=== PATIENT | female | born 1980 | race Caucasian/White ===

== ENCOUNTER 2020-04-20 11:09 | Emergency (ER) | payer OTHER, SELFPAY ==
--- NOTE | ~2020-04-20 | XR_ITS ---
XR knee LT min 4V 04/20/2020 11:56 INDICATION: Right knee contusion PROCEDURE: 4 views right knee COMPARISON: Comparison to multiple prior studies sequentially, with oldest reviewed study dated 09/22. FINDINGS: Fracture, dislocation or subluxation is not identified. Mild osteoarthritis of the patellof emoral compartment. Mild infrapatellar soft tissue swelling. No significant joint effusion. No forei gn bodies are identified. IMPRESSION: 1: NO ACUTE BONE OR JOINT ABNORMALITY IDENTIFIED. Reviewed, dictated and finalized at location A.
[2020-04-20 11:21] VITALS: BP 144/90; PULSE 77; RESP 16; TEMP 37.1; O2SAT 99
--- NOTE | 2020-04-20 11:41 | ED.LOWEXIN ---
HPI - Extremity Injury (Lower) General Chief Complaint: Extremity Injury, Lower Stated Complaint: Left knee pain Source: patient Mode of arrival: ambulatory Limitations: physical limitation (left knee pain, uses one crutch to walk) History of Present Illness HPI Narrative: This 39-year-old with a history of fibromyalgia and left meniscal injury with subsequent repair, tripped and fell down several stairs onto a concrete surface 2 days ago. Since then she has had pain in her left patella which is severe with leg extension and weight-bearing. This morning she was unable to get out of the bath tub secondary to pain with knee movement. She is very concerned about an ACL tear. takes meloxicam daily for knee pain (she was told she has [id number]) and fibromyalgia. She also scraped both knees and her left elbow; she denies increased pain in the right knee or left elbow pain. Last tetanus shot over 10 years ago. She Associated symptoms: snap/pop sensation and swelling Other symptoms: none Treatments prior to arrival: cold therapy Related Data Home Medications Medication Instructions Recorded Confirmed hyoscyamine sulfate 0.375 mg PO DAILY 04/20/20 04/20/20 meloxicam 15 mg PO DAILY 04/20/20 04/20/20 Allergies Allergy/AdvReac Type Severity Reaction Status Date / Time codeine Allergy Unknown Verified 09/07/10 14:09 doxycycline Allergy Unknown Verified 11/07/13 14:16 morphine Allergy Unknown Verified 11/07/13 14:16 Review of Systems Musculoskeletal: Musculoskeletal: Reports no additional musculoskeletal complaints Integumentary/Breasts: Skin/Breast: Reports system reviewed and no additional complaints, except as docu PMFSH Past Medical History Medical History Anemia Anxiety Colitis Depression Endometriosis Fibroids Fibromyalgia History of kidney stones History of ovarian cyst IBS (irritable bowel syndrome) UTI (urinary tract infection) Surgical History Surgical History History of cholecystectomy History of hysterectomy History of laparoscopy Hx of cystoscopy Family History Family History (Updated 11/09/13 @ 08:35 by DOCTOR UNKNOWN) Father Acute myocardial infarction Other Diabetes mellitus Family history of allergic disorder Family history of cardiovascular disease Family history of kidney disease Hypertension Social History Social History Smoking status: Current every day smoker Alcohol intake: never Gender identity (if verbalized by the patient): Female Exam Narrative: Exam Narrative: Sitting in a wheelchair with left knee extended in no acute distress. Skin: Other: Abrasions of the left and right patella and left olecranon. No surrounding erythema or drainage. Neuro: General: patient oriented x3 Extrem: Other: Left knee swelling, primarily on the medial aspect. Tenderness over the inferior portion of the patella. Negative patellar apprehension. No joint line tenderness. Varus and valgus stress test at 12:30 a.m. degrees is without instability. Sen test is negative. Pt. able to transfer from bed to wheelchair without assistance but it was very painful. Psych: Mental Status: mental status grossly normal Course Course Emergency Course: Wounds dressed. Knee immobilizer did not increase pain. Pt. advised not to use knee immobilizer for more than 2 days because of secondary knee stiffness and muscle atrophy. Vital Signs Vital signs: Vital Signs Temperature 37.1 C 04/20/20 11:21 Pulse Rate 77 04/20/20 11:21 Respiratory Rate 16 04/20/20 11:21 Blood Pressure 144/90 H 04/20/20 11:21 Pulse Oximetry 99 04/20/20 11:21 Temperature 37.1 C 04/20/20 11:21 Pulse Rate 77 04/20/20 11:21 Respiratory Rate 16 04/20/20 12:20 Blood Pressure 144/90 H 04/20/20 11:21 Pulse Oximetry 99
[2020-04-20] MEDS: TETANUS,DIPHTHERIA,AC PERTUSSIS ADULT 0.5 ML (ADACEL) IM (11:43)
[2020-04-20 12:20] VITALS: RESP 16
--- NOTE | 2020-04-20 13:07 | PCDIET ---
THERE WERE PROBLEMS WITH TRANSMISSION OF [facility]. RX DELETED TO [facility] - RX UNABLE TO SEND TO [facility] - CALL PLACED TO IT DEPARTMENT - ERP CALLS PATIENT AT HOME FOR GUIDANCE - PT REMINDED TO FOLLOW UP WITH HER PMD TOMORROW
--- NOTE | 2020-04-20 13:33 | PC.NURSE ---
TRAMADOL 50 MG CALLED INTO PHARMACIST CAROL KRISHNA
== END 2020-04-20 12:20 | disposition home or self-care (01) ==
PROVIDERS: Emergency Provider Family Medicine; PCP Internal Medicine
DX: S80.02XA Contusion of left knee, initial encounter (principal); S50.312A Abrasion of left elbow, initial encounter; M79.7 Fibromyalgia; F41.9 Anxiety disorder, unspecified; F32.9 Major depressive disorder, single episode, unspecified; K58.9 Irritable bowel syndrome, unspecified; F17.200 Nicotine dependence, unspecified, uncomplicated; W10.9XXA Fall (on) (from) unspecified stairs and steps, initial encounter
CPT/HCPCS: 73564; 90471; 90715; 99283; A9270; L1830

== ENCOUNTER 2020-06-13 02:53 | Observation (INO) | payer OTHER, SELFPAY ==
[2020-06-13] VITALS (9 sets, daily range): BP systolic 118–170; BP diastolic 62–80; PULSE 61–80; RESP 18–20; TEMP 36.1–36.9; O2SAT 97–99; BMI 30.9
--- NOTE | ~2020-06-13 | XR_ITS ---
EXAMINATION: XR chest 2V DATE: 06/13/2020 03:37 INDICATION: Mid chest burning pain. Left arm burning pain. TECHNIQUE: Frontal and lateral views of the chest were obtained. COMPARISON: Chest 2 views 10/30/2019, CT abdomen and pelvis 11/02/2019 FINDINGS: The chest demonstrates clear lungs without pneumonia, pleural effusion, or pneumothorax. Th e heart size is normal. IMPRESSION: 1. No acute cardiopulmonary disease. Reviewed, dictated and finalized at location A.
--- NOTE | 2020-06-13 03:03 | ECG_ITS ---
Measurements Intervals [place] Rate: 54 P: 17 WV: 127 QRS: 30 QRSD: 97 T: 101 QT: 431 QTc: 409 Interpretive Statements SINUS BRADYCARDIA DELAYED PRECORDIAL R/S TRANSITION BORDERLINE T WAVE ABNORMALITY- ANTEROLAT/HIGH LAT LEADS BORDERLINE ECG Electronically Signed On 06-13-2020 7:54:19 CDT by Aaron Wooten D.O.
[2020-06-13] MEDS: MAG HYDROX/ALUMINUM HYD/SIMETH 30 ML, PHENobarb/HYOSCY/ATROPINE/SCOP 32.4 MG, LIDOCAINE... PO (03:26)
[2020-06-13] MEDS: ONDANSETRON INJ 4 MG/2 ML VIAL IV PUSH (03:26)
[2020-06-13 03:33] LABS: Basophils Absolute Auto 0.08 K/mm3 (0.00-0.10); Basophils Percent Auto 0.7 % (0.0-1.0); Eosinophils Absolute Auto 0.19 K/mm3 (0.02-0.50); Eosinophils Percent Auto 1.7 % (1.0-6.0); Hematocrit 40.3 % (35.0-49.0); Hemoglobin 13.8 g/dL (12.0-15.0); Immature Granulocyte Absolute 0.04 K/mm3 (0.00-0.00); Immature Granulocyte Percent A 0.4 % (0.0-0.0); Lymphocytes Absolute Auto 3.78 K/mm3 (1.10-4.50); Lymphocytes Percent Auto 34.6 % (18.0-42.0); Mean Corpuscular HGB Conc 34.2 g/dL (32.0-36.0); Mean Corpuscular Volume 87.6 fL (78.0-102.0); Mean Platelet Volume 10.1 fl (9.2-11.8); Monocytes Absolute Auto 0.67 K/mm3 (0.10-0.90); Monocytes Percent Auto 6.1 % (2.0-11.0); Neutrophils Absolute Auto 6.2 K/mm3 (1.7-7.2); Neutrophils Percent Auto 56.5 % (50.0-70.0); Platelet Count Result 283 K/mm3 (150-420); Red Cell Distribution Width 13.4 % (11.6-14.4); White Blood Count 10.9 K/mm3 (4.8-10.8)
[2020-06-13 03:49] LABS: D Dimer 0.29 mg/L (0.19-0.50)
[2020-06-13] MEDS: SODIUM CHLORIDE 0.9% IV 1,000 ML 999 ML IV CONT (03:49)
[2020-06-13 03:52] LABS: Alanine Aminotransferase 21 U/L (14-59); Albumin Level 3.4 g/dL (3.4-5.0); Alkaline Phosphatase 80 U/L (46-116); Anion Gap 10.3 mmol/L (7-16); Aspartate Amino Transferase 14 U/L (15-37); Bilirubin,Total 0.2 mg/dL (0.00-1.00); Blood Urea Nitrogen 14 mg/dL (7-18); Calcium 8.5 mg/dL (8.5-10.1); Carbon Dioxide 27 mmol/L (21-32); Chloride 103 mmol/L (98-108); Estimated CRCL calculation 73 ml/min; Estimated Glomerular Filt Rate > 60; Glucose 108 mg/dL (70-99); Lipase 294 U/L (73-393); Osmolality Calculated 285 mOsm/kg (285-295); Potassium 3.3 mmol/L (3.5-5.1); Sodium 137 mmol/L (136-145); Total Protein 6.8 g/dL (6.4-8.2)
[2020-06-13 03:53] LABS: Troponin I 0.06 ng/mL (0.00-0.056)
[2020-06-13] MEDS: ASPIRIN 81 MG CHEWABLE TABLET 324 MG PO (03:59)
[2020-06-13 04:01] LABS: Amphetamine Screen Urine Negative (Negative); Barbiturate Screen Urine Negative (Negative); Benzodiazepines Screen Urine Negative (Negative); Cannabinoid Screen Urine Positive (Negative); Cocaine Screen Urine Negative (Negative); Methadone Screen Urine Negative (Negative); Opiate Screen Urine Negative (Negative); Phencyclidine Screen Urine Negative (Negative)
--- NOTE | 2020-06-13 04:03 | ED.CHESTPAIN ---
HPI - Chest Pain General Chief Complaint: Chest Pain Stated Complaint: chest pain Source: patient Mode of arrival: ambulatory Limitations: no limitations History of Present Illness HPI narrative: This is a 39-year-old female with significant past medical history that includes fibromyalgia, IBS, depression. that presents with some chest pain that started earlier this this evening after which she was sitting on her porch and smoking a cigarette and developed chest pressure and tightness with nausea and radiation into her left arm, she has been taking care of her daughter that recently had surgery and has increased stress level. There is no shortness of breath there is some nausea pain feels like there is a pressure-like sensation. Patient is a smoker, no illicit drug use no alcohol abuse does have a positive family history for heart disease her father. There is currently no fever or chills no abdominal pain no dysuria no flank pain. complaint: chest pain Onset (ago): hour(s) Timing of current episode: constant Prior episodes: No Onset: during rest Pain location: substernal and left chest Pain radiation: left arm Severity: moderate Pain scale (0-10): 7 Quality: heaviness Relieving factors: antacids Exacerbating factors: inspiration Associated symptoms: nausea Related Data Home Medications Medication Instructions Recorded Confirmed No Home Medications 06/13/20 06/13/20 Allergies Allergy/AdvReac Type Severity Reaction Status Date / Time codeine Allergy Unknown Verified 09/07/10 14:09 doxycycline Allergy Unknown Verified 11/07/13 14:16 morphine Allergy Unknown Verified 11/07/13 14:16 Review of Systems Review of Systems: All systems reviewed & are unremarkable except as noted in HPI and below PMFSH Past Medical History Medical History Anemia Anxiety Colitis Depression Endometriosis Fibroids Fibromyalgia History of kidney stones History of ovarian cyst IBS (irritable bowel syndrome) UTI (urinary tract infection) Family History Family History (Updated 11/09/13 @ 08:35 by DOCTOR UNKNOWN) Father Acute myocardial infarction Other Diabetes mellitus Family history of allergic disorder Family history of cardiovascular disease Family history of kidney disease Hypertension Social History Social History Smoking status: Current every day smoker Alcohol intake: never Gender identity (if verbalized by the patient): Female Exam Const: General: no acute distress and alert Orientation/consciousness: patient oriented x3 HENMT: Head: normal to inspection Eyes: Conjunctivae: conjunctivae normal Pupils: Equal, round and reactive pupils present Neck: Neck: normal visual inspection Chest: Chest palpation & inspection: normal inspection of the chest Resp: Effort & Inspection: normal respiratory effort Cardio: Rate: regular rate Rhythm: regular rhythm GI: Auscultation: normal bowel sounds Urinary Catheter: Urinary Catheter: patent and draining Back/Spine/Pelvis: Back: no CVA tenderness Skin: General skin exam: normal color Rashes: no rashes Neuro: General: patient oriented x3 Extrem: General: normal to inspection and no pedal edema Psych: Mental Status: mental status grossly normal Affect: normal affect and Anxious affect present Attitude: cooperative Course Course Emergency Course: a reassessment of patient after receiving a GI cocktail a patient states that her pain has improved, patient also received a full-dose aspirin and informed of her elevated troponin levels with a normal EKG that she will be admitted to run serial troponins. Vital Signs Vital signs: Vital Signs Temperature 36.9 C 06/13/20 03:00 Pulse Rate 74 06/13/20 03:00 Respiratory Rate 20 06/13/20 03:00 Blood Pressure 170/79 H 06/13/20 03:00 Pulse Oximetry 98 06/13/20 03:00
[2020-06-13] MEDS: POTASSIUM CHLORIDE 20 MEQ TABLET 40 MEQ PO (04:22)
--- NOTE | 2020-06-13 04:30 | ADMGEN ---
This patient, Mercedes Roy, was admitted to 2nd Floor Room 201-1. Patient/family oriented to hospital policies and general routines including ID bracelet, bed and alarms, visiting hours, pain management, procedures, bathroom and other care routines, personal items, smoking policy, room service/diet, and visiting hours. Valuables list has been completed. Information on how to activate the Rapid Response Team has been discussed. Patient/Family are encouraged to report perceived risks to care and to ask questions if they do not understand what they are told or what they should do.
[2020-06-13] MEDS: SODIUM CHLORIDE 0.9% IV 1,000 ML 100 ML IV CONT (05:08)
--- NOTE | 2020-06-13 06:00 | PC.NURSE ---
Patient appears to be sleeping. No signs of pain or distress are observed. Call light and personal items are within reach.
[2020-06-13 07:13] LABS: Troponin I 0.97 ng/mL (0.00-0.056)
--- NOTE | 2020-06-13 07:19 | PC.NURSE ---
Dr. Banegas contacted about critical troponin results. He is giving the report to the nurse practitioner at this time.
--- NOTE | 2020-06-13 07:52 | PM.EVENT ---
Event Note Event Note Event Note: Chest pain onset around 1 AM lasting 2 hours with slight dyspnea and nausea. Normal initial ECG and borderline elevated troponin of 0.06. Repeat troponin at 07:00 = 0.97. ECG = moderate T=-wave abnormality anterolateral leads c/w ischemia. ASA given in ED. Pt c/o of #4/10 chest pain which started while I was in the room. States she had a cough which started this AM. 128/68, p= 72 Lungs FCBS, Cor: RR & R, no g/m. Abd. flat and soft. Nontender. A/ NSTEMI P/ Heparin. NTG for pain. Transfer to cardiac facility. Discussed with Vonda Olea, agree with plan.
[2020-06-13 08:01] LABS: INR 0.9; Prothrombin Time 9.8 Seconds (9.64-11.0)
[2020-06-13 08:02] LABS: Partial Thromboplastin Time 34.3 SEC (22.3-31.6)
[2020-06-13] MEDS: KETOROLAC 15 MG/ML VIAL (*BKC) IV PUSH (08:15)
[2020-06-13 08:32] LABS: Magnesium 2.2 mg/dL (1.8-2.4); Phosphorus 3.8 mg/dL (2.6-4.7)
--- NOTE | 2020-06-13 08:38 | PM.IMHP ---
H&P: HPI History of Present Illness Chief complaint: chest pain <Vonda Olea, DRILLER'S ASSISTANT - Last Filed: 06/13/20 09:44> Narrative: Mercedes Roy is a 39 year old female admitted overnight due to chest pain, chest pressure, nausea vomiting, and pain (7/10) radiating to her left shoulder and left arm and left scapular region. Her white count was 11.7 at that time, her potassium was 3.3 and her troponin was 0.06. Her EKG at 3:00 a.m. showed a ventricular rate of 63 with normal sinus rhythm. Her D-dimer was WNL at 0.29. Her urine toxicity screen did show positive for marijuana (Cannabinoids) , no other recreational drugs noted in the tox screen. Her health history includes: fibromyalgia, IBS, and depression. This chest pain appeared to start earlier yesterday evening while she was sitting on her porch smoking cigarettes. At that time she developed chest pain and pressure with nausea that radiated to her left arm. She does have increased stress in her life at this time and easily becomes anxious. Her daughter recently had surgery and she has been taking care of her. Her chest discomfort, N/V was relieved to 3-4/10 during the ER admission with a GI cocktail of antacids and 325 mg ASA. At 6:00 a.m. this morning she did have a chest x-ray that showed: The chest demonstrates clear lungs without pneumonia, pleural effusion, or pneumothorax. The heart size is normal.IMPRESSION:1. No acute cardiopulmonary disease. She did have a fall approximately 2-3 weeks ago and has been having discomfort since then; but she had been attributing it to her fall. She did fall down a flight of stairs, at least 5-6 steps. She is unsure when she fell if she passed out or not. She had thought that she tripped over her own feet. The fall was unwitnessed. Her was present but he was looking in a different direction. Neither one of them could figure out how or why she fell that day according to the patient. Her father had a massive heart attack and at age 52. The patient, her sister and her brother, and her mother all have hypertension. Her mother has no other cardiac history. No CVAs in the family. She does have a history of allergies to morphine that included hives, itching, vomiting, nausea. She also has an allergy to codeine the dates much further back that included nausea and vomiting. This morning when I went to examine the patient, she was initially without pain at rest. The discomfort did return during our conversation and has become constant. She is currently still having constant substernal chest discomfort, left-sided chest pressure, with radiation to her left shoulder and arm. She currently denies any shortness of breath or dyspnea. Her spO2 has remained >94% on room air. There has been no fevers overnight or chills, no further vomiting or nausea, and no abdominal pain or flank pain. I had a repeat EKG completed this morning and found her to have changes, including sinus bradycardia with a heart rate in the 50s and a moderate T-wave abnormality with anterior lateral ischemia leads V 3 V4 V5 and V6. Her repeat Troponin level at 7:00 a.m. was elevated to 0.97. At that time I informed the patient that I would need to transfer her as she was having an NSTEMI. She stated that she would prefer going to [facility] because her 's land surveyor manager Dr. De Leon practice there, but when I called that facility to transfer her they stated that they had no rooms and it may take a while. I then called [facility] Dr. Nick Mccollum with [place] clarification operator, admitted and agreed to take the patient right away. He stated that she sounded like she had unstable angina, he was satisfied that she had received this 325 mg of aspirin already, and that she was starting on a heparin drip with a bolus at this time. <Vonda Olea, DRILLER'S ASSISTANT - Last Filed: 06/13/20 09:44> Review of System
[2020-06-13] MEDS: HEPARIN SODIUM 5,000 UNITS/ML VIAL 3700 UNITS IV PUSH (08:47)
[2020-06-13] MEDS: HEPARIN SOD/D5W 100 UNITS/ML 25,000 UNITS/250 ML BAG 7.32 UNITS IV CONT (08:48)
--- NOTE | 2020-06-13 09:00 | PC.NURSE ---
Report called to [facility] [id number]. Ambulance called to page transfer at [phone]
--- NOTE | 2020-06-13 09:05 | PC.NURSE ---
[facility] called back, not able to provide service at this time. State they only have 1 ACLS unit avaliable
--- NOTE | 2020-06-13 09:08 | PC.NURSE ---
[facility] contacted to transfer patient.
--- NOTE | 2020-06-13 09:12 | ECG_ITS ---
Measurements Intervals [place] Rate: 63 P: 21 MA: 129 QRS: 41 QRSD: 101 T: 53 QT: 403 QTc: 413 Interpretive Statements SINUS RHYTHM BASELINE ARTIFACT- II, III, AVF NORMAL ECG Electronically Signed On 06-13-2020 7:54:37 CDT by Aaron Wooten D.O.
[2020-06-13] MEDS: LORazepam 0.5 MG TABLET PO (09:45)
--- NOTE | 2020-06-13 09:48 | PM.DS ---
DS: Admitting Diagnosis Admitting Diagnosis Admitting Diagnosis: Non-ST elevation (NSTEMI) myocardial infarction DS: Discharge Diagnosis Discharge Diagnosis (1) NSTEMI (non-ST elevated myocardial infarction): Code(s): I21.4 - Non-ST elevation (NSTEMI) myocardial infarction Status: Acute Assessment and Plan: experiencing chest pain, chest pressure, nausea vomiting, pain radiating to her left shoulder and left arm and left scapular region; as well as numbness and tingling in her left arm. troponin was 0.06 at 3am , elevated to 0.97 at 7am. EKG at 3:00 a.m. showed a ventricular rate of 63 with normal sinus rhythm. D-dimer was WNL at 0.29. urine toxicity screen did show positive for marijuana (Cannabinoids) , no other recreational drugs noted in the tox screen. health history includes anxiety, current cigarette smoker, ulcerative colitis that she was on medications for but quit taking a few months ago, HTN that she was also taking medications for but quit taking a few months ago GI cocktail of antacids and 325 mg ASA chest x-ray that showed: The chest demonstrates clear lungs without pneumonia, pleural effusion, or pneumothorax. The heart size is normal.IMPRESSION:1. No acute cardiopulmonary disease. Fam Hx: father had a massive heart attack and at age 52. The patient, her sister and her brother, and her mother all have hypertension. Her mother has no other cardiac history. No CVAs in the family. ordered nitro p.r.n. she was given 325 of aspirin earlier this morning administered IV heparin bolus of 3660 units heparin, with a drip rate of 732 units/hour of heparin based on her weight of 76 kg spO2 has remained >94% on room air. repeat EKG completed this morning and found her to have changes, including sinus bradycardia with a heart rate in the 50s and a moderate T-wave abnormality with anterior lateral ischemia leads V 3 V4 V5 and V6. repeat Troponin level at 7:00 a.m. was elevated to 0.97. transfer to [facility] Teacher Dr. Nick Mccollum with [place] supervisor [facility] [employer], admitted and agreed to take the patient right away. He stated that she sounded like she had unstable angina, he was satisfied that she had received this 325 mg of aspirin already, and that she was starting on a heparin drip with a bolus at this time. (2) Unstable angina: Code(s): I20.0 - Unstable angina Status: Acute Assessment and Plan: Nitro PRN ordered. IV heparin bolus and IV heparin drip 1 dose of Toradol for pain, 15 mg Zofran for nausea patient stated that she could tolerate [place] if given with Zofran at the same time Mag and phos were both within normal limits at this time of EMS transfer arriving and patient being discharged to go to [facility] her pain was currently controlled and she denied any discomfort at this time, her heparin drip remains in place and infusing. (3) Anxiety: Code(s): F41.9 - Anxiety disorder, unspecified Status: Acute Assessment and Plan: history of anxiety and depression on no home meds Ordered a small 0.5 mg dose of oral Ativan for patient to have to endure the ambulance ride DS: Summary Time Spent with Patient Time attestation: Total time spent providing and/or coordinating discharge services:>90 minutes Exam Const: General: alert, in distress moderate and uncomfortable; No confusion Orientation/consciousness: patient oriented x3 and No confusion HENMT: Head: normal to inspection Mouth: Yes moist mucous membranes Eyes: General: appearance normal, both eyes and all related structures Conjunctivae: conjunctivae normal Pupils: Equal, round and reactive pupils present EOM: EOMs intact bilaterally Neck: Neck: normal visual inspection Chest: Chest palpation & inspection: normal inspection of the chest Resp: Effort & Inspection: normal respiratory effort Auscultation: clear to auscultation bilaterally, no crackles,
[2020-06-13 11:17] LABS: Thyroid Stimulating Hormone Reflex 1.23 u/IU/mL (0.36-3.74)
--- NOTE | 2020-06-23 14:49 | PC.NURSE ---
NS ended at 1508
--- NOTE | 2020-07-15 10:28 | PC.NURSE ---
Heparin gtt was infusing when patient was transferred via [facility] at 0945 on 05/22/2020
== END 2020-06-13 09:45 | disposition short-term general hospital (02) ==
LOC: CHSED 02:57 → CHS2ND 04:09
PROVIDERS: Nurse Practitioner; Admitting Provider Emergency Medicine; Emergency Provider Emergency Medicine; PCP Internal Medicine; Visit Provider Emergency Medicine
DX: I21.4 Non-ST elevation (NSTEMI) myocardial infarction (principal); I20.0 Unstable angina; M79.7 Fibromyalgia; K58.9 Irritable bowel syndrome, unspecified; N80.9 Endometriosis, unspecified; D25.9 Leiomyoma of uterus, unspecified; F17.210 Nicotine dependence, cigarettes, uncomplicated; F32.9 Major depressive disorder, single episode, unspecified; F41.9 Anxiety disorder, unspecified
CPT/HCPCS: 36415; 71046; 80053; 80307; 83690; 83735; 84100; 84443; 84484; 85025; 85380; 85610; 85730; 87086; 93005; 96361; 96365; 96374; 96375; 99284; 99285; A9270; G0378; J1644; J1885; J2405; J7030

== ENCOUNTER 2020-07-31 14:36 | Outpatient (CLI) | payer OTHER, SELFPAY ==
--- NOTE | ~2020-07-31 | US_ITS ---
EXAMINATION: US arterial ankle brachial ind EXAM DATE: 07/31/2020 15:43 INDICATION: Peripheral arterial disease. TECHNIQUE: Segmental pressures and plethysmographic and Doppler waveforms of the brachial and lower e xtremity arteries were obtained. There is no prior study for comparison. FINDINGS: Right and left brachial artery pressures of 108 mm Hg and 121 mm Hg, respectively, are concordant (no rmal difference <= 30 mmHg). RIGHT LEG: The ankle-brachial index (LUCIANA) is 0.83 (normal >= 0.9-1). The great toe pressure is 100 mmHg . The lower extremity ratios, segmental pressure gradients as follows; Dorsalis pedis: 0.71 (86 mmHg). Posterior tibial: 0.83 (100 mmHg). (Normal gradients <= 20-30 mmHg between adjacent levels on the same leg or the same levels on the two legs). Arterial waveforms are biphasic. LEFT LEG: The ankle-brachial index (LUCIANA) is 1.16 (normal >= 0.9-1). The great toe pressure is 118 mmHg The lower extremity ratios, segmental pressure gradients as follows; Dorsalis pedis: 1.09 (132 mmHg). Posterior tibial: 1.16 (140 mmHg). (Normal gradients <= 20-30 mmHg between adjacent levels on the same leg or the same levels on the two legs). Arterial waveforms are biphasic. IMPRESSION: 1. Right ankle-brachial index 0.83, mildly decreased. 2. Left ankle-brachial index 1.16, normal. Reviewed, dictated and finalized at location A.
== END 2020-07-31 14:37 | disposition home or self-care (01) ==
LOC: CHSIMG 14:37
PROVIDERS: PCP Internal Medicine; Visit Provider Internal Medicine
DX: I73.9 Peripheral vascular disease, unspecified (principal)
CPT/HCPCS: 93922

== ENCOUNTER 2020-09-19 16:47 | Outpatient (CLI) | payer OTHER, SELFPAY ==
--- NOTE | ~2020-09-19 | XR_ITS ---
XR chest 2V 09/19/2020 17:05 Indication: Chest pain Procedure: 2 view chest Comparison: 06/13/2020 Findings: Interval development of infiltrates of the left mid and lower lung zones. Elevated left leandro phragm. Status post median sternotomy for CABG. Impression: 1: Interval development of infiltrates of the left mid and lower lung zones with elevated left diaphr agm and interval sternotomy changes. These findings may relate to recent surgery, atelectasis and/or pneumonia. Reviewed, dictated and finalized at location A. Impression: 1: Interval development of infiltrates of the left mid and lower lung zones wit h elevated left diaphragm and interval sternotomy changes. These findings may r elate to recent surgery, atelectasis and/or pneumonia.
[2020-09-19 16:57] LABS: Basophils Absolute Auto 0.13 K/mm3 (0.00-0.10); Eosinophils Absolute Auto 0.72 K/mm3 (0.02-0.50); Eosinophils Percent Auto 5.6 % (1.0-6.0); Hematocrit 42.9 % (35.0-49.0); Hemoglobin 14.1 g/dL (12.0-15.0); Immature Granulocyte Absolute 0.06 K/mm3 (0.00-0.00); Immature Granulocyte Percent A 0.5 % (0.0-0.0); Lymphocytes Absolute Auto 4.19 K/mm3 (1.10-4.50); Lymphocytes Percent Auto 32.6 % (18.0-42.0); Mean Corpuscular HGB Conc 32.9 g/dL (32.0-36.0); Mean Corpuscular Hemoglobin 28.7 pg (27.0-31.0); Mean Corpuscular Volume 87.2 fL (78.0-102.0); Mean Platelet Volume 9.9 fl (9.2-11.8); Monocytes Absolute Auto 0.66 K/mm3 (0.10-0.90); Monocytes Percent Auto 5.1 % (2.0-11.0); Neutrophils Absolute Auto 7.1 K/mm3 (1.7-7.2); Neutrophils Percent Auto 55.2 % (50.0-70.0); Platelet Count Result 361 K/mm3 (150-420); Red Blood Count 4.92 M/mm3 (4.20-5.40); Red Cell Distribution Width 12.9 % (11.6-14.4); White Blood Count 12.8 K/mm3 (4.8-10.8)
[2020-09-19 17:48] LABS: Alanine Aminotransferase 43 U/L (14-59); Albumin Level 3.9 g/dL (3.4-5.0); Alkaline Phosphatase 129 U/L (46-116); Anion Gap 12 mmol/L (8-16); Aspartate Amino Transferase 23 U/L (15-37); Bilirubin,Total 0.2 mg/dL (0.00-1.00); Blood Urea Nitrogen 15 mg/dL (7-18); CRP 0.8 mg/dL (0.0-0.9); Calcium 9.3 mg/dL (8.5-10.1); Carbon Dioxide 28 mmol/L (21-32); Chloride 101 mmol/L (98-108); Estimated Glomerular Filt Rate > 60; Glucose 84 mg/dL (70-99); Magnesium 2.1 mg/dL (1.8-2.4); Osmolality Calculated 291 mOsm/kg (285-295); Potassium 4.6 mmol/L (3.5-5.1); Sodium 141 mmol/L (136-145); Thyroid Stimulating Hormone 2.02 uIU/mL (0.36-3.74); Total Protein 7.4 g/dL (6.4-8.2)
[2020-09-19 17:49] LABS: BNP 156 pg/mL (0-100)
== END 2020-09-19 16:48 | disposition home or self-care (01) ==
LOC: CHSLAB 16:48
PROVIDERS: PCP Internal Medicine; Visit Provider Internal Medicine
DX: I42.9 Cardiomyopathy, unspecified (principal); I50.9 Heart failure, unspecified; J90 Pleural effusion, not elsewhere classified
CPT/HCPCS: 36415; 71046; 80053; 83735; 83880; 84443; 85025; 86140

== ENCOUNTER 2020-09-25 10:28 | Emergency (ER) | payer OTHER, SELFPAY ==
--- NOTE | ~2020-09-25 | CT_ITS ---
EXAMINATION: CT abdomen pelvis wo con EXAM DATE: 09/25/2020 11:10 INDICATION: Right flank pain, right lower quadrant pain, hematuria. Symptoms 3 days. TECHNIQUE: Spiral CT of the abdomen and pelvis was performed without contrast. Axial, coronal and sag ittal images were reviewed. The dose-length product (DLP) for this examination was 248.40 mGy-cm. T he exposure was tailored according to patient size (auto mA exposure control), and iterative reconstr uction (ASIR) was used as additional dose reduction technique. Comparison is made to prior examinatio n from 11/02/2019. FINDINGS: There is 3 x 5 mm curvilinear stone in the right ureter proximally, at the L3-4 disc space. No hydronephrosis at present. There is punctate left nephrolithiasis. There is a 2.2 cm right renal cyst with milk of calcium. The uterus is not identified and has likely been surgically resected. Th e bladder is collapsed at time of imaging limiting evaluation. The liver, spleen, adrenal glands and pancreas are unremarkable. There are cholecystectomy clips. There is no retroperitoneal or pelvic lymphadenopathy. The appendix is normal. There is mild scattered colonic diverticulosis. There is no adjacent inflamm atory change to suggest diverticulitis. The stomach and small bowel are unremarkable. There is expec neftali amount of colonic stool. No free intraperitoneal gas. The heart is normal in size. There are no pericardial or pleural effusions. The lung bases are unremarkable. There are no osteoblastic or osteolytic lesions identified. Sternotomy wires. IMPRESSION: 1. Right proximal ureteral 3 x 5 mm stone. No hydronephrosis at present. Could be intermittently obs tructing. 2. Punctate left nephrolithiasis. 3. Scattered colonic diverticulosis. Urologist consultants would appreciate KUB as baseline for follow-up, treatment planning. Reviewed, dictated and finalized at location B. ERY ATTENDANT IMPRESSION: 1. Right proximal ureteral 3 x 5 mm stone. No hydronephrosis at present. Could be intermittently obstructing. 2. Punctate left nephrolithiasis. 3. Scattered colonic diverticulosis. Urologist consultants would appreciate KUB as baseline for follow-up, treatmen t planning.
[2020-09-25 10:40] VITALS: BP 110/68; PULSE 95; RESP 16; TEMP 36.6; O2SAT 97
[2020-09-25 10:46] LABS: Add Urine Microscopic? YES; Appearance Urine Cloudy (Clear); Bilirubin Urine Negative (Negative); Blood Urine 3+ (Negative); Color Urine Red (Yellow); Glucose Urine UA Negative (Negative); Ketones Urine 1+ (Negative); Leukocyte Esterase Ur 2+ LEU/UL (Negative); Nitrate Urine Positive (Negative); Protein Urine 3+ (Negative); Specific Grav Ur >= 1.030 (1.010-1.020); pH Urine 6.5 (5.0-8.0)
[2020-09-25 10:51] LABS: Bacteria Urine 4+ /hpf; RBC Urine >75 /hpf (0-2); Squamous Epithelial Cell Urine Few /hpf (Few); WBC Urine 31-50 /hpf (0-3)
[2020-09-25 11:02] LABS: Basophils Absolute Auto 0.11 K/mm3 (0.00-0.10); Basophils Percent Auto 1.1 % (0.0-1.0); Eosinophils Absolute Auto 0.74 K/mm3 (0.02-0.50); Eosinophils Percent Auto 7.4 % (1.0-6.0); Hematocrit 41.4 % (35.0-49.0); Hemoglobin 13.6 g/dL (12.0-15.0); Immature Granulocyte Absolute 0.03 K/mm3 (0.00-0.00); Immature Granulocyte Percent A 0.3 % (0.0-0.0); Lymphocytes Absolute Auto 3.31 K/mm3 (1.10-4.50); Mean Corpuscular HGB Conc 32.9 g/dL (32.0-36.0); Mean Corpuscular Hemoglobin 28.5 pg (27.0-31.0); Mean Corpuscular Volume 86.6 fL (78.0-102.0); Mean Platelet Volume 9.7 fl (9.2-11.8); Monocytes Absolute Auto 0.55 K/mm3 (0.10-0.90); Monocytes Percent Auto 5.5 % (2.0-11.0); Neutrophils Absolute Auto 5.3 K/mm3 (1.7-7.2); Neutrophils Percent Auto 52.7 % (50.0-70.0); Platelet Count Result 340 K/mm3 (150-420); Red Blood Count 4.78 M/mm3 (4.20-5.40); Red Cell Distribution Width 13.3 % (11.6-14.4)
[2020-09-25 11:14] LABS: Prothrombin Time 10.1 Seconds (9.64-11.0)
[2020-09-25 11:17] LABS: Alanine Aminotransferase 37 U/L (14-59); Albumin Level 3.6 g/dL (3.4-5.0); Alkaline Phosphatase 118 U/L (46-116); Anion Gap 11 mmol/L (8-16); Aspartate Amino Transferase 14 U/L (15-37); Bilirubin,Total 0.2 mg/dL (0.00-1.00); Blood Urea Nitrogen 11 mg/dL (7-18); Calcium 9.2 mg/dL (8.5-10.1); Carbon Dioxide 25 mmol/L (21-32); Chloride 106 mmol/L (98-108); Estimated Glomerular Filt Rate > 60; Osmolality Calculated 293 mOsm/kg (285-295); Potassium 4.1 mmol/L (3.5-5.1); Sodium 142 mmol/L (136-145); Total Protein 7.4 g/dL (6.4-8.2)
[2020-09-25] MEDS: SODIUM CHLORIDE 0.9% IV 1,000 ML 999 ML IV CONT (11:17)
[2020-09-25] MEDS: KETOROLAC 30 MG/ML VIAL (*BKC) IV PUSH (11:18)
[2020-09-25] MEDS: ONDANSETRON INJ 4 MG/2 ML VIAL IV PUSH (11:18)
[2020-09-25 11:22] LABS: Glucose 93 mg/dL (70-99)
--- NOTE | 2020-09-25 11:37 | ED.FEMALEGU ---
HPI - Female Genitourinary General Chief complaint: Urogenital-Female Stated complaint: urinanting blood Source: patient Mode of arrival: ambulatory Limitations: no limitations History of Present Illness HPI Narrative: This is a 40-year-old female presents with some right flank pain and discomfort with dysuria and hematuria started over the last day or 2 but intensified over the last few hours having a right flank pain radiating into her right groin and pelvic area with dysuria, some nausea rates her pain about 8/10 has a history of kidney stones and has seen a urologist in the past. Patient has no fever or chills no shortness of breath no chest pain no diarrhea or constipation. Patient has a history of CAD and currently is on aspirin and Plavix, with no chest pain or shortness of breath. MD elicited complaint: dysuria Onset (ago): hour(s) Severity: moderate Female Urogenital Radiation: Periumbilical and R Flank Severity scale (1-10): 8 Quality of pain: aching Consistency: intermittent Vaginal discharge: none Vaginal bleeding: none Urinary symptoms: Dysuria, Urgency, Frequency, Hematuria and Flank Pain Relieving factors: none Related Data Home Medications Medication Instructions Recorded Confirmed aspirin [Adult Aspirin] 81 mg PO DAILY 09/25/20 09/25/20 atorvastatin 20 mg PO DAILY 09/25/20 09/25/20 bupropion HCl 150 mg PO HS 09/25/20 09/25/20 clopidogrel [Plavix] 75 mg PO DAILY 09/25/20 09/25/20 duloxetine 20 mg PO BID 09/25/20 09/25/20 metoprolol succinate 25 mg PO DAILY 09/25/20 09/25/20 pantoprazole [Protonix] 40 mg PO QAM 09/25/20 09/25/20 sacubitril-valsartan [Entresto] 1 tablet PO BID 09/25/20 09/25/20 spironolactone 25 mg PO DAILY 09/25/20 09/25/20 Allergies Allergy/AdvReac Type Severity Reaction Status Date / Time codeine Allergy Unknown Verified 09/07/10 14:09 doxycycline Allergy Unknown Verified 11/07/13 14:16 morphine Allergy Unknown Verified 11/07/13 14:16 Review of Systems Review of Systems: All systems reviewed & are unremarkable except as noted in HPI and below PMFSH Past Medical History Medical History (Updated 09/25/20 @ 11:43 by Silvestre Banegas MD) Anemia Anxiety Colitis Depression Endometriosis Fibroids Fibromyalgia History of kidney stones History of ovarian cyst IBS (irritable bowel syndrome) UTI (urinary tract infection) Surgical History Surgical History History of cholecystectomy History of hysterectomy History of laparoscopy Hx of cystoscopy Family History Family History Father Acute myocardial infarction Other Diabetes mellitus Family history of allergic disorder Family history of cardiovascular disease Family history of kidney disease Hypertension Social History Social History Smoking packs per day: 2 Smoking cigarettes per day: 40.0 Years smoked: 20 Smoking pack-years: 40.00 Smoking status: Current every day smoker Tobacco type: cigarettes Second hand tobacco smoke exposure: Yes Alcohol intake: never Substance use: current Substance use type: marijuana Last use: 06/12/20 Gender identity (if verbalized by the patient): Female Spiritual care concerns: No Exam Const: General: no acute distress and alert Orientation/consciousness: patient oriented x3 HENMT: Head: normal to inspection Eyes: Conjunctivae: conjunctivae normal Pupils: Equal, round and reactive pupils present EOM: EOMs intact bilaterally Neck: Neck: normal visual inspection, no lymphadenopathy and no meningeal signs Chest: Chest palpation & inspection: normal inspection of the chest Resp: Effort & Inspection: normal respiratory effort Auscultation: clear to auscultation bilaterally Cardio: Rate: regular rate Rhythm: regular rhythm GI: GI Palp: Yes Soft to palpation Other: Tender supra
[2020-09-25] MEDS: HYDROmorphone HCL INJ (*CRX) 2 MG/ML VIAL 0.5 MG IV PUSH (12:02)
--- NOTE | 2020-09-25 12:36 | ECG_ITS ---
Measurements Intervals [place] Rate: 63 P: 0 HI: 130 QRS: 37 QRSD: 97 T: 159 QT: 437 QTc: 449 Interpretive Statements SINUS RHYTHM POOR R WAVE PROGRESSION, ANTERIOR LEADS ST-T WAVE ABNORMALITY IN ANTEROLAT/HIGH LAT LEADS- CONSIDER ISCHEMIA ABNORMAL ECG Electronically Signed On 09-25-2020 13:31:25 METAL MACHINE OPERATOR by Aaron Wooten D.O.
[2020-09-25 13:19] LABS: Troponin I 0.02 ng/mL (0.00-0.056)
[2020-09-25 13:27] VITALS: BP 103/62; PULSE 68; O2SAT 98
== END 2020-09-25 13:30 | disposition home or self-care (01) ==
PROVIDERS: Emergency Provider Emergency Medicine; PCP Internal Medicine
DX: N20.1 Calculus of ureter (principal); N30.01 Acute cystitis with hematuria; F17.200 Nicotine dependence, unspecified, uncomplicated
CPT/HCPCS: 36415; 74176; 80053; 81001; 84484; 85025; 85610; 85730; 87086; 93005; 96361; 96365; 96375; 99284; J0696; J1170; J1885; J2405; J7030

== ENCOUNTER 2020-09-25 22:55 | Emergency (ER) | payer OTHER, SELFPAY ==
[2020-09-25 22:55] VITALS: BP 117/69; PULSE 80; RESP 20; TEMP 36.5; O2SAT 98
--- NOTE | 2020-09-25 23:06 | ED.FEMALEGU ---
HPI - Female Genitourinary General Stated complaint: kidney stone Source: patient and family Mode of arrival: ambulatory Limitations: no limitations History of Present Illness HPI Narrative: this is a 40-year-old female with a history of urolithiasis seen in the emergency department earlier today and diagnosed with a right ureter stone measuring 3x5 was given pain medication and was told to follow-up with her urologist. The patient returned to the emergency department with continued pain in the right flank area, initially did get relief but the pain started to intensify over the last hour. Currently there is no fever chills no chest pain no shortness of breath no nausea vomiting does have dysuria and burning with some crampy suprapubic discomfort. Patient has appointment with her urologist in the morning. I gave her the option of transferring her to another facility but she said she would be content with some getting a pain shot and getting her some relief and keeping her follow-up appointment with her primary urologist. MD elicited complaint: dysuria Onset (ago): hour(s) Severity: similar to previous episodes Female Urogenital Radiation: R Flank Severity scale (1-10): 8 Quality of pain: aching Consistency: constant Vaginal discharge: none Vaginal bleeding: none Related Data Home Medications Medication Instructions Recorded Confirmed aspirin [Adult Aspirin] 81 mg PO DAILY 09/25/20 09/25/20 atorvastatin 20 mg PO DAILY 09/25/20 09/25/20 bupropion HCl 150 mg PO HS 09/25/20 09/25/20 clopidogrel [Plavix] 75 mg PO DAILY 09/25/20 09/25/20 duloxetine 20 mg PO BID 09/25/20 09/25/20 metoprolol succinate 25 mg PO DAILY 09/25/20 09/25/20 pantoprazole [Protonix] 40 mg PO QAM 09/25/20 09/25/20 sacubitril-valsartan [Entresto] 1 tablet PO BID 09/25/20 09/25/20 spironolactone 25 mg PO DAILY 09/25/20 09/25/20 Allergies Allergy/AdvReac Type Severity Reaction Status Date / Time codeine Allergy Unknown Verified 09/07/10 14:09 doxycycline Allergy Unknown Verified 11/07/13 14:16 morphine Allergy Unknown Verified 11/07/13 14:16 Review of Systems Review of Systems: All systems reviewed & are unremarkable except as noted in HPI and below PMFSH Past Medical History Medical History (Updated 09/26/20 @ 00:00 by Background Dabrigidon) Anemia Anxiety Colitis Depression Endometriosis Fibroids Fibromyalgia History of kidney stones History of ovarian cyst IBS (irritable bowel syndrome) UTI (urinary tract infection) Surgical History Surgical History History of cholecystectomy History of hysterectomy History of laparoscopy Hx of cystoscopy Family History Family History Father Acute myocardial infarction Other Diabetes mellitus Family history of allergic disorder Family history of cardiovascular disease Family history of kidney disease Hypertension Social History Social History Smoking packs per day: 2 Smoking cigarettes per day: 40.0 Years smoked: 20 Smoking pack-years: 40.00 Smoking status: Current every day smoker Tobacco type: cigarettes Second hand tobacco smoke exposure: Yes Alcohol intake: never Substance use: current Substance use type: marijuana Last use: 06/12/20 Gender identity (if verbalized by the patient): Female Spiritual care concerns: No Exam Const: General: no acute distress Orientation/consciousness: patient oriented x3 HENMT: Head: normal to inspection Eyes: Conjunctivae: conjunctivae normal Pupils: Equal, round and reactive pupils present Neck: Neck: normal visual inspection, no lymphadenopathy and no meningeal signs Chest: Chest palpation & inspection: normal inspection of the chest Resp: Effort & Inspection: normal respiratory effort Auscultation: clear to auscultation bilaterally Cardio: Rate:
[2020-09-25] MEDS: HYDROmorphone HCL INJ (*CRX) 2 MG/ML VIAL 1 MG IV PUSH (23:15)
[2020-09-25] MEDS: SODIUM CHLORIDE 0.9% IV 500 ML 999 ML ×2 (23:20→23:56)
[2020-09-25 23:36] VITALS: BP 102/59; O2SAT 64
--- NOTE | 2020-09-25 23:39 | PC.NURSE ---
Addendum entered by Guru Meadows RN 09/26/20 00:35: spoke with jad crowley. Original Note: pt requesting transfer to [place], has an appt with dr dominguez at 215pm. spoke with Domenica, bottle house pumper. awaiting call back
[2020-09-26] MEDS: ONDANSETRON INJ 4 MG/2 ML VIAL IV PUSH (00:20)
[2020-09-26] MEDS: KETOROLAC 30 MG/ML VIAL (*BKC) IV PUSH (00:32)
--- NOTE | 2020-09-26 00:35 | PC.NURSE ---
call to [place], multiple pages to dr dominguez. awaiting return call. pt continues to have bladder spasms.
--- NOTE | 2020-09-26 00:35 | PC.NURSE ---
Patient requested ice chips, sitting on the side of bed at this time.
--- NOTE | 2020-09-26 01:07 | PC.NURSE ---
call to [facility], no response from dr dominguez. carline stated she spoke with dr miller, hospitalist, he is aware of pt. stated he would call when he gets a chance.
--- NOTE | 2020-09-26 01:24 | PC.NURSE ---
pt offered to transfer to another facility due to extended response time , pt declined due to insurance reasons.
[2020-09-26 01:25] VITALS: BP 96/60; PULSE 59; RESP 20; O2SAT 98
--- NOTE | 2020-09-26 01:41 | PC.NURSE ---
erp dr archer speaking with dr miller from [place].
--- NOTE | 2020-09-26 01:47 | PC.NURSE ---
Dr miller declined admission at this time, need to contact dr dominguez. call to [facility]. will return call.
--- NOTE | 2020-09-26 01:50 | PC.NURSE ---
[facility] returned call, dr dominguez responded to several pages and will be calling. [id number] dr archer talking with dr dominguez.
--- NOTE | 2020-09-26 01:56 | PC.NURSE ---
awaiting bed placement from [facility].
[2020-09-26 02:08] VITALS: BP 99/57; PULSE 62; RESP 20; TEMP 37.1; O2SAT 97
--- NOTE | 2020-09-26 02:11 | PC.NURSE ---
CALL TO [facility]. AWAITING ARRIVAL
== END 2020-09-26 02:38 | disposition short-term general hospital (02) ==
PROVIDERS: Emergency Provider Emergency Medicine; PCP Internal Medicine
DX: N20.1 Calculus of ureter (principal)
CPT/HCPCS: 96361; 96374; 96375; 99285; J1170; J1885; J2405; J7040

== ENCOUNTER 2020-09-26 03:13 | Observation (INO) | payer OTHER, SELFPAY ==
--- NOTE | ~2020-09-26 | XR_ITS ---
EXAMINATION: XR abdomen/kub 1V INDICATION: Right UPJ stone TECHNIQUE: Supine views of the abdomen were obtained on 2 radiographs. COMPARISON: CT from yesterday FINDINGS: A 5 mm calcification projects in the right pelvis at the expected location of the ureterove sicular junction which likely reflects interval distal migration of the previously described right pr oximal ureteral stone. Phleboliths are noted in the right pelvis. The bowel gas pattern is normal. Deluna rgical clips are noted in the left pelvis. Cholecystectomy clips are seen in the right upper quadrant . IMPRESSION: 1. 5 mm calcification at the expected location of the right ureterovesicular junction, likely represe nting the previously described ureteral stone. Reviewed, dictated and finalized at location A. CAL INSTRUMENT MAKER IMPRESSION: 1. 5 mm calcification at the expected location of the right ureterovesicular ju nction, likely representing the previously described ureteral stone.
--- NOTE | 2020-09-26 03:26 | ADMGEN ---
This patient, Mercedes Roy, was admitted to 2 Medical Room 250-01. Patient/family oriented to hospital policies and general routines including ID bracelet, bed and alarms, visiting hours, pain management, procedures, bathroom and other care routines, personal items, smoking policy, room service/diet, and visiting hours. Information on how to activate the Rapid Response Team has been discussed. Patient/Family are encouraged to report perceived risks to care and to ask questions if they do not understand what they are told or what they should do.
[2020-09-26 03:53] VITALS: BP 114/69; PULSE 86; RESP 20; TEMP 36.1; O2SAT 98; BMI 29.5
[2020-09-26] MEDS: SODIUM CHLORIDE 0.9% IV 1,000 ML 120 ML IV CONT (04:42)
[2020-09-26] MEDS: HYDROmorphone HCL INJ (*CRX) 1 MG/ML SYR 0.5 MG IV PUSH (04:48)
[2020-09-26 06:00] VITALS: BP 120/60; PULSE 90; RESP 21; TEMP 36.1; O2SAT 100
[2020-09-26 06:11] LABS: Basophils Absolute Auto 0.1 K/mm3 (0.0-0.1); Basophils Percent Auto 0.6 % (0.2-1.2); Eosinophils Absolute Auto 0.1 K/mm3 (0-0.3); Eosinophils Percent Auto 0.5 % (0-4.4); Hematocrit 37.1 % (37.0-47.0); Hemoglobin 12.3 g/dL (12.0-15.0); Immature Granulocyte Absolute 0.04 K/mm3 (0.00-0.031); Immature Granulocyte Percent A 0.3 % (0-0.5); Lymphocytes Absolute Auto 1.91 K/mm3 (0.9-3.2); Lymphocytes Percent Auto 15.1 % (18.3-44.2); Mean Corpuscular HGB Conc 33.2 g/dl (32-36); Mean Corpuscular Hemoglobin 29.2 pg (26-34); Mean Corpuscular Volume 88.1 fl (80-100); Mean Platelet Volume 10.3 fl (7.4-10.4); Monocytes Absolute Auto 0.5 K/mm3 (0.1-0.6); Monocytes Percent Auto 3.7 % (2.6-8.5); Neutrophils Absolute Auto 10.1 K/mm3 (1.3-6.7); Neutrophils Percent Auto 79.8 % (45.5-73.1); Platelet Count Result 286 k/mm3 (150-375); Red Blood Count 4.21 M/mm3 (4.2-5.4); Red Cell Distribution Width 13.4 % (11.5-14.5); White Blood Count 12.7 K/mm3 (4.5-10.0)
[2020-09-26 06:20] LABS: Anion Gap 5 mmol/L (8-16); Blood Urea Nitrogen 13 mg/dL (7-17); Calcium 8.7 mg/dL (8.4-10.2); Carbon Dioxide 24 mmol/L (22-30); Chloride 109 mmol/L (98-107); Estimated CRCL calculation 85 ml/min; Estimated Glomerular Filt Rate > 60; Glucose 113 mg/dL (65-105); Potassium 4.4 mmol/L (3.4-5.0); Sodium 138 mmol/L (137-145)
--- NOTE | 2020-09-26 08:39 | WPDURCON ---
Assessment and Plan Assessment and plan (1) Urolithiasis: Qualifiers: Urinary calculus location: ureter Qualified Code(s): N20.1 - Calculus of ureter Code(s): N20.9 - Urinary calculus, unspecified Status: Acute Assessment and Plan: Plan to go to the OR today: Cystoscopy, right ureteral stent placement, right retrograde pyelogram. Obtain consent. Keep NPO. Will get a KUB to confirm stone visibility for future surgical planning (ESWL). (2) UTI (urinary tract infection): Code(s): N39.0 - Urinary tract infection, site not specified Status: Acute Assessment and Plan: Urine culture is pending, would recommend IV antibiotics, potentially Ceftriaxone. Tailor antibiotics to culture results. Will need to reculture if positive prior to ESWL in the office sometime next week. Urology Consult Note HPI Date Seen: 09/26/20 Requesting Physician: Donny Contreras MD Primary Care Provider: Gregorio Woo MD Consult Narrative Narrative: Mercedes Roy is a 40 year old female who presented to the ER in [place] yesterday morning after she wok up and noted gross hematuria. She was diagnosed with a right proximal ureteral stone measuring 5mm on CT scan, discharged home to follow up with Dr. Fairchild with antibiotics. She then developed severe nausea, RLQ pain, vomiting, urgency to urinate, frequency, diarrhea and right flank pain and proceeded back to [place] ER and was transferred here for management of her stone. She denies dysuria, fever or chills. She does have a history of stones and stent placements at [facility]. She has a WBC of 12.7, creatinine is normal at 0.70 and UA is suspicious for UTI, urine culture is pending. No KUB was done to see if stone was visible. Review of Systems Cardiovascular: Cardiovascular: Denies chest pain Respiratory: Respiratory: Reports no additional respiratory complaints Gastrointestinal: Gastrointestinal: Reports abdominal pain, Reports nausea and Reports vomiting Genitourinary: Genitourinary: Reports hematuria, Reports nocturia, Denies dysuria, Reports pelvic pain, Reports flank pain and Reports urinary urgency PMFSH Past Medical History Medical History (Updated 09/26/20 @ 08:43 by Geovanna Diaz, APOLONIA) Anemia Anxiety Colitis Depression Endometriosis Fibroids Fibromyalgia History of kidney stones History of ovarian cyst IBS (irritable bowel syndrome) UTI (urinary tract infection) Surgical History Surgical History History of cholecystectomy History of hysterectomy History of laparoscopy Hx of cystoscopy Family History Family History Father Acute myocardial infarction Family history of cardiovascular disease Family history of kidney disease Hypertension Grandparent Diabetes mellitus Sibling Family history of allergic disorder Social History Social History Smoking packs per day: 1.5 Smoking cigarettes per day: 30.0 Years smoked: 20 Smoking pack-years: 30.00 Smoking status: Former smoker Tobacco type: cigarettes Second hand tobacco smoke exposure: Yes Alcohol intake: never Substance use: never Substance use type: marijuana Last use: 06/12/20 Gender identity (if verbalized by the patient): Female Sexual Orientation (if Verbalized by the Patient): Straight or Heterosexual Spiritual care concerns: No Meds Home Medications and Allergies Home Medications Medication Instructions Recorded Confirmed Type amlodipine [Norvasc] 2.5 mg PO DAILY #7 tablet 09/25/20 09/26/20 Rx aspirin [Adult Aspirin] 81 mg PO DAILY 09/25/20 09/26/20 History atorvastatin 20 mg PO DAILY 09/25/20 09/26/20 History bupropion HCl 150 mg PO HS 09/25/20 09/26/20 History clopidogrel [Plavix] 75 mg PO DAILY 09/25/20 09/26/20 History duloxetine 20 mg PO
--- NOTE | 2020-09-26 08:47 | WPDANESEPPF ---
Anes - Initial Pre Proc Eval Procedure: Operation Date: 09/26/20 10:00 Proposed Procedures p Cystoscopy, Right Stent Placement(Right) - Rikki Beltrán MD Date/Time: 09/26/20 08:47 Surgeon: Donny Contreras MD Pre Op Diagnosis: Kidney Stones Patient Data Age: 40 Gender: F Height: 1.57 m Weight: 73.2 kg Last Vital Signs Temp 36.1 C L 09/26/20 06:00 Pulse 90 09/26/20 06:00 Resp 21 H 09/26/20 06:00 BP 120/60 09/26/20 06:00 Pulse Ox 100 09/26/20 06:00 Allergies Allergy/AdvReac Type Severity Reaction Status Date / Time codeine Allergy Unknown Nausea and Verified 09/26/20 03:46 Vomiting doxycycline Allergy Unknown Hives Verified 09/26/20 03:46 morphine Allergy Unknown Hives Verified 09/26/20 03:46 Home Medications Medication Instructions Recorded Confirmed Type amlodipine [Norvasc] 2.5 mg PO DAILY #7 tablet 09/25/20 09/26/20 Rx aspirin [Adult Aspirin] 81 mg PO DAILY 09/25/20 09/26/20 History atorvastatin 20 mg PO DAILY 09/25/20 09/26/20 History bupropion HCl 150 mg PO HS 09/25/20 09/26/20 History clopidogrel [Plavix] 75 mg PO DAILY 09/25/20 09/26/20 History duloxetine 20 mg PO BID 09/25/20 09/26/20 History metoprolol succinate 25 mg PO DAILY 09/25/20 09/26/20 History nitrofurantoin macrocrystal 100 mg PO BID #14 cap 09/25/20 09/26/20 Rx [Macrodantin] ondansetron HCl [Zofran] 4 mg PO Q6H PRN #10 tablet 09/25/20 09/26/20 Rx pantoprazole [Protonix] 40 mg PO QAM 09/25/20 09/26/20 History sacubitril-valsartan [Entresto] 1 tablet PO BID 09/25/20 09/26/20 History spironolactone 25 mg PO DAILY 09/25/20 09/26/20 History tamsulosin [Flomax] 0.4 mg PO DAILY #7 cap 09/25/20 09/26/20 Rx tramadol [Ultram] 50 mg PO Q6H PRN #20 tablet 09/25/20 09/26/20 Rx Laboratory Tests 09/26/20 09/26/20 05:30 05:30 WBC 12.7 K/mm3 H K/mm3 (4.5-10.0) RBC 4.21 M/mm3 M/mm3 (4.2-5.4) Hgb 12.3 g/dL g/dL (12.0-15.0) Hct 37.1 % % (37.0-47.0) MCV 88.1 fl fl (80-100) MCH 29.2 pg pg (26-34) MCHC 33.2 g/dl g/dl (32-36) RDW 13.4 % % (11.5-14.5) Plt Count 286 k/mm3 k/mm3 (150-375) MPV 10.3 fl fl (7.4-10.4) Immature Gran % (Auto) 0.3 % % (0-0.5) Neut % (Auto) 79.8 % H % (45.5-73.1) Lymph % (Auto) 15.1 % L % (18.3-44.2) [place] % (Auto) 3.7 % % (2.6-8.5) Eos % (Auto) 0.5 % % (0-4.4) Baso % (Auto) 0.6 % % (0.2-1.2) Lymph # (Auto) 1.91 K/mm3 K/mm3 (0.9-3.2) [place] # (Auto) 0.5 K/mm3 K/mm3 (0.1-0.6) Eos # (Auto) 0.1 K/mm3 K/mm3 (0-0.3) Baso # (Auto) 0.1 K/mm3 K/mm3 (0.0-0.1) Abs Immat Gran (auto) 0.04 K/mm3 H K/mm3 (0.00-0.031) Absolute Neuts (auto) 10.1 K/mm3 H K/mm3 (1.3-6.7) Absolute Nucleated RBC 0.0 K/mm3 K/mm3 (0.0-0.012) Nucleated RBC % 0.0 % % (0.0-0.2) Sodium 138 mmol/L mmol/L (137-145) Potassium 4.4 mmol/L mmol/L (3.4-5.0) Chloride 109 mmol/L H mmol/L (98-107) Carbon Dioxide 24 mmol/L mmol/L (22-30) Anion Gap 5 mmol/L L mmol/L (8-16) BUN 13 mg/dL mg/dL (7-17) Creatinine 0.70 mg/dL mg/dL (0.7-1.0) Estim Creat Clear Calc 85 ml/min ml/min Estimated GFR > 60 (59 - ) Glucose 113 mg/dL H mg/dL (65-105) Calcium 8.7 mg/dL mg/dL (8.4-10.2) [facility] Past Medical History Medical History (Updated 09/26/20 @ 08:51 by Gama Prado MD) Anemia Anxiety CAD (coronary artery disease) Cardiac defibrillator in place life vest Cardiomyopathy Chest pain CHF (congestive heart failure) Colitis Depression DVT (deep venous thrombosis) Endometriosis Fibroids Fibromyalgia History of kidney stones History of ovarian cyst HTN (hypertension) Hx of myocardial infarction Hypercholesterolemia IBS (irritable bowel syndrome) NSTEMI (non-ST elevated myocardial infarction) Unstable angina UTI (urinary tract infection) [facility]
[2020-09-26 14:00] VITALS: BP 102/60; PULSE 73; RESP 17; TEMP 36.4; O2SAT 99
--- NOTE | 2020-09-26 14:20 | PCDIET ---
Received Nutrition Screen. Plans for patient to be transferred out of hospital. Diet order: NPO. Will assess if patient remains as an inpatient.
--- NOTE | 2020-09-26 15:26 | PM.SD ---
Same Day Admit/Disch: HPI History of Present Illness Chief complaint: Kidney Stones Narrative: Date of Admission 09/26/20 Date of Transfer to Outside Facility/ Date of Service 09/26/20 The supervising physician for this same day admission/transfer is Dr Owen Farr. Please note that this documentation additionally serves as an H&P and transfer summary. Ms. 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 She presented to [facility] 09/25/20 for evaluation of right flank pain and vomiting. CT abdomen/pelvis demonstrated a 3x5 mm right proximal ureteral stone, no hydronephrosis, possible intermittent obstruction, punctate left nephrolithiasis. She was discharged from [facility] that morning with Macrobid and Flomax. Patient returned home and describes that her flank pain began to worsen with associated vomiting and she returned again to [facility] ED when the pain became too much for her to bear. She has seen Dr. Beltrán in the past, last in 2014, and she was transferred to [facility] for urologic consultation. She describes her right flank pain as a sharp, stabbing 6/10 severity at this time. Associated nausea and vomiting have resolved this morning. She notes she is having bladder spasms at rest. She describes hematuria yesterday with bright red blood in urine, describes her urine this morning looked like [employer]. She denies any chest pain, shortness of breath, fevers or chills at home, sick contacts or any known exposure to COVID positive persons. She is known to have significant cardiac history including acute HI s/p 2 vessel CABG in May 2020 at [facility]. Her established processor solid propellant is Dr. Nick Han at [facility]. Records have been requested but she describes her most recent echocardiogram was within the last 2 weeks and demonstrated an EF of 25%. She describes she has had intermittent chest pressure and shortness of breath over the last several weeks (none today), which prompted repeat cardiac catheterization 09/09/20, demonstrating 2 patent coronary grafts and no coronary stents were placed. She tells me she was waiting to hear back from Dr Han's office to determine if they were going to continue medical management or if she was going to transfer care to [facility] heart transplant team soon. She was seen in evaluation by Urology, Dr. Beltrán. Given her complex cardiologic history and perioperative risk, Dr. Beltrán and Anesthesiology decided she would be most appropriate to transfer back to [facility] for further management and ureteral stenting where her processor solid propellant would be available for consultation if needed. She is hemodynamically stable for transfer to [facility] on 09/26/20. She has been kept NPO today in hopes she may be able to undergo ureteral stenting once transferred. Latest vital signs are as follows: Last Vital Signs Temp 97.6 F 09/26/20 14:00 Pulse 73 09/26/20 14:00 Resp 17 09/26/20 14:00 BP 102/60 09/26/20 14:00 Pulse Ox 99 09/26/20 14:00 [facility] Past Medical History Medical History (Updated 09/26/20 @ 16:07 by Autumn De La Fuente PA-C) Anemia Anxiety CAD (coronary artery disease) Cardiac defibrillator in place Has been wearing LifeVest since August 2020. A&P Technician is Dr Nick Han. Cardiomyopathy Chest pain CHF (congestive heart failure) Colitis Depression DVT (deep venous thrombosis) Endometriosis Fibroids Fibromyalgia History of kidney stones History of ovarian cyst HTN (hypertension) Hx of myocardial infarction Hypercholesterolemia IBS (irritable bowel syndrome) NSTEMI (non-ST elevated myocardial infarction) Unstable angina UTI (urinary tract infec
== END 2020-09-26 15:27 | disposition short-term general hospital (02) ==
PROVIDERS: Admitting Provider Family Medicine; PCP Internal Medicine; Referring Provider Urology; Visit Provider Hospitalist
DX: N20.1 Calculus of ureter (principal); I25.10 Atherosclerotic heart disease of native coronary artery without angina pectoris; I42.9 Cardiomyopathy, unspecified; I25.2 Old myocardial infarction; Z95.1 Presence of aortocoronary bypass graft; I11.0 Hypertensive heart disease with heart failure; I50.9 Heart failure, unspecified; M79.7 Fibromyalgia; K58.9 Irritable bowel syndrome, unspecified; F41.8 Other specified anxiety disorders; E78.00 Pure hypercholesterolemia, unspecified; Z79.82 Long term (current) use of aspirin; Z79.899 Other long term (current) drug therapy; Z86.718 Personal history of other venous thrombosis and embolism; Z87.442 Personal history of urinary calculi; Z87.891 Personal history of nicotine dependence; Z95.810 Presence of automatic (implantable) cardiac defibrillator
CPT/HCPCS: 36415; 74018; 80048; 85025; 96365; 96367; 96375; 96376; G0378; J0131; J0696; J1170; J7030

== ENCOUNTER 2020-10-29 08:46 | Outpatient (CLI) | payer OTHER, SELFPAY ==
--- NOTE | ~2020-10-29 | MR_ITS ---
EXAMINATION: MR shoulder LT wo con DATE: 10/29/2020 10:12 INDICATION: Left shoulder pain TECHNIQUE: Magnetic resonance imaging (MRI) of the left shoulder was performed without intravenous co ntrast. Sequences included axial PD-weighted FS FSE, coronal oblique PD-weighted FS FSE, coronal obli que T2-weighted FS FSE, sagittal PD-weighted FS FSE, and sagittal T1-weighted SE. COMPARISON: None. FINDINGS: Coracoacromial arch: The acromion undersurface is minimally curved in morphology (type I-II). The coracoacromial ligament is normal. Acromioclavicular joint is normal. Rotator cuff: The supraspinatus, infraspinatus and teres minor tendons are normal. The subscapularis tendon is norm al. Normal rotator cuff muscle bulk and signal. Biceps tendon, glenoid labrum and glenohumeral cartilage: Long head of the biceps tendon is normal. There is a small tear at the 10:30-11:00 position of the po sterior superior labrum. Glenohumeral cartilage is normal. Fluid: Physiologic amount of fluid in the glenohumeral joint and biceps tendon sheath. No loose osteochondra l bodies. Small amount of fluid in the subacromial/subdeltoid bursa consistent with mild bursitis. Bones: Normal marrow signal with no edema, fracture or abnormal marrow replacing process. IMPRESSION: 1. Small tear at the posterior superior glenoid labrum. 2. Mild subacromial/subdeltoid bursitis. Reviewed, dictated and finalized at location A. CIATE PRODUCT INTEGRITY ENGINEER
== END 2020-10-29 08:47 | disposition home or self-care (01) ==
LOC: CHSIMG 08:47
PROVIDERS: PCP Internal Medicine; Visit Provider Internal Medicine
DX: M25.512 Pain in left shoulder (principal)
CPT/HCPCS: 73221

== ENCOUNTER 2021-02-09 14:14 | Emergency (ER) | payer OTHER, SELFPAY ==
--- NOTE | ~2021-02-09 | XR_ITS ---
XR chest 2V 02/09/2021 14:48 Indication: Left-sided chest pain Procedure: 2 view chest Comparison: Comparison to multiple prior studies sequentially, with oldest reviewed study dated 05/2016. Findings: Status post median sternotomy for CABG. There are linear opacities of the left mid and lowe r thorax. No significant pleural effusion. No pneumothorax Impression: 1: Linear infiltrates of the left mid and lower lung which may represent atelectasis/scarring or less likely atypical pneumonia. Reviewed, dictated and finalized at location A. Impression: 1: Linear infiltrates of the left mid and lower lung which may represent atelec tasis/scarring or less likely atypical pneumonia.
[2021-02-09 14:16] VITALS: BP 124/95; PULSE 80; RESP 16; TEMP 36.8; O2SAT 99
--- NOTE | 2021-02-09 14:16 | ECG_ITS ---
Measurements Intervals [place] Rate: 89 P: 17 [place]: 132 QRS: 130 QRSD: 108 T: 106 QT: 376 QTc: 459 Interpretive Statements SINUS RHYTHM WITH SINUS ARRHYTHMIA RIGHT AXIS DEVIATION BORDERLINE R WAVE PROGRESSION, ANTERIOR LEADS MINIMAL Q WAVES- INFERIOR LEADS BORDERLINE T WAVE ABNORMALITY- ANTEROLAT/HIGH LAT LEADS BASELINE ARTIFACT- I, III, AVR, AVL, AVF, V1-V3 BORDERLINE ECG Electronically Signed On 02-09-2021 14:23:40 CDT by Aaron Wooten D.O.
[2021-02-09 14:47] LABS: Basophils Percent Auto 0.9 % (0.0-1.0); Eosinophils Absolute Auto 0.25 K/mm3 (0.02-0.50); Eosinophils Percent Auto 2.3 % (1.0-6.0); Hematocrit 42.4 % (35.0-49.0); Hemoglobin 14.3 g/dL (12.0-15.0); Immature Granulocyte Absolute 0.03 K/mm3 (0.00-0.00); Immature Granulocyte Percent A 0.3 % (0.0-0.0); Lymphocytes Absolute Auto 3.38 K/mm3 (1.10-4.50); Lymphocytes Percent Auto 30.7 % (18.0-42.0); Mean Corpuscular HGB Conc 33.7 g/dL (32.0-36.0); Mean Corpuscular Hemoglobin 28.4 pg (27.0-31.0); Mean Corpuscular Volume 84.3 fL (78.0-102.0); Mean Platelet Volume 10.5 fl (9.2-11.8); Monocytes Absolute Auto 0.48 K/mm3 (0.10-0.90); Monocytes Percent Auto 4.4 % (2.0-11.0); Neutrophils Absolute Auto 6.8 K/mm3 (1.7-7.2); Neutrophils Percent Auto 61.4 % (50.0-70.0); Platelet Count Result 304 K/mm3 (150-420); Red Blood Count 5.03 M/mm3 (4.20-5.40); Red Cell Distribution Width 14.3 % (11.6-14.4)
[2021-02-09 15:01] LABS: BNP 152 pg/mL (0-100)
[2021-02-09] MEDS: ONDANSETRON INJ 4 MG/2 ML VIAL IV PUSH (15:01)
[2021-02-09 15:03] VITALS: BP 102/60; PULSE 80; RESP 16; O2SAT 98
[2021-02-09 15:04] LABS: D Dimer 0.26 mg/L (0.19-0.50)
[2021-02-09 15:08] LABS: Alanine Aminotransferase 38 U/L (14-59); Albumin Level 3.9 g/dL (3.4-5.0); Alkaline Phosphatase 105 U/L (46-116); Anion Gap 10 mmol/L (8-16); Aspartate Amino Transferase 21 U/L (15-37); Bilirubin,Total 0.4 mg/dL (0.00-1.00); Blood Urea Nitrogen 10 mg/dL (7-18); Carbon Dioxide 30 mmol/L (21-32); Chloride 100 mmol/L (98-108); Estimated CRCL calculation 61 ml/min; Estimated Glomerular Filt Rate > 60; Glucose 89 mg/dL (70-99); Lipase 95 U/L (73-393); Osmolality Calculated 288 mOsm/kg (285-295); Potassium 3.5 mmol/L (3.5-5.1); Sodium 140 mmol/L (136-145); Total Protein 7.6 g/dL (6.4-8.2)
[2021-02-09 15:09] LABS: Troponin I 11.5 ng/L (0.00-60.4)
--- NOTE | 2021-02-09 15:18 | ED.CHESTPAIN ---
HPI - Chest Pain General Chief Complaint: Chest Pain Stated Complaint: ambulance Source: patient and EMS History of Present Illness HPI narrative: This is a 40-year-old female with an extensive heart history has a life vest/defibrillator after she had a myocardial infarction and history of CAD had an episode of chest discomfort pressure like and has resolved prior to her arrival to the emergency department via EMS. There is no shortness of breath no radiation of her pain no nausea or vomiting initially. Eventually the patient did feel nauseous with no shortness of breath no fever chills no cough. The patient recently was started on Lasix at a dose of 80 mg in the morning and 40 mg in the evening. Patient also has a history of hyperlipidemia and hypertension. MD complaint: chest pain Onset (ago): hour(s) Timing of current episode: now resolved Prior episodes: Yes Onset: during exertion Pain location: left chest Pain radiation: none Severity: mild Quality: tightness Related Data Home Medications Medication Instructions Recorded Confirmed aspirin [Adult Aspirin] 81 mg PO DAILY 09/25/20 02/09/21 bupropion HCl 150 mg PO HS 09/25/20 02/09/21 clopidogrel [Plavix] 75 mg PO DAILY 09/25/20 02/09/21 duloxetine 20 mg PO BID 09/25/20 02/09/21 metoprolol succinate 25 mg PO DAILY 09/25/20 02/09/21 pantoprazole [Protonix] 40 mg PO QAM 09/25/20 02/09/21 sacubitril-valsartan [Entresto] 1 tablet PO BID 09/25/20 02/09/21 spironolactone 25 mg PO DAILY 09/25/20 02/09/21 apixaban [Eliquis] 5 mg PO BID 02/09/21 02/09/21 melatonin 5 mg PO HS PRN 02/09/21 02/09/21 meloxicam 15 mg PO DAILY 02/09/21 02/09/21 torsemide 20 mg PO QAM 02/09/21 02/09/21 Allergies Allergy/AdvReac Type Severity Reaction Status Date / Time codeine Allergy Unknown Nausea and Verified 09/26/20 03:46 Vomiting doxycycline Allergy Unknown Hives Verified 09/26/20 03:46 morphine Allergy Unknown Hives Verified 09/26/20 03:46 Review of Systems Review of Systems: All systems reviewed & are unremarkable except as noted in HPI and below PMFSH Past Medical History Medical History Anemia Anxiety CAD (coronary artery disease) Cardiac defibrillator in place Has been wearing LifeVest since August 2020. Yard Supervisor is Dr Nick Han. Cardiomyopathy Chest pain CHF (congestive heart failure) Colitis Depression DVT (deep venous thrombosis) Endometriosis Fibroids Fibromyalgia History of kidney stones History of ovarian cyst HTN (hypertension) Hx of myocardial infarction Hypercholesterolemia IBS (irritable bowel syndrome) NSTEMI (non-ST elevated myocardial infarction) Unstable angina UTI (urinary tract infection) Surgical History Surgical History History of cholecystectomy around 2009 History of hysterectomy Around 2008 due to endometriosis History of laparoscopy Patient tells me she has had nearly 20 laparoscopies for endometriosis. Hx of cystoscopy around 2011 S/P CABG x 22 May 2020 at [facility]. Yard Supervisor is Dr Nick Han. Family History Family History Father , Age 56 Acute myocardial infarction Family history of cardiovascular disease Family history of kidney disease Hypertension Grandparent , Passed in 50s from acute [place] Diabetes mellitus Pancreatic cancer Lung cancer Acute myocardial infarction Sibling Family history of allergic disorder Social History Social History Social History: Ms. Roy lives at home with her and children in [place], [place]. 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 She denies alcohol use. Smoked 1.5 packs per day x 20 years and quit in May 2020 at time of her VT. She reports smoking marijuana occasional
[2021-02-09 15:35] VITALS: BP 117/71; PULSE 60; RESP 14; O2SAT 98
== END 2021-02-09 15:38 | disposition home or self-care (01) ==
PROVIDERS: Emergency Provider Emergency Medicine; PCP Internal Medicine
DX: R07.9 Chest pain, unspecified (principal); I50.9 Heart failure, unspecified
CPT/HCPCS: 36415; 71046; 80053; 83690; 83880; 84484; 85025; 85380; 93005; 96374; 99283; 99284; J2405

== ENCOUNTER 2021-06-09 22:15 | Emergency (ER) | payer OTHER, SELFPAY ==
[2021-06-09 22:34] VITALS: BP 110/52; PULSE 73; RESP 20; TEMP 36.9; O2SAT 97
--- NOTE | 2021-06-09 22:43 | ED.WOUNDLAC ---
HPI - Wound/Laceration General Chief Complaint: Wound/Laceration Stated Complaint: AMB Time Seen by Provider: 06/09/21 22:36 Source: patient, EMS and RN notes reviewed Mode of arrival: EMS Limitations: no limitations History of Present Illness HPI narrative: post right groin catheterization x 2 weeks. oozing from #2 puncture wounds Onset (ago): week(s) (2) Location: other (groin) Place: home Patient tetanus UTD: Yes Associated symptoms: none Related Data Home Medications Medication Instructions Recorded Confirmed aspirin [Adult Aspirin] 81 mg PO DAILY 09/25/20 02/09/21 bupropion HCl 150 mg PO HS 09/25/20 02/09/21 clopidogrel [Plavix] 75 mg PO DAILY 09/25/20 02/09/21 duloxetine 20 mg PO BID 09/25/20 02/09/21 metoprolol succinate 25 mg PO DAILY 09/25/20 02/09/21 pantoprazole [Protonix] 40 mg PO QAM 09/25/20 02/09/21 spironolactone 25 mg PO DAILY 09/25/20 02/09/21 apixaban [Eliquis] 5 mg PO BID 02/09/21 02/09/21 melatonin 5 mg PO HS PRN 02/09/21 02/09/21 meloxicam 15 mg PO DAILY 02/09/21 02/09/21 torsemide 20 mg PO QAM 02/09/21 02/09/21 amlodipine 5 mg PO DAILY 06/09/21 06/09/21 atorvastatin 80 mg PO HS 06/09/21 06/09/21 buspirone 15 mg PO HS 06/09/21 06/09/21 losartan 25 mg PO DAILY 06/09/21 06/09/21 montelukast 10 mg PO DAILY 06/09/21 06/09/21 nicotine 1 patch TOPICAL DAILY 06/09/21 06/09/21 nitroglycerin 0.3 mg SUBLINGUAL DAILY PRN 06/09/21 06/09/21 ranolazine [Ranexa] 500 mg PO BID 06/09/21 06/09/21 Allergies Allergy/AdvReac Type Severity Reaction Status Date / Time codeine Allergy Unknown Nausea and Verified 06/09/21 22:40 Vomiting doxycycline Allergy Unknown Hives Verified 06/09/21 22:40 morphine Allergy Unknown Hives Verified 06/09/21 22:40 Review of Systems Review of Systems: All systems reviewed & are unremarkable except as noted in HPI and below Constitutional: Constitutional: Reports as per HPI and Reports no additional constitutional complaints Eyes: Eyes: Reports as per HPI and Reports no additional eye complaints ENT: Reports system reviewed and no additional complaints, except as documented and Reports as per HPI Cardiovascular: Cardiovascular: Reports as per HPI, Reports no additional cardiovascular complaints and Reports chest pain Respiratory: Respiratory: Reports as per HPI and Reports no additional respiratory complaints Gastrointestinal: Gastrointestinal: Reports as per HPI and Reports no additional gastrointestinal complaints Genitourinary: Genitourinary: Reports no additional female genitourinary complaints and Reports as per HPI Musculoskeletal: Musculoskeletal: Reports no additional musculoskeletal complaints and Reports as per HPI Integumentary/Breasts: Skin/Breast: Reports system reviewed and no additional complaints, except as docu and Reports as per HPI Neurologic: Reports system reviewed and no additional complaints, except as documented and Reports as per HPI Psychiatric: Psychiatric: Reports no additional psychiatric complaints and Reports as per HPI Endocrine: Endocrine: Reports no additional endocrine complaints and Reports as per HPI Hematologic/Lymphatic: Hematologic/Lymphatic: Reports no additional hematologic/lymphatic complaints Allergic/Immunologic: Allergic/Immunologic: Reports no additional allergic/immunologic complaints PMFSH Past Medical History Medical History Anemia Anxiety CAD (coronary artery disease) Cardiac defibrillator in place Has been wearing LifeVest since August 2020. Concrete Block Layer is Dr Nick Han. Cardiomyopathy Chest pain CHF (congestive heart failure) Colitis Depression DVT (deep venous thrombosis) Endometriosis Fibroids Fibromyalgia History of kidney stones History of ovarian cyst HTN (hypertension) Hx of myocardial infarction Hypercholesterolemia IBS (irritable bowel syndrome) NSTEMI (non-ST elevated myocardial infarction) Unstable angina UTI (urinary tract infection)
[2021-06-09 22:49] VITALS: BP 108/64; PULSE 72; RESP 20; TEMP 36.9; O2SAT 98
== END 2021-06-09 22:53 | disposition home or self-care (01) ==
PROVIDERS: Emergency Provider Emergency Medicine; PCP Internal Medicine
DX: L98.499 Non-pressure chronic ulcer of skin of other sites with unspecified severity (principal); T81.89XA Other complications of procedures, not elsewhere classified, initial encounter
CPT/HCPCS: 99282

== ENCOUNTER 2021-07-29 10:09 | Emergency (ER) | payer OTHER, SELFPAY ==
--- NOTE | ~2021-07-29 | XR_ITS ---
EXAMINATION: XR chest 1V portable INDICATION: Chest pain and fatigue, cough TECHNIQUE: Portable AP chest at 1108 hours COMPARISON: 02/09/2021 FINDINGS: The lungs are free of acute opacities. There is no pleural effusion or pneumothorax. The he art size is normal. Median sternotomy wires and mediastinal surgical clips are seen, likely from prio r coronary artery bypass grafting. There is been interval insertion of a dual-lead cardiac pacemaker of the left chest wall which ends with leads in expected locations. IMPRESSION: 1. No acute cardiopulmonary abnormality. Reviewed, dictated and finalized at location B.
--- NOTE | 2021-07-29 10:14 | ED.CHESTPAIN ---
HPI - Chest Pain General Chief Complaint: Chest Pain Stated Complaint: chest pain Time Seen by Provider: 07/29/21 10:15 Source: patient Mode of arrival: wheelchair Limitations: no limitations History of Present Illness HPI narrative: 41-year-old woman with a history of coronary artery disease status post bypass and stents and CHF comes today from cardiac rehab with sharp left-sided chest pain that started while she was on the treadmill. She states that she stopped the treadmill and sat down in the pain improved but then seemed to come back again. She is having no pain now. She had no nausea, lightheadedness, sweating, or shortness of breath with the chest pain. She denies recent illness. She had a coronary stent placed in May of this year. MD complaint: chest pain Pertinent past history: coronary artery disease, prior SC and CABG Onset (ago): minute(s) (20) Timing of current episode: episodic Prior episodes: No Onset: during exertion Pain location: left chest Pain radiation: none Severity: moderate Quality: sharp Relieving factors: rest Exacerbating factors: nothing Context: recent surgery Treatment prior to arrival: none Risk Factors Coronary artery disease risk factors: smoking history, hyperlipidemia and hypertension Related Data On Oral Contraceptives: No Home Medications Medication Instructions Recorded Confirmed aspirin [Adult Aspirin] 81 mg PO DAILY 09/25/20 07/29/21 bupropion HCl 150 mg PO DAILY 09/25/20 07/29/21 duloxetine 20 mg PO DAILY 09/25/20 07/29/21 metoprolol succinate 25 mg PO DAILY 09/25/20 07/29/21 pantoprazole [Protonix] 20 mg PO QAM 09/25/20 07/29/21 spironolactone 25 mg PO DAILY 09/25/20 07/29/21 apixaban [Eliquis] 5 mg PO BID 02/09/21 07/29/21 torsemide 20 mg PO QAM PRN 02/09/21 07/29/21 buspirone 15 mg PO TID 06/09/21 07/29/21 losartan 25 mg PO DAILY 06/09/21 07/29/21 montelukast 10 mg PO DAILY 06/09/21 07/29/21 nitroglycerin 0.3 mg SUBLINGUAL DAILY PRN 06/09/21 07/29/21 ranolazine [Ranexa] 500 mg PO DAILY 06/09/21 07/29/21 atorvastatin 80 mg PO HS 07/29/21 07/29/21 hydrocodone-acetaminophen [[place]] 1 tablet PO Q8H PRN 07/29/21 07/29/21 lorazepam [Ativan] 0.5 mg PO BID PRN 07/29/21 07/29/21 Allergies Allergy/AdvReac Type Severity Reaction Status Date / Time codeine Allergy Unknown Nausea and Verified 07/29/21 10:31 Vomiting doxycycline Allergy Unknown Hives Verified 07/29/21 10:31 morphine Allergy Unknown Hives Verified 07/29/21 10:31 Review of Systems Review of Systems: All systems reviewed & are unremarkable except as noted in HPI and below Constitutional: Constitutional: Denies chills and Denies fever(s) Eyes: Eyes: Denies change in vision and Denies photophobia ENT: Denies nasal congestion and Denies sore throat Cardiovascular: Cardiovascular: Reports chest pain and Denies radiating jaw, neck or arm pain Respiratory: Respiratory: Denies cough, Denies dyspnea and Denies wheezing Gastrointestinal: Gastrointestinal: Denies abdominal pain, Denies diarrhea, Denies nausea and Denies vomiting Musculoskeletal: Musculoskeletal: Denies arthralgias, Denies joint swelling and Denies muscle cramps Integumentary/Breasts: Skin/Breast: Denies pruritus, Denies erythema and Denies rash Neurologic: Denies vertigo, Denies dizziness and Denies syncope Allergic/Immunologic: Allergic/Immunologic: Denies lip swelling and Denies tongue swelling PMFSH Past Medical History Medical History Anemia Anxiety CAD (coronary artery disease) Cardiac defibrillator in place Has been wearing LifeVest since August 2020. Dinkey Press Operator is Dr Nick Han. Cardiomyopathy Chest pain CHF (congestive heart failure) Colitis Depression DVT (deep venous thrombosis) Endometriosis Fibroids Fibromyalgia History of kidney stones History of ovarian cyst HTN (hypertension) Hx of myocardial infarction Hypercholesterolemia IBS (irritable bowel syndrome)
[2021-07-29 10:15] VITALS: BP 131/83; PULSE 75; RESP 16; TEMP 36.7; O2SAT 98
--- NOTE | 2021-07-29 10:15 | ECG_ITS ---
Measurements Intervals [place] Rate: 75 P: 22 HI: 137 QRS: 76 QRSD: 98 T: 113 QT: 385 QTc: 432 Interpretive Statements SINUS RHYTHM BORDERLINE R WAVE PROGRESSION, ANTERIOR LEADS T WAVE ABNORMALITY IN ANTERIOR LEADS- CONSIDER ISCHEMIA ABNORMAL ECG Electronically Signed On 07-29-2021 10:33:38 CDT by Aaron Wooten D.O.
[2021-07-29] MEDS: ASPIRIN 81 MG CHEWABLE TABLET 324 MG PO (10:25)
[2021-07-29 10:43] LABS: Basophils Absolute Auto 0.09 K/mm3 (0.00-0.10); Eosinophils Absolute Auto 0.24 K/mm3 (0.02-0.50); Eosinophils Percent Auto 2.7 % (1.0-6.0); Hematocrit 37.7 % (35.0-49.0); Hemoglobin 12.8 g/dL (12.0-15.0); Immature Granulocyte Absolute 0.02 K/mm3 (0.00-0.00); Immature Granulocyte Percent A 0.2 % (0.0-0.0); Lymphocytes Absolute Auto 3.12 K/mm3 (1.10-4.50); Mean Corpuscular Hemoglobin 29.8 pg (27.0-31.0); Mean Corpuscular Volume 87.7 fL (78.0-102.0); Mean Platelet Volume 9.5 fl (9.2-11.8); Monocytes Absolute Auto 0.69 K/mm3 (0.10-0.90); Monocytes Percent Auto 7.7 % (2.0-11.0); Neutrophils Absolute Auto 4.8 K/mm3 (1.7-7.2); Neutrophils Percent Auto 53.4 % (50.0-70.0); Platelet Count Result 312 K/mm3 (150-420); Red Cell Distribution Width 13.3 % (11.6-14.4); White Blood Count 8.9 K/mm3 (4.8-10.8)
[2021-07-29 11:01] LABS: SARS-CoV-2 Ag Negative (Negative)
[2021-07-29 11:06] LABS: Alanine Aminotransferase 58 U/L (14-59); Albumin Level 3.5 g/dL (3.4-5.0); Alkaline Phosphatase 90 U/L (46-116); Anion Gap 10 mmol/L (8-16); Aspartate Amino Transferase 33 U/L (15-37); Bilirubin,Total 0.4 mg/dL (0.00-1.00); Blood Urea Nitrogen 15 mg/dL (7-18); Calcium 9.1 mg/dL (8.5-10.1); Carbon Dioxide 29 mmol/L (21-32); Chloride 103 mmol/L (98-108); Estimated CRCL calculation 64 ml/min; Estimated Glomerular Filt Rate > 60; Glucose 86 mg/dL (70-99); Lipase 124 U/L (73-393); NT Pro B Type Natriuretic Pept 196 pg/mL (0-125); Osmolality Calculated 293 mOsm/kg (285-295); Potassium 4.1 mmol/L (3.5-5.1); Sodium 142 mmol/L (136-145); Total Protein 6.9 g/dL (6.4-8.2); Troponin I 9.3 ng/L (0.00-60.4)
--- NOTE | 2021-07-29 11:28 | PC.NURSE ---
REPORT RECEIVED FROM SALINAS VAZQUEZ
[2021-07-29 11:57] VITALS: BP 107/66; PULSE 61; RESP 18; O2SAT 99
--- NOTE | 2021-07-29 12:46 | PC.NURSE ---
DR. ARREOLA, CADIOLOGIST, PAGED AT THIS TIME FOR CONSULT. AWAITING CALL BACK
--- NOTE | 2021-07-29 13:25 | PC.NURSE ---
0522 DR. ARREOLA CONTACTED ERP. SEE ERP DOCUMENTATION
[2021-07-29 13:52] VITALS: BP 104/63; PULSE 63; RESP 19; O2SAT 97
== END 2021-07-29 14:03 | disposition home or self-care (01) ==
PROVIDERS: Emergency Provider Emergency Medicine; PCP Internal Medicine
DX: R07.89 Other chest pain (principal); Z20.822 Contact with and (suspected) exposure to COVID-19; I25.10 Atherosclerotic heart disease of native coronary artery without angina pectoris; I50.9 Heart failure, unspecified; Z87.891 Personal history of nicotine dependence
CPT/HCPCS: 36415; 71045; 80053; 83690; 83880; 84484; 85025; 87426; 93005; 99283; 99284; A9270; C9803

== ENCOUNTER 2021-10-02 16:08 | Outpatient (CLI) | payer OTHER, SELFPAY ==
--- NOTE | ~2021-10-02 | XR_ITS ---
EXAMINATION: XR abdomen obstructive series EXAM DATE: 10/02/2021 16:39 INDICATION: Constipation/abd pain w/ N/V x3wks, hx of many abd surg. TECHNIQUE: Frontal upright projection of the upper abdomen, frontal projection of the lower abdomen f or interpretation. Comparison is made to prior examination from 09/26/2020. FINDINGS: There is expected amount of colonic stool and gas. No small bowel dilation, nonobstructiv e bowel gas pattern. Right upper quadrant calcification appears to shift in position between films, probably. Ingested density within bowel. There is no organomegaly suspected. The bones are unremar kable. There is no free intraperitoneal air. The lung bases are clear. There are cholecystectomy clips. Left-sided pelvic surgical clips. Cardiac pacemaker/AICD leads. IMPRESSION: Unremarkable abdomen x-ray exam. Reviewed, dictated and finalized at location A. L FURNITURE PANEL COVERER
== END 2021-10-02 16:09 | disposition home or self-care (01) ==
LOC: CHSLAB 16:09
PROVIDERS: PCP Internal Medicine; Visit Provider Nurse Practitioner Family
DX: K59.00 Constipation, unspecified (principal); R10.9 Unspecified abdominal pain
CPT/HCPCS: 74019

== ENCOUNTER 2021-10-12 08:14 | Outpatient (CLI) | payer OTHER, SELFPAY ==
--- NOTE | ~2021-10-12 | US_ITS ---
EXAMINATION: US right upper quadrant EXAM DATE: 10/12/2021 08:28 INDICATION: Abdominal swelling, elevated liver enzymes. TECHNIQUE: Multiple grayscale and Doppler images of the abdomen right upper quadrant were obtained (b y a technologist who performed the scan) and subsequently reviewed. There is no prior study for jos pretty. FINDINGS: The pancreatic head and body are normal in appearance. The pancreatic tail is not visualized. The l iver has normal echogenicity and contour. There are no focal liver lesions identified. There is no evidence of intrahepatic biliary duct dilation. Portal venous flow was seen in the hepatopedal, nor mal direction and has normal Doppler waveform. No right-sided hydronephrosis. Common bile duct measures 3 mm, which is normal. The gallbladder fossa is unremarkable. IMPRESSION: 1. Unremarkable abdominal ultrasound exam. Reviewed, dictated and finalized at location A. S TECH
== END 2021-10-12 08:15 | disposition home or self-care (01) ==
LOC: CHSIMG 08:15
PROVIDERS: PCP Internal Medicine; Visit Provider Internal Medicine
DX: R94.5 Abnormal results of liver function studies (principal); R19.00 Intra-abdominal and pelvic swelling, mass and lump, unspecified site
CPT/HCPCS: 76705

== ENCOUNTER 2021-10-14 11:00 | Outpatient (RCR) | payer OTHER, SELFPAY ==
--- NOTE | 2021-10-21 13:21 | PCCPR ---
Patient has requested to be discharged from cardiac rehab due to medical issues unresolved. Will notify referring physician. Pt discharged.
== END 2021-10-21 13:13 | disposition home or self-care (01) ==
PROVIDERS: PCP Internal Medicine; Visit Provider Internal Medicine
DX: Z95.1 Presence of aortocoronary bypass graft (principal)
CPT/HCPCS: 93798

== ENCOUNTER 2021-10-29 21:26 | Emergency (ER) | payer OTHER, SELFPAY ==
--- NOTE | ~2021-10-29 | XR_ITS ---
EXAMINATION: XR chest 1V portable EXAM DATE: 10/29/2021 21:55 INDICATION: Chest pain @ LT lower lung area. TECHNIQUE: Portable AP frontal chest x-ray was obtained. Comparison is made to prior examination from 07/29/2021. FINDINGS: There is a dual lead pacemaker/AICD seen with leads projecting over the expected locations of the right atrial appendage and right ventricle. Sternotomy wires are present without findings to s uggest sternal dehiscence. The cardiomediastinal silhouette is prominent but magnified on this AP kaveh hnique. Cardiac silhouette is stable in size compared to prior exam. No confluent consolidation, pneu mothorax or pleural effusion suspected. There are no osseous abnormalities identified. IMPRESSION: No acute cardiopulmonary findings. Reviewed, dictated and finalized at location A. UTER SCIENCE TEACHER
--- NOTE | 2021-10-29 21:36 | ECG_ITS ---
Measurements Intervals [place] Rate: 72 P: -57 [place]: 132 QRS: 72 QRSD: 104 T: 94 QT: 403 QTc: 442 Interpretive Statements ECTOPIC ATRIAL RHYTHM INCOMPLETE RIGHT BUNDLE BRANCH BLOCK BORDERLINE R WAVE PROGRESSION, ANTERIOR LEADS ST-T WAVE ABNORMALITY IN ANTERIOR LEADS- CONSIDER ISCHEMIA BASELINE ARTIFACT- I, II, III, AVR, AVL, AVF ABNORMAL ECG Electronically Signed On 10-30-2021 8:19:46 CATH LAB RADIOLOGICAL TECHNOLOGIST by Aaron Wooten D.O.
[2021-10-29 21:46] VITALS: BP 117/72; PULSE 64; PULSE 79; RESP 16; TEMP 36.8; O2SAT 98
[2021-10-29 21:53] LABS: Basophils Absolute Auto 0.09 K/mm3 (0.00-0.10); Basophils Percent Auto 0.8 % (0.0-1.0); Eosinophils Absolute Auto 0.39 K/mm3 (0.02-0.50); Eosinophils Percent Auto 3.6 % (1.0-6.0); Hematocrit 39.3 % (35.0-49.0); Hemoglobin 13.6 g/dL (12.0-15.0); Immature Granulocyte Absolute 0.04 K/mm3 (0.00-0.00); Immature Granulocyte Percent A 0.4 % (0.0-0.0); Lymphocytes Absolute Auto 3.71 K/mm3 (1.10-4.50); Lymphocytes Percent Auto 34.4 % (18.0-42.0); Mean Corpuscular HGB Conc 34.6 g/dL (32.0-36.0); Mean Corpuscular Hemoglobin 29.8 pg (27.0-31.0); Mean Corpuscular Volume 86.2 fL (78.0-102.0); Mean Platelet Volume 10.3 fl (9.2-11.8); Monocytes Absolute Auto 0.68 K/mm3 (0.10-0.90); Monocytes Percent Auto 6.3 % (2.0-11.0); Neutrophils Absolute Auto 5.9 K/mm3 (1.7-7.2); Neutrophils Percent Auto 54.5 % (50.0-70.0); Platelet Count Result 328 K/mm3 (150-420); Red Blood Count 4.56 M/mm3 (4.20-5.40); Red Cell Distribution Width 13.4 % (11.6-14.4); White Blood Count 10.8 K/mm3 (4.8-10.8)
[2021-10-29 22:07] LABS: Partial Thromboplastin Time 32.8 SEC (23.90-30.70)
[2021-10-29 22:16] LABS: Alanine Aminotransferase 28 U/L (14-59); Albumin Level 3.8 g/dL (3.4-5.0); Alkaline Phosphatase 107 U/L (46-116); Anion Gap 13 mmol/L (8-16); Aspartate Amino Transferase 18 U/L (15-37); Bilirubin,Total 0.2 mg/dL (0.00-1.00); Blood Urea Nitrogen 18 mg/dL (7-18); Carbon Dioxide 26 mmol/L (21-32); Chloride 99 mmol/L (98-108); Estimated CRCL calculation 52 ml/min; Estimated Glomerular Filt Rate 49; Glucose 100 mg/dL (70-99); Lipase 216 U/L (73-393); NT Pro B Type Natriuretic Pept 382 pg/mL (0-125); Osmolality Calculated 287 mOsm/kg (285-295); Potassium 3.2 mmol/L (3.5-5.1); Sodium 138 mmol/L (136-145); Total Protein 7.6 g/dL (6.4-8.2)
--- NOTE | 2021-10-29 23:53 | ED.CHESTPAIN ---
HPI - Chest Pain General Chief Complaint: Chest Pain Stated Complaint: chest pain, rib pain Source: patient Mode of arrival: ambulatory Limitations: no limitations History of Present Illness HPI narrative: this is a 41-year-old female with a history of heart disease presents with atypical chest pain left chest with no radiation no nausea vomiting the patient did take some nitro at home with no relief with no nausea vomiting no shortness of breath no fever chills. Patient denies any abdominal pain no nausea vomiting no dysuria no flank pain. Pain on the left side of her chest is reproducible with palpation and movement. MD complaint: chest pain and chest discomfort Pertinent past history: coronary artery disease Onset (ago): hour(s) Timing of current episode: episodic Prior episodes: Yes Onset: during rest Pain location: left chest Pain radiation: none Severity: moderate Quality: aching Related Data Home Medications Medication Instructions Recorded Confirmed aspirin [Adult Aspirin] 81 mg PO DAILY 09/25/20 07/29/21 bupropion HCl 150 mg PO DAILY 09/25/20 07/29/21 duloxetine 20 mg PO DAILY 09/25/20 07/29/21 metoprolol succinate 25 mg PO DAILY 09/25/20 07/29/21 pantoprazole [Protonix] 20 mg PO QAM 09/25/20 07/29/21 spironolactone 25 mg PO DAILY 09/25/20 07/29/21 apixaban [Eliquis] 5 mg PO BID 02/09/21 07/29/21 torsemide 20 mg PO QAM PRN 02/09/21 07/29/21 buspirone 15 mg PO TID 06/09/21 07/29/21 losartan 25 mg PO DAILY 06/09/21 07/29/21 montelukast 10 mg PO DAILY 06/09/21 07/29/21 nitroglycerin 0.3 mg SUBLINGUAL DAILY PRN 06/09/21 07/29/21 ranolazine [Ranexa] 500 mg PO DAILY 06/09/21 07/29/21 atorvastatin 80 mg PO HS 07/29/21 07/29/21 hydrocodone-acetaminophen [[place]] 1 tablet PO Q8H PRN 07/29/21 07/29/21 lorazepam [Ativan] 0.5 mg PO BID PRN 07/29/21 07/29/21 Allergies Allergy/AdvReac Type Severity Reaction Status Date / Time codeine Allergy Unknown Nausea and Verified 07/29/21 10:31 Vomiting doxycycline Allergy Unknown Hives Verified 07/29/21 10:31 morphine Allergy Unknown Hives Verified 07/29/21 10:31 Review of Systems Review of Systems: All systems reviewed & are unremarkable except as noted in HPI and below PMFSH Past Medical History Medical History Anemia Anxiety CAD (coronary artery disease) Cardiac defibrillator in place Has been wearing LifeVest since August 2020. Blending Supervisor is Dr Nick Han. Cardiomyopathy Chest pain CHF (congestive heart failure) Colitis Depression DVT (deep venous thrombosis) Endometriosis Fibroids Fibromyalgia History of kidney stones History of ovarian cyst HTN (hypertension) Hx of myocardial infarction Hypercholesterolemia IBS (irritable bowel syndrome) NSTEMI (non-ST elevated myocardial infarction) Unstable angina UTI (urinary tract infection) Surgical History Surgical History History of cholecystectomy around 2009 History of hysterectomy Around 2008 due to endometriosis History of laparoscopy Patient tells me she has had nearly 20 laparoscopies for endometriosis. Hx of cystoscopy around 2011 S/P CABG x 22 May 2020 at [facility]. Blending Supervisor is Dr Nick Han. Family History Family History Father , Age 56 Acute myocardial infarction Family history of cardiovascular disease Family history of kidney disease Hypertension Grandparent , Passed in 50s from acute [place] Diabetes mellitus Pancreatic cancer Lung cancer Acute myocardial infarction Sibling Family history of allergic disorder Social History Social History Social History: Ms. Roy lives at home with her and children in [place], [place]. 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 She de
[2021-10-30] MEDS: KETOROLAC (*BKC) 60 MG/2 ML VIAL IM (00:13)
[2021-10-30 00:27] VITALS: BP 100/68; PULSE 78; RESP 16; O2SAT 98
== END 2021-10-30 00:30 | disposition home or self-care (01) ==
PROVIDERS: Emergency Provider Emergency Medicine; PCP Internal Medicine
DX: M94.0 Chondrocostal junction syndrome [Tietze] (principal)
CPT/HCPCS: 36415; 71045; 80053; 83690; 83880; 84484; 85025; 85380; 85610; 85730; 93005; 96372; 99283; 99284; J1885

== ENCOUNTER 2021-12-18 15:36 | Outpatient (CLI) | payer OTHER, SELFPAY ==
[2021-12-18 15:52] LABS: Basophils Absolute Auto 0.09 K/mm3 (0.00-0.10); Basophils Percent Auto 0.9 % (0.0-1.0); Eosinophils Absolute Auto 0.16 K/mm3 (0.02-0.50); Eosinophils Percent Auto 1.5 % (1.0-6.0); Hematocrit 44.5 % (35.0-49.0); Immature Granulocyte Absolute 0.03 K/mm3 (0.00-0.00); Immature Granulocyte Percent A 0.3 % (0.0-0.0); Lymphocytes Absolute Auto 4.07 K/mm3 (1.10-4.50); Lymphocytes Percent Auto 38.9 % (18.0-42.0); Mean Corpuscular HGB Conc 33.7 g/dL (32.0-36.0); Mean Corpuscular Hemoglobin 29.7 pg (27.0-31.0); Mean Corpuscular Volume 88.1 fL (78.0-102.0); Monocytes Percent Auto 5.7 % (2.0-11.0); Neutrophils Absolute Auto 5.5 K/mm3 (1.7-7.2); Neutrophils Percent Auto 52.7 % (50.0-70.0); Platelet Count Result 333 K/mm3 (150-420); Red Blood Count 5.05 M/mm3 (4.20-5.40); Red Cell Distribution Width 13.5 % (11.6-14.4); White Blood Count 10.5 K/mm3 (4.8-10.8)
[2021-12-18 16:12] LABS: Alanine Aminotransferase 43 U/L (14-59); Albumin Level 4.3 g/dL (3.4-5.0); Alkaline Phosphatase 97 U/L (46-116); Anion Gap 9 mmol/L (8-16); Aspartate Amino Transferase 28 U/L (15-37); Bilirubin,Total 0.5 mg/dL (0.00-1.00); Blood Urea Nitrogen 11 mg/dL (7-18); Calcium 9.3 mg/dL (8.5-10.1); Carbon Dioxide 33 mmol/L (21-32); Chloride 98 mmol/L (98-108); Estimated Glomerular Filt Rate 59; Glucose 90 mg/dL (70-99); NT Pro B Type Natriuretic Pept 393 pg/mL (0-125); Osmolality Calculated 289 mOsm/kg (285-295); Sodium 140 mmol/L (136-145); Thyroid Stimulating Hormone 1.85 uIU/mL (0.36-3.74); Total Protein 8.2 g/dL (6.4-8.2)
== END 2021-12-18 15:37 | disposition home or self-care (01) ==
LOC: CHSLAB 15:38
PROVIDERS: PCP Internal Medicine; Visit Provider Internal Medicine
DX: I50.9 Heart failure, unspecified (principal); R42 Dizziness and giddiness; R00.2 Palpitations
CPT/HCPCS: 36415; 80053; 83880; 84443; 85025

== ENCOUNTER 2022-01-19 16:45 | Outpatient (CLI) | payer OTHER, SELFPAY ==
[2022-01-19 17:25] LABS: Basophils Absolute Auto 0.08 K/mm3 (0.00-0.10); Eosinophils Absolute Auto 0.17 K/mm3 (0.02-0.50); Eosinophils Percent Auto 2.1 % (1.0-6.0); Hematocrit 40.7 % (35.0-49.0); Hemoglobin 14.1 g/dL (12.0-15.0); Immature Granulocyte Absolute 0.02 K/mm3 (0.00-0.00); Immature Granulocyte Percent A 0.2 % (0.0-0.0); Lymphocytes Absolute Auto 3.35 K/mm3 (1.10-4.50); Mean Corpuscular HGB Conc 34.6 g/dL (32.0-36.0); Mean Corpuscular Hemoglobin 30.4 pg (27.0-31.0); Mean Corpuscular Volume 87.7 fL (78.0-102.0); Mean Platelet Volume 10.6 fl (9.2-11.8); Monocytes Absolute Auto 0.52 K/mm3 (0.10-0.90); Monocytes Percent Auto 6.4 % (2.0-11.0); Neutrophils Percent Auto 49.3 % (50.0-70.0); Platelet Count Result 307 K/mm3 (150-420); Red Blood Count 4.64 M/mm3 (4.20-5.40); Red Cell Distribution Width 13.2 % (11.6-14.4); White Blood Count 8.2 K/mm3 (4.8-10.8)
[2022-01-19 17:47] LABS: Alanine Aminotransferase 25 U/L (14-59); Albumin Level 4.1 g/dL (3.4-5.0); Alkaline Phosphatase 92 U/L (46-116); Anion Gap 14 mmol/L (8-16); Aspartate Amino Transferase 16 U/L (15-37); Bilirubin,Total 0.4 mg/dL (0.00-1.00); Blood Urea Nitrogen 11 mg/dL (7-18); Calcium 9.3 mg/dL (8.5-10.1); Carbon Dioxide 23 mmol/L (21-32); Chloride 103 mmol/L (98-108); Estimated Glomerular Filt Rate > 60; Glucose 87 mg/dL (70-99); NT Pro B Type Natriuretic Pept 346 pg/mL (0-125); Osmolality Calculated 288 mOsm/kg (285-295); Potassium 3.9 mmol/L (3.5-5.1); Sodium 140 mmol/L (136-145); Total Protein 7.2 g/dL (6.4-8.2)
== END 2022-01-19 16:46 | disposition home or self-care (01) ==
LOC: CHSLAB 16:49
PROVIDERS: PCP Internal Medicine
DX: I25.5 Ischemic cardiomyopathy (principal); Z95.1 Presence of aortocoronary bypass graft; I50.22 Chronic systolic (congestive) heart failure; I48.0 Paroxysmal atrial fibrillation; R00.2 Palpitations; R06.02 Shortness of breath; R06.01 Orthopnea
CPT/HCPCS: 36415; 80053; 83880; 85025

== ENCOUNTER 2022-01-21 15:18 | Outpatient (CLI) | payer OTHER, SELFPAY ==
--- NOTE | ~2022-01-21 | XR_ITS ---
XR abdomen/kub 1V 01/21/2022 15:41 INDICATION: Kidney stone and hematuria TECHNIQUE: KUB COMPARISON: Comparison to multiple prior studies sequentially, with oldest reviewed study dated 04/2020. FINDINGS: Bowel gas pattern is normal. There is no evidence of free air, mass, organomegaly, ascites or obstruction. No abnormal calculi are seen. The bones appear intact. There are surgical clips in the right upper abdomen and left pelvis. IMPRESSION: 1: No acute abdominal abnormality identified. Reviewed, dictated and finalized at location A. [employer]TER LANGUAGE [employer]ODER
== END 2022-01-21 15:19 | disposition home or self-care (01) ==
LOC: CHSIMG 15:19
PROVIDERS: PCP Internal Medicine; Visit Provider Nurse Practitioner Family
DX: N20.0 Calculus of kidney (principal)
CPT/HCPCS: 74018

== ENCOUNTER 2022-03-12 00:42 | Day surgery (SDC) | payer OTHER, SELFPAY ==
[2022-03-04 14:58] VITALS: BMI 24.5
--- NOTE | 2022-03-10 09:48 | PC.NURSE ---
Pt with patient yesterday 03/10/2022, pt. informed me she has had a 20-25Lb weight loss over past 3-4 months, has a feeling a fullness and bloating, does have some nausea and describes symptoms of early satiation and just unable to eat. She states she really hasn't felt like her esophagus and stomach as been normal since she had her CAGB 09/2020 and even more so since the stent 09/2021. She was under the impression that she was going to have an EGD as well as a colon. Due to the high risk for her being off her plavix and eliquis a second time I called Dr. Isaac Saba's office and they will send a request for an urgent EGD to be added to her colonoscopy on 03/12/2022, have spoken to DR. Wooten and his office and they are in agreement this needs to be added on for Tuesday as well.
[2022-03-12 09:20] VITALS: BP 103/66; PULSE 81; RESP 18; TEMP 36.3; O2SAT 100
[2022-03-12] MEDS: LACTATED RINGERS 1,000 ML 150 ML IV CONT (09:23)
--- NOTE | 2022-03-12 09:52 | WPDGICN ---
Assessment and Plan Assessment and plan (1) Weight loss: Code(s): R63.4 - Abnormal weight loss Status: Acute Assessment and Plan: EGD with possible biopsy or dilatation or cautery. GI Consult Note Consult date/time: 03/12/22 09:52 HPI: Mercedes Roy is a 41 year old female Who has multiple medical problems including coronary artery disease for which she has had double bypass, she has Buerger's disease. She is chronically anticoagulated with apixaban. She has recently see some blood in her stools for which she saw her thermite bomb loader, thinking perhaps it may have been vaginal. The blood was present every day for about 3 weeks. She has also lost her appetite. Food does not interest her lately. She states she is akila to get down more than ulcer to food such as perhaps a hard boiled egg. she has very little appetite and has lost about 25 lb. Denies abdominal pain. She does have a history of endometriosis for which she has innumerable procedures. Review of Systems Review of Systems: All systems reviewed & are unremarkable except as noted in HPI and below PMFSH Past Medical History Medical History Anemia Anxiety CAD (coronary artery disease) Cardiac defibrillator in place Has been wearing LifeVest since August 2020. Drapery Maker is Dr Nick Han. Cardiomyopathy Chest pain CHF (congestive heart failure) Colitis Depression DVT (deep venous thrombosis) Endometriosis Fibroids Fibromyalgia History of kidney stones History of ovarian cyst HTN (hypertension) Hx of myocardial infarction Hypercholesterolemia IBS (irritable bowel syndrome) NSTEMI (non-ST elevated myocardial infarction) Unstable angina UTI (urinary tract infection) Surgical History Surgical History History of cholecystectomy around 2009 History of hysterectomy Around 2008 due to endometriosis History of laparoscopy Patient tells me she has had nearly 20 laparoscopies for endometriosis. Hx of cystoscopy around 2011 S/P CABG x 22 May 2020 at [facility]. Drapery Maker is Dr Nick Han. Family History Family History Father , Age 56 Acute myocardial infarction Family history of cardiovascular disease Family history of kidney disease Hypertension Grandparent , Passed in 50s from acute [place] Diabetes mellitus Pancreatic cancer Lung cancer Acute myocardial infarction Sibling Family history of allergic disorder Social History Social History Social History: Ms. Roy lives at home with her and children in [place], [place]. 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 She denies alcohol use. Smoked 1.5 packs per day x 20 years and quit in May 2020 at time of her [place]. She reports smoking marijuana occasionally, less than once per month. PCP is Dr Woo. She designates her , Nando, as her surrogate decision maker and is Full Code Status. Smoking packs per day: 1.5 Smoking cigarettes per day: 30.0 Years smoked: 20 Smoking pack-years: 30.00 Smoking status: Never smoker Tobacco type: cigarettes Second hand tobacco smoke exposure: Yes Alcohol intake: never Substance use: never Substance use type: does not use Last use: 06/12/20 Living arrangements: with family Gender identity (if verbalized by the patient): Female Sexual Orientation (if Verbalized by the Patient): Straight or Heterosexual Spiritual care concerns: No Meds Home Medications and Allergies Home Medications Medication Instructions Recorded Confirmed Type bupropion HCl 150 mg PO DAILY 09/25/20 03/12/22 History duloxetine 20 mg PO DAILY 09/25/20 03/12/22 History metoprolol succinate 25 mg PO DAILY 09/25/20 03/12/22 His
--- NOTE | 2022-03-12 10:01 | WPDANESEPPF ---
Anes - Initial Pre Proc Eval Procedure: Operation Date: 03/12/22 10:15 Proposed Procedures p Esophagogastroduodenoscopy - Brian Wooten MD Date/Time: 03/12/22 10:01 Surgeon: Brian Wooten MD Pre Op Diagnosis: weight loss Patient Data Age: 41 Gender: F Height: 1.6 m Weight: 63 kg Last Vital Signs Temp 97.3 F L 03/12/22 09:20 Pulse 81 03/12/22 09:20 Resp 18 03/12/22 09:20 BP 103/66 03/12/22 09:20 Pulse Ox 100 03/12/22 09:20 Allergies Allergy/AdvReac Type Severity Reaction Status Date / Time codeine Allergy Severe Nausea and Verified 03/12/22 09:18 Vomiting doxycycline Allergy Intermediate Hives Verified 03/12/22 09:18 morphine Allergy Intermediate Hives Verified 03/12/22 09:18 Home Medications Medication Instructions Recorded Confirmed Type bupropion HCl 150 mg PO DAILY 09/25/20 03/12/22 History duloxetine 20 mg PO DAILY 09/25/20 03/12/22 History metoprolol succinate 25 mg PO DAILY 09/25/20 03/12/22 History spironolactone 25 mg PO DAILY 09/25/20 03/12/22 History apixaban [Eliquis] 5 mg PO BID 02/09/21 03/04/22 History torsemide 20 mg PO Q48H 02/09/21 03/12/22 History losartan 25 mg PO DAILY 06/09/21 03/12/22 History montelukast 10 mg PO DAILY 06/09/21 03/12/22 History nitroglycerin 0.3 mg SUBLINGUAL DAILY PRN 06/09/21 03/12/22 History ranolazine [Ranexa] 500 mg PO DAILY 06/09/21 03/12/22 History atorvastatin 80 mg PO HS 07/29/21 03/12/22 History hydrocodone-acetaminophen [[place]] 1 tablet PO Q8H PRN 07/29/21 03/12/22 History lorazepam [Ativan] 0.5 mg PO BID PRN 07/29/21 03/12/22 History amlodipine 5 mg PO DAILY 03/04/22 03/12/22 History clopidogrel 75 mg PO DAILY 03/04/22 03/04/22 History isosorbide mononitrate 30 mg PO DAILY 03/04/22 03/12/22 History pantoprazole 20 mg PO DAILY 03/04/22 03/12/22 History Patient hx anesthesia problems: none Family hx anesthesia problems: none Results Review: All pre-operative results and documents have been reviewed as part of the pre-operative evaluation. [facility] Past Medical History Medical History Anemia Anxiety CAD (coronary artery disease) Cardiac defibrillator in place Has been wearing LifeVest since August 2020. Professor Of Exercise Science is Dr Nick Han. Cardiomyopathy Chest pain CHF (congestive heart failure) Colitis Depression DVT (deep venous thrombosis) Endometriosis Fibroids Fibromyalgia History of kidney stones History of ovarian cyst HTN (hypertension) Hx of myocardial infarction Hypercholesterolemia IBS (irritable bowel syndrome) NSTEMI (non-ST elevated myocardial infarction) Unstable angina UTI (urinary tract infection) Surgical History Surgical History History of cholecystectomy around 2009 History of hysterectomy Around 2008 due to endometriosis History of laparoscopy Patient tells me she has had nearly 20 laparoscopies for endometriosis. Hx of cystoscopy around 2011 S/P CABG x 22 May 2020 at [facility]. Professor Of Exercise Science is Dr Nick Han. Family History Family History Father , Age 56 Acute myocardial infarction Family history of cardiovascular disease Family history of kidney disease Hypertension Grandparent , Passed in 50s from acute [place] Diabetes mellitus Pancreatic cancer Lung cancer Acute myocardial infarction Sibling Family history of allergic disorder Social History Social History Social History: Ms. Roy lives at home with her and children in [place], [place]. 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 She denies alcohol use. Smoked 1.5 packs per day x 20 years and quit in May 2020 at time of her [place]. She reports smoking marijuana occasionally, less than once per month. PCP is Dr Woo. She edgar
[2022-03-12 10:14] VITALS: BP 84/51; PULSE 68; RESP 22; O2SAT 97
[2022-03-12 10:24] VITALS: BP 96/52; PULSE 74; RESP 20; O2SAT 100
[2022-03-12 10:34] VITALS: BP 105/63; PULSE 71; RESP 16; O2SAT 100
== END 2022-03-12 10:35 | disposition home or self-care (01) ==
PROVIDERS: PCP Internal Medicine; Visit Provider Internal Medicine Gastroenterology
PROC: 0DJ08ZZ Inspection of Upper Intestinal Tract, Via Natural or Artificial Opening Endoscopic (ICD-10-PCS; CPT 43235; principal; 2022-03-12 10:15)
DX: K21.9 Gastro-esophageal reflux disease without esophagitis (principal); K29.70 Gastritis, unspecified, without bleeding; R63.4 Abnormal weight loss; R68.81 Early satiety; I25.10 Atherosclerotic heart disease of native coronary artery without angina pectoris; I73.1 Thromboangiitis obliterans [Buerger's disease]; I42.9 Cardiomyopathy, unspecified; I11.0 Hypertensive heart disease with heart failure; I50.9 Heart failure, unspecified; F41.8 Other specified anxiety disorders; D64.9 Anemia, unspecified; M79.7 Fibromyalgia; I25.2 Old myocardial infarction; E78.00 Pure hypercholesterolemia, unspecified; K58.9 Irritable bowel syndrome, unspecified; F12.90 Cannabis use, unspecified, uncomplicated; Z79.01 Long term (current) use of anticoagulants; Z95.1 Presence of aortocoronary bypass graft; Z95.810 Presence of automatic (implantable) cardiac defibrillator; Z87.891 Personal history of nicotine dependence; Z79.02 Long term (current) use of antithrombotics/antiplatelets; Z68.24 Body mass index [BMI] 24.0-24.9, adult
CPT/HCPCS: 43239; 87081; 88305; J2704; J7120

== ENCOUNTER 2022-05-26 13:28 | Outpatient (CLI) | payer OTHER, SELFPAY ==
[2022-05-26 13:42] LABS: Eosinophils Absolute Auto 0.29 K/mm3 (0.02-0.50); Hematocrit 41.6 % (35.0-49.0); Hemoglobin 14.4 g/dL (12.0-15.0); Immature Granulocyte Absolute 0.04 K/mm3 (0.00-0.00); Immature Granulocyte Percent A 0.4 % (0.0-0.0); Lymphocytes Absolute Auto 3.03 K/mm3 (1.10-4.50); Lymphocytes Percent Auto 31.3 % (18.0-42.0); Mean Corpuscular HGB Conc 34.6 g/dL (32.0-36.0); Mean Corpuscular Hemoglobin 31.4 pg (27.0-31.0); Mean Corpuscular Volume 90.6 fL (78.0-102.0); Mean Platelet Volume 10.3 fl (9.2-11.8); Monocytes Percent Auto 5.2 % (2.0-11.0); Neutrophils Absolute Auto 5.7 K/mm3 (1.7-7.2); Neutrophils Percent Auto 59.1 % (50.0-70.0); Platelet Count Result 296 K/mm3 (150-420); Red Blood Count 4.59 M/mm3 (4.20-5.40); Red Cell Distribution Width 13.2 % (11.6-14.4); White Blood Count 9.7 K/mm3 (4.8-10.8)
--- NOTE | 2022-05-26 13:50 | ECG_ITS ---
Measurements Intervals [place] Rate: 82 P: 74 ID: 154 QRS: 107 QRSD: 102 T: 135 QT: 360 QTc: 421 Interpretive Statements SINUS RHYTHM RIGHT AXIS DEVIATION INCOMPLETE RIGHT BUNDLE BRANCH BLOCK MINIMAL Q WAVES- INFERIOR LEADS BORDERLINE ST-T WAVE ABNORMALITY- ANTEROLAT/HIGH LAT LEADS BORDERLINE ECG Electronically Signed On 05-26-2022 14:35:54 CDT by Aaron Wooten D.O.
[2022-05-26 14:10] LABS: Alanine Aminotransferase 29 U/L (14-59); Albumin Level 3.9 g/dL (3.4-5.0); Alkaline Phosphatase 90 U/L (46-116); Anion Gap 6 mmol/L (8-16); Aspartate Amino Transferase 15 U/L (15-37); Bilirubin,Total 0.4 mg/dL (0.00-1.00); Blood Urea Nitrogen 11 mg/dL (7-18); Carbon Dioxide 30 mmol/L (21-32); Chloride 104 mmol/L (98-108); Creatine Kinase 63 U/L (26-192); Estimated Glomerular Filt Rate > 60; Glucose 80 mg/dL (70-99); NT Pro B Type Natriuretic Pept 308 pg/mL (0-125); Osmolality Calculated 288 mOsm/kg (285-295); Sodium 140 mmol/L (136-145); Total Protein 7.5 g/dL (6.4-8.2); Troponin I 7.9 ng/L (0.00-60.4)
== END 2022-05-26 13:29 | disposition home or self-care (01) ==
PROVIDERS: PCP Internal Medicine; Visit Provider Internal Medicine
DX: R07.9 Chest pain, unspecified (principal); I50.9 Heart failure, unspecified; I25.10 Atherosclerotic heart disease of native coronary artery without angina pectoris
CPT/HCPCS: 36415; 80053; 82550; 82553; 83880; 84484; 85025; 93005

== ENCOUNTER 2022-06-22 19:58 | Outpatient (CLI) | payer OTHER, SELFPAY ==
[2022-06-22 20:13] LABS: Basophils Percent Auto 0.9 % (0.0-1.0); Eosinophils Percent Auto 3.6 % (1.0-6.0); Hematocrit 40.9 % (35.0-49.0); Immature Granulocyte Absolute 0.04 K/mm3 (0.00-0.00); Immature Granulocyte Percent A 0.4 % (0.0-0.0); Lymphocytes Absolute Auto 3.44 K/mm3 (1.10-4.50); Lymphocytes Percent Auto 31.1 % (18.0-42.0); Mean Corpuscular HGB Conc 34.2 g/dL (32.0-36.0); Mean Corpuscular Hemoglobin 31.5 pg (27.0-31.0); Mean Corpuscular Volume 92.1 fL (78.0-102.0); Mean Platelet Volume 10.4 fl (9.2-11.8); Monocytes Absolute Auto 0.65 K/mm3 (0.10-0.90); Monocytes Percent Auto 5.9 % (2.0-11.0); Neutrophils Absolute Auto 6.4 K/mm3 (1.7-7.2); Neutrophils Percent Auto 58.1 % (50.0-70.0); Platelet Count Result 281 K/mm3 (150-420); Red Blood Count 4.44 M/mm3 (4.20-5.40); Red Cell Distribution Width 12.9 % (11.6-14.4); White Blood Count 11.1 K/mm3 (4.8-10.8)
[2022-06-22 20:32] LABS: Alanine Aminotransferase 29 U/L (14-59); Albumin Level 3.8 g/dL (3.4-5.0); Alkaline Phosphatase 81 U/L (46-116); Anion Gap 8 mmol/L (8-16); Aspartate Amino Transferase 19 U/L (15-37); Bilirubin,Total 0.4 mg/dL (0.00-1.00); Blood Urea Nitrogen 13 mg/dL (7-18); Calcium 8.8 mg/dL (8.5-10.1); Carbon Dioxide 29 mmol/L (21-32); Chloride 104 mmol/L (98-108); Estimated Glomerular Filt Rate 45; Glucose 93 mg/dL (70-99); Osmolality Calculated 292 mOsm/kg (285-295); Sodium 141 mmol/L (136-145); Total Protein 7.1 g/dL (6.4-8.2)
== END 2022-06-22 19:59 | disposition home or self-care (01) ==
LOC: CHSLAB 20:01
PROVIDERS: PCP Internal Medicine
DX: I25.5 Ischemic cardiomyopathy (principal); I50.22 Chronic systolic (congestive) heart failure; I25.119 Atherosclerotic heart disease of native coronary artery with unspecified angina pectoris; R07.9 Chest pain, unspecified
CPT/HCPCS: 36415; 80053; 85025

== ENCOUNTER 2022-06-25 13:12 | Emergency (ER) | payer OTHER, SELFPAY ==
[2022-06-25] VITALS (19 sets, daily range): BP systolic 103–125; BP diastolic 53–80; PULSE 60–65; RESP 11–24; TEMP 36.2; O2SAT 97–100
--- NOTE | ~2022-06-25 | CT_ITS ---
EXAMINATION: CT abdomen pelvis wo con DATE: 06/25/2022 14:07 INDICATION: Right lower quadrant abdominal pain after cardiac catheterization via right groin area th is morning TECHNIQUE: Computed tomography (CT) of the abdomen and pelvis was performed without intravenous contr ast. Automated exposure control and iterative reconstruction technique were employed. Exam dose: 380 .14 mGy-cm total exam DLP. COMPARISON: 09/25/2020 CT abdomen pelvis 10/12/2021 right upper quadrant abdominal ultrasound examination FINDINGS: Status post sternotomy. Right atrial and right ventricular pacemaker leads. Probable right coronary artery stent; recommend correlation with cardiac catheterization procedure re port. Borderline heart size. No pericardial or pleural effusion. The lung bases are clear. Status post cholecystectomy. No bile duct or pancreatic duct dilatation. No pancreatic calcification. No hepatic, splenic, pancreatic, adrenal or renal space-occupying mass lesion is evident on this limi neftali noncontrast examination. No hydroureteronephrosis. The urinary bladder is unremarkable. Status post hysterectomy. There is atherosclerotic calcification but normal caliber of the abdominal aorta. No intraperitoneal or retroperitoneal or pelvic mass lesion or adenopathy or ascites. There is mild subcutaneous fat stranding in the right groin area as would be expected from recent car diac catheterization procedure. No hematoma or pseudoaneurysm is detected. Normal appendix. No bowel obstruction, bowel wall thickening, pneumatosis or intraperitoneal free air . There is mild diverticulosis of the left colon; no CT evidence of diverticulitis. IMPRESSION: Status post sternotomy, hysterectomy Right atrial and right ventricular pacemaker leads Probable right coronary stent Mild stranding in the right groin area consistent with recent cardiac catheterization procedure; no h ematoma or pseudoaneurysm is detected. Diverticulosis of the colon; no CT evidence of diverticulitis Reviewed, dictated and finalized at Location A. Reviewed, dictated and finalized at location B. IMPRESSION: Status post sternotomy, hysterectomy Right atrial and right ventricular pacemaker leads Probable right coronary stent Mild stranding in the right groin area consistent with recent cardiac catheteri zation procedure; no hematoma or pseudoaneurysm is detected. Diverticulosis of the colon; no CT evidence of diverticulitis
--- NOTE | ~2022-06-25 | XR_ITS ---
EXAMINATION: XR chest 1V portable 06/25/2022 14:07 INDICATION: Chest pain PROCEDURE: AP portable chest COMPARISON: Comparison to multiple prior studies sequentially, with oldest reviewed study dated 08/23. FINDINGS: The lungs are clear. The cardiomediastinal silhouette is within normal limits. There are no pleural effusions. There is no pneumothorax suspected. There are median sternotomy wires. Pacema ker leads are stable. IMPRESSION: 1: NO ACUTE CARDIOPULMONARY DISEASE. Reviewed, dictated and finalized at location A.
--- NOTE | 2022-06-25 13:36 | ED.GENADULT ---
HPI - General Adult General Chief complaint: Abdominal Pain Stated complaint: ABD PAIN AFTER HEART CATH History of Present Illness HPI narrative: The patient is a 41-year-old woman with multiple comorbidities including hypertension, hyperlipidemia, coronary artery disease, status post coronary artery bypass grafting, ejection fraction as low as 25% but now has improved to 40%, status post ICD. She also has history of cardiomyopathy, CHF, DVT on Eliquis therapy, anxiety, UTI, myocardial infarction, fibromyalgia, irritable bowel syndrome, and UTIs. She is status post hysterectomy cholecystectomy and laparoscopy. The appendix is still in place per her report. Blood thinners include Plavix and Eliquis. She had a cardiac catheterization this morning at [facility] through the right groin. No immediate complications were noted. She was discharged home. Approximately 2 hours ago, at 11:30 a.m., she developed pain in the right lower quadrant of her abdomen that is just above the groin catheterization site. She called the cardiology service at [facility] and she was instructed to come here for further evaluation and treatment. She is feeling anxious, with associated nausea, dizziness, and mild chest discomfort in the substernal region. There is no radiation of the abdominal pain elsewhere in the abdomen. There is no radiation of the chest pain elsewhere in the chest. No other associated symptoms. Related Data Home Medications Medication Instructions Recorded Confirmed bupropion HCl 150 mg 24 hr tablet, 150 mg PO DAILY 09/25/20 03/12/22 extended release duloxetine 20 mg capsule,delayed 20 mg PO DAILY 09/25/20 03/12/22 release metoprolol succinate 25 mg 25 mg PO DAILY 09/25/20 03/12/22 tablet,extended release 24 hr spironolactone 25 mg tablet 25 mg PO DAILY 09/25/20 03/12/22 apixaban 5 mg tablet (Eliquis) 5 mg PO BID 02/09/21 03/04/22 torsemide 20 mg tablet 20 mg PO Q48H 02/09/21 03/12/22 losartan 25 mg tablet 25 mg PO DAILY 06/09/21 03/12/22 montelukast 10 mg tablet 10 mg PO DAILY 06/09/21 03/12/22 nitroglycerin 0.3 mg sublingual 0.3 mg sublingual DAILY PRN Chest 06/09/21 03/12/22 tablet Pain ranolazine 500 mg tablet,extended 500 mg PO DAILY 06/09/21 03/12/22 release,12 hr (Ranexa) atorvastatin 80 mg tablet 80 mg PO HS 07/29/21 03/12/22 hydrocodone 5 mg-acetaminophen 325 1 tablet PO Q8H PRN Pain, Moderate 07/29/21 03/12/22 mg tablet lorazepam 0.5 mg tablet (Ativan) 0.5 mg PO BID PRN Anxiety 07/29/21 03/12/22 amlodipine 5 mg tablet 5 mg PO DAILY 03/04/22 03/12/22 clopidogrel 75 mg tablet 75 mg PO DAILY 03/04/22 03/04/22 isosorbide mononitrate 30 mg 30 mg PO DAILY 03/04/22 03/12/22 tablet,extended release 24 hr pantoprazole 20 mg tablet,delayed 20 mg PO DAILY 03/04/22 03/12/22 release Allergies Allergy/AdvReac Type Severity Reaction Status Date / Time codeine Allergy Severe Nausea and Verified 06/25/22 13:30 Vomiting doxycycline Allergy Intermediate Hives Verified 06/25/22 13:30 morphine Allergy Intermediate Hives Verified 06/25/22 13:30 Review of Systems Review of Systems: All systems reviewed & are unremarkable except as noted in HPI and below Constitutional: Constitutional: Reports no additional constitutional complaints, Denies anorexia, Denies body ache(s), Denies chills, Denies excessive sweating, Denies fatigue, Denies fever(s), Denies frequent falls, Denies headache(s), Denies malaise and Denies poor appetite Eyes: Eyes: Reports no additional eye complaints, Denies blurry vision, Denies change in vision, Denies irritation, Denies itchy eyes and Denies photophobia ENT: Reports system reviewed and no additional complaints, except as documented, Reports Normal hearing present, Denies change in voice, Denies dysphagia, Denies vertigo, Reports dizziness, Denies ear discharge, Denies headache(s), Denies hearing loss, Denies hoarseness, Denies nasal congestion, Denies neck pain, Denies sin
--- NOTE | 2022-06-25 13:49 | PC.NURSE ---
Pt off floor to radiology
--- NOTE | 2022-06-25 13:51 | ECG_ITS ---
Measurements Intervals [place] Rate: 60 P: 229 GA: 181 QRS: 90 QRSD: 100 T: 125 QT: 410 QTc: 410 Interpretive Statements ELECTRONIC ATRIAL PACEMAKER ST DEVIATION AND MODERATE T-WAVE ABNORMALITY, CONSIDER ANTEROLATERAL ISCHEMIA RSR' V1 ABNORMAL ECG COMPARED TO ECG 05/26/2022 13:56:13 NO SIGNIFICANT CHANGES Electronically Signed On 06-25-2022 15:54:24 CDT by Pepito Castnaon M.D.
[2022-06-25 14:12] LABS: Eosinophils Absolute Auto 0.18 K/mm3 (0.02-0.50); Eosinophils Percent Auto 1.7 % (1.0-6.0); Hematocrit 37.7 % (35.0-49.0); Hemoglobin 12.7 g/dL (12.0-15.0); Immature Granulocyte Absolute 0.04 K/mm3 (0.00-0.00); Immature Granulocyte Percent A 0.4 % (0.0-0.0); Lymphocytes Absolute Auto 3.33 K/mm3 (1.10-4.50); Mean Corpuscular HGB Conc 33.7 g/dL (32.0-36.0); Mean Corpuscular Hemoglobin 31.1 pg (27.0-31.0); Mean Corpuscular Volume 92.2 fL (78.0-102.0); Mean Platelet Volume 10.2 fl (9.2-11.8); Monocytes Absolute Auto 0.61 K/mm3 (0.10-0.90); Monocytes Percent Auto 5.9 % (2.0-11.0); Neutrophils Absolute Auto 6.2 K/mm3 (1.7-7.2); Platelet Count Result 261 K/mm3 (150-420); Red Blood Count 4.09 M/mm3 (4.20-5.40); White Blood Count 10.4 K/mm3 (4.8-10.8)
[2022-06-25 14:35] LABS: Alanine Aminotransferase 23 U/L (14-59); Albumin Level 3.3 g/dL (3.4-5.0); Alkaline Phosphatase 74 U/L (46-116); Amylase 60 U/L (25-115); Anion Gap 10 mmol/L (8-16); Aspartate Amino Transferase 13 U/L (15-37); Bilirubin,Total 0.2 mg/dL (0.00-1.00); Blood Urea Nitrogen 11 mg/dL (7-18); Calcium 8.5 mg/dL (8.5-10.1); Carbon Dioxide 25 mmol/L (21-32); Chloride 108 mmol/L (98-108); Estimated Glomerular Filt Rate > 60; Glucose 85 mg/dL (70-99); Lipase 137 U/L (73-393); NT Pro B Type Natriuretic Pept 1062 pg/mL (0-125); Osmolality Calculated 294 mOsm/kg (285-295); Potassium 3.8 mmol/L (3.5-5.1); Sodium 143 mmol/L (136-145); Total Protein 6.4 g/dL (6.4-8.2)
[2022-06-25] MEDS: HYDROcodone/acetaminophen (*CRX) 5-325 MG TABLET 1 TAB PO (14:39)
[2022-06-25] MEDS: ONDANSETRON HCL ODT 4 MG TABLET PO (14:39)
--- NOTE | 2022-06-25 14:45 | PC.NURSE ---
Denies chest pain at this time, subsided.
[2022-06-25 14:48] LABS: Troponin I 12.1 ng/L (0.00-60.4)
[2022-06-25 15:36] LABS: Add Urine Microscopic? NO; Appearance Urine Clear (Clear); Bilirubin Urine Negative (Negative); Blood Urine Negative (Negative); Color Urine Yellow (Yellow); Glucose Urine UA Negative (Negative); Ketones Urine Negative (Negative); Leukocyte Esterase Ur Negative LEU/UL (Negative); Nitrate Urine Negative (Negative); Protein Urine Negative (Negative); Specific Grav Ur 1.015 (1.010-1.020); Urobilinogen Urine 0.2 mg/dL (0.2-1.0); pH Urine 6.5 (5.0-8.0)
== END 2022-06-25 16:32 | disposition home or self-care (01) ==
PROVIDERS: Emergency Provider Emergency Medicine; PCP Internal Medicine
DX: R10.31 Right lower quadrant pain (principal); R07.9 Chest pain, unspecified; I25.10 Atherosclerotic heart disease of native coronary artery without angina pectoris; I50.9 Heart failure, unspecified; I10 Essential (primary) hypertension; E78.00 Pure hypercholesterolemia, unspecified
CPT/HCPCS: 36415; 71045; 74176; 80053; 81003; 82150; 83690; 83880; 84484; 85025; 93005; 99284; A9270

== ENCOUNTER 2022-06-26 13:52 | Emergency (ER) | payer OTHER, SELFPAY ==
--- NOTE | ~2022-06-26 | CT_ITS ---
EXAMINATION: CT brain wo con DATE: 06/26/2022 14:50 INDICATION: Headache. Heart catheterization yesterday. TECHNIQUE: Computed tomography (CT) of the head was performed without intravenous contrast. The mA wa s adjusted according to patient size. Iterative reconstruction technique was employed. Exam dose: 60 5.33 mGy-cm total exam DLP. COMPARISON: CT brain FINDINGS: No intracranial mass lesion or hemorrhage or cerebrovascular accident. No midline shift or mass effect. Normal ventricular size. Normal mccollum-white matter differentiation. No subdural or epidur al hematoma. No fracture or bone destruction of the cranial vault. Mild patchy soft tissue thickening of the ethmoid air cells, mucus retention cyst of the lateral wall the right sphenoid sinus and small mucous retention cyst of the posterior medial wall the right maxi llary sinus. IMPRESSION: No significant intracranial abnormality Reviewed, dictated and finalized at Location [facility]. Reviewed, dictated and finalized at location A.
--- NOTE | 2022-06-26 14:13 | ED.HA ---
HPI - Headache General Chief Complaint: Headache Stated Complaint: swelling in upper extremities and abd Time Seen by Provider: 06/26/22 14:13 Source: patient Mode of arrival: ambulatory History of Present Illness HPI Narrative: 41-year-old female, ex-smoker with a history of hypertension, Status post hysterectomy, cholecystectomy, status post multiple laparoscopic procedures for endometriosis, coronary artery disease status post CABG in 2019, cardiomyopathy, DVT on Eliquis had a cardiac catheterization catheterization yesterday morning in [facility]. The patient did not have placement of any stents or angioplasty. She presented to the ER yesterday evening for abdominal pain. She had a workup including a CT scan which was unremarkable. she presents to the ER today with -- headache. headache is generalized. No photophobia or phonophobia. No nausea / vomiting. -- history of fall 2 weeks ago she has a history of migraine MD elicited complaint: headache Pertinent past history: coagulopathy Onset description: gradually Location: generalized Severity: mild Pain scale (0-10): 4 Quality & Timing: aching Exacerbating factors: none Relieving factors: nothing Context: occurred at rest Treatments prior to arrival: none Related Data Home Medications Medication Instructions Recorded Confirmed bupropion HCl 150 mg 24 hr tablet, 150 mg PO DAILY 09/25/20 06/26/22 extended release metoprolol succinate 25 mg 50 mg PO DAILY 09/25/20 06/26/22 tablet,extended release 24 hr spironolactone 25 mg tablet 25 mg PO DAILY 09/25/20 06/26/22 apixaban 5 mg tablet (Eliquis) 5 mg PO BID 02/09/21 06/26/22 torsemide 20 mg tablet 20 mg PO Q48H 02/09/21 06/26/22 losartan 25 mg tablet 25 mg PO DAILY 06/09/21 06/26/22 montelukast 10 mg tablet 10 mg PO DAILY 06/09/21 06/26/22 nitroglycerin 0.3 mg sublingual 0.3 mg sublingual DAILY PRN Chest 06/09/21 06/26/22 tablet Pain ranolazine 500 mg tablet,extended 500 mg PO BID 06/09/21 06/26/22 release,12 hr (Ranexa) atorvastatin 80 mg tablet 80 mg PO HS 07/29/21 06/26/22 amlodipine 5 mg tablet 5 mg PO DAILY 03/04/22 06/26/22 clopidogrel 75 mg tablet 75 mg PO DAILY 03/04/22 06/26/22 isosorbide mononitrate 30 mg 30 mg PO DAILY 03/04/22 06/26/22 tablet,extended release 24 hr pantoprazole 20 mg tablet,delayed 20 mg PO DAILY 03/04/22 06/26/22 release duloxetine 30 mg capsule,delayed 30 mg PO BID 06/26/22 06/26/22 release Allergies Allergy/AdvReac Type Severity Reaction Status Date / Time codeine Allergy Severe Nausea and Verified 06/26/22 14:27 Vomiting doxycycline Allergy Intermediate Hives Verified 06/26/22 14:27 morphine Allergy Intermediate Hives Verified 06/26/22 14:27 Review of Systems Review of Systems: All systems reviewed & are unremarkable except as noted in HPI and below Constitutional: Constitutional: Reports as per HPI and Reports no additional constitutional complaints Eyes: Eyes: Reports as per HPI and Reports no additional eye complaints ENT: Reports system reviewed and no additional complaints, except as documented and Reports as per HPI Cardiovascular: Cardiovascular: Reports as per HPI and Reports no additional cardiovascular complaints Respiratory: Respiratory: Reports as per HPI and Reports no additional respiratory complaints Gastrointestinal: Gastrointestinal: Reports as per HPI and Reports no additional gastrointestinal complaints Genitourinary: Genitourinary: Reports no additional female genitourinary complaints and Reports as per HPI Musculoskeletal: Musculoskeletal: Reports no additional musculoskeletal complaints and Reports as per HPI Integumentary/Breasts: Skin/Breast: Reports system reviewed and no additional complaints, except as docu and Reports as per HPI Neurologic: Reports system reviewed and no additional complaints, except as documented, Reports as per HPI and Reports headache(s) Psychiatric: Psychiatric: Reports no additional psychia
[2022-06-26 14:16] VITALS: BP 126/78; PULSE 87; RESP 20; TEMP 36.3; O2SAT 100
[2022-06-26 15:12] VITALS: BP 107/77; PULSE 81; RESP 20; TEMP 36.6; O2SAT 100
--- NOTE | 2022-06-26 15:18 | PC.NURSE ---
1430 PT UPSET DOCTOR WILL NOT CALL HER HEART TEAM PT WANTED TO SIGN OUT AMA NURSE TALKED WITH PT AND SHE WENT TO CT TO GET SCAN COMPLETED PT STILL NOT HAPPY WHEN WE FOUND NOTHING ON CT PT LEFT UPSET
== END 2022-06-26 15:14 | disposition home or self-care (01) ==
PROVIDERS: Emergency Provider Internal Medicine Critical Care Medicine; PCP Internal Medicine
DX: R51.9 Headache, unspecified (principal)
CPT/HCPCS: 70450; 99284

== ENCOUNTER 2022-08-16 14:26 | Outpatient (CLI) | payer OTHER, SELFPAY ==
--- NOTE | ~2022-08-16 | XR_ITS ---
EXAMINATION: XR chest 2V DATE: 08/16/2022 14:53 INDICATION: Chest pain TECHNIQUE: PA and lateral views of the chest are obtained. COMPARISON: 06/25/2022 FINDINGS: The lungs are free of acute opacities. No pleural effusion or pneumothorax. The cardiomedia stinal silhouette is normal. There is mild thoracic spondylosis. A dual-lead cardiac pacemaker of the left chest wall ends with leads in expected locations. There are changes of prior cardiac surgery. S urgical clips in the right upper quadrant are likely from prior cholecystectomy. A coronary artery st ent is noted. IMPRESSION: 1. No acute cardiopulmonary abnormality. Reviewed, dictated and finalized at location A.
[2022-08-16 15:24] LABS: Basophils Percent Auto 1.3 % (0.0-1.0); Eosinophils Absolute Auto 0.38 K/mm3 (0.02-0.50); Eosinophils Percent Auto 4.9 % (1.0-6.0); Hematocrit 44.7 % (35.0-49.0); Hemoglobin 15.3 g/dL (12.0-15.0); Immature Granulocyte Absolute 0.03 K/mm3 (0.00-0.00); Immature Granulocyte Percent A 0.4 % (0.0-0.0); Lymphocytes Absolute Auto 3.01 K/mm3 (1.10-4.50); Lymphocytes Percent Auto 38.5 % (18.0-42.0); Mean Corpuscular HGB Conc 34.2 g/dL (32.0-36.0); Mean Corpuscular Hemoglobin 31.2 pg (27.0-31.0); Mean Corpuscular Volume 91.2 fL (78.0-102.0); Mean Platelet Volume 10.4 fl (9.2-11.8); Monocytes Absolute Auto 0.48 K/mm3 (0.10-0.90); Monocytes Percent Auto 6.1 % (2.0-11.0); Neutrophils Absolute Auto 3.8 K/mm3 (1.7-7.2); Neutrophils Percent Auto 48.8 % (50.0-70.0); Platelet Count Result 321 K/mm3 (150-420); Red Cell Distribution Width 13.2 % (11.6-14.4); White Blood Count 7.8 K/mm3 (4.8-10.8)
[2022-08-16 15:33] LABS: Alanine Aminotransferase 28 U/L (14-59); Albumin Level 4.2 g/dL (3.4-5.0); Alkaline Phosphatase 85 U/L (46-116); Amylase 77 U/L (25-115); Anion Gap 6 mmol/L (8-16); Aspartate Amino Transferase 14 U/L (15-37); Bilirubin,Total 0.4 mg/dL (0.00-1.00); Blood Urea Nitrogen 10 mg/dL (7-18); Calcium 9.3 mg/dL (8.5-10.1); Carbon Dioxide 33 mmol/L (21-32); Chloride 101 mmol/L (98-108); Creatine Kinase 86 U/L (26-192); Estimated Glomerular Filt Rate > 60; Glucose 71 mg/dL (70-99); Lipase 168 U/L (73-393); NT Pro B Type Natriuretic Pept 488 pg/mL (0-125); Osmolality Calculated 287 mOsm/kg (285-295); Potassium 3.6 mmol/L (3.5-5.1); Sodium 140 mmol/L (136-145); Total Protein 7.9 g/dL (6.4-8.2); Troponin I 6.7 ng/L (0.00-60.4)
== END 2022-08-16 14:27 | disposition home or self-care (01) ==
LOC: CHSLAB 14:28
PROVIDERS: PCP Internal Medicine; Visit Provider Nurse Practitioner Family
DX: R07.9 Chest pain, unspecified (principal); R05.9 Cough, unspecified; I50.9 Heart failure, unspecified
CPT/HCPCS: 36415; 71046; 80053; 82150; 82550; 82553; 83690; 83880; 84484; 85025

== ENCOUNTER 2022-10-21 16:12 | Outpatient (CLI) | payer OTHER, SELFPAY ==
[2022-10-21 16:30] LABS: Basophils Percent Auto 0.9 % (0.0-1.0); Eosinophils Absolute Auto 0.28 K/mm3 (0.02-0.50); Eosinophils Percent Auto 2.6 % (1.0-6.0); Hematocrit 41.8 % (35.0-49.0); Hemoglobin 14.4 g/dL (12.0-15.0); Immature Granulocyte Absolute 0.05 K/mm3 (0.00-0.00); Immature Granulocyte Percent A 0.5 % (0.0-0.0); Lymphocytes Absolute Auto 3.22 K/mm3 (1.10-4.50); Lymphocytes Percent Auto 29.9 % (18.0-42.0); Mean Corpuscular HGB Conc 34.4 g/dL (32.0-36.0); Mean Corpuscular Hemoglobin 31.4 pg (27.0-31.0); Mean Corpuscular Volume 91.3 fL (78.0-102.0); Mean Platelet Volume 9.8 fl (9.2-11.8); Monocytes Absolute Auto 0.41 K/mm3 (0.10-0.90); Monocytes Percent Auto 3.8 % (2.0-11.0); Neutrophils Absolute Auto 6.7 K/mm3 (1.7-7.2); Neutrophils Percent Auto 62.3 % (50.0-70.0); Platelet Count Result 289 K/mm3 (150-420); Red Blood Count 4.58 M/mm3 (4.20-5.40); Red Cell Distribution Width 12.7 % (11.6-14.4); White Blood Count 10.8 K/mm3 (4.8-10.8)
[2022-10-21 16:39] LABS: Add Urine Microscopic? YES; Appearance Urine Clear (Clear); Bilirubin Urine Negative (Negative); Blood Urine Negative (Negative); Color Urine Yellow (Yellow); Glucose Urine UA Negative (Negative); Ketones Urine Trace (Negative); Leukocyte Esterase Ur Negative (Negative); Nitrate Urine Negative (Negative); Protein Urine Negative (Negative); Specific Grav Ur >= 1.030 (1.010-1.020); Urobilinogen Urine 0.2 mg/dL (0.2-1.0)
[2022-10-21 16:52] LABS: RBC Urine 0-2 /hpf (0-2); WBC Urine 0-3 /hpf (0-3)
[2022-10-21 16:53] LABS: Bacteria Urine Trace /hpf; Mucus Urine Moderate /lpf; Squamous Epithelial Cell Urine Moderate /hpf (Few)
[2022-10-21 17:19] LABS: Alanine Aminotransferase 24 U/L (14-59); Alkaline Phosphatase 79 U/L (46-116); Anion Gap 8 mmol/L (8-16); Aspartate Amino Transferase 11 U/L (15-37); Bilirubin,Total 0.3 mg/dL (0.00-1.00); Blood Urea Nitrogen 13 mg/dL (7-18); Calcium 9.1 mg/dL (8.5-10.1); Carbon Dioxide 32 mmol/L (21-32); Chloride 106 mmol/L (98-108); Estimated Glomerular Filt Rate > 60; Glucose 105 mg/dL (70-99); NT Pro B Type Natriuretic Pept 424 pg/mL (0-125); Osmolality Calculated 302 mOsm/kg (285-295); Sodium 146 mmol/L (136-145)
== END 2022-10-21 16:13 | disposition home or self-care (01) ==
LOC: CHSLAB 16:15
PROVIDERS: PCP Internal Medicine; Visit Provider Internal Medicine
DX: I25.10 Atherosclerotic heart disease of native coronary artery without angina pectoris (principal); R07.1 Chest pain on breathing; I50.22 Chronic systolic (congestive) heart failure
CPT/HCPCS: 36415; 80053; 81001; 83880; 85025

== ENCOUNTER 2022-12-27 13:32 | Outpatient (CLI) | payer OTHER, SELFPAY ==
[2022-12-27 15:02] LABS: Vitamin B12 654 pg/mL (193-986)
== END 2022-12-27 13:33 | disposition home or self-care (01) ==
LOC: CHSLAB 13:37
PROVIDERS: PCP Internal Medicine
DX: R41.3 Other amnesia (principal)
CPT/HCPCS: 36415; 82607; 84443

== ENCOUNTER 2023-03-14 16:31 | Outpatient (CLI) | payer OTHER, SELFPAY ==
[2023-03-14 16:51] LABS: Basophils Absolute Auto 0.11 K/mm3 (0.00-0.10); Basophils Percent Auto 1.1 % (0.0-1.0); Eosinophils Absolute Auto 0.35 K/mm3 (0.02-0.50); Eosinophils Percent Auto 3.4 % (1.0-6.0); Hematocrit 42.9 % (35.0-49.0); Hemoglobin 14.6 g/dL (12.0-15.0); Immature Granulocyte Absolute 0.03 K/mm3 (0.00-0.00); Immature Granulocyte Percent A 0.3 % (0.0-0.0); Lymphocytes Absolute Auto 3.76 K/mm3 (1.10-4.50); Mean Corpuscular Hemoglobin 31.3 pg (27.0-31.0); Mean Corpuscular Volume 91.9 fL (78.0-102.0); Mean Platelet Volume 10.1 fl (9.2-11.8); Monocytes Absolute Auto 0.56 K/mm3 (0.10-0.90); Monocytes Percent Auto 5.5 % (2.0-11.0); Neutrophils Absolute Auto 5.4 K/mm3 (1.7-7.2); Neutrophils Percent Auto 52.7 % (50.0-70.0); Platelet Count Result 310 K/mm3 (150-420); Red Blood Count 4.67 M/mm3 (4.20-5.40); Red Cell Distribution Width 13.2 % (11.6-14.4); White Blood Count 10.2 K/mm3 (4.8-10.8)
[2023-03-14 17:11] LABS: Alanine Aminotransferase 28 U/L (14-59); Albumin Level 4.2 g/dL (3.4-5.0); Alkaline Phosphatase 77 U/L (46-116); Anion Gap 10 mmol/L (8-16); Aspartate Amino Transferase 20 U/L (15-37); Bilirubin,Total 0.6 mg/dL (0.00-1.00); Blood Urea Nitrogen 8 mg/dL (7-18); Carbon Dioxide 31 mmol/L (21-32); Chloride 105 mmol/L (98-108); Estimated Glomerular Filt Rate > 60; Glucose 88 mg/dL (70-99); NT Pro B Type Natriuretic Pept 463 pg/mL (0-125); Osmolality Calculated 299 mOsm/kg (285-295); Potassium 4.3 mmol/L (3.5-5.1); Sodium 146 mmol/L (136-145); Total Protein 7.4 g/dL (6.4-8.2)
== END 2023-03-14 16:32 | disposition home or self-care (01) ==
LOC: CHSLAB 16:33
PROVIDERS: PCP Internal Medicine; Visit Provider Internal Medicine
DX: I50.9 Heart failure, unspecified (principal)
CPT/HCPCS: 36415; 80053; 83735; 83880; 85025

== ENCOUNTER 2023-04-14 15:11 | Outpatient (CLI) | payer OTHER, SELFPAY ==
[2023-04-14 15:27] LABS: Basophils Percent Auto 0.8 % (0.0-1.0); Eosinophils Absolute Auto 0.47 K/mm3 (0.02-0.50); Eosinophils Percent Auto 3.7 % (1.0-6.0); Hematocrit 43.4 % (35.0-49.0); Hemoglobin 15.4 g/dL (12.0-15.0); Immature Granulocyte Absolute 0.02 K/mm3 (0.00-0.00); Immature Granulocyte Percent A 0.2 % (0.0-0.0); Lymphocytes Absolute Auto 3.59 K/mm3 (1.10-4.50); Lymphocytes Percent Auto 28.4 % (18.0-42.0); Mean Corpuscular HGB Conc 35.5 g/dL (32.0-36.0); Mean Corpuscular Hemoglobin 32.3 pg (27.0-31.0); Mean Platelet Volume 9.7 fl (9.2-11.8); Monocytes Percent Auto 4.8 % (2.0-11.0); Neutrophils Absolute Auto 7.8 K/mm3 (1.7-7.2); Neutrophils Percent Auto 62.1 % (50.0-70.0); Platelet Count Result 310 K/mm3 (150-420); Red Blood Count 4.77 M/mm3 (4.20-5.40); Red Cell Distribution Width 12.6 % (11.6-14.4); White Blood Count 12.6 K/mm3 (4.8-10.8)
[2023-04-14 15:42] LABS: Partial Thromboplastin Time 35.9 SEC (23.90-30.70); Prothrombin Time 10.8 Seconds (9.50-12.10)
[2023-04-14 15:54] LABS: Alanine Aminotransferase 29 U/L (14-59); Albumin Level 4.3 g/dL (3.4-5.0); Alkaline Phosphatase 87 U/L (46-116); Anion Gap 8 mmol/L (8-16); Aspartate Amino Transferase 17 U/L (15-37); Bilirubin,Total 0.5 mg/dL (0.00-1.00); Blood Urea Nitrogen 14 mg/dL (7-18); Carbon Dioxide 34 mmol/L (21-32); Chloride 100 mmol/L (98-108); Cholesterol 187 mg/dL (0-200); Estimated Glomerular Filt Rate > 60; Glucose 95 mg/dL (70-99); HDL Direct 63 mg/dL (40-60); LDL Cholesterol Calculated 89 mg/dL (<130); NT Pro B Type Natriuretic Pept 220 pg/mL (0-125); Osmolality Calculated 294 mOsm/kg (285-295); Sodium 142 mmol/L (136-145); Total Protein 7.7 g/dL (6.4-8.2); Triglycerides 173 mg/dL (0-150)
== END 2023-04-14 15:12 | disposition home or self-care (01) ==
LOC: CHSLAB 15:14
PROVIDERS: PCP Internal Medicine
DX: I25.5 Ischemic cardiomyopathy (principal); I50.22 Chronic systolic (congestive) heart failure; R07.9 Chest pain, unspecified; R42 Dizziness and giddiness; R23.3 Spontaneous ecchymoses; M79.7 Fibromyalgia
CPT/HCPCS: 36415; 80053; 80061; 83880; 85025; 85610; 85730

== ENCOUNTER 2023-05-20 19:34 | Emergency (ER) | payer OTHER, SELFPAY ==
[2023-05-20] VITALS (8 sets, daily range): BP systolic 94–116; BP diastolic 54–82; PULSE 65–82; RESP 11–19; TEMP 36.2; O2SAT 96–98
--- NOTE | ~2023-05-20 | XR_ITS ---
EXAMINATION: XR chest 2V Exam Date/Time: 05/20/2023 19:55 CDT HISTORY: LEFT SIDE CHEST PRESSURE/PAIN X 3 DAYS. Comparison: 08/16/2022. RESULT: Lines, tubes, and devices: Left chest pacer/defibrillator with intact leads. Lungs and pleura: Clear. Minimal left lateral basal pleural scar. Cardiomediastinal silhouette: Stable. Other: No acute osseous or upper abdominal finding. IMPRESSION: No acute cardiopulmonary process. Reviewed, dictated and finalized at location K.
--- NOTE | 2023-05-20 19:46 | ECG_ITS ---
Measurements Intervals [place] Rate: 72 P: 18 AK: 127 QRS: 88 QRSD: 97 T: 126 QT: 385 QTc: 422 Interpretive Statements SINUS RHYTHM INCOMPLETE RIGHT BUNDLE BRANCH BLOCK BORDERLINE ST-T WAVE ABNORMALITY- HIGH LATERAL LEADS BASELINE ARTIFACT- I, III, AVR, AVL BORDERLINE ECG COMPARED TO ECG 06/25/2022 14:00:16 SINUS RHYTHM NOW PRESENT Electronically Signed On 05-21-2023 7:31:42 CDT by Aaron Wooten D.O.
--- NOTE | 2023-05-20 19:46 | ED.CHESTPAIN ---
HPI - Chest Pain General Chief Complaint: Chest Pain Stated Complaint: BP Problems Time Seen by Provider: 05/20/23 19:36 Source: patient and RN notes reviewed Mode of arrival: ambulatory Limitations: no limitations History of Present Illness HPI narrative: patient states that her blood pressures been running low and she seems to have pressure when she is resting. It does not get worse with exertion. She says she has been having some nausea but not associated with chest pressure also sometimes feeling like she is short of breath again not associated with chest pressure. She has a history of congestive heart failure coronary artery disease status post CABG MD complaint: chest heaviness Pertinent past history: coronary artery disease and CABG Onset (ago): day(s) (2) Timing of current episode: episodic Prior episodes: Yes Onset: during rest Pain location: left chest ( just under left breast) Pain radiation: none Severity: moderate Quality: heaviness ( pressure) Relieving factors: nothing Exacerbating factors: nothing ( actually during rest seems to make it worse) Treatment prior to arrival: none Related Data Home Medications Medication Instructions Recorded Confirmed bupropion HCl 150 mg 24 hr tablet, 150 mg PO DAILY 09/25/20 05/20/23 extended release metoprolol succinate 25 mg 50 mg PO DAILY 09/25/20 05/20/23 tablet,extended release 24 hr spironolactone 25 mg tablet 25 mg PO HS 09/25/20 05/20/23 apixaban 5 mg tablet (Eliquis) 5 mg PO BID 02/09/21 05/20/23 torsemide 20 mg tablet 20 mg PO DAILY 02/09/21 05/20/23 losartan 25 mg tablet 25 mg PO DAILY 06/09/21 05/20/23 montelukast 10 mg tablet 10 mg PO DAILY 06/09/21 05/20/23 nitroglycerin 0.3 mg sublingual 0.3 mg sublingual Q5MIN PRN Chest 06/09/21 05/20/23 tablet Pain ranolazine 500 mg tablet,extended 500 mg PO BID 06/09/21 05/20/23 release,12 hr (Ranexa) atorvastatin 80 mg tablet 80 mg PO HS 07/29/21 05/20/23 amlodipine 5 mg tablet 5 mg PO DAILY 03/04/22 05/20/23 clopidogrel 75 mg tablet 75 mg PO DAILY 03/04/22 05/20/23 isosorbide mononitrate 30 mg 60 mg PO DAILY 03/04/22 05/20/23 tablet,extended release 24 hr pantoprazole 20 mg tablet,delayed 20 mg PO DAILY 03/04/22 05/20/23 release duloxetine 30 mg capsule,delayed 30 mg PO DAILY 06/26/22 05/20/23 release albuterol 90 mcg/actuation aerosol 90 mcg inhalation PRN PRN Wheezing 05/20/23 05/20/23 inhaler buspirone 15 mg tablet 15 mg PO TID PRN Anxiety 05/20/23 05/20/23 clotrimazole-betamethasone 1 1 applic topical BID 05/20/23 05/20/23 %-0.05 % topical cream hydrocodone 5 mg-acetaminophen 325 1 tablet PO Q6H PRN Pain 05/20/23 05/20/23 mg tablet hyoscyamine sulfate 0.125 mg and 1 tablet PO Q12H 05/20/23 05/20/23 0.25 mg (0.375 mg) tablet,extended release lorazepam 0.5 mg tablet 0.5 mg PO BID PRN Anxiety 05/20/23 05/20/23 melatonin 5 mg tablet 5 mg PO HS PRN Sleep 05/20/23 05/20/23 ondansetron 4 mg disintegrating 4 mg PO Q8H PRN nausea vomiting 05/20/23 05/20/23 tablet potassium chloride 20 mEq 20 meq PO DAILY 05/20/23 05/20/23 tablet,extended release Allergies Allergy/AdvReac Type Severity Reaction Status Date / Time codeine Allergy Severe Hives Verified 05/20/23 19:47 doxycycline Allergy Intermediate Hives Verified 06/26/22 14:27 morphine Allergy Intermediate Hives Verified 06/26/22 14:27 Review of Systems Review of Systems: All systems reviewed & are unremarkable except as noted in HPI and below PMFSH Past Medical History Medical History Anemia Anxiety CAD (coronary artery disease) Cardiac defibrillator in place Has been wearing LifeVest since August 2020. Legal Director is Dr Nick Han. Cardiomyopathy Chest pain CHF (congestive heart failure) Colitis Depression DVT (deep venous thrombosis) Endometriosis Fibroids Fibromyalgia History of kidney stones History of ovarian cyst HTN (hypertension) Hx of myocardial infarc
[2023-05-20 20:34] LABS: Basophils Absolute Auto 0.07 K/mm3 (0.00-0.10); Basophils Percent Auto 0.9 % (0.0-1.0); Eosinophils Absolute Auto 0.26 K/mm3 (0.02-0.50); Eosinophils Percent Auto 3.4 % (1.0-6.0); Hematocrit 39.2 % (35.0-49.0); Hemoglobin 13.7 g/dL (12.0-15.0); Immature Granulocyte Absolute 0.02 K/mm3 (0.00-0.00); Immature Granulocyte Percent A 0.3 % (0.0-0.0); Lymphocytes Absolute Auto 3.31 K/mm3 (1.10-4.50); Lymphocytes Percent Auto 43.2 % (18.0-42.0); Mean Corpuscular HGB Conc 34.9 g/dL (32.0-36.0); Mean Corpuscular Hemoglobin 32.4 pg (27.0-31.0); Mean Corpuscular Volume 92.7 fL (78.0-102.0); Mean Platelet Volume 10.1 fl (9.2-11.8); Monocytes Absolute Auto 0.66 K/mm3 (0.10-0.90); Monocytes Percent Auto 8.6 % (2.0-11.0); Neutrophils Absolute Auto 3.3 K/mm3 (1.7-7.2); Neutrophils Percent Auto 43.6 % (50.0-70.0); Platelet Count Result 231 K/mm3 (150-420); Red Blood Count 4.23 M/mm3 (4.20-5.40); Red Cell Distribution Width 12.8 % (11.6-14.4); White Blood Count 7.7 K/mm3 (4.8-10.8)
--- NOTE | 2023-05-20 20:34 | PC.NURSE ---
Pt resting comfortably on stretcher in recumbent position using cellular device without difficulty. NSR on monitor worker noted. Call light in reach. Bed rails up x 2.
[2023-05-20 20:57] LABS: Alanine Aminotransferase 32 U/L (14-59); Albumin Level 3.3 g/dL (3.4-5.0); Alkaline Phosphatase 77 U/L (46-116); Anion Gap 7 mmol/L (8-16); Aspartate Amino Transferase 19 U/L (15-37); Bilirubin,Total 0.2 mg/dL (0.00-1.00); Blood Urea Nitrogen 12 mg/dL (7-18); CRP 0.5 mg/dL (0.0-0.9); Calcium 8.6 mg/dL (8.5-10.1); Carbon Dioxide 30 mmol/L (21-32); Chloride 102 mmol/L (98-108); Estimated CRCL calculation 58 ml/min; Estimated Glomerular Filt Rate > 60; Glucose 106 mg/dL (70-99); NT Pro B Type Natriuretic Pept 538 pg/mL (0-125); Osmolality Calculated 287 mOsm/kg (285-295); Potassium 3.6 mmol/L (3.5-5.1); Sodium 139 mmol/L (136-145); Total Protein 6.5 g/dL (6.4-8.2); Troponin I 26.9 ng/L (0.00-60.4)
== END 2023-05-20 21:15 | disposition home or self-care (01) ==
PROVIDERS: Emergency Provider Emergency Medicine; PCP Internal Medicine
DX: I95.2 Hypotension due to drugs (principal); R07.9 Chest pain, unspecified; I11.0 Hypertensive heart disease with heart failure; I50.9 Heart failure, unspecified; I25.2 Old myocardial infarction; I25.810 Atherosclerosis of coronary artery bypass graft(s) without angina pectoris; Z79.891 Long term (current) use of opiate analgesic; Z79.01 Long term (current) use of anticoagulants; Z79.899 Other long term (current) drug therapy; Z95.1 Presence of aortocoronary bypass graft
CPT/HCPCS: 36415; 71046; 80053; 83880; 84484; 85025; 86140; 93005; 99284

== ENCOUNTER 2023-08-22 15:51 | Emergency (ER) | payer OTHER, SELFPAY ==
[2023-08-22] VITALS (9 sets, daily range): BP systolic 99–119; BP diastolic 70–80; PULSE 72–83; RESP 12–19; TEMP 36.3–36.6; O2SAT 95–100
--- NOTE | ~2023-08-22 | XR_ITS ---
EXAMINATION: XR chest 2V Exam Date/Time: 08/22/2023 16:22 CDT HISTORY: Chest discomfort X 1 HOUR/HX OF CHF Comparison: 05/20/2023. RESULT: Lines, tubes, and devices: Left chest pacer/treated with intact leads. Intact sternotomy wires. Masood nary artery stenting. Lungs and pleura: Clear. Stable left pleural scarring. Cardiomediastinal silhouette: Stable. Other: No acute osseous or upper abdominal finding. IMPRESSION: No acute cardiopulmonary process. Reviewed, dictated and finalized at location K.
--- NOTE | 2023-08-22 15:53 | ECG_ITS ---
Measurements Intervals [place] Rate: 82 P: 10 MS: 180 QRS: 100 QRSD: 102 T: 138 QT: 367 QTc: 430 Interpretive Statements SINUS RHYTHM POSSIBLE LEFT ATRIAL ENLARGEMENT [-0.1mV P-WAVE IN V1/V2] BORDERLINE RIGHT AXIS DEVIATION [QRS AXIS > 90] INCOMPLETE RIGHT BUNDLE BRANCH BLOCK [90+ ms QRS DURATION, TERMINAL R IN V1/V2, 40+ ms S IN I/aVL/V4/V5/V6] POOR R-WAVE PROGRESSION MODERATE T-WAVE ABNORMALITY, CONSIDER WANDER- LATERAL LATERAL ISCHEMIA [-0.1+ mV T- WAVE IN I/aVL/V5/V6] COMPARED TO ECG 05/20/2023 19:56:22 THE WANDER- LATERAL T-WAVE INVERSION IS NEW Electronically Signed On 08-23-2023 18:51:25 CDT by Brittany Zambrano M.D.
--- NOTE | 2023-08-22 15:54 | ED.CHESTPAIN ---
HPI - Chest Pain General Chief Complaint: Chest Pain Stated Complaint: CP Time Seen by Provider: 08/22/23 15:54 Source: patient and RN notes reviewed Mode of arrival: ambulatory Limitations: no limitations History of Present Illness HPI narrative: patient had been having episodic chest pressure under her left breast over the weekend. She was at her doctor's office just 40 minutes prior to arrival when she had another episode similar chest pressure. She said she has a little nausea with this. And she also has some left arm heaviness. She has long history of congestive heart failure, CABG, quadruple bypass, coronary artery disease. She had been diagnosed with COVID 12 days ago. She did not have any treatment. MD complaint: chest pain Pertinent past history: coronary artery disease and CABG Onset (ago): day(s) (3) Timing of current episode: episodic Prior episodes: Yes Onset: during rest Pain location: left chest Pain radiation: left arm ( feels heavy) Severity: moderate Quality: fullness Relieving factors: rest Exacerbating factors: nothing Context: recent illness Associated symptoms: nausea Treatment prior to arrival: none Risk Factors Coronary artery disease risk factors: hyperlipidemia and hypertension Related Data On Oral Contraceptives: No Home Medications Medication Instructions Recorded Confirmed metoprolol succinate 25 mg 50 mg PO DAILY 09/25/20 08/22/23 tablet,extended release 24 hr spironolactone 25 mg tablet 25 mg PO HS 09/25/20 08/22/23 torsemide 20 mg tablet 20 mg PO DAILY 02/09/21 08/22/23 losartan 25 mg tablet 25 mg PO DAILY 06/09/21 08/22/23 montelukast 10 mg tablet 10 mg PO DAILY 06/09/21 08/22/23 nitroglycerin 0.3 mg sublingual 0.3 mg sublingual Q5MIN PRN Chest 06/09/21 08/22/23 tablet Pain ranolazine 500 mg tablet,extended 500 mg PO BID 06/09/21 08/22/23 release,12 hr (Ranexa) atorvastatin 80 mg tablet 80 mg PO HS 07/29/21 08/22/23 clopidogrel 75 mg tablet 75 mg PO DAILY 03/04/22 08/22/23 isosorbide mononitrate 30 mg 60 mg PO DAILY 03/04/22 08/22/23 tablet,extended release 24 hr pantoprazole 20 mg tablet,delayed 20 mg PO DAILY 03/04/22 08/22/23 release duloxetine 30 mg capsule,delayed 30 mg PO DAILY 06/26/22 08/22/23 release albuterol 90 mcg/actuation aerosol 90 mcg inhalation PRN PRN Wheezing 05/20/23 08/22/23 inhaler cefdinir 300 mg capsule 300 mg PO BID 08/22/23 08/22/23 Allergies Allergy/AdvReac Type Severity Reaction Status Date / Time codeine Allergy Severe Hives Verified 08/22/23 15:54 doxycycline Allergy Intermediate Hives Verified 08/22/23 15:54 morphine Allergy Intermediate Hives Verified 08/22/23 15:54 Review of Systems Review of Systems: All systems reviewed & are unremarkable except as noted in HPI and below PMFSH Past Medical History Medical History Anemia Anxiety CAD (coronary artery disease) Cardiac defibrillator in place Has been wearing LifeVest since August 2020. Link Cutter is Dr Nick Han. Cardiomyopathy Chest pain CHF (congestive heart failure) Colitis Depression DVT (deep venous thrombosis) Endometriosis Fibroids Fibromyalgia History of kidney stones History of ovarian cyst HTN (hypertension) Hx of myocardial infarction Hypercholesterolemia IBS (irritable bowel syndrome) NSTEMI (non-ST elevated myocardial infarction) Unstable angina UTI (urinary tract infection) Surgical History Surgical History History of cholecystectomy around 2009 History of hysterectomy Around 2008 due to endometriosis History of laparoscopy Patient tells me she has had nearly 20 laparoscopies for endometriosis. Hx of cystoscopy around 2011 S/P CABG x 22 May 2020 at [facility]. Link Cutter is Dr Nick Han. Family History Family History Father , Age 56 Acute myocardial
[2023-08-22 16:27] LABS: Basophils Absolute Auto 0.04 K/mm3 (0.00-0.10); Basophils Percent Auto 0.5 % (0.0-1.0); Eosinophils Absolute Auto 0.06 K/mm3 (0.02-0.50); Eosinophils Percent Auto 0.8 % (1.0-6.0); Hematocrit 41.1 % (35.0-49.0); Hemoglobin 14.5 g/dL (12.0-15.0); Immature Granulocyte Absolute 0.02 K/mm3 (0.00-0.00); Immature Granulocyte Percent A 0.3 % (0.0-0.0); Lymphocytes Percent Auto 30.5 % (18.0-42.0); Mean Corpuscular HGB Conc 35.3 g/dL (32.0-36.0); Mean Corpuscular Hemoglobin 31.9 pg (27.0-31.0); Mean Corpuscular Volume 90.3 fL (78.0-102.0); Mean Platelet Volume 10.2 fl (9.2-11.8); Monocytes Absolute Auto 0.51 K/mm3 (0.10-0.90); Monocytes Percent Auto 6.5 % (2.0-11.0); Neutrophils Absolute Auto 4.9 K/mm3 (1.7-7.2); Neutrophils Percent Auto 61.4 % (50.0-70.0); Platelet Count Result 232 K/mm3 (150-420); Red Blood Count 4.55 M/mm3 (4.20-5.40); Red Cell Distribution Width 12.3 % (11.6-14.4); White Blood Count 7.9 K/mm3 (4.8-10.8)
[2023-08-22 16:42] LABS: Partial Thromboplastin Time 34.1 SEC (23.90-30.70); Prothrombin Time 10.7 Seconds (9.50-12.10)
[2023-08-22 16:49] LABS: Alanine Aminotransferase 11 U/L (14-59); Albumin Level 3.6 g/dL (3.4-5.0); Alkaline Phosphatase 69 U/L (46-116); Anion Gap 9 mmol/L (8-16); Aspartate Amino Transferase 13 U/L (15-37); Bilirubin,Total 0.5 mg/dL (0.00-1.00); Blood Urea Nitrogen 10 mg/dL (7-18); Calcium 9.1 mg/dL (8.5-10.1); Carbon Dioxide 28 mmol/L (21-32); Chloride 104 mmol/L (98-108); Estimated CRCL calculation 63 ml/min; Estimated Glomerular Filt Rate > 60; Glucose 75 mg/dL (70-99); NT Pro B Type Natriuretic Pept 494 pg/mL (0-125); Osmolality Calculated 290 mOsm/kg (285-295); Potassium 3.4 mmol/L (3.5-5.1); Sodium 141 mmol/L (136-145); Total Protein 6.9 g/dL (6.4-8.2)
== END 2023-08-22 17:05 | disposition home or self-care (01) ==
PROVIDERS: Emergency Provider Emergency Medicine; PCP Internal Medicine
DX: R07.89 Other chest pain (principal); I11.0 Hypertensive heart disease with heart failure; I50.9 Heart failure, unspecified; I25.10 Atherosclerotic heart disease of native coronary artery without angina pectoris; I42.9 Cardiomyopathy, unspecified; I25.2 Old myocardial infarction; E78.00 Pure hypercholesterolemia, unspecified; F41.9 Anxiety disorder, unspecified; F32.A Depression, unspecified; M79.7 Fibromyalgia; Z86.718 Personal history of other venous thrombosis and embolism; Z95.1 Presence of aortocoronary bypass graft; Z79.02 Long term (current) use of antithrombotics/antiplatelets; Z79.51 Long term (current) use of inhaled steroids; Z87.891 Personal history of nicotine dependence; F12.90 Cannabis use, unspecified, uncomplicated
CPT/HCPCS: 36415; 71046; 80053; 83880; 84484; 85025; 85380; 85610; 85730; 93005; 99284

== ENCOUNTER 2023-11-10 13:13 | Outpatient (CLI) | payer OTHER, SELFPAY ==
--- NOTE | ~2023-11-10 | US_ITS ---
EXAMINATION: US renal BI DATE: 11/10/2023 13:56 INDICATION: Abdominal pain and right flank pain. TECHNIQUE: Multiple ultrasound grayscale images of the kidneys were obtained. COMPARISON: CT dated 06/25/2022 and 09/25/2020 FINDINGS: The right kidney measures 9.8 x 4.3 x 3.9 cm. The left kidney measures 10.0 x 3.5 x 5.8 cm. The kidne ys demonstrate normal echogenicity. There is a 1.6 cm complex cyst at the upper pole of the right kid li with internal dependently layering echogenic and shadowing milk of calcium. This appears unchange d since prior CT studies dating back to 09/25/2020. There is no hydronephrosis in either kidney. No s tones identified. The bladder is normal with bilateral ureteral jets visualized on color Doppler. IMPRESSION: 1. Chronic 1.6 cm complex cyst with dependently layering milk of calcium at the upper pole of the ri ght kidney. Otherwise normal kidneys without hydronephrosis. Reviewed, dictated and finalized at location A. ETING BUDGET ANALYST IMPRESSION: 1. Chronic 1.6 cm complex cyst with dependently layering milk of calcium at th e upper pole of the right kidney. Otherwise normal kidneys without hydronephros is.
== END 2023-11-10 13:14 | disposition home or self-care (01) ==
LOC: CHSIMG 13:14
PROVIDERS: PCP Internal Medicine; Visit Provider Nurse Practitioner Family
DX: R10.9 Unspecified abdominal pain (principal); N28.1 Cyst of kidney, acquired
CPT/HCPCS: 76775

== ENCOUNTER 2023-12-19 15:27 | Outpatient (CLI) | payer OTHER, SELFPAY ==
--- NOTE | ~2023-12-19 | XR_ITS ---
XR knee LT 3V DATE: 12/19/2023 16:09 INDICATION: Bilateral knee pain for 2 years. No injury. TECHNIQUE: 3 views COMPARISON: 04/20/2020 left knee FINDINGS: There is mild periarticular spurring at the medial and patellofemoral compartments but knee joint spaces are relatively preserved. No fracture or dislocation or joint effusion. No radiopaque intra-articular loose body or chondrocalc inosis. No periosteal reaction or bone destruction. IMPRESSION: Mild medial compartment and patellofemoral compartment osteoarthritis Reviewed, dictated and finalized at location B. ATRICIAN/MEDICAL DOCTOR IMPRESSION: Mild medial compartment and patellofemoral compartment osteoarthrit is
--- NOTE | ~2023-12-19 | XR_ITS ---
XR knee RT 3V DATE: 12/19/2023 16:09 INDICATION: Bilateral knee pain for 2 years. No injury. TECHNIQUE: 3 views COMPARISON: None FINDINGS: There is minimal loss of height of medial cartilage joint space. There is slight periarticu lar spurring at the medial compartment and patellofemoral compartment. No fracture or dislocation or joint effusion, radiopaque intra-articular loose body or chondrocalcino sis. No periosteal reaction or bone destruction. IMPRESSION: Mild medial and patellofemoral compartment osteoarthritis Reviewed, dictated and finalized at location B. KHOLDER
== END 2023-12-19 15:28 | disposition home or self-care (01) ==
LOC: CHSIMG 15:29
PROVIDERS: PCP Internal Medicine; Visit Provider Internal Medicine
DX: M25.562 Pain in left knee (principal); M25.561 Pain in right knee; M17.0 Bilateral primary osteoarthritis of knee
CPT/HCPCS: 73562

== ENCOUNTER 2023-12-29 12:56 | Outpatient (CLI) | payer OTHER, SELFPAY ==
--- NOTE | ~2023-12-29 | CT_ITS ---
Non-contrast Head CT History: Confusion COMPARISON: 06/26/2022 Technique: Axial non-contrast imaging of the brain was performed. Dose reduction technique was used on this scan by utilizing automated exposure control and iterative reconstruction technique. The dose -length product (DLP) was 681.00 mGy-cm. Findings: There is no evidence of intracranial hemorrhage, mass lesion, or acute infarct. Brain par enchyma appears normal. The ventricles and subarachnoid spaces are normal in size. The calvarium ap pears normal. The visualized paranasal sinuses and mastoid air cells are clear. Impression: No significant abnormality seen. Reviewed, dictated and finalized at location . CTOR UNDERWRITER SALES Impression: No significant abnormality seen.
== END 2023-12-29 12:57 | disposition home or self-care (01) ==
LOC: CHSIMG 12:58
PROVIDERS: PCP Internal Medicine; Visit Provider Internal Medicine
DX: G31.84 Mild cognitive impairment of uncertain or unknown etiology (principal); R51.9 Headache, unspecified; R42 Dizziness and giddiness
CPT/HCPCS: 70450

== ENCOUNTER 2024-02-15 15:36 | Outpatient (CLI) | payer OTHER, SELFPAY ==
[2024-02-15 15:53] LABS: Basophils Absolute Auto 0.11 K/mm3 (0.00-0.10); Eosinophils Absolute Auto 0.36 K/mm3 (0.02-0.50); Eosinophils Percent Auto 3.2 % (1.0-6.0); Hematocrit 42.2 % (35.0-49.0); Hemoglobin 14.5 g/dL (12.0-15.0); Immature Granulocyte Absolute 0.04 K/mm3 (0.00-0.00); Immature Granulocyte Percent A 0.4 % (0.0-0.0); Lymphocytes Absolute Auto 3.38 K/mm3 (1.10-4.50); Lymphocytes Percent Auto 29.9 % (18.0-42.0); Mean Corpuscular HGB Conc 34.4 g/dL (32-36); Mean Corpuscular Hemoglobin 31.3 pg (27.0-31.0); Mean Corpuscular Volume 91.1 fL (78.0-102.0); Mean Platelet Volume 9.8 fl (9.2-11.8); Monocytes Absolute Auto 0.61 K/mm3 (0.10-0.90); Monocytes Percent Auto 5.4 % (2.0-11.0); Neutrophils Absolute Auto 6.79 K/mm3 (1.70-7.20); Neutrophils Percent Auto 60.1 % (50.0-70.0); Platelet Count Result 309 K/mm3 (150-420); Red Blood Count 4.63 M/mm3 (4.20-5.40); Red Cell Distribution Width 12.5 % (11.6-14.4); White Blood Count 11.3 K/mm3 (4.8-10.8)
[2024-02-15 16:06] LABS: Prothrombin Time 10.7 Seconds (9.50-12.1)
[2024-02-15 16:59] LABS: Alanine Aminotransferase 41 U/L (14-59); Alkaline Phosphatase 89 U/L (46-116); Anion Gap 10 mmol/L (4-12); Aspartate Amino Transferase 22 U/L (15-37); Bilirubin,Total 0.4 mg/dL (0.00-1.00); Blood Urea Nitrogen 14 mg/dL (7-18); Calcium 8.8 mg/dL (8.5-10.1); Carbon Dioxide 31 mmol/L (21-32); Chloride 101 mmol/L (98-108); Cholesterol 194 mg/dL (0-200); Estimated Glomerular Filt Rate > 60; Glucose 76 mg/dL (70-99); HDL Direct 63 mg/dL (40-60); LDL Cholesterol Calculated 90 mg/dL (<130); NT Pro B Type Natriuretic Pept 343 pg/mL (0-125); Osmolality Calculated 293 mOsm/kg (285-295); Sodium 142 mmol/L (136-145); Triglycerides 207 mg/dL (0-150)
== END 2024-02-15 15:37 | disposition home or self-care (01) ==
PROVIDERS: PCP Internal Medicine
DX: I50.22 Chronic systolic (congestive) heart failure (principal)
CPT/HCPCS: 36415; 80053; 80061; 83880; 85025; 85610

== ENCOUNTER 2024-02-22 14:39 | Emergency (ER) | payer OTHER, SELFPAY ==
[2024-02-22] VITALS (45 sets, daily range): BP systolic 91–151; BP diastolic 47–96; PULSE 60–92; RESP 10–31; TEMP 36.2; O2SAT 95–100
--- NOTE | ~2024-02-22 | XR_ITS ---
EXAMINATION: XR chest 1V portable DATE: 02/22/2024 15:22 INDICATION: Chest pain. TECHNIQUE: A single frontal view of the chest was obtained. COMPARISON: Chest 2 views 08/22/2023 FINDINGS: There is no pneumonia, pleural effusion, or pneumothorax. The heart size is normal. There i s a left chest wall pacer with leads in the right atrium and right ventricle. Median sternotomy wires and mediastinal surgical clips are seen, likely from prior coronary artery bypass grafting. IMPRESSION: 1. No acute cardiopulmonary disease. Reviewed, dictated and finalized at location A.
--- NOTE | 2024-02-22 14:41 | ECG_ITS ---
Measurements Intervals [place] Rate: 82 P: -19 PA: 150 QRS: 101 QRSD: 102 T: -33 QT: 389 QTc: 456 Interpretive Statements SINUS RHYTHM POSSIBLE LEFT ATRIAL ENLARGEMENT INCOMPLETE RIGHT BUNDLE-BRANCH BLOCK MODERATE T-WAVE ABNORMALITY, CONSIDER LATERAL ISCHEMIA [-0.1+ mV T-WAVE IN I/aVL/V5/V6] MODERATE T-WAVE ABNORMALITY, CONSIDER INFERIOR ISCHEMIA [-0.1+ mV T-WAVE IN II/aVF] ABNORMAL ECG COMPARED TO ECG 08/22/2023 15:57:01 NO SIGNIFICANT CHANGES Electronically Signed On 02-22-2024 14:56:05 CDT by Pepito Castanon M.D.
--- NOTE | 2024-02-22 14:41 | ED.CHESTPAIN ---
HPI - Chest Pain General Chief Complaint: Chest Pain Stated Complaint: chest pain Time Seen by Provider: 02/22/24 14:41 Source: patient Mode of arrival: ambulatory Limitations: no limitations History of Present Illness HPI narrative: 43-year-old female, smoker with a history of CAD/OK status post stents,CABG x2 in 2019, cardiomyopathy, CHF, status post ICD, cardiac catheterization on 06/25/2022( no occlusive lesions based on the patient history) DVT on Eliquis, Endometriosis. Status post hysterectomy, status post cholecystectomy presents to the ER with a 3 day history of -- left inframammary pain which is unprovoked. No radiation of the pain. chest pain relieved by sublingual nitro. -- Patient has nausea without any vomiting. -- Chronic shortness of breath. The patient has a 10 lb weight gain following which she was started on metolazone in addition to her Lasix. No fever or chills. MD complaint: chest pain Pertinent past history: coronary artery disease, prior OK and CABG Onset (ago): day(s) ( Started 3 days ago) Timing of current episode: episodic Prior episodes: Yes Onset: during rest Pain location: left chest Pain radiation: none Severity: moderate Pain scale (0-10): 2 Quality: aching Relieving factors: nitroglycerin Exacerbating factors: nothing Associated symptoms: nausea Treatment prior to arrival: nitroglycerin Risk Factors Coronary artery disease risk factors: smoking history and hypertension Thoracic aortic dissection risk factors: longstanding hypertension Pulmonary embolism risk factors: history of deep vein thrombosis Related Data On Oral Contraceptives: No Home Medications Medication Instructions Recorded Confirmed metoprolol succinate 25 mg 50 mg PO DAILY 09/25/20 02/22/24 tablet,extended release 24 hr spironolactone 25 mg tablet 25 mg PO HS 09/25/20 02/22/24 torsemide 20 mg tablet 30 mg PO DAILY 02/09/21 08/22/23 montelukast 10 mg tablet 10 mg PO DAILY 06/09/21 02/22/24 nitroglycerin 0.3 mg sublingual 0.3 mg sublingual Q5MIN PRN Chest 06/09/21 02/22/24 tablet Pain ranolazine 500 mg tablet,extended 500 mg PO BID 06/09/21 02/22/24 release,12 hr (Ranexa) atorvastatin 80 mg tablet 80 mg PO HS 07/29/21 02/22/24 clopidogrel 75 mg tablet 75 mg PO DAILY 03/04/22 02/22/24 isosorbide mononitrate 30 mg 60 mg PO DAILY 03/04/22 02/22/24 tablet,extended release 24 hr pantoprazole 20 mg tablet,delayed 20 mg PO DAILY 03/04/22 02/22/24 release duloxetine 30 mg capsule,delayed 30 mg PO DAILY 06/26/22 02/22/24 release albuterol 90 mcg/actuation aerosol 90 mcg inhalation PRN PRN Wheezing 05/20/23 02/22/24 inhaler apixaban 5 mg tablet (Eliquis) 5 mg PO BID 02/22/24 02/22/24 metolazone 2.5 mg tablet 2.5 mg PO DAILY 02/22/24 02/22/24 Allergies Allergy/AdvReac Type Severity Reaction Status Date / Time codeine Allergy Severe Hives Verified 08/22/23 15:54 doxycycline Allergy Intermediate Hives Verified 08/22/23 15:54 morphine Allergy Intermediate Hives Verified 08/22/23 15:54 Review of Systems Review of Systems: All systems reviewed & are unremarkable except as noted in HPI and below Constitutional: Constitutional: Reports as per HPI and Reports no additional constitutional complaints Eyes: Eyes: Reports as per HPI and Reports no additional eye complaints ENT: Reports system reviewed and no additional complaints, except as documented and Reports as per HPI Cardiovascular: Cardiovascular: Reports as per HPI and Reports no additional cardiovascular complaints Respiratory: Respiratory: Reports as per HPI and Reports no additional respiratory complaints Gastrointestinal: Gastrointestinal: Reports as per HPI and Reports no additional gastrointestinal complaints Genitourinary: Genitourinary: Reports no additional female genitourinary complaints and Reports as per HPI Musculoskeletal: Musculoskeletal: Reports no additional musculoskeletal complaints and Reports as per HPI Integumentary/Breasts:
[2024-02-22 15:08] LABS: Basophils Absolute Auto 0.13 K/mm3 (0.00-0.10); Basophils Percent Auto 1.1 % (0.0-1.0); Eosinophils Percent Auto 2.5 % (1.0-6.0); Hematocrit 49.6 % (35.0-49.0); Hemoglobin 17.4 g/dL (12.0-15.0); Immature Granulocyte Absolute 0.04 K/mm3 (0.00-0.00); Immature Granulocyte Percent A 0.3 % (0.0-0.0); Lymphocytes Absolute Auto 3.17 K/mm3 (1.10-4.50); Lymphocytes Percent Auto 26.8 % (18.0-42.0); Mean Corpuscular HGB Conc 35.1 g/dL (32-36); Mean Corpuscular Hemoglobin 30.4 pg (27.0-31.0); Mean Corpuscular Volume 86.6 fL (78.0-102.0); Mean Platelet Volume 9.8 fl (9.2-11.8); Monocytes Absolute Auto 0.81 K/mm3 (0.10-0.90); Monocytes Percent Auto 6.9 % (2.0-11.0); Neutrophils Absolute Auto 7.37 K/mm3 (1.70-7.20); Neutrophils Percent Auto 62.4 % (50.0-70.0); Platelet Count Result 342 K/mm3 (150-420); Red Blood Count 5.73 M/mm3 (4.20-5.40); Red Cell Distribution Width 11.9 % (11.6-14.4); White Blood Count 11.8 K/mm3 (4.8-10.8)
[2024-02-22] MEDS: ONDANSETRON HCL ODT 4 MG TABLET PO (15:22)
[2024-02-22 15:23] LABS: Partial Thromboplastin Time 30.5 Sec (23.9-30.70); Prothrombin Time 10.8 Seconds (9.50-12.1)
[2024-02-22] MEDS: SODIUM CHLORIDE 0.9% IV 500 ML 999 ML IV CONT (15:27)
[2024-02-22 15:35] LABS: Alanine Aminotransferase 52 U/L (14-59); Albumin Level 4.6 g/dL (3.4-5.0); Alkaline Phosphatase 103 U/L (46-116); Anion Gap 14 mmol/L (4-12); Aspartate Amino Transferase 30 U/L (15-37); Bilirubin,Total 0.6 mg/dL (0.00-1.00); Blood Urea Nitrogen 21 mg/dL (7-18); Calcium 10.2 mg/dL (8.5-10.1); Carbon Dioxide 31 mmol/L (21-32); Chloride 91 mmol/L (98-108); Estimated CRCL calculation 52 ml/min; Estimated Glomerular Filt Rate 60; Glucose 103 mg/dL (70-99); NT Pro B Type Natriuretic Pept 363 pg/mL (0-125); Osmolality Calculated 285 mOsm/kg (285-295); Potassium 2.7 mmol/L (3.5-5.1); Sodium 136 mmol/L (136-145); Thyroid Stimulating Hormone 3.31 uIU/mL (0.36-3.74); Total Protein 8.8 g/dL (6.4-8.2); Troponin I 7.8 ng/L (0.00-60.4)
[2024-02-22] MEDS: KCL 20 MEQ/SW 100 ML 100 ML 50 MEQ IVPB ×3 (16:12→21:37)
[2024-02-22] MEDS: POTASSIUM CHLORIDE 20 MEQ ER TABLET 40 MEQ PO ×2 (16:12→18:42)
[2024-02-22 16:17] LABS: Magnesium 1.8 mg/dL (1.8-2.4)
--- NOTE | 2024-02-22 17:10 | PC.NURSE ---
1700 dr mcdainel notified of pt hot/cold, diaphoretic. requested fan. fan on then off. requested warm blanket. then was hot again. nasal swab obtained. sent to lab. 1711 family member , SALINAS nolasco. in with pt. called mother to come sit with pt.
[2024-02-22 17:45] LABS: SARS-CoV-2 RNA PCR Negative (Negative)
[2024-02-22 17:48] LABS: Influenza A QL RT-PCR Negative (Negative); Influenza B QL RT-PCR Negative (Negative); RSV RNA, RT-PCR Negative (Negative)
--- NOTE | 2024-02-22 17:53 | PC.NURSE ---
pt resting, mother in room with pt at this time.
--- NOTE | 2024-02-22 18:33 | ECG_ITS ---
Measurements Intervals [place] Rate: 62 P: 31 [place]: 130 QRS: 245 QRSD: 102 T: 204 QT: 431 QTc: 438 Interpretive Statements SINUS RHYTHM INCOMPLETE RIGHT BUNDLE BRANCH BLOCK ST DEVIATION AND MODERATE T-WAVE ABNORMALITY, CONSIDER INFERIOR ISCHEMIA [-0.1+ mV T- WAVE IN II/aVF] COMPARED TO ECG 02/22/2024 14:46:26 NO SIGNIFICANT CHANGES Electronically Signed On 02-23-2024 10:57:59 CDT by Dave Yousif M.D.
[2024-02-22 18:52] LABS: Troponin I 11.5 ng/L (0.00-60.4)
[2024-02-22 18:58] LABS: Anion Gap 13 mmol/L (4-12); Blood Urea Nitrogen 22 mg/dL (7-18); Calcium 10.1 mg/dL (8.5-10.1); Carbon Dioxide 33 mmol/L (21-32); Chloride 92 mmol/L (98-108); Estimated CRCL calculation 49 ml/min; Estimated Glomerular Filt Rate 56; Glucose 161 mg/dL (70-99); Osmolality Calculated 292 mOsm/kg (285-295); Potassium 2.6 mmol/L (3.5-5.1); Sodium 138 mmol/L (136-145)
--- NOTE | 2024-02-22 19:03 | PC.NURSE ---
report to easton stewart. all questions answered
[2024-02-22] MEDS: HEPARIN SOD/D5W 100 UNITS/ML 25,000 UNITS/250 ML BAG 7 UNITS IV CONT (19:50)
[2024-02-22] MEDS: SPIRONOLACTONE 25 MG TABLET PO (20:48)
[2024-02-22] MEDS: ATORVASTATIN 40 MG TABLET 80 MG PO (20:48)
[2024-02-22] MEDS: PANTOPRAZOLE SOD SESQUIHYDRATE 20 MG TAB PO (20:48)
[2024-02-22] MEDS: SODIUM CHLORIDE 0.9% IV 250 ML 50 ML (21:54)
== END 2024-02-22 22:00 | disposition short-term general hospital (02) ==
PROVIDERS: Emergency Provider Internal Medicine Critical Care Medicine; PCP Internal Medicine
DX: I25.110 Atherosclerotic heart disease of native coronary artery with unstable angina pectoris (principal); E87.6 Hypokalemia; I25.2 Old myocardial infarction; I50.9 Heart failure, unspecified; I42.9 Cardiomyopathy, unspecified; R06.02 Shortness of breath; I11.0 Hypertensive heart disease with heart failure; M79.7 Fibromyalgia; E78.00 Pure hypercholesterolemia, unspecified; F41.9 Anxiety disorder, unspecified; F32.A Depression, unspecified; Z20.822 Contact with and (suspected) exposure to COVID-19; Z95.5 Presence of coronary angioplasty implant and graft; Z95.1 Presence of aortocoronary bypass graft; Z79.01 Long term (current) use of anticoagulants; Z86.718 Personal history of other venous thrombosis and embolism; Z79.02 Long term (current) use of antithrombotics/antiplatelets; Z79.51 Long term (current) use of inhaled steroids; Z95.811 Presence of heart assist device; Z87.891 Personal history of nicotine dependence; F12.90 Cannabis use, unspecified, uncomplicated
CPT/HCPCS: 36415; 71045; 80048; 80053; 83605; 83735; 83880; 84443; 84484; 85025; 85610; 85730; 87637; 93005; 96361; 96365; 96366; 96367; 99285; A9270; J1644; J3480; J7040; J7050

== ENCOUNTER 2024-02-28 13:22 | Outpatient (CLI) | payer OTHER, SELFPAY ==
[2024-02-28 14:38] LABS: Anion Gap 8 mmol/L (4-12); Blood Urea Nitrogen 11 mg/dL (7-18); Carbon Dioxide 31 mmol/L (21-32); Chloride 103 mmol/L (98-108); Estimated Glomerular Filt Rate > 60; Glucose 81 mg/dL (70-99); NT Pro B Type Natriuretic Pept 390 pg/mL (0-125); Osmolality Calculated 292 mOsm/kg (285-295); Potassium 4.6 mmol/L (3.5-5.1); Sodium 142 mmol/L (136-145)
== END 2024-02-28 13:23 | disposition home or self-care (01) ==
LOC: CHSLAB 13:30
PROVIDERS: PCP Internal Medicine
DX: I50.22 Chronic systolic (congestive) heart failure (principal)
CPT/HCPCS: 36415; 80048; 83880

== ENCOUNTER 2024-03-16 10:27 | Outpatient (CLI) | payer OTHER, SELFPAY ==
--- NOTE | ~2024-03-16 | US_ITS ---
US abdomen limited 03/16/2024 10:43 Indication: CHF. Evaluate for ascites. Procedure: High-resolution Limited ultrasound of the abdomen Comparison: CT dated 06/25/2022 Findings: No free fluid identified in the abdomen. Limited study. Impression: 1: No evidence for ascites. Reviewed, dictated and finalized at location B. Impression: 1: No evidence for ascites.
== END 2024-03-16 10:28 | disposition home or self-care (01) ==
LOC: CHSIMG 10:30
PROVIDERS: PCP Internal Medicine
DX: I50.22 Chronic systolic (congestive) heart failure (principal); I25.5 Ischemic cardiomyopathy; R19.8 Other specified symptoms and signs involving the digestive system and abdomen
CPT/HCPCS: 76705

== ENCOUNTER 2024-03-23 15:32 | Outpatient (CLI) | payer OTHER, SELFPAY ==
[2024-03-23 15:47] LABS: Basophils Absolute Auto 0.12 K/mm3 (0.00-0.10); Basophils Percent Auto 1.2 % (0.0-1.0); Eosinophils Absolute Auto 0.34 K/mm3 (0.02-0.50); Eosinophils Percent Auto 3.3 % (1.0-6.0); Hematocrit 41.6 % (35.0-49.0); Hemoglobin 14.3 g/dL (12.0-15.0); Immature Granulocyte Absolute 0.03 K/mm3 (0.00-0.00); Immature Granulocyte Percent A 0.3 % (0.0-0.0); Lymphocytes Absolute Auto 3.79 K/mm3 (1.10-4.50); Lymphocytes Percent Auto 36.5 % (18.0-42.0); Mean Corpuscular HGB Conc 34.4 g/dL (32-36); Mean Corpuscular Hemoglobin 31.6 pg (27.0-31.0); Mean Corpuscular Volume 91.8 fL (78.0-102.0); Monocytes Absolute Auto 0.64 K/mm3 (0.10-0.90); Monocytes Percent Auto 6.2 % (2.0-11.0); Neutrophils Absolute Auto 5.46 K/mm3 (1.70-7.20); Neutrophils Percent Auto 52.5 % (50.0-70.0); Platelet Count Result 288 K/mm3 (150-420); Red Blood Count 4.53 M/mm3 (4.20-5.40); Red Cell Distribution Width 12.7 % (11.6-14.4); White Blood Count 10.4 K/mm3 (4.8-10.8)
[2024-03-23 16:44] LABS: Alanine Aminotransferase 40 U/L (14-59); Albumin Level 4.2 g/dL (3.4-5.0); Alkaline Phosphatase 84 U/L (46-116); Anion Gap 12 mmol/L (4-12); Aspartate Amino Transferase 28 U/L (15-37); Bilirubin,Total 0.5 mg/dL (0.00-1.00); Blood Urea Nitrogen 13 mg/dL (7-18); Calcium 9.1 mg/dL (8.5-10.1); Carbon Dioxide 30 mmol/L (21-32); Chloride 97 mmol/L (98-108); Estimated Glomerular Filt Rate 60; Glucose 80 mg/dL (70-99); Magnesium 1.8 mg/dL (1.8-2.4); NT Pro B Type Natriuretic Pept 311 pg/mL (0-125); Osmolality Calculated 287 mOsm/kg (285-295); Potassium 4.3 mmol/L (3.5-5.1); Sodium 139 mmol/L (136-145); Total Protein 7.5 g/dL (6.4-8.2)
== END 2024-03-23 15:33 | disposition home or self-care (01) ==
PROVIDERS: PCP Internal Medicine; Visit Provider Internal Medicine
DX: E87.6 Hypokalemia (principal); I50.9 Heart failure, unspecified
CPT/HCPCS: 36415; 80053; 83735; 83880; 85025

== ENCOUNTER 2024-05-22 16:31 | Outpatient (CLI) | payer OTHER, SELFPAY ==
[2024-05-22 17:20] LABS: Anion Gap 9 mmol/L (4-12); Blood Urea Nitrogen 12 mg/dL (7-18); Calcium 8.8 mg/dL (8.5-10.1); Carbon Dioxide 28 mmol/L (21-32); Chloride 102 mmol/L (98-108); Estimated Glomerular Filt Rate > 60; Glucose 77 mg/dL (70-99); NT Pro B Type Natriuretic Pept 237 pg/mL (0-125); Osmolality Calculated 286 mOsm/kg (285-295); Potassium 3.8 mmol/L (3.5-5.1); Sodium 139 mmol/L (136-145)
== END 2024-05-22 16:32 | disposition home or self-care (01) ==
PROVIDERS: PCP Internal Medicine
DX: I50.22 Chronic systolic (congestive) heart failure (principal)
CPT/HCPCS: 36415; 80048; 83880

== ENCOUNTER 2024-08-09 14:21 | Outpatient (CLI) | payer OTHER, SELFPAY ==
--- NOTE | ~2024-08-09 | XR_ITS ---
[id number] Ordering provider: Maria Esther Gagnon, MANAGER DIVERSITY History: . POSTERIOR L KNEE PAIN, ABNORMAL WEIGHT GAIN . Comparison: None. FINDINGS: BONES: No acute fracture or dislocation. JOINT SPACES: Normal. SOFT TISSUES: Normal. IMPRESSION: No acute osseous abnormality left knee. Reviewed, dictated and finalized at location A.
--- NOTE | ~2024-08-09 | XR_ITS ---
XR chest 2V Ordering provider: Maria Esther Gagnon, TELEPHONE OPERATOR RECEPTIONIST History: 44 years Female with . L KNEE PAIN, ABNORMAL WEIGHT GAIN . Comparison: February 22, 2024 FINDINGS: MEDIASTINUM: The cardiac silhouette is not enlarged. Postoperative changes in the mediastinum. Left b ipolar pacemaker. LUNGS: No infiltrates, effusions or pneumothorax. OTHER: No free air under the diaphragm. IMPRESSION: No acute cardiopulmonary pathology. Reviewed, dictated and finalized at location A.
[2024-08-09 15:10] LABS: Basophils Absolute Auto 0.11 K/mm3 (0.00-0.10); Basophils Percent Auto 1.3 % (0.0-1.0); Eosinophils Absolute Auto 0.31 K/mm3 (0.02-0.50); Eosinophils Percent Auto 3.5 % (1.0-6.0); Hematocrit 41.8 % (35.0-49.0); Hemoglobin 14.6 g/dL (12.0-15.0); Immature Granulocyte Absolute 0.03 K/mm3 (0.00-0.00); Immature Granulocyte Percent A 0.3 % (0.0-0.0); Lymphocytes Absolute Auto 2.78 K/mm3 (1.10-4.50); Lymphocytes Percent Auto 31.8 % (18.0-42.0); Mean Corpuscular HGB Conc 34.9 g/dL (32-36); Mean Corpuscular Hemoglobin 30.9 pg (27.0-31.0); Mean Corpuscular Volume 88.6 fL (78.0-102.0); Monocytes Absolute Auto 0.55 K/mm3 (0.10-0.90); Monocytes Percent Auto 6.3 % (2.0-11.0); Neutrophils Absolute Auto 4.96 K/mm3 (1.70-7.20); Neutrophils Percent Auto 56.8 % (50.0-70.0); Platelet Count Result 313 K/mm3 (150-420); Red Blood Count 4.72 M/mm3 (4.20-5.40); Red Cell Distribution Width 13.2 % (11.6-14.4); White Blood Count 8.7 K/mm3 (4.8-10.8)
[2024-08-09 15:30] LABS: Add Urine Microscopic? YES; Appearance Urine Clear (Clear); Bilirubin Urine 1+ (Negative); Blood Urine Negative (Negative); Color Urine Yellow (Yellow); Glucose Urine UA Negative (Negative); Ketones Urine Negative (Negative); Leukocyte Esterase Ur Trace (Negative); Nitrate Urine Negative (Negative); Protein Urine Trace (Negative)
[2024-08-09 15:52] LABS: Bacteria Urine 2+ /hpf; RBC Urine 0-2 /hpf (0-2); Squamous Epithelial Cell Urine Moderate /hpf (Few); WBC Urine 0-3 /hpf (0-3)
[2024-08-09 16:16] LABS: Erythrocyte Sedimentation Rate 23 mm/hr (0-15)
[2024-08-09 16:45] LABS: Alanine Aminotransferase 37 U/L (14-59); Albumin Level 3.7 g/dL (3.4-5.0); Alkaline Phosphatase 111 U/L (46-116); Anion Gap 5 mmol/L (4-12); Aspartate Amino Transferase 18 U/L (15-37); Bilirubin,Total 0.5 mg/dL (0.00-1.00); Blood Urea Nitrogen 11 mg/dL (7-18); Carbon Dioxide 32 mmol/L (21-32); Chloride 101 mmol/L (98-108); Cholesterol 239 mg/dL (0-200); Estimated Glomerular Filt Rate > 60; Free T4 Free Thyroxine 0.84 ng/dL (0.76-1.46); Glucose 81 mg/dL (70-99); HDL Direct 53 mg/dL (40-60); LDL Cholesterol Calculated 134 mg/dL (<130); NT Pro B Type Natriuretic Pept 239 pg/mL (0-125); Osmolality Calculated 284 mOsm/kg (285-295); Potassium 4.5 mmol/L (3.5-5.1); Sodium 138 mmol/L (136-145); Thyroid Stimulating Hormone 1.44 uIU/mL (0.36-3.74); Total Protein 6.9 g/dL (6.4-8.2); Triglycerides 258 mg/dL (0-150)
[2024-08-09 16:48] LABS: CRP < 0.5 mg/dL (0.0-0.9)
== END 2024-08-09 14:22 | disposition home or self-care (01) ==
LOC: CHSLAB 14:23
PROVIDERS: PCP Internal Medicine; Visit Provider Nurse Practitioner Family
DX: R63.5 Abnormal weight gain (principal); R53.83 Other fatigue; I50.22 Chronic systolic (congestive) heart failure
CPT/HCPCS: 36415; 71046; 73560; 80053; 80061; 81001; 83880; 84439; 84443; 85025; 85652; 86140

== ENCOUNTER 2024-09-19 13:38 | Emergency (ER) | payer OTHER, SELFPAY ==
[2024-09-19] VITALS (20 sets, daily range): BP systolic 109–143; BP diastolic 55–87; PULSE 60–81; RESP 12–20; TEMP 36.8; O2SAT 95–99
--- NOTE | ~2024-09-19 | XR_ITS ---
EXAMINATION: XR chest 1V portable DATE: 09/19/2024 14:41 INDICATION: Bronchitis. Left chest heaviness. TECHNIQUE: A single frontal view of the chest was obtained. COMPARISON: Chest 2 views 08/09/2024 FINDINGS: There is no pneumonia, pleural effusion, or pneumothorax. The heart size is normal. Median sternotomy wires are noted. There is a left chest wall pacer with leads in the right atrium and right ventricle. Surgical clips in the right upper quadrant are likely from cholecystectomy. IMPRESSION: 1. No acute cardiopulmonary disease. Reviewed, dictated and finalized at location B.
--- NOTE | 2024-09-19 13:45 | ED_ITS ---
HPI - URI/Sore Throat General Chief Complaint: Upper Respiratory Infection Stated Complaint: cough and congestion Source: patient Mode of arrival: ambulatory Limitations: no limitations History of Present Illness HPI Narrative: 44-year-old female a history of smoking, CAD/AK status post stents and CABG x2 in 2021 with coronary spasms, negative cardiac catheterization on 07/12 presented with chest pain in Februarynd was noted to have dynamic EKG changes for which she was transferred to [facility] . The patient had a stress test at [facility] which did not show any evidence of cardiac ischemia. Patient has cardiomyopathy with CHF status post ICD. patient is on Bumex, isosorbide, metoprolol, ranolazine and his spironolactone. The patient has a history of DVT and is on Eliquis. She presents to the ED with a 2 day history of -- subjective fever -- cough which is productive of mucoid sputum and chest congestion -- dyspnea on exertion MD elicited complaint: fever and cough Onset (ago): day(s) ( 2 days) Consistency: constant Description of mucous: clear Able to tolerate fluids by mouth: Yes Exacerbating factors: nothing Relieving factors: nothing Associated symptoms: denies other symptoms, headache and cough Treatments prior to arrival: none Related Data Home Medications Medication Instructions Recorded Confirmed metoprolol succinate 25 mg 50 mg PO DAILY 09/25/20 09/19/24 tablet,extended release 24 hr spironolactone 25 mg tablet 25 mg PO HS 09/25/20 09/19/24 nitroglycerin 0.3 mg sublingual 0.3 mg sublingual Q5MIN PRN Chest 06/09/21 09/19/24 tablet Pain ranolazine 500 mg tablet,extended 500 mg PO BID 06/09/21 09/19/24 release,12 hr (Ranexa) atorvastatin 80 mg tablet 80 mg PO HS 07/29/21 09/19/24 clopidogrel 75 mg tablet 75 mg PO DAILY 03/04/22 09/19/24 isosorbide mononitrate 30 mg 60 mg PO DAILY 03/04/22 09/19/24 tablet,extended release 24 hr pantoprazole 20 mg tablet,delayed 20 mg PO DAILY 03/04/22 09/19/24 release duloxetine 30 mg capsule,delayed 30 mg PO BID 06/26/22 09/19/24 release albuterol 90 mcg/actuation aerosol 90 mcg inhalation PRN PRN Wheezing 05/20/23 09/19/24 inhaler apixaban 5 mg tablet (Eliquis) 5 mg PO BID 02/22/24 09/19/24 bumetanide 1 mg tablet 1 mg PO BID 09/19/24 09/19/24 potassium chloride 20 mEq 20 meq PO DAILY 09/19/24 09/19/24 tablet,extended release(part/cryst) (Klor-Con M) Allergies Allergy/AdvReac Type Severity Reaction Status Date / Time codeine Allergy Severe Hives Verified 09/19/24 14:04 doxycycline Allergy Intermediate Hives Verified 09/19/24 14:04 morphine Allergy Intermediate Hives Verified 09/19/24 14:04 ivp dye Allergy Unknown Uncoded 09/19/24 14:04 Review of Systems Review of Systems: All systems reviewed & are unremarkable except as noted in HPI and below Constitutional: Constitutional: Reports as per HPI, Reports no additional constitutional complaints and Reports fever(s) Eyes: Eyes: Reports as per HPI and Reports no additional eye complaints ENT: Reports system reviewed and no additional complaints, except as documented and Reports as per HPI Cardiovascular: Cardiovascular: Reports as per HPI and Reports no additional cardiovascular complaints Respiratory: Respiratory: Reports as per HPI, Reports no additional respiratory complaints, Reports cough and Reports dyspnea Gastrointestinal: Gastrointestinal: Reports as per HPI and Reports no additional gastrointestinal complaints Genitourinary: Genitourinary: Reports no additional female genitourinary complaints and Reports as per HPI Musculoskeletal: Musculoskeletal: Reports no additional musculoskeletal complaints and Reports as per HPI Integumentary/Breasts: Skin/Breast: Reports system reviewed and no additional complaints, except as docu and Reports as per HPI Neurologic: Reports system reviewed and no additional complaints, except as documented and Reports as per HPI Psychiatric: Psychiatric: Reports no additional psychiatric complaints and Reports as per HPI Endocrine: Endocrine: Reports no additional endocrine complaints and Reports as per HPI Hematologic/Lymphatic: Hematologic/Lymphatic: Reports no additional hematologic/lymphatic complaints and Reports as per HPI Allergic/Immunologic: Allergic/Immunologic: Reports no additional allergic/immunologic complaints and Reports as per HPI PMFSH Past Medical History Medical History Anemia Anxiety CAD (coronary artery disease) Cardiac defibrillator in place Has been wearing LifeVest since August 2020. Die Casting Machine Setter is Dr Nick Han. Cardiomyopathy Chest pain CHF (congestive heart failure) Colitis Depression DVT (deep venous thrombosis) Endometriosis Fibroids Fibromyalgia History of kidney stones History of ovarian cyst HTN (hypertension) Hx of myocardial infarction Hypercholesterolemia IBS (irritable bowel syndrome) NSTEMI (non-ST elevated myocardial infarction) Unstable angina UTI (urinary tract infection) Surgical History Surgical History History of cholecystectomy around 2009 History of hysterectomy Around 2008 due to endometriosis History of laparoscopy Patient tells me she has had nearly 20 laparoscopies for endometriosis. Hx of cystoscopy around 2011 S/P CABG x 22 May 2020 at [facility]. Die Casting Machine Setter is Dr Nick Han. Family History Family History Father , Age 56 Acute myocardial infarction Family history of cardiovascular disease Family history of kidney disease Hypertension Grandparent , Passed in 50s from acute AK Diabetes mellitus Pancreatic cancer Lung cancer Acute myocardial infarction Sibling Family history of allergic disorder Social History Social History Social History: Ms. Roy lives at home with her and children in [place], [place]. 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 She denies alcohol use. Smoked 1.5 packs per day x 20 years and quit in May 2020 at time of her AK. She reports smoking marijuana occasionally, less than once per month. PCP is Dr Woo. She designates her , Nando, as her surrogate decision maker and is Full Code Status. Smoking packs per day: 1.5 Smoking cigarettes per day: 30.0 Years smoked: 20 Smoking pack-years: 30.00 Smoking status: Never smoker Tobacco type: cigarettes Second hand tobacco smoke exposure: Yes Alcohol intake: never Substance use: never Substance use type: does not use Last use: 06/12/20 Living arrangements: with family Gender identity (if verbalized by the patient): Female Sexual Orientation (if Verbalized by the Patient): Straight or Heterosexual Spiritual care concerns: No Exam Narrative: afebrile. Oxygen saturation of 99% on room air. Const: General: healthy appearing and no acute distress Orientation/consciousness: patient oriented x3 Limitations: no limitations HENMT: Head: normal to inspection Ears: external ears normal Face/Nos e/Sinus: Normal external nose present Face and sinus: normal facial exam Mouth: Yes Normal oral and palatal mucosa present Throat: posterior oropharynx normal Eyes: Conjunctivae: conjunctivae normal Pupils: Equal, round and reactive pupils present EOM: EOMs intact bilaterally Direct Ophthalmoscopy: no photophobia Neck: Neck: normal visual inspection, no lymphadenopathy and no meningeal signs Chest: Chest palpation & inspection: normal inspection of the chest Resp: Effort & Inspection: normal respiratory effort Auscultation: clear to auscultation bilaterally Cardio: Rate: regular rate Rhythm: regular rhythm GI: GI Palp: Yes Soft to palpation Auscultation: normal bowel sounds Other: No tenderness/rigidity/rebound. : General: Yes no CVA tenderness Back/Spine/Pelvis: Back: no CVA tenderness Skin: General skin exam: normal color Rashes: no rashes Wounds: no wounds Neuro: General: patient oriented x3, moves all extremities, no meningeal signs, no focal motor deficits and CN's II-XI intact bilaterally Cranial nerves: Yes Nystagmus not present Speech: normal speech Gait exam (Neuro): Normal gait present Extrem: General: normal to inspection, no clubbing, cyanosis or edema and no pedal edema Psych: Mental Status: mental status grossly normal Affect: normal affect Attitude: cooperative Course Course Emergency Course: Upper respiratory tract infection-- patient tested negative for RSV / influenza /COVID bronchitis/ COPD exacerbation-- will give a course of Zithromax/ prednisone. Chest x-ray did not show any acute findings. CAD/CHF-- appears compensated. Patient has had a negative cardiac catheterization in 2021 and a negative stress test in February of 2024. Vital Signs Vital signs: Vital Signs Temperature 36.8 C 09/19/24 13:41 Pulse Rate 81 09/19/24 13:41 Respiratory Rate 20 09/19/24 13:41 Blood Pressure 143/86 H 09/19/24 13:41 Pulse Oximetry 99 09/19/24 13:41 Oxygen Delivery Room Air 09/19/24 13:41 Temperature 36.8 C 09/19/24 13:41 Pulse Rate 69 09/19/24 14:31 Respiratory Rate 12 09/19/24 14:16 Blood Pressure 115/55 L 09/19/24 14:01 Pulse Oximetry 97 09/19/24 14:16 Oxygen Delivery Room Air 09/19/24 14:01 MDM - URI/Sore Throat MDM Narrative Medical decision making narrative: Compensated CHF upper respiratory tract infection COPD exacerbation Differential Diagnosis Differential diagnosis: Likely upper respiratory infection and viral infection Medical Records Attestation: I reviewed the patient's medical records. Lab Data Attestation: I reviewed the patient's lab results. Labs: Lab Results 09/19/24 Range/Units 14:15 Influenza A (RT-PCR) Negative (Negative) Influenza B (RT-PCR) Negative (Negative) RSV (RT-PCR) Negative (Negative) SARS-CoV-2 RNA (RT-PCR) Negative (Negative) Discharge Plan Discharge Clinical Impression: CHF (congestive heart failure), COPD exacerbation Upper respiratory infection Qualifiers: URI type: unspecified URI Qualified Code(s): J06.9 - Acute upper respiratory infection, unspecified Patient Disposition: Home, Self-Care Condition: Stable Instructions: Antibiotic Form, Heart Failure (ED), COPD (Chronic Obstructive Pulmonary Disease) (ED) Patient Language: Kenyan Prescriptions: New azithromycin [Zithromax] 500 mg tablet 500 mg PO DAILY 3 Days Qty: 3 0RF prednisone 20 mg tablet 20 mg PO BID Qty: 6 0RF No Action spironolactone 25 mg tablet 25 mg PO HS metoprolol succinate 25 mg tablet extended release 24 hr 50 mg PO DAILY albuterol 90 mcg/actuation Aerosol 90 mcg INHALATION PRN PRN (Reason: Wheezing) potassium chloride [Klor-Con M20] 20 mEq tablet,ER particles/crystals 20 meq PO DAILY bumetanide 1 mg tablet 1 mg PO BID nitroglycerin 0.3 mg tablet, sublingual 0.3 mg sublingual Q5MIN PRN (Reason: Chest Pain) ranolazine [Ranexa] 500 mg tablet extended release 12 hr 500 mg PO BID atorvastatin 80 mg tablet 80 mg PO HS duloxetine 30 mg capsule,delayed release(DR/EC) 30 mg PO BID Eliquis 5 mg tablet 5 mg PO BID isosorbide mononitrate 30 mg tablet extended release 24 hr 60 mg PO DAILY clopidogrel 75 mg tablet 75 mg PO DAILY pantoprazole 20 mg tablet,delayed release (DR/EC) 20 mg PO DAILY Follow-up/Referrals: Gregorio Woo MD [Primary Care Provider] - Time of Disposition: 15:39
[2024-09-19 15:12] LABS: SARS-CoV-2 RNA PCR Negative (Negative)
[2024-09-19 15:15] LABS: Influenza A QL RT-PCR Negative (Negative); Influenza B QL RT-PCR Negative (Negative); RSV RNA, RT-PCR Negative (Negative)
== END 2024-09-19 15:59 | disposition home or self-care (01) ==
PROVIDERS: Emergency Provider Internal Medicine Critical Care Medicine; PCP Internal Medicine
DX: I11.0 Hypertensive heart disease with heart failure (principal); I50.9 Heart failure, unspecified; J44.1 Chronic obstructive pulmonary disease with (acute) exacerbation; J06.9 Acute upper respiratory infection, unspecified; I25.10 Atherosclerotic heart disease of native coronary artery without angina pectoris; I25.2 Old myocardial infarction; F17.210 Nicotine dependence, cigarettes, uncomplicated; Z79.899 Other long term (current) drug therapy; Z20.822 Contact with and (suspected) exposure to COVID-19; Z95.1 Presence of aortocoronary bypass graft; Z86.718 Personal history of other venous thrombosis and embolism
CPT/HCPCS: 71045; 87637; 99283

== ENCOUNTER 2024-12-11 16:02 | Outpatient (CLI) | payer OTHER, SELFPAY ==
[2024-12-11 17:10] LABS: Alanine Aminotransferase 32 U/L (14-59); Alkaline Phosphatase 118 U/L (46-116); Anion Gap 11 mmol/L (4-12); Aspartate Amino Transferase 20 U/L (15-37); Bilirubin,Total 0.5 mg/dL (0.00-1.00); Blood Urea Nitrogen 13 mg/dL (7-18); Calcium 9.2 mg/dL (8.5-10.1); Carbon Dioxide 27 mmol/L (21-32); Chloride 99 mmol/L (98-108); Estimated Glomerular Filt Rate > 60; Glucose 86 mg/dL (70-99); NT Pro B Type Natriuretic Pept 256 pg/mL (0-125); Osmolality Calculated 283 mOsm/kg (285-295); Potassium 4.4 mmol/L (3.5-5.1); Sodium 137 mmol/L (136-145); Total Protein 7.1 g/dL (6.4-8.2)
--- OUTSIDE RECORDS SUMMARY | 2024-12-13 19:58 | XMS_ITS | Clinical Summary ---
Author Organization [facility] Address [address] [place] [address] Care Team Providers Care Clinical Lab Specialist Name Role Phone Nick Han MD Unavailable [phone] Source Comments [facility],non-owned Affiliates and Associated Physician Practices is amultiple site organization consisting of ambulatory clinics and hospital sitesin [place], [place], [place] and [place]. This disclosure is being madepursuant to the Care Everywhere program and may not contain all information available regarding this patient. Last updated 18.[facility] Allergies Active Allergy Reactions Criticality Noted Date Comments Codeine Urticaria,Vomiting Medium 06/13/2020 Vomiting and hives Doxycycline Urticaria Medium 06/13/2020 Morphine Urticaria,Vomiting Medium 06/13/2020 Medications * Be aware that medications may not be up to date on this document. Alwaysverify current medications with the patient. Medication Sig Dispensed Refills Start Date End Date Status PROAIR HFA 108 (90 Base) MCG/ACT inhaler Inhale 2 puffs by mouth every 6 hours as needed for Shortness of Breath or Wheezing 02/05/2020 Active aspirin (ASPIRIN) 81 MG chew tablet Take 1 tablet by mouth once daily 30 tablet 1 06/24/2020 Active atorvastatin (LIPITOR) 80 MG tablet Take 1 tablet by mouth at bedtime 30 tablet 2 06/23/2020 Active clopidogrel (PLAVIX) 75 MG tablet Take 1 tablet by mouth once daily 30 tablet 1 06/24/2020 Active melatonin 3 MG tablet Take 1 tablet by mouth at bedtime 14 tablet 06/23/2020 Active pantoprazole EC (PROTONIX) 40 MG tablet Take 1 tablet by mouth once daily 30 tablet 1 06/24/2020 Active ALPRAZolam (XANAX) 0.25 MG tabletIndications:An xiety Take 1 tablet by mouth nightly as needed for Anxiety Reasons: Feeling Anxious 10 tablet 06/23/2020 Active metoprolol succinate XL 24hr (TOPROL XL) 25 MG tabletIndications:Co ronary artery disease involving jamul coronary artery of jamul heart without angina pectoris Take 1 tablet by mouth once daily 90 tablet 4 07/16/2020 Active buPROPion SR 12hr (WELLBUTRIN-SR) 150 MG tablet Take 150 mg by mouth 2 times daily Active DULoxetine (CYMBALTA) 20 MG capsule Take 20 mg by mouth once daily Active Active Problems Problem Noted Date Diagnosed Date Kidney stone 09/26/2020 Dyspnea on exertion 08/28/2020 S/P CABG (coronary artery bypass graft) 08/28/20 20 Moderate ischemic cardiomyopathy 08/28/2020 NSTEMI (non-ST elevated myocardial infarction) 0 06/13/2020 Social History Tobacco Use Types Packs/Day Years Used Date Smoking Tobacco: Former Cigarettes 1.5 20 Smokeless Tobacco: Never Tobacco Cessation:Counseling Given: Yes Alcohol Use Standard Drinks/Week Comments Not Currently 0 (1 standard drink = 0.6 oz pur e alcohol) AUDIT-C Answer Date Recorded Q1: How often do you have a drink containing alc ohol? Never 06/13/2020 Average Number of Drinks Not on file 020 Frequency of Binge Drinking Not on file 05/22 Sex and Gender Information Value Date Recorded Sex Assigned at Not on file Gender Identity Not on file Sexual Orientation Not on file Last Filed Vital Signs Vital Sign Reading Time Taken Comments Blood Pressure 99/70 12/04/2020 9:05 AM FEATHER STITCHER Pulse 82 12/04/2020 9:05 AM FEATHER STITCHER Temperature 36.7 ??C (98 ??F) 09/27/2020 1:05 PM FEATHER STITCHER Respiratory Rate 19 09/27/2020 1:05 PM FEATHER STITCHER Oxygen Saturation 98% 10/06/2020 1:49 PM FEATHER STITCHER Inhaled Oxygen Concentration 40% 06/19/2020 1 2:00 PM CDT Weight 77.7 kg (171 lb 3.2 oz) 12/04/2020 9:05 A M FEATHER STITCHER Height 157.5 cm (5' 2 ) 12/04/2020 9:05 AM FEATHER STITCHER Body Mass Index 31.31 12/04/2020 9:05 AM FEATHER STITCHER Plan of Treatment Health Maintenance Due Date Last Done Comments COLOGUARD (AGES 45-75) - COLON CA SCREENING 1979 COLON MONITORING 1979 COLONOSCOPY - COLON CA SCREENING 1979 CT COLONOGRAPHY - COLON CA SCREENING 1979 Colorectal Cancer Screening 1979 FIT - COLON CA SCREENING 1979 FLEX SIG - COLON CA SCREENING 1979 MAMMOGRAM 1979 PAP SMEAR 1979 HIV SCREENING 1994 HEPATITIS C SCREENING 07/21/1997 DTAP/TDAP/TD VACCINES (1 - Tdap) 1998 HEPATITIS B VACCINE (1 of 3 - 19+ 3-dose series) 1998 SCREENING FOR DIABETES 12/04/2023 , 10/06/2020, 09/27/2020, Additional history exists COVID-19 VACCINE ( season) 2024 INFLUENZA VACCINE (#1) 2024 DEPRESSION SCREENING 11/21/2024 ZOSTER VACCINE (1 of 2) 2029 HIB VACCINE Aged Out No longer eligi ble based on patient's age to complete this topic HPV VACCINE Aged Out No longer eligi ble based on patient's age to complete this topic MENINGOCOCCAL (Group B) VACCINE Aged Out No longer eligible based on patient's age to complete this topic MENINGOCOCCAL VACCINE Aged Out No jelly libia eligible based on patient's age to complete this topic PNEUMOCOCCAL VACCINE Aged Out No long er eligible based on patient's age to complete this topic Medical Devices Implanted Type Area Taping Supervisor Device Identifier Shelf Expiration Date Model / Serial / Lot Stent Uret 6fr 22cm 2 Pgtl Crv 2 Drmtr Implanted:Qty: 1 on 09/27/2020 by Stan Brizuela MD at [facility] Right: [employer] Scimed 08/27/2022 [id number] / / [id number] Explanted Type Area Taping Supervisor Device Identifier Shelf Expiration Date Model / Serial / Lot Cbl Pace Jamar 6ft Atr Vntrc Xtrn Temp Reu Explanted:Qty: 1 on 06/16/2020 at [facility] [employer] [id number] / / Procedures Procedure Name Priority Date/Time Associated Diagnosis Comments COMPREHENSIVE METABOLIC PANEL Routine 12/04/2020 9:57 AM FEATHER STITCHER Coronary artery disease involving jamul coronary artery of jamul heart without angina pectoris Chest pain, unspecified type from Last 3 Months or Most Recently Relevant to Health Maintenance Results * (ABNORMAL) COMPREHENSIVE METABOLIC PANEL (12/04/2020 9:57 AM FEATHER STITCHER) Glucose 66(L) 70 - 105 mg/dL [facility] ACCOUNT BILL BUN 12 7 - 18.7 mg/dL [facility] ACCOUNT BILL Creatinine 0.85 0.57 - 1.11 mg/dL [facility] ACCOUNT BILL eGFR by MDRD >60 >60 mL/min/1.7 3m2 [facility] ACCOUNT BILL eGFR by MDRD >60 >60 mL/min/1.7 3m2 [facility] ACCOUNT BILL Sodium 144 136 - 145 mmol/L [facility] ACCOUNT BILL Potassium 4.7 3.5 - 5.1 mmol/L [facility] ACCOUNT BILL Chloride 109(H) 98 - 107 mmol/L [facility] ACCOUNT BILL CO2 27 23 - 31 mmol/L [facility] ACCOUNT BILL Calcium 9.4 8.4 - 10.4 mg/dL [facility] ACCOUNT BILL Protein Total 6.7 6.4 - 8.3 gm/dL [facility] ACCOUNT BILL Albumin 4.0 3.5 - 5.2 gm/dL [facility] ACCOUNT BILL Bilirubin Total 0.3 0.2 - 1.2 mg/dL [facility] ACCOUNT BILL Comment:Attention clinician: Reference Range change. Alkaline Phosphatase 101 40 - 150 U/L [facility] ACCOUNT BILL Comment:Attention clinician: Reference Range change. AST 17 5 - 34 U/L [facility] ACCOUNT BILL ALT 22 0 - 61 U/L [facility] ACCOUNT BILL Blood BLOOD SPECIMEN / Unknown 12/04/2020 9:57 AM FEATHER STITCHER 12/04/2020 Narrative Resulting Agency Comment Lab Testing performed at: [facility] [address] ?? Kelly MELENDEZ [id number] Nick Han MD LAB - CHEMISTRY PEGGY MENEZES [facility] ACCOUNT BILL [address] [place] [address] from Last 3 Months or Most Recently Relevant to Health Maintenance Advance Directives * Full Code (Latest Code Status on File) Date Activated Date Inactivated Comments 09/26/2020 8:28 PM 09/27/2020 6:28 PM * Full Code Date Activated Date Inactivated Comments 06/16/2020 1:42 PM 06/23/2020 2:37 PM * Full Code Date Activated Date Inactivated Comments 06/13/2020 11:32 AM 06/16/2020 1:42 PM Care Teams Clinical Lab Specialist Relationship Specialty [place] [id number] [facility] [address] [place] [address] Event Attendant Cardiovascular Disease 08/28/20
--- OUTSIDE RECORDS SUMMARY | 2024-12-13 19:58 | XMS_ITS | Referral Summary ---
Author Organization [facility] Address [address] [place] [address] Care Team Providers Care Body Rolling Machine Tender Name Role Phone Nick Han MD Unavailable [phone] Source Comments [facility],non-owned Affiliates and Associated Physician Practices is amultiple site organization consisting of ambulatory clinics and hospital sitesin [place] and [place]. This disclosure is being madepursuant to the Care Everywhere program and may not contain all information available regarding this patient. Last updated 18.[facility] Allergies Active Allergy Reactions Criticality Noted Date [...] 25 MG tabletIndications:Co ronary artery disease involving salamatof coronary artery of salamatof heart without angina pectoris Take 1 tablet [...] Comments Blood Pressure 99/70 12/04/2020 9:05 AM NUMBERER AND WIRER Pulse 82 12/04/2020 9:05 AM NUMBERER AND WIRER Temperature 36.7 ??C (98 ??F) 09/27/2020 1:05 PM NUMBERER AND WIRER Respiratory Rate 19 09/27/2020 1:05 PM NUMBERER AND WIRER Oxygen Saturation 98% 10/06/2020 1:49 PM NUMBERER AND WIRER Inhaled Oxygen Concentration 40% 06/19/2020 1 2:00 PM CDT Weight 77.7 kg (171 lb 3.2 oz) 12/04/2020 9:05 A M [employer]BERER AND WIRER Height 157.5 cm (5' 2 ) 12/04/2020 9:05 AM NUMBERER AND WIRER Body Mass Index 31.31 12/04/2020 9:05 AM NUMBERER AND WIRER Functional Status Functional Status Response Date of Assess ment Is person deaf or have serious hearing difficult y? No 09/26/2020 Is person blind or have serious difficulty seein g? Yes 09/26/2020 Does person have serious dif ficulty walking/climbing stairs? No 09/26/2020 Does person have difficulty dressing/bathing? No 09/26/2020 Does person have difficulty doing errands alone? No 09/26/2020 Cognitive Status Response Date of Assessm ent Does person have difficulty concentrating/remembering/making decisions? No 09/26/2020 Plan of Treatment Not on file Medical Devices Implanted Type Area Taxi Servicer Device Identifier Shelf Expiration Date Model / Serial / Lot Stent Uret 6fr 22cm 2 Pgtl Crv 2 Drmtr Implanted:Qty: 1 on 09/27/2020 by Stan Brizuela MD at [facility] Right: Ureter [employer] Scimed 08/27/2022 [id number] / / [id number] Explanted Type Area Taxi Servicer Device Identifier Shelf Expiration Date Model / Serial / Lot Cbl Pace Jamar 6ft Atr Vntrc Xtrn Temp Reu Explanted:Qty: 1 on 06/16/2020 at [facility] [employer] [id number] / / Procedures Procedure Name Priority Date/Time Associated Diagnosis Comments COMPREHENSIVE METABOLIC PANEL Routine 12/04/2020 9:57 AM NUMBERER AND WIRER Coronary artery disease involving salamatof coronary artery of salamatof heart without angina pectoris Chest pain, unspecified type from Last 3 Months or Most Recently Relevant to Health Maintenance Results * (ABNORMAL) COMPREHENSIVE METABOLIC PANEL (12/04/2020 9:57 AM NUMBERER AND WIRER) Glucose 66(L) 70 - 105 mg/dL [facility] [...] BLOOD SPECIMEN / Unknown 12/04/2020 9:57 AM NUMBERER AND WIRER 12/04/2020 Narrative Resulting Agency Comment Lab Testing performed at: [address] ?? [facility] [id number] Nick Han MD LAB - CHEMISTRY PEGGY MENEZES [facility] ACCOUNT BILL [id number] [place] [address] from Last 3 Months or Most Recently Relevant to Health Maintenance Advance Directives * Full Code (Latest Code Status on File) Date Activated Date Inactivated Comments 09/26/2020 8:28 PM 09/27/2020 6:28 PM * Full Code Date Activated Date Inactivated Comments 06/16/2020 1:42 PM 06/23/2020 2:37 PM * Full Code Date Activated Date Inactivated Comments 06/13/2020 11:32 AM 06/16/2020 1:42 PM Care Teams Body Rolling Machine Tender Relationship Specialty [place] [id number] [place] [address] Accountant Cost Cardiovascular Disease 08/28/20
--- OUTSIDE RECORDS SUMMARY | 2024-12-13 19:59 | XMS_ITS | Referral Summary ---
Author Organization [facility] Address [address] [place] [address] Care Team Providers Care [employer]ter [employer] Name Role Phone Chasity Hassan RN Unavailable [phone] Gergorio Woo MD Primary Care Provider [phone] Odalis Espinoza RN Unavailable [phone] Encounters Date Type Department Care Team Description 11/28/2024 Telephone [facility] [address]th [place] [address] [place] [phone] Shannan Romano, DESHAWN 11/27/2024 Telephone [facility] [address] [facility] [address] [id number] [place] [address] Sapna Montgomery 11/01/2024 Orders Only [facility] [address] [place] [address] Basilio Torres MD PhD 10/26/2024 Telephone [facility] Trans[facility] [address] [facility] [address] [facility] [phone] [place] [address] Roz Mcguire 10/25/2024 12:00 PM BOX PRESS OPERATOR Office Visit [facility]iology [address] [facility] 8th [place] [address] [place] [phone] Elmo Dacosta MD Ischemic cardiomyopathy (Primary Dx); Chronic systolic (congestive) heart failure (HCC) from Last 3 Months Allergies Active Allergy Reactions Criticality Noted Date Comments Codeine Mental status changes Low Doxycycline Anaphylaxis,Shortnes s of breath,Swelling High Throat closes; epi given Sacubitril-Valsartan Angioedema High 06/04/2021 Iodinated Contrast Media Swelling Medium 07/14/2022 After cath had stomach ache / abdominal pain headed back home. ER visit at [facility]. Next day everything was swollen - chest arms face tongue - headache. Went back to ER. Called cousin who is an old shellfish processing laborer. Recommended benadryl and zyrtec. Things got better after this. Morphine Urticaria,Vomiting Medium 06/13/[address] (CYMBALTA) 30 mg capsuleIndicatio ns:Generalized Anxiety Disorder Take 1 capsule (30 mg total) by mouth 2 (two) times a day 10/20/20 21 Active isosorbide mononitrate ER (IMDUR) 60 mg 24 hr tablet TAKE 1 TABLET DAILY 90 tablet 3 01/18/20 24 Active clopidogreL (PLAVIX) 75 mg tablet TAKE 1 TABLET DAILY 90 tablet 3 02/22/20 24 Active metoprolol XL (TOPROL-XL) 50 mg extended release tablet TAKE 1 TABLET DAILY 90 tablet 3 04/23/20 24 Active atorvastatin (LIPITOR) 80 mg tablet TAKE 1 TABLET NIGHTLY 90 tablet 3 04/23/20 24 Active mirtazapine (REMERON) 7.5 mg tablet 09/17/20 24 Active albuterol HFA (PROVENTIL HFA,VENTOLIN HFA,PROAIR HFA) 90 mcg/actuation inhaler 09/25/[address] (PROTONIX) 20 mg EC tablet Take 1 tablet (20 mg total) by mouth every morning 90 tablet 3 10/25/20 24 Active potassium chloride ER (KLOR-CON) 20 mEq CR tablet Take 2 tablets (40 mEq total) by mouth daily 180 tablet 3 10/25/20 24 025 Active spironolactone (ALDACTONE) 25 mg tablet Take 2 tablets (50 mg total) by mouth daily 180 tablet 3 10/25/20 24 025 Active ranolazine ER (RANEXA) 1,000 mg 12 hr tablet Take 1 tablet (1,000 mg total) by mouth 2 (two) times a day 60 tablet 11 10/25/20 24 025 Active nitroglycerin (NITROSTAT) 0.[address] 1 tablet (0.3 mg total) under the tongue every 5 (five) minutes as needed for chest pain (EVERY 5 MIN X3, THEN GO TO ED IF PERSIST) 90 tablet 3 10/25/20 24 Active Eliquis 5 mg tablet TAKE 1 TABLET TWICE A DAY 180 tablet 3 11/19/20 24 Active bumetanide (BUMEX) 1 mg tablet Take 1 tablet (1 mg total) by mouth 2 (two) times a day 60 tablet 11/27/19 25 Active apixaban (Eliquis) 5 mg tabletIndication s:atrial fibrillation Take 1 tablet (5 mg total) by mouth 2 (two) times a day 180 tablet 3 10/21/20 23 024 Discontinued bumetanide (BUMEX) 1 mg tablet TAKE 1 TABLET TWICE A DAY 60 tablet 11 06/19/20 24 025 Discontinued(Re order) Active Problems Problem Noted Date Diagnosed Date Aneurysm of left ventricle of heart 03/05/2024 Assessment & Plan (03/05/2024 12:33 PM CDT): On cMRI 12/2020 on Eliquis. ICD (implantable cardioverter-defibrillator) in place 07/22/2023 Assessment & Plan (03/05/2024 12:18 PM CDT): Denies therapies. No arrhthymias on interrogation. Assessment & Plan (07/22/2023 11:04 AM CDT): Dual chamber ICD is functioning appropriately as programmed Lead impedances, sensing, and thresholds are stable No programming changes Continue remote monitoring quarterly Follow up in 1 year for device check Benign essential tremor 11/26/2022 Dizziness 11/26/2022 Chest pain 06/11/2022 Overview (06/11/2022): Added automatically from request for surgery [id number] Tobacco abuse 06/05/2021 Assessment & Plan (06/06/2021 1:09 PM CDT): Barrier to advanced therapies if needed Discussed importance of smoking cessation Will discharge on Nicotine patch- low dose Patient very interested in cessation Assessment & Plan (06/05/2021 12:59 PM CDT): Barrier to advanced therapies if needed Manager Supplier on cessation Limb ischemia 06/03/2021 Assessment & Plan (06/06/2021 1:08 PM CDT): Concern for left upper limb ischemia given intermittent blue discoloration. Vascular surgery consulted ?? LUCIANA within normal limits ?? Arterial dopplers pending Concern for cardio-embolic source given apical thrombus ?? Will need oral anticoagulation ?? Continue antiplatelet and anticoagulation as above Will need WBI as OP Smoking cessation imperative Assessment & Plan (06/05/2021 12:31 PM CDT): Concern for left upper limb ischemia given intermittent blue discoloration. Vascular surgery consulted ?? LUCIANA within normal limits ?? Arterial dopplers pending Concern for cardio-embolic source given apical thrombus ?? Will need oral anticoagulation ?? Will discuss risks/benefits of triple therapy pending [facility] results Smoking cessation imperative Assessment & Plan (06/04/2021 11:16 AM CDT): -concern for left upper limb ischemia given intermittent blue discoloration. Per outpatient note would like LUCIANA, ultrasound and duplex of bilateral upper extremity Will obtain arterial and venous duplex studies over left upper extremity -strongly encouraged smoking cessation Coronary artery disease invo lving [place] coronary artery of [place] heart with angina pectoris 06/03/2021 Overview (07/07/2022): ?? [facility] May 2021 ?? RAMSAY to LAD patent, SVG to OM patent ?? RCA spasm and stenosis - 3 mm x 28 mm resolute minh drug-eluting stent ?? [facility] Jun 2022 ?? Widely patent RAMSAY and saphenous vein graft with patent stent in the right coronary artery ?? Elevated left ventricular end diastolic blood pressure Assessment & Plan (06/06/2021 1:03 PM CDT): History of premature coronary disease presented with a non STEMI in May 2020 to [facility] and subsequent CABG with a RAMSAY to the LAD and venous graft to the OM. ?? CMRI Dec 2020 LVEF 36% with Transmural late gadolinium enhancement involving at least 4 segments of the left ventricle mid cavity and apex consistent with a nonviable infarct Presented with worsening CHF and chest pain Plan: ?? LHC yesterday with diffuse RCA disease and coronary spasm ?? Underwent subsequent PCI ?? Will start amlodipine 2.5mg daily ?? Will need aspirin, clopidogrel, and apixaban for one month, then can decrease to just clopidogrel and apixaban ?? Unclear if premature CAD related to chronic inflammatory disease- laboratory rheumatologic work up pending ?? VerifyNow for Plavix and aspirin pending Continue high-intensity statin Continue losartan, ranolazine, and metoprolol Stable for discharge to home Post-PCI groin care and activity restrictions discussed Assessment & Plan (06/05/2021 12:53 PM CDT): History of premature coronary disease presented with a non STEMI in May 2020 to [facility] and subsequent CABG with a RAMSAY to the LAD and venous graft to the OM. ?? CMRI Dec 2020 LVEF 36% with Transmural late gadolinium enhancement involving at least 4 segments of the left ventricle mid cavity and apex consistent with a nonviable infarct Presented with worsening CHF and chest pain Plan: ?? LHC today ?? Unclear if premature CAD related to chronic inflammatory disease- laboratory rheumatologic work up pending ?? Check verifyNow for Plavix and aspirin Continue high-intensity statin and clopidogrel Continue losartan, ranolazine, and metoprolol Monitor on telemetry Assessment & Plan (06/03/2021 8:27 PM CDT): -will continue high-intensity statin and clopidogrel Chronic systolic (congestive) heart failure 11/22 Assessment & Plan (04/21/2021 4:55 PM CDT): [facility] Dec 2020 LVEF 36% with Transmural late gadolinium enhancement involving at least 4 segments of the left ventricle mid cavity and apex consistent with a nonviable infarct with a 2.5 x 2 cm left ventricle true aneurysm. Patient was intended to be on AC for her aneurysmal apex, however she had GI intolerance to apixiban, she remains on clopidogrel. TTE Feb 2021 LVEF 29%, swirl of contrast in akinetic apex no thrombus. - continue medication management as elsewhere Paroxysmal atrial fibrillation (CMS/HCC) 021 Overview (03/09/2021): ?? By report with monitor not showing Afib Assessment & Plan (03/05/2024 12:20 PM CDT): Eliquis and BB. No arrhthymias on ICD 01/2024. Assessment & Plan (04/21/2021 5:00 PM CDT): Per patient report, however not seen on monitor or EKG. Patient reports occasional flutter/palpitations. No AC, on plavix and BB. - telemetry - Dr. Dacosta planning on monitoring through ICD. Ischemic cardiomyopathy 08/28/2020 Overview (05/07/2024): CABG May 2020 TTE Jun 2020 LVEF 40% [facility] August 2020: Left main artery has unchanged distal disease. LAD artery has severe proximal and proximal mid lesion with competitive flow seen in the RAMSAY graft. Ramus intermedius has proximal 60-70% tubular lesion, unchanged from prior. Circumflex artery has ostial 70-80% with competitive flow seen in the OM branch. Right coronary artery, rPDA and rPLA branches are patent without significant disease. Echo TTE LVEF 20-30% CMRI Dec 2020 LVEF 36% with Transmural late gadolinium enhancement involving at least 4 segments of the left ventricle mid cavity and apex consistent with a nonviable infarct with a 2.5 x 2 cm left ventricle true aneurysm. TTE Feb 2021 LVEF 29%, swirl of contrast in akinetic apex no thrombus TTE May 2022 LVEF 45% with apical akinesis TTE Sep 2023 LVEF 45-50%, LVIDD 4.7 cm TTE March 2024 LVEF 45%, PULP COOKER laminated LV apical thrombus Assessment & Plan (03/05/2024 12:37 PM CDT): ICM. HFimpEF. LVEF On ECHO 02/2024%. Ischemic workup with moderate sized infarct at the apex and mild ischemia along its edges- medical management. Ongoing NYHA class III findings and diastolic heart failure. She does not appear overtly volume overloaded on exam. Her weight is up since discharge and steadily gaining since her torsemide was increased to 40 mg daily-she was 139 in September 2023 and 144 on discharge 02/24/ Her urine out put has decreased. With atypical chest pressure. BNP and CMP today. Change torsemide to Bumex 1 mg BID, repeat Bmp in a week. Continue Imdur 60 mg daily, ranaexa 500 mg BID, aldactone 25 mg daily, metoprolol 50 mg xl daily, and losartan 25 mg daily and Norvasc 5 mg daily. Plavix 75 mg daily along with Lipitor [address] mg daily. KCL supplement. Dr. Dacosta as scheduled. Assessment & Plan (07/22/2023 11:04 AM CDT): Ischemic cardiomyopathy s/p primary prevention ICD - 04/21/2021 Appears euvolemic on exam, most recent LVEF 45% per TTE 06/03/2022 Assessment & Plan (04/21/2021 4:51 PM CDT): With severely reduced EF < 30% TTE 02/2021. Patient follows with Dr. Dacosta and is presenting today for ICD placement. Prior to this patient was on lifevest for several months, denies any shocks delivered. Appears euvolemic on exam. - continue medical management: Metoprolol XL 25 mg daily, losartan 25 mg nightly, spironolactone 25 mg daily and torsemide 20 mg daily - monitor on telemetry overnight - CXR, device check in AM - cbc, bmp - pain management: prn tylenol and oxycodone 5 mg q4 S/P CABG (coronary artery bypass graft) 08/28/20 Assessment & Plan (04/21/2021 4:57 PM CDT): TTE in August showed patent grafts/stable multivessel CAD. - continue plavix, aspirin, statin Fibromyalgia 03/10/2012 Resolved Problems Problem Noted Date Diagnosed Date Resolved Date Heart failure 02/22/2024 05/07/2024 Hypokalemia 06/04/2021 06/06/2021 Assessment & Plan (06/05/2021 12:56 PM CDT): Schedule potassium supplements and follow Assessment & Plan (06/04/2021 11:21 AM CDT): potassium 3.2 supplemented as needed Recheck bmp later this afternoon Acute on chronic combined sy stolic and diastolic heart failure (CMS/HCC) 06/03/20212020 Assessment & Plan (06/06/2021 1:05 PM CDT): Admitted with increased shortness of breath, early satiety, abdominal distension and weight gain Treated with IV diuretics ?? Noted to be dry with RAP 1 on RHC Hold diuretics for 3 days, then as needed Continue metoprolol xl 50 mg, losartan 25 mg daily, spironolactone Echo with LVEF 40% with LV thrombus ?? Will start apixaban for discharge Will need close follow with Dr. Kohler as outpatient Assessment & Plan (06/05/2021 12:53 PM CDT): Admitted with increased shortness of breath, early satiety, abdominal distension and weight gain Treated with IV diuretics ?? Net negative 1.4L in last 24 hours; weight pending ?? Exam and symptoms improved RHC today Continue metoprolol xl 50 mg, losartan 25 mg daily, spironolactone Resume oral diuretics post cath Echo with LVEF 40% with LV thrombus ?? Will need oral anticoagulation post-procedure ?? Continue heparin drip for now Daily weights, Strict I/Os Assessment & Plan (06/04/2021 11:20 AM CDT): Increase SOB and early satiety on admission Currently will plan for LHC and RHC o 06/05 NPO after midnight Continue metoprolol xl 50 mg , losartan 25 mg daily Continue furosemide 40 mg ivp bid ( does not look grossly volume overloaded admission Pro- bnp 338 Echo pending History of apical aneurysm might need to be on anticoagulation Daily weight and monitor intake and output Left shoulder pain 04/21/2021 Assessment & Plan (04/21/2021 5:09 PM CDT): Patient reports acute on chronic left shoulder pain in setting of known rotator cuff injury. No imaging per chart review. Per patient reports all intervention deferred with cardiac dysfucntion. Exacerbated after ICD placement. She reports plan to make follow up appointment with her primary care provider but is requesting pain medications at discharge to bridge until appointment. Assured patient we will likely provide a short course for post procedure pain. - prn tylenol, oxycodone and cyclobenzaprine. - imaging per discretion of attending MD. Immunizations Name Administration Dates Next Due Influenza, Quadrivalent, Spl it, Preservative Free, Intramuscular 08/07/2019 Tdap 04/20/2020 Social History Tobacco Use Types Packs/Day Years Used Date Smoking Tobacco: Every Day Cigarettes 0.5 30.1 Started: 1994 Smokeless Tobacco: Never Tobacco Cessation:Ready to Q uit: No; Counseling Given: No AUDIT-C Answer Date Recorded Q1: How often do you have a drink containing alc ohol? Never 11/26/2022 Average Number of Drinks Not on file 023 Frequency of Binge Drinking Not on file 04/2023 Personal Safety Answer Date Recorded Have you ever been in or are you currently in a harmful physical or emotional relationship or is someone making you feel afraid or unsafe? Denies 02/22/2024 Comments No Sex and Gender Information Value Date Recorded Sex Assigned at Not on file Legal Sex Female 1:15 AM BOX PRESS OPERATOR Gender Identity Not on file Sexual Orientation Not on file Occupation Industry Job Start Date Job End Date denied Not on file Not on file Not on file Last Filed Vital Signs Vital Sign Reading Time Taken Comments Blood Pressure 114/77 10/25/2024 11:56 AM BOX PRESS OPERATOR Pulse 77 10/25/2024 11:56 AM BOX PRESS OPERATOR Temperature 36.7 ??C (98.1 ??F) 02/24/2024 7:50 PM CD T Respiratory Rate 16 02/25/2024 3:00 AM CDT Oxygen Saturation 95% 10/25/2024 11:56 AM BOX PRESS OPERATOR Inhaled Oxygen Concentration - - Weight 82.6 kg (182 lb 3.2 oz) 10/25/2024 11:56 AM BOX PRESS OPERATOR Height 157.5 cm (5' 2 ) 10/25/2024 11:56 AM BOX PRESS OPERATOR Body Mass Index 33.32 10/25/2024 11:56 AM BOX PRESS OPERATOR Plan of Treatment Not on file Medical Devices Implanted Type Area Mechanical Piping Designer Device Identifier Shelf Expiration Date Model / Serial / Lot [employer] [id number] Angio-Seal Evolution 6fr .035in Guidewire Bypass Tube Suture - [id number] Implanted:Qty: 1 on 06/05/2021 by Pancho Barraza MD PhD at [facility] Collagen N/A: Femoral [employer] Dorie 01/18/2022 [id number] / / [id number] [employer]ie Angio-Seal Vip 6fr Closere Device [id number] - [id number] Implanted:Qty: 1 on 06/25/2022 by Lc Mast MD at [facility] Collagen Right: Femoral [employer]ie 04/20/2023 [id number] / / [id number] Medtronic Inc [id number] 2 Chamber Df4 Inline Connector Radiopaque Pacemaker - [id number] - [id number] Implanted:Qty: 1 on 04/21/2021 by Basilio Torres MD PhD at [facility] ICD Left: Chest Medtronic Inc 08/18/2022 [id number] / [id number] / Medtronic Cardiac Rhythm Mgmt [id number] Sprint Quattro Secure S 55cm Df-4 Tripolar Screw Defibrillator - [id number] - [id number] Implanted:Qty: 1 on 04/21/2021 by Basilio Torres MD PhD at [facility] Lead Left: Chest Medtronic Inc 02/06/2023 [id number] / [id number] / Medtronic Cardiac Rhythm Mgmt 5076-45 Capsurefix Novus 6.2fr 2mm 45cm Bipolar Screw In Implantable - [id number] - [id number] Implanted:Qty: 1 on 04/21/2021 by Basilio Torres MD PhD at [facility] Lead Left: Chest Medtronic Inc 02/05/2023 5076-45 / [id number] / Medtronic Usa Inc X [id number] Resolute Brethren 3mm 2.1-2.7fr 26mm 140cm Rapid Exchange Radiopaque - [id number] Implanted:Qty: 1 on 06/05/2021 by Pancho Barraza MD PhD at [facility] Stent Medtronic Inc 03/09/2024 [id number] / / [id number] Procedures Procedure Name Priority Date/Time Associated Diagnosis Comments COMPREHENSIVE METABOLIC PANEL Routine 12/11/2024 4:18 PM BOX PRESS OPERATOR Ischemic cardiomyopathy Chronic systolic (congestive) heart failure (HCC) DEVICE CHECK - REMOTE Routine 11/01/2024 8:47 PM BOX PRESS OPERATOR COLONOSCOPY 06/30/2018 10:20 AM CDT from Last 3 Months or Most Recently Relevant to Health Maintenance Results * (ABNORMAL) Comprehensive metabolic panel (12/11/2024 4:18 PM BOX PRESS OPERATOR) SCRIBED Sodium 137 136 - 145 mmol/L EXTERNAL LAB SCRIBED Potassium 4.4 3.5 - 5.1 mmol/L EXTERNAL LAB SCRIBED Chloride 99 98 - 108 mmol/L EXTERNAL LAB SCRIBED Carbon Dioxide 27 21 - 32 mmol/L EXTERNAL LAB SCRIBED Anion Gap 11 4 - 12 mmol/L EXTERNAL LAB SCRIBED Urea Nitrogen (BUN) 13 7 - 18 mg/dl EXTERNAL LAB SCRIBED Creatinine 0.91 0.55 - 1.02 mg/dl EXTERNAL LAB SCRIBED Glucose 86 70 - 99 mg/dl EXTERNAL LAB SCRIBED Calcium 9.2 8.5 - 10.1 mg/dl EXTERNAL LAB SCRIBED Bilirubin 0.5 0.00 - 1.00 mg/dl EXTERNAL LAB SCRIBED Plasma Protein 7.1 6.4 - 8.2 g/dl EXTERNAL LAB SCRIBED Albumin 4.0 3.4 - 5.0 g/dl EXTERNAL LAB SCRIBED Alkaline Phosphatase 118(A) 46 - 116 Units/L EXTERNAL LAB SCRIBED Alanine Transaminase (ALT) 32 14 - 59 Units/L EXTERNAL LAB SCRIBED Aspartate Transaminase (AST) 20 15 - 37 Units/L EXTERNAL LAB SCRIBED eGFR in NonAfrican Northern Irish >60 >=60 EXTERNAL LAB Blood 12/11/2024 4:18 PM BOX PRESS OPERATOR us Elmo Dacosta MD LAB BLOOD ORDERABLES Fin al Result EXTERNAL LAB * DEVICE CHECK - REMOTE (11/01/2024 8:47 PM BOX PRESS OPERATOR) Anatomical Region Laterality Modality Other 11/01/2024 8:47 PM BOX PRESS OPERATOR Narrative 11/20/2024 6:35 PM BOX PRESS OPERATOR Interpretation Summary: Battery and Leads (BL) Normal parameters noted on battery and lead(s) --- 9.4 yrs remaining longevity (implanted 2020). ?Lead impedance, sensing, and threshold trends stable and appropriate. ?? No short V-V intervals. Presenting Rhythm (AR) Atrial Sensing-Ventricular Sensing (-VS) --- /VS (SR) 90s. Arrhythmic events (AE) No new arrhythmic events in monitoring period --- Since 08/02/24: ?? No AHR or VHR episodes. Anticoagulation ??(AC) Patient prescribed Apixaban (Eliquis) Patient on anticoagulant therapy Transmission Information (TI) Device Summary Report Follow Up (FU) Patient's primary treating physician will be apprised of findings Procedure Note Basilio Torres MD PhD - 11/20/2024 Interpretation Summary: Battery and Leads (BL) Normal parameters noted on battery and lead(s) --- 9.4 yrs remaininglongevity (implanted 2020). Lead impedance, sensing, and thresholdtrends stable and appropriate. No short V-V intervals. Presenting Rhythm (AR) Atrial Sensing-Ventricular Sensing (-VS) --- /VS (SR) 90s. Arrhythmic events (AE) No new arrhythmic events in monitoring period --- Since 08/02/24: No AHRor VHR episodes. Anticoagulation (AC) Patient prescribed Apixaban (Eliquis) Patient on anticoagulant therapy Transmission Information (TI) Device Summary Report Follow Up (FU) Patient's primary treating physician will be apprised of findings us Basilio Torres MD PhD [facility] PROCEDURES Final Result * COLONOSCOPY (06/30/2018 10:20 AM CDT) Anatomical Region Laterality Modality Other Narrative Procedure Note Marvin Harrington MD - 06/30/2018 10:20 AM CDT [facility] Patient Name: Mercedes Roy Procedure Date: 06/30/2018 10:20 AM Date of : 1980 Admit Type: Outpatient Age: 37 Gender: Female Attending MD: Marvin Harrington MD Room: [facility] OF [facility] ENDOSCOPY ROOM 2 Note Status: Finalized Patient Profile: 37 WF, had c/o black stool, diarrhea after meals,and right sided abdominal pain. Procedure: Colonoscopy Indications: Last colonoscopy: January 2013, Clinically significant diarrhea of unexplained origin, Melena Referring MD: Gregorio Woo M.D. Providers: Marvin Harrington MD Impression: - Diverticulosis in the sigmoid colon. - Otherwsie the entire examined colon is normal. Biopsied. - Internal hemorrhoids. Recommendation: - Await pathology results. - Continue present medications. Medicines: Monitored Anesthesia Care Complications: No immediate complications. Estimated Blood Loss: Estimated blood loss: none. Procedure: Pre-Anesthesia Assessment: - Prior to the procedure, a History and Physical was performed, and patient medications and allergieswere reviewed. The patient's tolerance of previous anesthesia was also reviewed. The risks and benefitsof the procedure and the sedation options and riskswere discussed with the patient. All questions were answered, and informed consent was obtained. Prior Anticoagulants: The patient has taken no previous anticoagulant or antiplatelet agents. ASA Grade Assessment: II - A patient with mild systemicdisease. After reviewing the risks and benefits, the patientwas deemed in satisfactory condition to undergo the procedure. The benefits, risks and alternatives of theprocedure and sedation were discussed and informed consent was obtained. All questions were answered. Please referto the signed informed consent document in the medical record. The scope was passed under direct vision.The Pediatric Colonoscope [id number] was introduced through the anus and advanced to the the cecum, identified by appendiceal orifice andileocecal valve. The colonoscopy was performed without difficulty. The patient tolerated the procedurewell. The quality of the bowel preparation was good. Findings: The perianal and digital rectal examinations were normal. The cecum was normal. Scattered small-mouthed diverticula were found in the sigmoidcolon. Otherwsie the colon (entire examined portion) appeared normal. Random biopsies were taken with a cold forceps for histology. No polyps andno mass lesions noted. No inflammatory changes noted. Internal hemorrhoids were found during retroflexion. The hemorrhoids were medium-sized. Electronically signed by Marvin Harrington M.D. Marvin Harrington MD 06/30/2018 11:08:52 AM Number of Addenda: 0 Note Initiated On: 06/30/2018 10:20 AM Procedure Code(s): --- Professional --- 93429, Colonoscopy, flexible; with biopsy, single or multiple Diagnosis Code(s): --- Professional --- K64.8, Other hemorrhoids R19.7, Diarrhea, unspecified K92.1, Melena (includes Hematochezia) K57.30, Diverticulosis of large intestine without perforation orabscess without bleeding CPT copyright 2017 [employer]. All rights reserved. The codes documented in this report are preliminary and upon spray unit feeder reviewmay be revised to meet current compliance requirements. Recognized by the [employer] for promoting quality in endoscopy Marvin Harrington MD ENDOSCOPY PROCEDURES Final Result from Last 3 Months or Most Recently Relevant to Health Maintenance Insurance [facility] Address: [address] [address] [place] [address] [place] [address] [facility] CHOICE PLUS [facility] Address: [address] [address] [place] [address] [place] [address] [facility] CHOICE PLUS [facility] Address: [address] [address] [place] [address] Advance Directives For more information, please contact: [phone] * Full Code (Latest Code Status on File) Date Activated Date Inactivated Comments 02/22/2024 11:03 PM 02/25/2024 5:08 PM * Full Code Date Activated Date Inactivated Comments 06/25/2022 9:37 AM 06/25/2022 4:15 PM * Full Code Date Activated Date Inactivated Comments 08/19/2021 9:54 AM 08/19/2021 4:17 PM * Full Code Date Activated Date Inactivated Comments 06/03/2021 8:05 PM 06/06/2021 6:44 PM * Full Code Date Activated Date Inactivated Comments 06/03/2021 8:01 PM 06/03/2021 8:05 PM Care Teams Setter [employer] Relationship Specialty Start Date End Date Gregorio Woo MD PCP - General 01/02/21 Chasity Hassan, RN Registered Nurse Retail Field Representative 11/04/20 Odalis Espinoza, RN [address] [address] Heart Failure Coordinator Retail Field Representative 10/22/21
--- OUTSIDE RECORDS SUMMARY | 2024-12-13 19:59 | XMS_ITS | Clinical Summary ---
Author Organization [facility] Address [address] [place] [address] Care Team Providers Care Scarifier Operator Name Role Phone Chasity Hassan RN Unavailable [phone] Gregorio Woo MD Primary Care Provider [phone] Odalis Espinoza RN Unavailable [phone] Allergies Active Allergy Reactions Criticality Noted Date Comments Codeine Mental status changes Low Doxycycline Anaphylaxis,Shortnes s of breath,Swelling High Throat closes; epi given Sacubitril-Valsartan Angioedema High 06/04/2021 Iodinated Contrast Media Swelling Medium 07/14/2022 After cath had stomach ache / abdominal pain headed back home. ER visit at [facility]. Next day everything was swollen - chest arms face tongue - headache. Went back to ER. Called cousin who is an old tree tapping laborer. Recommended benadryl and zyrtec. 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 Per outpatient note would like LUCIANA, ultrasound and duplex of bilateral upper extremity Will obtain arterial and venous duplex studies over left upper extremity -strongly encouraged smoking cessation Coronary artery disease invo lving [place] coronary artery of [place] heart with angina pectoris 06/03/2021 Overview (07/07/2022): ?? LHC May 2021 ?? RAMSAY to LAD patent, SVG to OM patent ?? RCA spasm and stenosis - 3 mm x 28 mm resolute minh drug-eluting stent ?? LHC Jun 2022 ?? Widely patent RAMSAY and saphenous vein graft with patent stent in the right coronary artery ?? Elevated left ventricular end diastolic blood pressure Assessment & Plan (06/06/2021 1:03 PM CDT): History of premature coronary disease presented with a non STEMI in May 2020 to [facility] and subsequent CABG with a RAMSAY to [...] a non STEMI in May 2020 to [facility] and subsequent CABG with a RAMSAY to [...] medication management as elsewhere Paroxysmal atrial fibrillation ([facility] 021 Overview (03/09/2021): ?? By report with [...] May 2020 TTE Jun 2020 LVEF 40% [facility] August 2020: Left main artery has [...] 4.7 cm TTE March 2024 LVEF 45%, FRANCHISE SPECIALIST laminated LV apical thrombus Assessment & Plan [...] - imaging per discretion of attending MD. Encounters Date Type Department Care Team Description 11/28/2024 Telephone [facility] Cardiology [address] [facility] 8th [place] [address] [place] [id number] Shannan Romano NP 11/27/2024 Telephone [facility] and [facility] Transplant Heart [address] [facility] [address] [place] [address] Sapna Montgomery 11/01/2024 Orders Only [facility] Cardiology [address] [facility] Medical Office Building [address] [place] [phone] Basilio Torres MD PhD 10/26/2024 Telephone [facility] and [facility] Transplant Heart [address] [facility] [address] [phone] [place] [address] Roz Mcguire 10/25/2024 12:00 PM TARIFF COMPILING CLERK Office Visit [facility] Cardiology [address] [facility] 8th [place] [address] [place] [address] Elmo Dacosta MD Ischemic cardiomyopathy (Primary Dx); Chronic systolic (congestive) heart failure (HCC) from Last 3 Months Immunizations Name Administration Dates Next Due Influenza, Quadrivalent, Spl it, Preservative Free, Intramuscular 08/07/2019 Tdap 04/20/2020 Surgical History Surgery Date Site/Laterality Comments LAPAROSCOPIC ENDOMETRIOSIS FULGURATION 11/21/2015 - 11/20/2016 pt has had 17 surgeries for endometriosis and scar tissue removal. HYSTERECTOMY 07/22/2010 - 08/20/2010 CHOLECYSTECTOMY 11/21/2012 - 11/20/2013 COLONOSCOPY 01/30/2013 CORONARY ARTERY BYPASS GRAFT CARDIAC DEFIBRILLATOR PLACEMENT CARDIAC CATHETERIZATION CORONARY STENT PLACEMENT Medical History Medical History Date Comments Irritable bowel syndrome GERD (gastroesophageal reflux disease) Endometriosis Melena Fibromyalgia Coronary artery disease Ischemic cardiomyopathy CHF (congestive heart failure) (CMS/HCC) (HCC) Hyperlipidemia PONV (postoperative nausea and vomiting) no delayed discharge Arrhythmia PAF (paroxysmal atrial fibrillation) (CMS/HCC) ( HCC) NSTEMI (non-ST elevated myoc ardial infarction) (CMS/HCC) (HCC) Hypertension Family History Medical History Relation Name Comments Hypertension Brother Migraines Brother Heart attack Father Heart failure Father Hypertension Father Peripheral vascular disease Father Sudden Cardiac Father Cancer Maternal Grandfather Heart failure Maternal Grandmother Pancreatic cancer Maternal Grandmother Breast cancer Mother Nicanor-Danlos syndrome Other Migraines Other Heart attack Paternal Grandfather Breast cancer Paternal Grandmother Heart failure Paternal Grandmother Hypertension Sister Migraines Sister Anesthesia problems Neg Hx Relation Name Status Comments Brother Father Maternal Grandfather Maternal Grandmother Mother Other Paternal Grandfather Paternal Grandmother Sister Social History Tobacco Use Types Packs/Day Years [...] on file Legal Sex Female 1:15 AM TARIFF COMPILING CLERK Gender Identity Not on file Sexual Orientation Not on file Occupation Industry Job Start Date Job End Date denied Not on file Not on file Not on file Obstetrics History Last Filed Vital Signs Vital Sign Reading Time Taken Comments Blood Pressure 114/77 10/25/2024 11:56 AM TARIFF COMPILING CLERK Pulse 77 10/25/2024 11:56 AM TARIFF COMPILING CLERK Temperature 36.7 ??C (98.1 ??F) 02/24/2024 7:50 PM CD T Respiratory Rate 16 02/25/2024 3:00 AM CDT Oxygen Saturation 95% 10/25/2024 11:56 AM TARIFF COMPILING CLERK Inhaled Oxygen Concentration - - Weight 82.6 kg (182 lb 3.2 oz) 10/25/2024 11:56 AM TARIFF COMPILING CLERK Height 157.5 cm (5' 2 ) 10/25/2024 11:56 AM TARIFF COMPILING CLERK Body Mass Index 33.32 10/25/2024 11:56 AM TARIFF COMPILING CLERK Plan of Treatment Health Maintenance Due Date Last Done Comments Breast Cancer Screening-Mammogram 1980 Depression Screening 1980 Hepatitis C Screening 1980 Pneumococcal vaccine <65 (1 of 2 - PCV) 1985 Hepatitis B Screening 1997 Regular Well Visit/Exam 18-64 1997 Influenza Vaccine (#1) 2024 0, 08/07/2019, 07/30/2016, Additional history exists Colon Cancer Screening-Colonoscopy 06/30/2028 06/30/2018, 01/31/2013 DTaP/Tdap/Td Vaccine (2 - Td or Tdap) 04/20/2030 04/20/2020 HPV Vaccines Aged Out No longer eligi ble based on patient's age to complete this topic Medical Devices Implanted Type Area Advertising Sales Representative Device Identifier Shelf Expiration Date Model / Serial / Lot Daig Dorie/[employer] [id number] Angio-Seal Evolution 6fr .035in Guidewire Bypass Tube Suture - [id number] Implanted:Qty: 1 on 06/05/2021 by Pancho Barraza MD PhD at [facility] Collagen N/A: Femoral [employer] Dorie 01/18/2022 [id number] / / [id number] [employer] Dorie Angio-Seal Vip 6fr Closere Device [id number] - [id number] Implanted:Qty: 1 on 06/25/2022 by Lc Mast MD at [facility] Collagen Right: Femoral [employer] Dorie 04/20/2023 [id number] / / [id number] Medtronic Inc [id number] 2 Chamber Df4 Inline Connector Radiopaque Pacemaker - [id number] - [id number] Implanted:Qty: 1 on 04/21/2021 by Basilio Torres MD PhD at [facility] ICD Left: Chest Medtronic Inc 08/18/2022 [id number] / [id number] / Medtronic Cardiac Rhythm Mgmt [id number] Sprint Quattro Secure S 55cm Df-4 Tripolar Screw Defibrillator - [id number] - [id number] Implanted:Qty: 1 on 04/21/2021 by Basilio Torres MD PhD at [facility] Lead Left: Chest Medtronic Inc 02/06/2023 [id number] / [id number] / Medtronic Cardiac Rhythm Mgmt 5076-45 Capsurefix Novus 6.2fr 2mm 45cm Bipolar Screw In Implantable - [id number] - [id number] Implanted:Qty: 1 on 04/21/2021 by Basilio Torres MD PhD at [facility] Lead Left: Chest Medtronic Inc 02/05/2023 [id number] / [id number] / Medtronic Usa Inc X [id number] Resolute Orem 3mm 2.1-2.7fr 26mm 140cm Rapid Exchange Radiopaque - [id number] Implanted:Qty: 1 on 06/05/2021 by Pancho Barraza MD PhD at [facility] Stent Medtronic Inc 03/09/2024 [id number] / / [id number] Procedures Procedure Name Priority Date/Time Associated Diagnosis Comments COMPREHENSIVE METABOLIC PANEL Routine 12/11/2024 4:18 PM TARIFF COMPILING CLERK Ischemic cardiomyopathy Chronic systolic (congestive) heart failure (HCC) DEVICE CHECK - REMOTE Routine 11/01/2024 8:47 PM TARIFF COMPILING CLERK COLONOSCOPY 06/30/2018 10:20 AM CDT from Last 3 Months or Most Recently Relevant to Health Maintenance Results * (ABNORMAL) Comprehensive metabolic panel (12/11/2024 4:18 PM TARIFF COMPILING CLERK) SCRIBED Sodium 137 136 - 145 mmol/L [...] Units/L EXTERNAL LAB SCRIBED eGFR in NonAfrican Peruvian >60 >=60 EXTERNAL LAB Blood 12/11/2024 4:18 PM TARIFF COMPILING CLERK us Elmo Dacosta MD LAB BLOOD ORDERABLES Fin al Result EXTERNAL LAB * DEVICE CHECK - REMOTE (11/01/2024 8:47 PM TARIFF COMPILING CLERK) Anatomical Region Laterality Modality Other 11/01/2024 8:47 PM TARIFF COMPILING CLERK Narrative 11/20/2024 6:35 PM TARIFF COMPILING CLERK Interpretation Summary: Battery and Leads (BL) Normal [...] treating physician will be apprised of findings Basilio Torres MD PhD [facility] PROCEDURES Final Result * COLONOSCOPY (06/30/2018 10:20 AM CDT) Anatomical Region Laterality Modality Other Narrative Procedure Note Marvin Harrington MD - 06/30/2018 10:20 AM CDT [facility] Patient Name: Mercedes Roy Procedure Date: 06/30/2018 10:20 AM Date of : 1980 Admit Type: Outpatient Age: 37 Gender: Female Attending MD: Marvin Harrington MD Room: [facility] ENDOSCOPY ROOM 2 Note Status: Finalized Patient [...] passed under direct vision.The Pediatric Colonoscope [id number] was introduced through the anus and advanced [...] 10:20 AM Procedure Code(s): --- Professional --- 91599, Colonoscopy, flexible; with biopsy, single or multiple Diagnosis Code(s): --- Professional --- K64.8, Other hemorrhoids R19.7, Diarrhea, unspecified K92.1, Melena (includes Hematochezia) K57.30, Diverticulosis of large intestine without perforation orabscess without bleeding CPT copyright 2017 [employer]. All rights reserved. The codes documented in this report are preliminary and upon medical instructor reviewmay be revised to meet current compliance requirements. Recognized by the [employer] for promoting quality in endoscopy Marvin Harrington MD ENDOSCOPY PROCEDURES Final Result from Last 3 Months or Most Recently Relevant to Health Maintenance Insurance [address] [place] [address] [facility] [address] [facility] CHOICE PLUS Advance Directives For more information, please contact: [phone] * Full Code (Latest Code Status on [...] 8:01 PM 06/03/2021 8:05 PM Care Teams Scarifier Operator Relationship Specialty Start Date End Date Gregorio Woo MD PCP - General 01/02/21 Chasity Hassan, SALINAS Registered Nurse Certified Meeting Professional 11/04/20 Odalis Espinoza, RN [address] [address] Heart Failure Coordinator Certified Meeting Professional 10/22/21
--- OUTSIDE RECORDS SUMMARY | 2024-12-13 19:59 | XMS_ITS | CONTINUITY OF CARE DOCUMENT ---
Author Name jagdish dubon Address Unknown Organization [facility] Address [address] [place] [address] Phone [phone] Care Team Providers Care Red Hat Open Stack Administrator Name Role Phone Moises CARVER, Prasad Unavailable EMELYN DACOSTA MD Unavailable [phone] KEELEY BAUTISTA MD Unavailable [phone] PROBLEMS Condition Status Date Provider Notes Family History of Sudden Cardiac : active Kristin Romero Family History of Hypertension: active Rebeca Romero GERD (gastroesophageal reflux disease) active Kristin Romero Hx of implantation of defibrillator active Kristin Romero Left subclavian vein stenosis active Aviva Romero Ischemic Cardiomyopathy active Prasad kyle MD Tobacco abuse active Prasad De eLon MD CAD - S/P CABG 2019; RAMSAY to LAD, SVG to OM, RCA stent active Kristin Romero Hyperlipidemia active Prasad De Leon MD Congestive Heart Failure active Prasad turner MD Atrial Fibrillation active Prasad Quintana Hypertension active Prasad De Leon MD ENCOUNTERS Date Type Provider Location Encounter Diag nosis - In-person encounter Office Visit Prasad De Leon MD [facility] HypertensionAtrial FibrillationCongestive Heart FailureHyperlipidemiaCAD - S/P CABG 2019; RAMSAY to LAD, SVG to OM, RCA stentTobacco abuseIschemic CardiomyopathyLeft subclavian vein stenosisHx of implantation of defibrillatorGERD (gastroesophageal reflux disease)Family History of Hypertension:Family History of Sudden Cardiac : VITAL SIGNS Date Observation Value Provider Body Mass Index (Ratio) 27.43 kg/m2 Rebeca jeremi [place] blood pressure, diastolic 67 mm[Hg] Li nkLogic blood pressure, systolic 96 mm[Hg] Dinae kLogic blood pressure, diastolic 67 mm[Hg] Ca therine Lane blood pressure, systolic 96 mm[Hg] Cat herine Julius oxygen saturation, oximetry 98 % Azul Julius respiratory rate E&M 16 /min Catheri ne Lane pulse rate 83 /min Azul Julius weight E&M 150 [lb_av] Azul Lane height E&M 62 [in_i] Azul Julius blood pressure, cuff size regular Ca therine Lane ALLERGIES Allergy Name Onset Date Reaction Criticality Status CODEINE Mental status changes Low Criticalit y active MORPHINE Urticaria and vomitting High Critica lity active ENTRESTO Angioedema Angioedema Low Criticalit y active DOXYCYCLINE Anaphylaxis, SOB, and throat swelli ng High Criticality active HISTORY OF MEDICATION USE Medication Status Instructions Dates Provider Indications Com ments ranolazine 500 mg tablet extended release 12 hr active Azul Julius duloxetine 20 mg capsule,delayed release(DR/EC) active Azul Julius losartan 25 mg tablet active Azul Julius metoprolol succinate 25 mg tablet extended release 24 hr active Azul Julius clopidogrel 75 mg tablet active [address] amlodipine 5 mg tablet active Azul Julius apixaban 5 mg tablet active Azul Julius montelukast 10 mg tablet active Azul Lane spironolactone 25 mg tablet active [address] calcium pantothenate unspecified unspecified active Azul Lane SOCIAL HISTORY Date Observation Value Provider smoking/tobacco cess ation, patient education and counseling yes Kristin Nick social history E&M S moking History: P atient currently smokes every day. Kristin Nick social history reviewed E&M revi ewed - no changes required Kristin Romero smoking history, tot al pack/day 10 cigs Azul Julius cigarette use yes Azul Julius smoking status Current every day smoker C atherine Julius FUNCTIONAL STATUS Date Observation Value Provider HRA, CV Assess/Plan, Angina (inactive) Management Plan continue current therapy Kristin Romero FAMILY HISTORY Family Member Condition Paternal Grandfather Family History of C oronary Artery Disease: Father Family History of Deluna dden Cardiac : Father Family History of Co ngestive Heart Failure: Father Family History of Co ronary Artery Disease: Father Family History of Hy pertension: INSURANCE PROVIDERS Payer name Policy type / Coverage type [employer] party ID [facility] Other [id number] TREATMENT PLAN Date Name Performer [id number],C, O n statin Kristin Nick [id number],C,S /P RCA stent, remains symptomatic with increased tiredness, fatigue, chest pain, and palpitations. She is being treated for CAD and small vessel dz and follows with [facility]. Kristin Nick [id number],C, I n NSR on EKG. On Eliquis Prasad De Leon MD [id number],C, C lincially euvolemic. Prasad De Leon MD [id number],C, B P well controlled Prasad De Leon MD [id number],C, E F 40% s/p AICD I had a long discussion with the patient and . I feel that the likelihood of any signficant improvement with Impulse therpay is minimal. She needs to continue to follow with [facility]. I will call Dr. Dacosta at the patient's request. He sees her and gives her explanations of her coronary artery disease and prognosis. Prasad De Leon MD [id number],C,S /P RCA stent, remains symptomatic with increased tiredness, fatigue, chest pain, and palpitations. She is being treated for CAD and small vessel dz and follows with [facility]. Prasad De Leon MD Cardiology: O n statin Kristin Romero Cardiology:S/P RCA s tent, remains symptomatic with increased tiredness, fatigue, chest pain, and palpitations. She is being treated for CAD and small vessel dz and follows with [facility]. Kristin Nick Cardiology: I n NSR on EKG. On Eliquis Prasad De Leon MD Cardiology: C lincially euvolemic. Prasad De Leon MD Cardiology: B P well controlled Prasad De Leon MD Cardiology: E F 40% s/p AICD I had a long discussion with the patient and . I feel that the likelihood of any signficant improvement with Impulse therpay is minimal. She needs to continue to follow with [facility]. I will call Dr. Dacosta at the patient's request. He sees her and gives her explanations of her coronary artery disease and prognosis. Prasad De Leon MD Cardiology:S/P RCA s tent, remains symptomatic with increased tiredness, fatigue, chest pain, and palpitations. She is being treated for CAD and small vessel dz and follows with [facility]. Prasad De Leon MD HISTORY OF PROCEDURES Procedure Date Procedure Name Provider Procedure Notes S tatus EKG Prasad De Leon MD complet ed
--- OUTSIDE RECORDS SUMMARY | 2024-12-13 19:59 | XMS_ITS | Patient Health Summary ---
Author Organization [facility] Address [address] 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 This disclosure is being madepursuant to the Care Everywhere program and may not contain all information available regarding this patient. Last updated 18.[facility] Allergies * Codeine(Urticaria,Vomiting) -Medium Criticality * Doxycycline(Urticaria) -Medium Criticality * Morphine(Urticaria,Vomiting) -Medium Criticality Medications * Be aware that medications may not be up to date on this document. Alwaysverify current medications with the patient. * PROAIR HFA 108 (90 Base) MCG/ACT inhaler(Started 02/05/2020) Inhale 2 puffs by mouth every 6 hours as needed for Shortness of Breath or Wheezing * aspirin (ASPIRIN) 81 MG chew tablet(Started 06/24/2020) Take 1 tablet by mouth once daily 1 refill by 06/23/2021 * atorvastatin (LIPITOR) 80 MG tablet(Started 06/23/2020) Take 1 tablet by mouth at bedtime 2 refills by 06/23/2021 * clopidogrel (PLAVIX) 75 MG tablet(Started 06/24/2020) Take 1 tablet by mouth once daily 1 refill by 06/23/2021 * melatonin 3 MG tablet(Started 06/23/2020) Take 1 tablet by mouth at bedtime * pantoprazole EC (PROTONIX) 40 MG tablet(Started 06/24/2020) Take 1 tablet by mouth once daily 1 refill by 06/23/2021 * ALPRAZolam (XANAX) 0.25 MG tablet(Started 06/23/2020) Take 1 tablet by mouth nightly as needed for Anxiety Reasons: Feeling Anxious * metoprolol succinate XL 24hr (TOPROL XL) 25 MG tablet(Started 07/16/2020) Take 1 tablet by mouth once daily 4 refills by 07/16/2021 * buPROPion SR 12hr (WELLBUTRIN-SR) 150 MG tablet Take 150 mg by mouth 2 times daily * DULoxetine (CYMBALTA) 20 MG capsule Take 20 mg by mouth once daily Active Problems Problem Noted Date Diagnosed Date [...] Comments Blood Pressure 99/70 12/04/2020 9:05 AM COREMAKER Pulse 82 12/04/2020 9:05 AM COREMAKER Temperature 36.7 ??C (98 ??F) 09/27/2020 1:05 PM COREMAKER Respiratory Rate 19 09/27/2020 1:05 PM COREMAKER Oxygen Saturation 98% 10/06/2020 1:49 PM COREMAKER Inhaled Oxygen Concentration 40% 06/19/2020 1 2:00 PM CDT Weight 77.7 kg (171 lb 3.2 oz) 12/04/2020 9:05 A M COREMAKER Height 157.5 cm (5' 2 ) 12/04/2020 9:05 AM COREMAKER Body Mass Index 31.31 12/04/2020 9:05 AM COREMAKER Medical Devices Implanted Type Area Grinder Device Identifier Shelf Expiration Date Model / Serial / Lot Stent Uret 6fr 22cm 2 Pgtl Crv 2 Drmtr Implanted:Qty: 1 on 09/27/2020 by Stan Brizuela MD at [facility] Right: [employer] Scimed 08/27/2022 [id number] / / [id number] Explanted Type Area Grinder Device Identifier Shelf Expiration Date Model / Serial / Lot Cbl Pace Jamar 6ft Atr Vntrc Xtrn Temp Reu Explanted:Qty: 1 on 06/16/2020 at [facility] [employer] [id number] / / Procedures * B-TYPE NATRIURETIC PEPTIDE(Performed 12/04/2020) Performed for Coronary artery disease involving [place] coronary artery of [place] heart without angina pectoris, Chest pain, unspecified type * TSH(Performed 12/04/2020) Performed for Coronary artery disease involving [place] coronary artery of [place] heart without angina pectoris, Chest pain, unspecified type * COMPREHENSIVE METABOLIC PANEL(Performed 12/04/2020) Performed for Coronary artery disease involving [place] coronary artery of [place] heart without angina pectoris, Chest pain, unspecified type * CBC W AUTO DIFFERENTIAL(Performed 12/04/2020) Performed for Coronary artery disease involving [place] coronary artery of [place] heart without angina pectoris, Chest pain, unspecified type * C-REACTIVE PROTEIN(Performed 12/04/2020) Performed for Coronary artery disease involving [place] coronary artery of [place] heart without angina pectoris, Chest pain, unspecified type * ERYTHROCYTE SEDIMENTATION RATE(Performed 12/04/2020) Performed for Coronary artery disease involving [place] coronary artery of [place] heart without angina pectoris, Chest pain, unspecified type * CARDIAC RHYTHM STRIP ORDER(Performed 10/28/2020) * EVENT MONITOR(Performed 10/14/2020) Performed for Palpitations * B-TYPE NATRIURETIC PEPTIDE(Performed 10/06/2020) Performed for Moderate ischemic cardiomyopathy * COMPREHENSIVE METABOLIC PANEL(Performed 10/06/2020) Performed for Moderate ischemic cardiomyopathy * CBC W AUTO DIFFERENTIAL(Performed 10/06/2020) Performed for Moderate ischemic cardiomyopathy * CARDIAC EKG ORDER(Performed 09/30/2020) * LARYNGEAL MASK AIRWAY(Performed 09/27/2020) * FL UROGRAM RETROGRADE(Performed 09/27/2020) Performed for Pain * GA CONTACT LASER SURGERY OF PROSTATE(Performed 09/27/2020) * XR CHEST 1VW PORTABLE(Performed 09/27/2020) Performed for Kidney stone * PT-INR(Performed 09/27/2020) * MAGNESIUM BLOOD(Performed 09/27/2020) * CBC W AUTO DIFFERENTIAL(Performed 09/27/2020) * COMPREHENSIVE METABOLIC PANEL(Performed 09/27/2020) * LACTIC ACID BLOOD(Performed 09/27/2020) * URINE MICROSCOPIC ONLY REFLEX TO CULTURE(Performed 09/26/2020) * URINALYSIS REFLEX MICROSCOPIC REFLEX CULTURE(Performed 09/26/2020) * CULTURE URINE(Performed 09/26/2020) * CULTURE BLOOD(Performed 09/26/2020) * CULTURE BLOOD(Performed 09/26/2020) * CARDIAC PROCEDURE ORDER(Performed 09/11/2020) * SARS-COV-2 (COVID-19) ANTIBODY IGG(Performed 09/09/2020) Performed for Moderate ischemic cardiomyopathy * CARDIAC CATH(Performed 09/09/2020) * CARDIAC CATH CONSULT(Performed 09/09/2020) * TSH(Performed 09/04/2020) Performed for Alopecia * B-TYPE NATRIURETIC PEPTIDE(Performed 09/04/2020) Performed for Coronary artery disease involving [place] coronary artery of [place] heart without angina pectoris, Essential hypertension * COMPREHENSIVE METABOLIC PANEL(Performed 09/04/2020) Performed for Coronary artery disease involving [place] coronary artery of [place] heart without angina pectoris, Essential hypertension * CBC W AUTO DIFFERENTIAL(Performed 09/04/2020) Performed for Coronary artery disease involving [place] coronary artery of [place] heart without angina pectoris, Essential hypertension * ECHOCARDIOGRAM 2D WITH DOPPLER(Performed 09/04/2020) Performed for Dyspnea on exertion, Moderate ischemic cardiomyopathy * XR CHEST 2VW(Performed 08/28/2020) Performed for Coronary artery disease involving [place] coronary artery of [place] heart without angina pectoris, Dyspnea on exertion, Moderate ischemic cardiomyopathy * ECHOCARDIOGRAM 2D WITH DOPPLER(Performed 07/16/2020) Performed for Coronary artery disease involving [place] coronary artery of [place] heart without angina pectoris, NSTEMI (non-ST elevated myocardial infarction) ([facility] * XR CHEST 2VW(Performed 07/16/2020) Performed for S/P CABG (coronary artery bypass graft) * APHERESIS/TRANSFUSION ORDER(Performed 06/24/2020) * CARDIAC RHYTHM STRIP ORDER(Performed 06/24/2020) * RENAL FUNCTION PANEL(Performed 06/23/2020) * CBC W AUTO DIFFERENTIAL(Performed 06/23/2020) * BASIC METABOLIC PANEL (CALCIUM TOTAL)(Performed 06/22/2020) * CBC W AUTO DIFFERENTIAL(Performed 06/22/2020) * GLUCOSE - POINT OF CARE(Performed 06/21/2020) * BASIC METABOLIC PANEL (CALCIUM TOTAL)(Performed 06/21/2020) * CBC W AUTO DIFFERENTIAL(Performed 06/21/2020) * COMPREHENSIVE METABOLIC PANEL(Performed 06/20/2020) * FERRITIN(Performed 06/20/2020) * B-TYPE NATRIURETIC PEPTIDE(Performed 06/20/2020) * CBC W AUTO DIFFERENTIAL(Performed 06/20/2020) * GLUCOSE - POINT OF CARE(Performed 06/19/2020) * GLUCOSE - POINT OF CARE(Performed 06/19/2020) * GLUCOSE - POINT OF CARE(Performed 06/19/2020) * XR CHEST 1VW PORTABLE(Performed 06/19/2020) Performed for S/P CABG x 2 * GLUCOSE - POINT OF CARE(Performed 06/19/2020) * CBC W AUTO DIFFERENTIAL(Performed 06/19/2020) * BASIC METABOLIC PANEL (CALCIUM TOTAL)(Performed 06/19/2020) * GLUCOSE - POINT OF CARE(Performed 06/18/2020) * GLUCOSE - POINT OF CARE(Performed 06/18/2020) * XR CHEST 1VW PORTABLE(Performed 06/18/2020) Performed for S/P CABG x 2 * CBC W AUTO DIFFERENTIAL(Performed 06/18/2020) * MAGNESIUM BLOOD(Performed 06/18/2020) * BASIC METABOLIC PANEL (CALCIUM TOTAL)(Performed 06/18/2020) * GLUCOSE - POINT OF CARE(Performed 06/17/2020) * CARDIAC PROCEDURE ORDER(Performed 06/17/2020) * GLUCOSE - POINT OF CARE(Performed 06/17/2020) * GLUCOSE - POINT OF CARE(Performed 06/17/2020) * GLUCOSE - POINT OF CARE(Performed 06/17/2020) * XR CHEST 1VW PORTABLE(Performed 06/17/2020) Performed for S/P CABG x 2 * CBC W/O DIFFERENTIAL(Performed 06/17/2020) * BASIC METABOLIC PANEL (CALCIUM TOTAL)(Performed 06/17/2020) * MAGNESIUM BLOOD(Performed 06/17/2020) * GLUCOSE - POINT OF CARE(Performed 06/17/2020) * GLUCOSE - POINT OF CARE(Performed 06/17/2020) * GLUCOSE - POINT OF CARE(Performed 06/16/2020) * MAGNESIUM BLOOD(Performed 06/16/2020) * COMPREHENSIVE METABOLIC PANEL(Performed 06/16/2020) * GLUCOSE - POINT OF CARE(Performed 06/16/2020) * ISTAT EG7+ PANEL ART(Performed 06/16/2020) * BLOOD GAS ART+LYTES+H&H POCT NOTIFICATION(Performed 06/16/2020) * GLUCOSE - POINT OF CARE(Performed 06/16/2020) * GLUCOSE - POINT OF CARE(Performed 06/16/2020) * BLOOD GASES ARTERIAL POCT(Performed 06/16/2020) * CULTURE VRE(Performed 06/16/2020) * GLUCOSE - POINT OF CARE(Performed 06/16/2020) * BLOOD GASES ART (ISTAT)(Performed 06/16/2020) * CULTURE MRSA(Performed 06/16/2020) * GLUCOSE - POINT OF CARE(Performed 06/16/2020) * GLUCOSE - POINT OF CARE(Performed 06/16/2020) * GLUCOSE - POINT OF CARE(Performed 06/16/2020) * XR CHEST 1VW PORTABLE(Performed 06/16/2020) Performed for S/P CABG x 2 * ISTAT EG7+ PANEL ART(Performed 06/16/2020) * BASIC METABOLIC PANEL (CALCIUM TOTAL)(Performed 06/16/2020) * CBC W AUTO DIFFERENTIAL(Performed 06/16/2020) * BLOOD GAS ART+LYTES+H&H POCT NOTIFICATION(Performed 06/16/2020) Performed for S/P CABG x 2, NSTEMI (non-ST elevated myocardial infarction) ([facility]) * BLOOD GASES ARTERIAL POCT(Performed 06/16/2020) Performed for S/P CABG x 2, NSTEMI (non-ST elevated myocardial infarction) ([facility]) * GLUCOSE - POINT OF CARE(Performed 06/16/2020) * TRANSFUSE RED BLOOD CELL LEUKOREDUCED ML(S)(Performed 06/16/2020) * BLOOD GASES ART + LYTES GLU CA+ HH (ISTAT)(Performed 06/16/2020) * ACT PLUS - POCT ([facility])(Performed 06/16/2020) * BLOOD GASES ART + LYTES GLU CA+ HH (ISTAT)(Performed 06/16/2020) * ACT PLUS - POCT ([facility])(Performed 06/16/2020) * BLOOD GASES ART + LYTES GLU CA+ HH (ISTAT)(Performed 06/16/2020) * ACT PLUS - POCT ([facility])(Performed 06/16/2020) * BLOOD GASES ART + LYTES GLU CA+ HH (ISTAT)(Performed 06/16/2020) * ACT PLUS - POCT ([facility])(Performed 06/16/2020) * BLOOD GASES ART + LYTES GLU CA+ HH (ISTAT)(Performed 06/16/2020) * ACT PLUS - POCT ([facility])(Performed 06/16/2020) * BLOOD GASES ART + LYTES GLU CA+ HH (ISTAT)(Performed 06/16/2020) * ACT PLUS - POCT ([facility])(Performed 06/16/2020) * URINALYSIS REFLEX MICROSCOPIC REFLEX CULTURE(Performed 06/16/2020) * BLOOD GASES ART + LYTES GLU CA+ HH (ISTAT)(Performed 06/16/2020) * ACT PLUS - POCT ([facility])(Performed 06/16/2020) * GLUCOSE - POINT OF CARE(Performed 06/16/2020) * TRANSESOPHAGEAL ECHOCARDIOGRAM (YOCASTA)(Performed 06/16/2020) * ENDOSCOPIC HARVESTING VEIN(Performed 06/16/2020) * BYPASS GRAFT CORONARY ARTERY (CABG)(Performed 06/16/2020) * PT PTT PANEL(Performed 06/16/2020) * CBC W AUTO DIFFERENTIAL(Performed 06/16/2020) * PTT(Performed 06/16/2020) * PTT(Performed 06/15/2020) * PFT-LAB(Performed 06/15/2020) * CULTURE VRE(Performed 06/15/2020) * CULTURE MRSA(Performed 06/15/2020) * PTT(Performed 06/15/2020) * BLOOD TYPE VERIFICATION(Performed 06/15/2020) * PT PTT PANEL(Performed 06/15/2020) * CBC W AUTO DIFFERENTIAL(Performed 06/15/2020) * PTT(Performed 06/14/2020) * PTT(Performed 06/14/2020) * PREPARE RBC LEUKOREDUCED UNIT(Performed 06/14/2020) * TYPE + SCREEN PANEL(Performed 06/14/2020) * PTT(Performed 06/14/2020) * PT PTT PANEL(Performed 06/14/2020) * CBC W AUTO DIFFERENTIAL(Performed 06/14/2020) * TROPONIN I(Performed 06/14/2020) * XR CHEST 1VW PORTABLE(Performed 06/13/2020) Performed for NSTEMI (non-ST elevated myocardial infarction) (HCC) * BLOOD GASES ARTERIAL POCT(Performed 06/13/2020) * BLOOD GASES ART (ISTAT)(Performed 06/13/2020) * SARS-COV-2 (COVID-19) IN HOUSE(Performed 06/13/2020) * MAGNESIUM BLOOD(Performed 06/13/2020) * LIPID PROFILE(Performed 06/13/2020) * HEMOGLOBIN A1C(Performed 06/13/2020) * COMPREHENSIVE METABOLIC PANEL(Performed 06/13/2020) * TROPONIN I(Performed 06/13/2020) * PT PTT PANEL(Performed 06/13/2020) * CBC W AUTO DIFFERENTIAL(Performed 06/13/2020) * CARDIAC CATH(Performed 06/13/2020) * CARDIAC CATH CONSULT(Performed 06/13/2020) Results * C-REACTIVE PROTEIN (CRP) (12/04/2020 9:57 AM COREMAKER) Pathologist [facility] C-Reactive Protein 0.40 <=0.50 mg/dL [facility] ACCOUNT BILL Blood BLOOD SPECIMEN / Unknown 12/04/2020 9:57 AM COREMAKER 12/04/2020 Narrative Resulting Agency Comment Lab Testing performed at: [place] [address] [address] ?? [place] [phone] Nick Han MD LAB - CHEMISTRY PEGGY MENEZES [facility] ACCOUNT BILL [address] [place] [address] * SED RATE AUTO (ESR) (12/04/2020 9:57 AM COREMAKER) Pathologist [facility] Erythrocyte Sedimentation Rate Westergren 19 0 - 20 MM/HR [facility] ACCOUNT BILL Blood BLOOD SPECIMEN / Unknown 12/04/2020 9:57 AM COREMAKER 12/04/2020 Narrative Resulting Agency Comment Lab Testing performed at: [place] [address] [address] ?? [place] [phone] Nick Han MD LAB - HEMATOLOGY ORD ERABLES [facility] ACCOUNT BILL [address] [place] [address] * (ABNORMAL) CBC WITH DIFFERENTIAL (12/04/2020 9:57 AM COREMAKER) Only the most recent of15 resultswithin the time period is included. WBC 10.0 4.4 - 10.7 x10E9/L [facility] ACCOUNT BILL RBC 4.84 3.80 - 5.20 x10E12/L [facility] ACCOUNT BILL Hemoglobin 13.7 12.0 - 15.6 gm/dL [facility] ACCOUNT BILL Hematocrit 42.5 35.9 - 45.5 % [facility] ACCOUNT BILL MCV 87.8 80.7 - 98.3 fl [facility] ACCOUNT BILL MCH 28.3 26.7 - 34.0 pg [facility] ACCOUNT BILL MCHC 32.2 30.8 - 35.9 gm/dL [facility] ACCOUNT BILL RDW 14.9 12.1 - 14.9 % [facility] ACCOUNT BILL Platelet Count 357 153 - 416 x10E9/L [facility] ACCOUNT BILL Comment:MPV FL BLOOD (SSM) 1 0.5 fl 9.4-12.9 Granulocytes % 51.8 44.0 - 73.0 % [facility] ACCOUNT BILL Lymphocytes % 35.1 20.0 - 43.0 % [facility] ACCOUNT BILL Monocytes % 6.8 5.0 - 13.0 % [facility] ACCOUNT BILL Eosinophils % 5.1 0.0 - 6.0 % [facility] ACCOUNT BILL Basophils % 1.0 0.0 - 2.0 % [facility] ACCOUNT BILL Granulocytes Absolute 5.20 2.01 - 7.14 x10E9/L [facility] ACCOUNT BILL Lymphocytes Absolute 3.52 1.07 - 3.94 x10E9/L [facility] ACCOUNT BILL Monocytes Absolute 0.68 0.26 - 1.07 x10E9/L [facility] ACCOUNT BILL Eosinophils Absolute 0.51(H) 0 - 0.47 x10E9/L [facility] ACCOUNT BILL Basophils Absolute 0.10(H) 0 - 0.08 x10E9/L [facility] ACCOUNT BILL Immature Granulocytes 0.2 0 - 1 % [facility] ACCOUNT BILL Immature Granulocytes Absolute 0.02 0.00 - 0.06 x10E9/L [facility] ACCOUNT BILL nRBC 0 /100 WBC [facility] ACCOUNT BILL Blood BLOOD SPECIMEN / Unknown 12/04/2020 9:57 AM COREMAKER 12/04/2020 Narrative Resulting Agency Comment Lab Testing performed at: [place] [address] [place] ?? [facility] [phone] Nick Han MD LAB - HEMATOLOGY ORD ERABLES Performing Organization Address City/[facility] Co de Phone Number [facility] ACCOUNT BILL [address] [place] [address] * (ABNORMAL) BNP [B-TYPE NATRIURETIC PEPTIDE] (12/04/2020 9:57 AM COREMAKER) Only the most recent of4 resultswithin the time period is included. BNP 202.5(H) 0.0 - 100.0 pg/mL [facility] ACCOUNT BILL Blood BLOOD SPECIMEN / Unknown 12/04/2020 9:57 AM COREMAKER 12/04/2020 Narrative Resulting Agency Comment Lab Testing performed at: [place] [id number] [facility] ??[facility] [phone] Nick Han MD LAB - CHEMISTRY ORDE RABLES Performing Organization Address City/[facility] Co de Phone Number [facility] ACCOUNT BILL [address] [place] [address] * (ABNORMAL) COMPREHENSIVE METABOLIC PANEL (12/04/2020 9:57 AM COREMAKER) Only the most recent of7 resultswithin the time period is included. Glucose 66(L) 70 - 105 mg/dL [facility] [...] BLOOD SPECIMEN / Unknown 12/04/2020 9:57 AM COREMAKER 12/04/2020 Narrative Resulting Agency Comment Lab Testing performed at: [place] [address] [address] ?? [place] [phone] Nick Han MD LAB - CHEMISTRY PEGGY MENEZES Performing Organization Address City/[facility]/ZIP Co de Phone Number [facility] ACCOUNT BILL [address] [place] [address] * TSH (12/04/2020 9:57 AM COREMAKER) Only the most recent of2 resultswithin the time period is included. TSH 1.5594 0.35 - 4.94 uIU/mL [facility] ACCOUNT BILL Blood BLOOD SPECIMEN / Unknown 12/04/2020 9:57 AM COREMAKER 12/04/2020 Narrative Resulting Agency Comment Lab Testing performed at: [place] [address] [address] ?? [place] [phone] Nick Han MD LAB - CHEMISTRY PEGGY MENEZES [facility] ACCOUNT BILL [address] [place] [address] * CARDIAC RHYTHM STRIP ORDER (10/28/2020 5:54 PM COREMAKER) Only the most recent of2 resultswithin the time period is included. Narrative 10/28/2020 5:54 PM COREMAKER Ordered by an unspecified provider. Scanned Document CARDIAC SERVICES ORD ERABLES * EVENT MONITOR (10/14/2020) Impressions Kenyon Sarabia MA - 10/14/2020 CARDIAC EVENT MONITOR ? Pts name: Marco Antonio Roy : 1980 Ordering Physician: Nick Han M.D Reading Physician: Nick Han M.D Date of service: 10/14/2020 Indication/Symptoms: Palpitations Event monitor was obtained to evaluate the patient for cardiac dysrhythmias. The patient has symptoms of palpitations. ?? Event monitor started on 08/28/20, and continued until 09/26/20. INTERPRETATION: 1. Predominant rhythm is normal sinus rhythm with heart rates ranging between 50 to 120 beats per minute. Average heart rate was 79 beats per minute. 2. There were no episodes of sinus pauses of more than 2 seconds during this event monitoring period. 3. There were no episodes of atrial fibrillation or flutter noted during this event monitoring period. 4. Less then 1% burden of PAC's and PVC's. 5. 74 symptomatic episodes. ??Rhythm predominately sinus with PVC's. OVERALL IMPRESSION: 1. Benign event monitor with predominant rhythm being normal sinus rhythm. 2. Symptomatic PVC's. Nick Han M.D., [facility] 10/14/2020 3:27 PM Nick Han MD CARDIAC SERVICES ORD ERABLES * CARDIAC EKG ORDER (09/30/2020 11:31 PM COREMAKER) Narrative 09/30/2020 11:31 PM COREMAKER Ordered by an unspecified provider. Scanned Document CARDIAC SERVICES ORD ERABLES * LARYNGEAL MASK AIRWAY (09/27/2020 10:11 AM COREMAKER) Narrative Tamia Schmidt APRN-CRNA - 09/27/2020 10:11 AM COREMAKER Tamia Schmidt APRN-CRNA ? 09/27/2020 10:11 AM LMA Placement Procedure/LDA Note: Patient Location: OR. LMA Insertion Date/Time: ??09/27/2020 9:58 AM Procedure: LMA. Pretreatment: 100% O2 Induction: standard IV Patient position: sniffing. Mask Ventilation: easy Type: ??gel LMA Size: ??4 Placement verified by: bilateral breath sounds and CO2 monitor Dentition unchanged? ??Yes Procedure Start Time: 09/27/2020 9:58 AM. Staff Section ?? Anesthesia Provider: Tamia Schmidt APRN-CRNA, Performed the procedure Cherelle Hernandez MD GENERAL ANESTHESI A ORDERABLES * FL UROGRAM RETROGRADE (09/27/2020 10:00 AM COREMAKER) Anatomical Region Laterality Modality Abdomen Radiographic Vesta ging 09/27/2020 4:58 PM COREMAKER Narrative 09/27/2020 4:58 PM COREMAKER Fluoroscopic retrograde pyelogram INDICATION: Abdominal pain. Right ureteral stent placement. FINDINGS: Fluoroscopy was provided. A radiologist was not present. Single fluoroscopic image shows a right ureteral stent. *Reading Radiologist: Rory Cantor on 09/27/2020 at 4:58 PM Procedure Note Rory Cantor MD - 09/27/2020 Fluoroscopic retrograde pyelogram INDICATION: Abdominal pain. Right ureteral stent placement. FINDINGS: Fluoroscopy was provided. A radiologist was not present. Single fluoroscopic image shows a right ureteral stent. *Reading Radiologist: Rory Cantor on 09/27/2020 at 4:58 PM Stan Brizuela MD FLUOROSCOPY ORDERABL ES * XR CHEST 1VW PORTABLE (09/27/2020 8:10 AM COREMAKER) Only the most recent of6 resultswithin the time period is included. Anatomical Region Laterality Modality Chest Radiographic Vesta ging 09/27/2020 9:57 AM COREMAKER Narrative 09/27/2020 10:30 AM COREMAKER CHEST AP PORTABLE INDICATION: Shortness of breath and preop. FINDINGS: Frontal view of the chest compared to 08/28/2020 shows left lower lobe pleural effusion with atelectasis and infiltrate. There is elevation of the left hemidiaphragm. The heart size is normal. Midline sternal wires are present. No significant change has otherwise occurred. Edited by Eileen Cabrera on 09/27/2020 10:00 AM *Reading Radiologist: Rory Cantor on 09/27/2020 at 10:30 AM Procedure Note Rory Cantor MD - 09/27/2020 CHEST AP PORTABLE INDICATION: Shortness of breath and preop. FINDINGS: Frontal view of the chest compared to 08/28/2020 shows left lower lobe pleural effusion with atelectasis and infiltrate. There is elevation of the left hemidiaphragm. The heart size is normal. Midline sternal wires are present. No significant change has otherwise occurred. Edited by Eileen Cabrera on 09/27/2020 10:00 AM *Reading Radiologist: Rory Cantor on 09/27/2020 at 10:30 AM Lara Rouse MD DIAGNOSTIC IMAGING O RDERABLES * PT-INR (09/27/2020 4:37 AM COREMAKER) PT 12.4 12.1 - 14.8 sec 09/27/2020 5:11 AM COREMAKER [facility] INR 1.0 0.9 - 1.1 09/27/2020 5:11 AM COREMAKER [facility] Blood BLOOD SPECIMEN / Unknown Venipuncture / Unknown 09/27/2020 4:37 AM COREMAKER 09/27/2020 4:45 AM COREMAKER Narrative [facility] - 09/27/2020 5:11 AM COREMAKER Conventional Warfarin Anticoagulant Therapy: INR Reference Range: ??2.0-3.0 Intensive Warfarin Anticoagulant Therapy: INR Reference Range: ? 2.5-3.5 Lara Rouse MD LAB - COAGULATION OR DERABLES [facility] [address] [place] [address] * MAGNESIUM BLOOD (09/27/2020 4:37 AM COREMAKER) Only the most recent of5 resultswithin the time period is included. Magnesium 1.9 1.6 - 2.6 mg/dL 09/27/2020 5:36 AM COREMAKER [facility] Blood BLOOD SPECIMEN / Unknown Venipuncture / Unknown 09/27/2020 4:37 AM COREMAKER 09/27/2020 4:45 AM COREMAKER Lara Rouse MD LAB - CHEMISTRY PEGGY MENEZES Performing Organization Address [facility] Co de Phone Number [facility] [address] [place] [id number] * LACTIC ACID BLOOD (09/27/2020 4:37 AM COREMAKER) Lactic Acid 0.58 0.5 - 2.2 mmol/L 09/27/2020 5:01 AM COREMAKER [facility] Blood BLOOD SPECIMEN / Unknown Venipuncture / Unknown 09/27/2020 4:37 AM COREMAKER 09/27/2020 4:45 AM COREMAKER Lara Rouse MD LAB - CHEMISTRY PEGGY MENEZES Performing Organization Address [facility] Co de Phone Number [facility] [id number] [place] [phone] * (ABNORMAL) URINE MICROSCOPIC ONLY REFLEX TO CULTURE (09/26/2020 9:30 PM COREMAKER) Reflex Status Culture to follow 09/26/2020 9:54 PM COREMAKER [facility] RBC UA 51-100(A) None Seen, 0-2, 3-5 # /hpf 09/26/2020 9:54 PM COREMAKER [facility] WBC UA 6-10(A) None Seen, 0-5 # /hpf 09/26/2020 9:54 PM COREMAKER [facility] Bacteria UA None Seen None Seen 09/26/2020 9:54 PM [facility] Squamous Epithelial Cells 0-2 None Seen, 0-2, 3-5 /hpf 09/26/2020 9:54 PM [facility] Mucus UA 1+ /LPF 09/26/2020 9:54 PM [facility] Hyaline Casts 0-2 None Seen, 0-2 # /lpf 09/26/2020 9:54 PM [facility] Urine URINE SPECIMEN OBTAINED BY CLEAN CATCH PROCEDURE / Unknown Collection / Unknown 09/26/2020 9:30 PM [facility] 09/26/2020 9:45 PM [facility] Narrative [facility] - 09/26/2020 9:54 PM [facility] Lara Rouse MD LAB - URINALYSIS ORD ERABLES [facility] [address] [place] [address] * (ABNORMAL) URINALYSIS REFLEX MICROSCOPIC REFLEX CULTURE (09/26/2020 9:30 PM [facility]) Only the most recent of2 resultswithin the time period is included. Color UA Yellow Straw, Yellow 09/26/2020 9:52 PM [facility] Clarity UA Clear Clear 09/26/2020 9:52 PM [facility] Glucose UA Negative Negative 09/26/2020 9:52 PM [facility] Bilirubin UA Negative Negative 09/26/2020 9:52 PM [facility] Ketone UA Trace(A) Negative 09/26/2020 9:52 PM [facility] Specific Harwood UA 1.015 1.005 - 1.030 09/26/2020 9:52 PM [facility] Blood UA 3+(A) Negative 09/26/2020 9:52 PM [facility] pH UA 5.0 5.0 - 8.0 pH 09/26/2020 9:52 PM [facility] Protein UA Negative Negative 09/26/2020 9:52 PM [facility] Urobilinogen UA Negative Negative mg/dL 09/26/2020 9:52 PM [facility] Nitrite UA Negative Negative 09/26/2020 9:52 PM [facility] Leukocyte UA Trace(A) Negative 09/26/2020 9:52 PM [facility] Urine Microscopy Urine microscopy to follow 09/26/2020 9:52 PM [facility] Reflex Status Culture to follow 09/26/2020 9:52 PM [facility] Urine URINE SPECIMEN OBTAINED BY CLEAN CATCH PROCEDURE / Unknown Collection / Unknown 09/26/2020 9:30 PM [facility] 09/26/2020 9:45 PM [facility]ER Narrative [facility] - 09/26/2020 9:52 PM [facility] Lara Rouse MD LAB - URINALYSIS ORD ERABLES Performing Organization Address City/[facility]/ZIP Co de Phone Number [facility] [address] [place] [address] * CULTURE BLOOD (09/26/2020 9:30 PM [facility]) Only the most recent of2 resultswithin the time period is included. Culture No growth day 5 YESSI 10/02/2020 1:50 AM [facility] Blood PERIPHERAL BLOOD / Unknown Venipuncture / Unknown 09/26/2020 9:30 PM [facility] 09/26/2020 9:45 PM [facility] Lara Rouse MD LAB - MICROBIOLOGY O RDERABLES Performing Organization Address [facility] Co de Phone Number [facility] [address] [place] [address], [facility] [phone] * CULTURE URINE (09/26/2020 9:30 PM [facility]ER) Pathologist [facility] Culture Urine <10,000 CFU/mL urogenital raghu YESSI 09/28/2020 8:42 AM [facility] Urine URINE SPECIMEN OBTAINED BY CLEAN CATCH PROCEDURE / Unknown Collection / Unknown 09/26/2020 9:30 PM [facility] 09/26/2020 9:45 PM [facility] Lara Rouse MD LAB - MICROBIOLOGY O RDCHAIM Performing Organization Address [facility] Co de Phone Number [facility] [address] [place] [address], [facility] [phone] * CARDIAC PROCEDURE ORDER (09/11/2020 10:23 PM CDT) Only the most recent of2 resultswithin the time period is included. Narrative 09/11/2020 10:23 PM CDT Ordered by an unspecified provider. Scanned Document CARDIAC SERVICES ORD ERABLES * SARS-COV-2 (COVID-19) ANTIBODY IGG (09/09/2020 2:38 PM CDT) CoV2 IGG Negative Negative 09/09/2020 3:26 PM CDT [facility] Blood BLOOD SPECIMEN / Unknown Venipuncture / Unknown 09/09/2020 2:38 PM CDT 09/09/2020 2:43 PM CDT Narrative [facility] - 09/09/2020 3:26 PM CDT This serologic based test was developed by [employer] and its performance characteristics determined by [facility] along with other [facility]. This test has not been fully reviewed by the FDA but is being allowed for use per the FDAs' Emergency Use Authorization. Please note the following disclaimers: Negative results do not rule out SARS-CoV-2 infection, particularly in those who have been in contact with the virus. Follow-up testing with a molecular diagnostic should be considered to rule out infection in these individuals. Results from antibody testing should not be used as the sole basis to diagnose or exclude SARS-CoV-2 infection or to inform infection status. False positive results may be due to past or present infection with [id number] coronavirus strains. Rigorous scientific studies have not been completed to determine if detectable IgG to SARS-CoV-2 confers protective immunity. Nick Han MD LAB - CHEMISTRY PEGGY MENEZES [facility] Organization Address City/State/ZIP Co de Phone Number [facility] [address] [place] [address] * CARDIAC CATH PROCEDURE (09/09/2020 9:13 AM CDT) Only the most recent of2 resultswithin the time period is included. Narrative [facility] - 09/09/2020 9:13 AM CDT Nick Han MD ? 09/09/2020 ??9:20 AM INTERVENTION PROCEDURE NOTE Date: 09/09/2020 ?Time: 9:13 AM Marco Antonio Roy is a 40 year old female who presents for repeat angiogram as part of work up for worsening heart failure despite revascularization. Procedures Performed: 1. Left heart catheterization 2. Selective coronary angiography 3. Bypass graft angiography 4. Left ventriculography Technique / Procedure: Consent, preparation, timeout, general procedures: - Informed Consent. The risks and alternatives of the procedures and conscious sedation were explained and informed consent was obtained. - The patient was brought to the collaborative physician and placed on the table. The planned puncture sites were prepped and draped in the usual sterile fashion. - Time-out. A safety time-out was performed prior to initiation of the procedure. - Moderate sedation was used as detailed below. - 1% lidocaine was infiltrated for local anesthesia at each access site. Access, diagnostic and adjunctive procedures description: - Right femoral venous access. The vessel was accessed using the modified Seldinger technique and an 18G needle; a wire was threaded into the vessel, and a 7 Fr sheath was advanced over the wire into the vessel. - Right femoral artery access. The vessel was accessed using the modified Seldinger technique and an 18G needle; a wire was threaded into the vessel, and a 5 Fr sheath was advanced over the wire into the vessel. - A [place] catheter was advanced into the right sided cardiac chambers and into the pulmonary artery wedge position under fluoroscopic guidance. Measurements of pressures, arterial and venous oxygen saturation, and cardiac output by Ria using assumed VO2 were obtained. The catheter was removed after essential data was obtained. - A JL4 catheter was advanced over a wire and positioned at the vessel ostium under fluoroscopic guidance. Angiography was performed in multiple orthogonal projections. - A JR4 catheter was advanced over a wire into the aorta, and positioned at the vessel ostium under fluoroscopic guidance. Angiography was performed in multiple orthogonal projections. - The catheter was manipulated and engaged into the SVG that supplies the OM branch. ??Angiography was performed in multiple orthogonal projections. - An VESTA catheter was advanced over a wire into the aorta, and positioned at the vessel ostium under fluoroscopic guidance. Angiography was performed in multiple orthogonal projections. - A 5 Fr. Pigtail catheter was advanced over the wire into the aorta and positioned across the aortic valve in the LV cavity. ?? LVEDP was recorded and left ventriculogram was performed. ?? Pullback across the valve was performed with no gradient appreciated across the valve. - After reviewing the films, the procedure was deemed complete. ?? All catheters and wires were removed from the patient. ??The right femoral arterial sheath was removed and hemostasis was achieved manual compression. ?? Findings: 1- Hemodynamics: LV: 114/3 mmHg Ao: 110/69 mmHg 2- Left ventriculography: Systolic function: Severely reduced. EF 30% Mitral regurgitation: Trivial 3- Selective coronary angiography: Left coronary artery: ??Left main artery has unchanged distal disease. ??LAD artery has severe proximal and proximal mid lesion with competitive flow seen in the RAMSAY graft. ??Ramus intermedius has proximal 60-70% tubular lesion, unchanged from prior. ??Circumflex artery has ostial 70-80% with competitive flow seen in the OM branch. Right coronary artery, rPDA and rPLA branches are patent without significant disease. 4- Right heart catheterization: Parameter Pressure (mmHg) or Sat (%) RA pressure 6 RV pressure 22/1 PA pressure 19/4 PAWP 6 PA O2 saturation 67.5% Arterial O2 saturation 94.3% Ria Cardiac Output (L/min) 3.27 Ria Cardiac Index (L/min/mSq) 1.87 Heart rate (bpm) 66 Conscious sedation: I personally supervised moderate sedation for 30 minutes using IV Versed and fentanyl. Independent trained observer was Maggy Torres RN. Complications: None. Estimated blood loss: <50 ml. Specimens: N/A Hemostasis device: None. Post-procedure Summary: 1. Severe [place] CAD. 2. Patent 2/2 grafts. 3. Severe LV dysfunction. 4. No significant gradient across the aortic valve. Recommendations: 1. Sheath / acces site per protocol. 2. Four hour bedrest then can be discharged 1 hour after. 3. GDT for heart failure. 4. Will discuss about outpatient referral for advanced heart failure therapy at [place]. Nick Han MD 09/09/2020 9:13 AM Nick Han MD CARDIAC SERVICES ORD ERABLES [facility] * ECHOCARDIOGRAM 2D WITH DOPPLER (09/04/2020 10:41 AM CDT) Only the most recent of2 resultswithin the time period is included. 09/04/2020 10:4 1 AM CDT Narrative Procedure Note Nick Han MD - 09/04/2020 . [facility] [address] [place] [address] Echocardiography Examination Transthoracic Name: MARCO ANTONIO ROY MPI#: MR#: [id number] Admission Number: [id number] Study Date: 09/04/2020 Study Time: 11:07 AM Date Of : 1980 Age: 40 years Height: 63 in. (160.0 cm) Weight: 153 lbs. (69.40 kg) BSA: 1.73 m2 Gender: Female Blood Pressure: 110 mmHg / 80 mmHg Heart Rate: 71 bpm Exam Details Procedure Ordered: ECHOCARDIOGRAM 2D W/DOPPLER Procedure Components: Complete 2D, M-mode, complete spectral Doppler, color Doppler, Definity Procedure Status: Routine study Contrast: Intravenous contrast (Definity) was administered to opacify the left ventricle. Facility Location: [facility] Indication: BORJA Procedure Housing Counselor: Lynette Aquino RDCS Ordering Provider: Guzman Hare MD Reading Physician: Nick Han MD Reading Group: [facility] Conclusions Left Ventricle: ? ? Left ventricle is mildly dilated. ? ? Severely reduced systolic left ventricular function. ? ? EF 25 %. ? ? EF range is 20 % -30 %. ? ? Left ventricle wall thickness is normal. ? ? There is severe global hypokinesis. ? ? The study is not technically sufficient to allow evaluation of LV diastolic function. Tricuspid Valve Measurements ? ? RVSP: 25 mmHg. Follow up: Patient: MARCO ANTONIO ROY Study Date: 09/04/2020 11:07 AM Page 1 of 4 Findings Left Ventricle: Left ventricle is mildly dilated. Severely reduced systolic left ventricular function. EF 25 %. Left ventricle wall thickness is normal. There is severe global hypokinesis. The study is not technically sufficient to allow evaluation of LV diastolic function. Right Ventricle: Normal size right ventricle. Right ventricular systolic function is normal. Pulmonary artery pressure normal. Left Atrium: The left atrium is normal in size. Right Atrium: The right atrium is normal in size. Mitral Valve: Trivial mitral regurgitation. No mitral valve stenosis. Aortic Valve: No significant aortic valve regurgitation. There is no aortic stenosis. Tricuspid Valve: Trivial tricuspid regurgitation. No tricuspid valve stenosis. Pulmonic Valve: Pulmonic valve is poorly visualized. Mild pulmonic valve regurgitation is present. There is no pulmonic valve stenosis. Aorta: No dilation of the ascending aorta. Great Vessels: IVC: The inferior vena cava is not visualized. Pericardium: No pericardial effusion. Clinical Data Comment: Hx of CAD, CABG X 2, Smoker Measurements Anatomy Label Value Normal Value Aorta AoRoot, MM 2.5 cm (2.2cm - 3.7cm) Aortic Valve AV Vmean 0.72 m/s Aortic Valve AV VTI 20.4 cm Aortic Valve AV PGmax 4 mmHg Aortic Valve AV PGmean 2 mmHg Aortic Valve AV Vmax, Curve 1.03 m/s (1m/s - 1.7m/s) Aortic Valve LVOT VTI / AV VTI 0.7 Aortic Valve LAURY D (continuity eq. VTI) 2.2 cm?? Aortic Valve LAURY Index (continuity 1.27 cm??/m?? eq.Vmax) Aortic Valve AV Opening, MM 1.8 cm Aortic Valve LVOT Vmax / AV Vmax 0.7 Interventricular septum IVSd, 2D 0.7 cm (0.6cm - 1.1cm) Left Atrium LADs, MM 3.4 cm (2.7cm - 3.8cm) Left Atrium LA Area s, A4C 18.5 cm?? (0cm?? - 20cm??) Left Atrium LA Area s, A2C 16.6 cm?? (0cm?? - 20cm??) Left Atrium LAESV, MOD4 52 ml (22ml - 52ml) Left Atrium LAESV, MOD2 47 ml (22ml - 52ml) Patient: MARCO ANTONIO ROY Study Date: 09/04/2020 11:07 AM Page 2 of 4 Left Atrium LA/AO Ratio, MM 1.33 Left Atrium LAESV index, MOD4 30.1 ml/m?? Left Atrium LAESV index, MOD2 27.2 ml/m?? Left Atrium LAESV index, AL4 32.9 ml/m?? Left Atrium LAESV index, AL2 28.3 ml/m?? Left Ventricle LVOT Vmax 0.72 m/s (0.7m/s - 1.1m/s) Left Ventricle LVOTd 2 cm (1.8cm - 2cm) Left Ventricle LVOT VTI 14.23 cm (18cm - 22cm) Left Ventricle LVOT PGmax 2 mmHg Left Ventricle LVEF visual 25 % (55% - 75%) Left Ventricle LVDd, 2D 5.3 cm (3.7cm - 5.2cm) Left Ventricle LVDs, 2D 4.5 cm (2.2cm - 3.5cm) Left Ventricle LVPWd, 2D 0.7 cm (0.6cm - 0.9cm) Left Ventricle FS, 2D 15.09 % Left Ventricle LVEDV, BP 92 ml (56ml - 104ml) Left Ventricle LVESV, BP 72 ml (19ml - 49ml) Left Ventricle LVEDV Index, BP 53.2 ml/m?? (35ml/m?? - 75ml/m??) Left Ventricle LVESV Index, BP 41.6 ml/m?? (12ml/m?? - 30ml/m??) Left Ventricle LVOT PGmean 1 mmHg Left Ventricle LVOT Vmean 0.49 m/s Left Ventricle EF lower range (%) 20 % Left Ventricle EF upper range (%) 30 % Left Ventricle Diastolic MV E Vmax 0.38 m/s Function Left Ventricle Diastolic MV A Vmax 0.53 m/s Function Left Ventricle Diastolic MV E/A 0.72 Function Left Ventricle Diastolic MV E/E' lateral 6.16 Function Left Ventricle Diastolic MV E/E' septal 5.45 (0.5 - 1.7) Function Left Ventricle Diastolic MV DT 138 ms Function Left Ventricle Diastolic MV E' septal 0.07 m/s Function Left Ventricle Diastolic MV E' lateral 0.06 m/s Function Left Ventricle Diastolic MV E/E' mean 5.85 Function Left Ventricle Diastolic MV E' mean 0.06 m/s Function Mitral Valve MV Dec Josephine 2.79 m/s?? Pulmonic Valve PV PGmax 5 mmHg Pulmonic Valve PV Vmax, Caliper 1.09 m/s (0.6m/s - 0.9m/s) Right Atrium RA Area s 16.9 cm?? Right Ventricle Diastolic TR Pmax 22 mmHg Function Tricuspid Valve RVSP 25 mmHg Tricuspid Valve RA Pressure 3 mmHg Patient: MARCO ANTONIO ROY Study Date: 09/04/2020 11:07 AM Page 3 of 4 Tricuspid Valve TR Vmax 2.32 m/s (No Signature Object) Patient: MARCO ANTONIO ROY Study Date: 09/04/2020 11:07 AM Page 4 of 4 Guzman Hare MD ECHO ORDERABLES [facility] * XR CHEST 2VW (08/28/2020 12:19 PM CDT) Only the most recent of2 resultswithin the time period is included. Anatomical Region Laterality Modality Chest Radiographic Vesta ging 08/28/2020 1:01 PM CDT Narrative 08/28/2020 2:03 PM CDT CHEST 2 VIEWS INDICATION: Chest pain FINDINGS: Two views of the chest, compared to July 16, 2020, shows, once again, elevation of the left hemidiaphragm with left mid- to lower lung atelectasis. The right lung is clear. The heart size is normal. Midline sternal wires are present. Edited by Berenice Torres on 08/28/2020 1:25 PM *Reading Radiologist: Rory Cantor on 08/28/2020 at 2:03 PM Procedure Note Rory Cantor MD - 08/28/2020 CHEST 2 VIEWS INDICATION: Chest pain FINDINGS: Two views of the chest, compared to July 16, 2020, shows, once again, elevation of the left hemidiaphragm with left mid- to lower lung atelectasis. The right lung is clear. The heart size is normal. Midline sternal wires are present. Edited by Berenice Torres on 08/28/2020 1:25 PM *Reading Radiologist: Rory Cantor on 08/28/2020 at 2:03 PM Guzman Hare MD DIAGNOSTIC IMAGING O RDERABLES * APHERESIS/TRANSFUSION ORDER (06/24/2020 7:51 PM CDT) Narrative 06/24/2020 7:51 PM CDT Ordered by an unspecified provider. Scanned Document NURSING - VITAL SIGN S AND ASSESSMENT * (ABNORMAL) RENAL FUNCTION PANEL (06/23/2020 6:36 AM CDT) Glucose 93 70 - 105 mg/dL 06/23/2020 7:26 AM CDT [facility] Sodium 139 136 - 145 mmol/L 06/23/2020 7:26 AM CDT [facility] Potassium 4.2 3.5 - 5.1 mmol/L 06/23/2020 7:26 AM CDT [facility] Chloride 101 98 - 107 mmol/L 06/23/2020 7:26 AM CDT [facility] CO2 26 23 - 31 mmol/L 06/23/2020 7:26 AM CDT [facility] Calcium 9.4 8.4 - 10.4 mg/dL 06/23/2020 7:26 AM CDT [facility] Anion Gap 12 8 - 16 mmol/L 06/23/2020 7:26 AM CDT [facility] BUN 10 7 - 18.7 mg/dL 06/23/2020 7:26 AM CDT [facility] Creatinine 0.64 0.57 - 1.11 mg/dL 06/23/2020 7:26 AM CDT [facility] Albumin 3.4(L) 3.5 - 5.2 gm/dL 06/23/2020 7:26 AM CDT [facility] Phosphorus 4.7 2.3 - 4.7 mg/dL 06/23/2020 7:26 AM CDT [facility] eGFR by MDRD >60 >60 mL/min/1.7 3m2 06/23/2020 7:26 AM CDT [facility] eGFR by MDRD >60 >60 mL/min/1.7 3m2 06/23/2020 7:26 AM T [facility] Blood BLOOD SPECIMEN / Unknown Venipuncture / Unknown 06/23/2020 6:36 AM CDT 06/23/2020 6:48 AM CDT Harjeet Comer MD LAB - CHEMISTRY O RDERABLES [facility] [address] [place] [address] * BASIC METABOLIC PANEL (CALCIUM TOTAL) (06/22/2020 6:23 AM CDT) Only the most recent of6 resultswithin the time period is included. [facility] Glucose 91 70 - 105 mg/dL 06/22/2020 7:14 AM CDT [facility] Sodium 140 136 - 145 mmol/L 06/22/2020 7:14 AM CDT [facility] Potassium 4.0 3.5 - 5.1 mmol/L 06/22/2020 7:14 AM CDT [facility] Chloride 101 98 - 107 mmol/L 06/22/2020 7:14 AM CDT [facility] CO2 28 23 - 31 mmol/L 06/22/2020 7:14 AM CDT [facility] Calcium 9.0 8.4 - 10.4 mg/dL 06/22/2020 7:14 AM CDT [facility] Anion Gap 11 8 - 16 mmol/L 06/22/2020 7:14 AM CDT [facility] BUN 8 7 - 18.7 mg/dL 06/22/2020 7:14 AM CDT [facility] Creatinine 0.64 0.57 - 1.11 mg/dL 06/22/2020 7:14 AM CDT [facility] eGFR by MDRD >60 >60 mL/min/1.7 3m2 06/22/2020 7:14 AM CDT [facility] eGFR by MDRD >60 >60 mL/min/1.7 3m2 06/22/2020 7:14 AM CDT [facility] Blood BLOOD SPECIMEN / Unknown Venipuncture / Unknown 06/22/2020 6:23 AM CDT 06/22/2020 6:26 AM CDT Neida Linton MD LAB - CHEMISTRY PEGGY MENEZES [facility] [address] [place] [id number] * GLUCOSE - POINT OF CARE (06/21/2020 8:36 AM CDT) Only the most recent of23 resultswithin the time period is included. Pathologist [facility] Glucose WB/POC 95 70 - 106 mg/dL 06/21/2020 8:37 AM CDT [facility] Specimen Type Arterial/C apillary 06/21/2020 8:37 AM CDT [facility] Blood BLOOD SPECIMEN / Unknown 06/21/2020 8:36 AM CDT 06/21/2020 8:37 AM CDT Harjeet Comer MD LAB - POINT OF CA RE ORDERABLES [facility] [address] [place] [address] * (ABNORMAL) FERRITIN (06/20/2020 4:10 AM CDT) Pathologist [facility] Ferritin 389(H) 5 - 204 ng/mL 06/20/2020 5:40 AM CDT [facility] Blood BLOOD SPECIMEN / Unknown Venipuncture / Unknown 06/20/2020 4:10 AM CDT 06/20/2020 4:46 AM CDT Kerry Cox MD LAB - CHEMISTRY ORDE CLIF Performing Organization Address [facility] Co de Phone Number [facility] [address] [place], [place] [id number] * (ABNORMAL) CBC W/O DIFFERENTIAL (06/17/2020 3:38 AM CDT) [facility] WBC 11.7(H) 4.4 - 10.7 x10E9/L 06/17/2020 3:53 AM CDT [facility] RBC 3.54(L) 3.80 - 5.20 x10E12/L 06/17/2020 3:53 AM CDT [facility] Hemoglobin 10.4(L) 12.0 - 15.6 gm/dL 06/17/2020 3:53 AM CDT [facility] Hematocrit 31.5(L) 35.9 - 45.5 % 06/17/2020 3:53 AM CDT [facility] MCV 89.0 80.7 - 98.3 fl 06/17/2020 3:53 AM CDT [facility] MCH 29.4 26.7 - 34.0 pg 06/17/2020 3:53 AM CDT [facility] MCHC 33.0 30.8 - 35.9 gm/dL 06/17/2020 3:53 AM CDT [facility] Platelet Count 159 153 - 416 x10E9/L 06/17/2020 3:53 AM CDT [facility] RDW-CV 15.6(H) 12.1 - 14.9 % 06/17/2020 3:53 AM CDT [facility] MPV 10.7 9.4 - 12.9 fl 06/17/2020 3:53 AM CDT [facility] Blood BLOOD SPECIMEN / Unknown Venipuncture / Unknown 06/17/2020 3:38 AM CDT 06/17/2020 3:48 AM CDT Manolo Duggan Trish TALBERT LAB - HEMATOLOGY ORD ERABLES [facility] [address] [place] [address] * (ABNORMAL) ISTAT EG7+ PANEL ART (06/16/2020 9:02 PM CDT) Only the most recent of2 resultswithin the time period is included. pH Arterial POCT 7.35 7.35 - 7.45 pH 06/16/2020 9:03 PM CDT [facility] pCO2 Arterial 44.2 35 - 45 mm hg 06/16/2020 9:03 PM CDT [facility] pO2 Arterial 117(H) 80 - 100 mm hg 06/16/2020 9:03 PM CDT [facility] HCO3 Arterial POCT 24.2 22 - 26 mmol/L 06/16/2020 9:03 PM CDT [facility] BE Arterial -2 -2 - 2 mmol/L 06/16/2020 9:03 PM CDT [facility] TCO2 Arterial Calc POCT 25 23 - 27 mmol/L 06/16/2020 9:03 PM CDT [facility] O2 Saturation Arterial 98 90 - 100 % 06/16/2020 9:03 PM CDT [facility] Sodium Arterial 140 136 - 145 mmol/L 06/16/2020 9:03 PM CDT [facility] Potassium Arterial 3.7 3.5 - 5.1 mmol/L 06/16/2020 9:03 PM CDT [facility] Calcium Ionized Arterial POCT 1.14 1.12 - 1.32 mmol/L 06/16/2020 9:03 PM CDT [facility] Hemoglobin Arterial POCT 10.2(L) 12.0 - 15.6 gm/dL 06/16/2020 9:03 PM CDT [facility] Hematocrit Arterial POCT 30.0(L) 35.9 - 45.5 % 06/16/2020 9:03 PM CDT [facility] Walter's Test NA 06/16/2020 9:03 PM CDT [facility] Treatment Delivery Method Nasal Can 06/16/2020 9:03 PM CDT [facility] LPM iSTAT 2 06/16/2020 9:03 PM CDT [facility] Sample iSTAT ART 06/16/2020 9:03 PM CDT [facility] Site Art Line 06/16/2020 9:03 PM CDT [facility] Blood ARTERIAL BLOOD SPECIMEN / Unknown 06/16/2020 9:02 PM CDT 06/16/2020 9:03 PM CDT Harjeet Comer MD LAB - POINT OF CA RE ORDERABLES Performing Organization Address [facility] Co de Phone Number [facility] [address] [place] [address] * BLOOD GAS ART+LYTES+H&H POCT NOTIFICATION (06/16/2020 8:54 PM CDT) Only the most recent of2 resultswithin the time period is included. Comment Notification Label Only - See Separate Report 06/16/2020 10:00 PM CDT [facility] Blood BLOOD SPECIMEN / Unknown 06/16/2020 8:54 PM CDT 06/16/2020 8:54 PM CDT Neida Linton MD LAB - BLOOD GASES OR DERABLES Performing Organization Address City/[facility] Co de Phone Number [facility] [id number] [place] [address], [facility] [phone] * BLOOD GASES ARTERIAL POCT (06/16/2020 6:12 PM CDT) Only the most recent of3 resultswithin the time period is included. Comment Notification Label Only - See Separate Report 06/16/2020 7:30 PM CDT [facility] Blood BLOOD SPECIMEN / Unknown 06/16/2020 6:12 PM CDT 06/16/2020 6:12 PM CDT Neida Linton MD LAB - BLOOD GASES OR DERABLES Performing Organization Address City/[facility]/ZIP Co de Phone Number [facility] [address] [place] [address], [facility] [phone] * CULTURE VRE (06/16/2020 5:57 PM CDT) Only the most recent of2 resultswithin the time period is included. Culture Negative for vancomycin-resi stant Enterococci (VRE) YESSI 06/18/2020 11:13 AM CDT [facility] Microbiology ENTIRE RECTUM / Unknown Collection / Unknown 06/16/2020 5:57 PM CDT 06/16/2020 6:00 PM CDT Manolo Chambers DO LAB - MICROBIOLOGY O RDERABLES Performing Organization Address City/[facility]/ZIP Co de Phone Number [facility] [employer] MICROBIOLOGY [address] [place] [address], [facility] [phone] * (ABNORMAL) BLOOD GASES ART (ISTAT) (06/16/2020 5:32 PM CDT) Only the most recent of2 resultswithin the time period is included. pH Arterial POCT 7.28(L) 7.35 - 7.45 pH 06/16/2020 5:34 PM CDT [facility] pCO2 Arterial 41.5 35 - 45 mm hg 06/16/2020 5:34 PM CDT [facility] pO2 Arterial 133(H) 80 - 100 mm hg 06/16/2020 5:34 PM CDT [facility] HCO3 Arterial POCT 19.6(L) 22 - 26 mmol/L 06/16/2020 5:34 PM CDT [facility] BE Arterial -7(L) -2 - 2 mmol/L 06/16/2020 5:34 PM CDT [facility] TCO2 Arterial Calc POCT 21(L) 23 - 27 mmol/L 06/16/2020 5:34 PM CDT [facility] O2 Saturation Arterial 99 90 - 100 % 06/16/2020 5:34 PM CDT [facility] Mode CPAP 06/16/2020 5:34 PM CDT [facility] PEEP 5 06/16/2020 5:34 PM CDT [facility] Pressure Support 8 06/16/2020 5:34 PM CDT [facility] Site Art Line 06/16/2020 5:34 PM CDT [facility] Walter's Test NA 06/16/2020 5:34 PM CDT [facility] Treatment Delivery Method VENT 06/16/2020 5:34 PM CDT [facility] FI O2 40 % 06/16/2020 5:34 PM CDT [facility] Sample iSTAT ART 06/16/2020 5:34 PM CDT [facility] Blood, arterial ARTERIAL BLOOD SPECIMEN / Unknown 06/16/2020 5:32 PM CDT 06/16/2020 5:34 PM CDT Harjeet Comer MD LAB - POINT OF CA RE ORDERABLES Performing Organization Address City/[facility]/ZIP Co de Phone Number [facility] RESP THERAPY [address] [place] [address], [facility] [phone] * CULTURE MRSA (06/16/2020 5:02 PM CDT) Only the most recent of2 resultswithin the time period is included. Pathologist [facility] Culture Negative for methicillin-resist ant Staphylococcus aureus (MRSA) YESSI 06/18/2020 10:56 AM CDT [facility] MICROBIOLOG[facility] Microbiology SPECIMEN FROM NASAL FOSSAE / Unknown Collection / Unknown 06/16/2020 5:02 PM CDT 06/16/2020 6:00 PM CDT Manolo Chambers DO LAB - MICROBIOLOGY O RDERABLES [facility] MICROBIOLOG[facility] [address] [place] [address], [facility] [phone] * TRANSFUSE RED BLOOD CELL LEUKOREDUCED ML(S) (06/16/2020 1:05 PM CDT) Jules Mckinney MD NURSING - BLOOD PROD TRANSFUSION * (ABNORMAL) BLOOD GASES ART + LYTES GLU CA+ HH (ISTAT) (06/16/2020 12:41 PM CDT) Only the most recent of7 resultswithin the time period is included. pH Arterial POCT 7.33(L) 7.35 - 7.45 pH 06/16/2020 12:48 PM CDT [facility] pCO2 Arterial 42.0 35 - 45 mm hg 06/16/2020 12:48 PM CDT [facility] pO2 Arterial 151(H) 80 - 100 mm hg 06/16/2020 12:48 PM CDT [facility] HCO3 Arterial POCT 22.0 22 - 26 mmol/L 06/16/2020 12:48 PM CDT [facility] BE Arterial -4(L) -2 - 2 mmol/L 06/16/2020 12:48 PM CDT [facility] TCO2 Arterial Calc POCT 23 23 - 27 mmol/L 06/16/2020 12:48 PM CDT [facility] O2 Saturation Arterial 99 90 - 100 % 06/16/2020 12:48 PM CDT [facility] Sodium Arterial 138 136 - 145 mmol/L 06/16/2020 12:48 PM CDT [facility] Potassium Arterial 4.1 3.5 - 5.1 mmol/L 06/16/2020 12:48 PM CDT [facility] Calcium Ionized Arterial POCT 1.56(H) 1.12 - 1.32 mmol/L 06/16/2020 12:48 PM CDT [facility] Glucose Arterial POCT 117(H) 74 - 106 mg/dL 06/16/2020 12:48 PM CDT [facility] Hemoglobin Arterial POCT 6.8(L) 12.0 - 15.6 gm/dL 06/16/2020 12:48 PM CDT [facility] Hematocrit Arterial POCT 20.0(LL) 35.9 - 45.5 % 06/16/2020 12:48 PM CDT [facility] Sample iSTAT ART 06/16/2020 12:48 PM CDT [facility] Blood, arterial ARTERIAL BLOOD SPECIMEN / Unknown 06/16/2020 12:41 PM CDT 06/16/2020 12:48 PM CDT Harjeet Comer MD LAB - POINT OF CA RE ORDERABLES [facility] [address] [phone] * (ABNORMAL) ACT PLUS - POCT ([facility]) (06/16/2020 12:38 PM CDT) Only the most recent of7 resultswithin the time period is included. ACT PLUS 117(L) 125 - 187 sec 06/16/2020 12:53 PM CDT [facility] Blood BLOOD SPECIMEN / Unknown 06/16/2020 12:38 PM CDT 06/16/2020 12:53 PM CDT Harjeet Comer MD LAB - COAGULATION ORDERABLES Performing Organization Address [facility] Co de Phone Number [facility] [address] [place] [address] * (ABNORMAL) PT PTT PANEL (06/16/2020 12:09 AM CDT) Only the most recent of4 resultswithin the time period is included. PT 13.0 12.1 - 14.8 sec 06/16/2020 12:37 AM CDT [facility] INR 1.1 0.9 - 1.1 06/16/2020 12:37 AM CDT [facility] PTT 140.5(HH) 23.0 - 38.4 sec 06/16/2020 12:37 AM CDT [facility] Comment:This result represen ts a significant difference from this patient's most recent previous value. Clinical correlation is therefore recommended. Blood BLOOD SPECIMEN / Unknown Venipuncture / Unknown 06/16/2020 12:09 AM CDT 06/16/2020 12:18 AM CDT Narrative [facility] - 06/16/2020 12:37 AM CDT Conventional Warfarin Anticoagulant Therapy: INR Reference Range: ??2.0-3.0 Intensive Warfarin Anticoagulant Therapy: INR Reference Range: ? 2.5-3.5 Heparin Therapeutic Range for PTT: ??71.0 - 109.0 seconds. [place] RETAIL SUPERVISOR-STITCHING MACHINE SETTER LAB - COAGUL ATION ORDERABLES Performing Organization Address City/[facility]/ZIP Co de Phone Number [facility] [address] [place] [address] * (ABNORMAL) PTT (06/16/2020 12:09 AM CDT) Only the most recent of6 resultswithin the time period is included. PTT 140.5(HH) 23.0 - 38.4 sec 06/16/2020 12:38 AM CDT [facility] Comment:This result represen ts a significant difference from this patient's most recent previous value. Clinical correlation is therefore recommended. Blood BLOOD SPECIMEN / Unknown Venipuncture / Unknown 06/16/2020 12:09 AM CDT 06/16/2020 12:18 AM CDT Narrative [facility] - 06/16/2020 12:38 AM CDT Heparin Therapeutic Range for PTT: ??71.0 - 109.0 seconds. Nick Han MD LAB - COAGULATION OR DERABLES [facility] [address] [place] [address] * COMPLETE PFT (06/15/2020 12:00 PM CDT) 06/15/2020 12:0 0 PM CDT Narrative Procedure Note Kevin Andrade MD - 06/17/2020 3:47 AM CDT PULMONARY FUNCTION TEST NAME: MARCO ANTONIO ROY : 1980 Date of test: 06/13/2020 Ordering physician: Robi Arias MD Interpreting physician: Kevin Andrade MD INTERPRETATION: SPIROMETRY: Bedside spirometry was performed with and without bronchodilator administration. Flow - volume loops werereproducible. Baseline spirometric values revealed a normal FEV1 at 2.75 L, which is 98%of predicted. FVC was normal at 3.23 L, which is 94% of predicted.FEV1/FVC ratio was normal at 85.1%. There was no significant change inspirometric values after bronchodilator administration. IMPRESSION: Normal spirometry with no significant change afterbronchodilator administration. Kevin Andrade MD Kevin Andrade MD RESPIRATORY THERA PY ORDERABLES * BLOOD TYPE VERIFICATION (06/15/2020 12:48 AM CDT) ABO Rh O POS 06/15/2020 10:23 AM CDT [facility] Blood Bank BLOOD SPECIMEN / Unknown Venipuncture / Unknown 06/15/2020 12:48 AM CDT 06/15/2020 10:02 AM CDT Ava Mcqueen RETAIL SUPERVISOR-STITCHING MACHINE SETTER LAB - BLOOD BA NK ORDERABLES Performing Organization Address [facility] de Phone Number [facility] [address] [place] [address] * PREPARE (CROSSMATCH) RBC UNIT(S), 1 Units (06/14/2020 2:51 AM CDT) [facility] Unit Description AS1 LR PRBC [facility] Unit ABO O [facility] Unit Rh POS [facility] Product Number R02 [facility] Unit Donor # [id number] [facility] Unit Status transfused [facility] Product Code [id number] [facility] Blood Type Barcode 5100 [facility] Expiration Date D [facility] Blood Bank BLOOD SPECIMEN / Unknown 06/14/2020 2:51 AM CDT 06/14/2020 2:57 AM CDT Ava Mcqueen RETAIL SUPERVISOR-STITCHING MACHINE SETTER LAB - BLOOD BA NK ORDERABLES Performing Organization Address City/[facility] Co de Phone Number [facility] [address] [place] [address] * (ABNORMAL) TROPONIN I (06/14/2020 2:51 AM CDT) Only the most recent of2 resultswithin the time period is included. [facility] Troponin I 0.515(HH) <0.038 ng/mL 06/14/2020 3:29 AM CDT [facility] Blood BLOOD SPECIMEN / Unknown Venipuncture / Unknown 06/14/2020 2:51 AM CDT 06/14/2020 2:57 AM CDT [place] RETAIL SUPERVISOR-STITCHING MACHINE SETTER LAB - CHEMIS TRY ORDERABLES [facility] [id number] [place] [address] * TYPE + SCREEN PANEL (06/14/2020 2:51 AM CDT) ABO Rh O POS 06/14/2020 4:01 AM CDT [facility] Comment:No history; collect retype. Antibody Screen NEG 0 4:01 AM CDT [facility] Blood Bank BLOOD SPECIMEN / Unknown Venipuncture / Unknown 06/14/2020 2:51 AM CDT 06/14/2020 2:57 AM CDT Ava Mcqueen RETAIL SUPERVISOR-STITCHING MACHINE SETTER LAB - BLOOD BA NK ORDERABLES Performing Organization Address [facility] Co de Phone Number [facility] [address] [place] [address] * SARS-COV-2 (COVID-19) IN HOUSE (06/13/2020 4:09 PM CDT) COVID-19 PCR Not detected Not detected, Invalid 06/13/2020 10:48 PM CDT [facility] Microbiology SPECIMEN FROM NASOPHARYNGEAL STRUCTURE / Unknown Collection / Unknown 06/13/2020 4:09 PM CDT 06/13/2020 4:13 PM CDT Narrative [facility] - 06/13/2020 10:48 PM CDT This nucleic acid amplification assay performance was validated by [facility]. This test has been authorized by the Food and Drug administration (FDA)under an Emergency??Use Authorization (EUA). This test has been validated in accordance with the FDA's guidance document Policy for Diagnostic Testing in Laboratories Certified to perform High Complexity Testing under CLIA prior to Emergency Use Authorization for Coronavirus Disease-2019 during the Public Health Emergency issued on January 19, 2020. FDA independent review of this validation is pending. This test is only authorized for the duration of time the declaration that circumstances exist justifying the authorization of emergency use of in vitro diagnostic tests for detection of SARS-CoV-2 virus and/or diagnosis of COVID-19 infection under section 564(b)(1) of the Act, 21 U.S.C 360bbb-3 (b)(1), unless the authorization is terminated or revoked sooner. Ava Mcqueen RETAIL SUPERVISOR-STITCHING MACHINE SETTER LAB - MICROBIO LOGY ORDERABLES [facility] [address] [place] [address], [facility] [phone] * HEMOGLOBIN A1C (06/13/2020 4:04 PM CDT) Hemoglobin A1c 5.1 4.2 - 5.6 % 06/13/2020 4:32 PM CDT [facility] Estimated Average Glucose 100 mg/dL 06/13/2020 4:32 PM CDT [facility] Blood BLOOD SPECIMEN / Unknown Venipuncture / Unknown 06/13/2020 4:04 PM CDT 06/13/2020 4:13 PM CDT Narrative [facility] - 06/13/2020 4:32 PM CDT The following cutoff levels are recommended by [place] [employer]. ?? A1c ??> 6.5% : considered as diabetes if two separate tests >6.5% or in an appropriate clinical setting. A1c ??5.7% - 6.4% : considered as prediabetes (suggest increased risk for diabetes and cardiovascular disease) Control target level: ??Should be individualized. ??< 7 ??for general (non- ) , ??< 8% less stringent goal, ??< 6.5 ??more stringent goal. Hemoglobin A1c measurements are used as an aid in the diagnosis of diabetic mellitus, as an aid to identify patients who may be at the risk for developing diabetic mellitus, and for the monitoring long-term blood glucose control in individuals with diabetes mellitus. ??This test should not replace glucose testing for patients with Type 1 diabetes, pediatric patients, or women. ??Falsely low HbA1c results may be observed in patients with clinical conditions that shorten erythrocyte life span or decrease mean erythrocyte age such as the presence of unstable hemoglobin variants, elevated hemoglobin F level ??or other causes of hemolytic anemia . ??HbA1c may not accurately reflect glycemic control when clinical conditions that affect erythrocyte survival are present. ??Severe Iron deficiency anemia may yield falsely high results. ??Hemoglobin A1c assay should not be used to diagnose or monitor diabetes in patients with malignancy, recent blood transfusion, chronic kidney or liver disease. ?? This method may yield falsely low results when hemoglobin (HbF) exceeds 5% in the specimen. [place] [facility] LAB - CHEMIS TRY ORDERABLES Performing Organization Address [facility] de Phone Number [facility] [address] [place] [phone] * (ABNORMAL) LIPID PROFILE (06/13/2020 4:04 PM CDT) [facility] Cholesterol 232(H) <200 mg/dL 06/13/2020 4:31 PM CDT [facility] Triglycerides 151(H) <150 mg/dL 06/13/2020 4:31 PM CDT [facility] HDL Cholesterol 41 >40 mg/dL 0 4:31 PM CDT [facility] LDL Calculated 161(H) <130 mg/dL 06/13/2020 4:31 PM CDT [facility] VLDL Calculated 30 <=30 mg/dL 0 4:31 PM CDT [facility] Chol HDL Ratio 5.7(H) <4.5 06/13/2020 4:31 PM CDT [facility] LDL/HDL Ratio 3.9 <5.0 06/13/2020 4:31 PM CDT [facility] Blood BLOOD SPECIMEN / Unknown Venipuncture / Unknown 06/13/2020 4:04 PM CDT 06/13/2020 4:13 PM CDT [place] APRN-[facility] LAB - CHEMIS TRY ORDERABLES Performing Organization Address [facility] de Phone Number [facility] [address] [place] [address] Care Teams Burn Out Scarfing Operator Relationship Specialty [place] [address] [facility] [address] [place] [phone] [employer] Cardiovascular Disease 08/28/20
--- OUTSIDE RECORDS SUMMARY | 2024-12-13 19:59 | XMS_ITS | Clinical Summary ---
Author Organization [facility] Address [address] [place] [address]. [place] [address] [place] [address] Care Team Providers Care Ic Engineer Name Role Phone Unavailable Primary Care Provider Unavailabl e Social History Tobacco Use Types Packs/Day Years Used Date Smoking Tobacco: Never Assessed Comments Unknown Sex and Gender Information Value Date Recorded Sex Assigned at Not on file Legal Sex Female 7:51 PM CDT Gender Identity Not on file Sexual Orientation Not on file Plan of Treatment Health Maintenance Due Date Last Done Comments Cervical Cancer Screening Pa p Smear (Age 30 to 64) Every 3 Years 1979 Colorectal Cancer Screening Colonoscopy (10 Years) 1979 Annual Physical 1982 Hepatitis C 1997 DTaP, Tdap and Td Vaccines ( 1 - Tdap) 1998 Hepatitis B Vaccines (1 of 3 - 19+ 3-dose series) 1998 Cervical Cancer Screening Pa p with HPV Testing (Age 30 to 64) Every 5 Years 2009 Cervical Cancer Screening with HPV 2009 Mammogram Screening 2019 COVID-19 Vaccine (2023-2 5 season) 2024 Influenza Adult (#1) 2024 HPV Vaccines Aged Out No longer eligi ble based on patient's age to complete this topic Meningococcal Vaccine Aged Out No jelly libia eligible based on patient's age to complete this topic Pneumococcal Vaccine: Pediat rics (0 to 5 Years) and At-Risk Patients (6 to 64 Years) Aged Out No longer eligible b ased on patient's age to complete this topic RSV Immunizations Under 20 Months Aged Out No longer eligible based on patient's age to complete this topic
== END 2024-12-11 16:03 | disposition home or self-care (01) ==
PROVIDERS: PCP Internal Medicine
DX: I25.5 Ischemic cardiomyopathy (principal); I50.22 Chronic systolic (congestive) heart failure
CPT/HCPCS: 36415; 80053; 83880

== ENCOUNTER 2025-02-19 10:47 | Outpatient (CLI) | payer OTHER, SELFPAY ==
--- NOTE | ~2025-02-19 | XR_ITS ---
XR lumbar spine 2-3V 02/19/2025 11:09 Indication: Low back pain Procedure: 3 views lumbar spine Comparison: MRI lumbar spine dated 04/02/2017 Findings: There is mild levoscoliosis. Vertebral body heights are maintained. No evidence for spondyl olysis or spondylolisthesis. There are cholecystectomy clips. Surgical changes are present in the lef t pelvis. No fracture or traumatic malalignment. Impression: 1: Mild levoscoliosis. Reviewed, dictated and finalized at location A. Impression: 1: Mild levoscoliosis.
--- OUTSIDE RECORDS SUMMARY | 2025-02-19 12:01 | XMS_ITS | Encounter Summary ---
Author Organization [facility] Healthcare Address [address] [place] [address] Care Team Providers Care Mba Internship Name Role Phone Chasity Hassan RN Unavailable [phone] Gregorio Woo MD Primary Care Provider [phone] Odalis Espinoza RN Unavailable [phone] Encounter Details Date Type Department Care Team (Late st Contact Info) Description 02/07/2025 Telephone [facility] Transplant Heart [address] [facility] [address] [phone] [place] [address] Chasity Hassan, RN Social History Tobacco Use Types Packs/Day Years Used Date Smoking Tobacco: Every Day Cigarettes 0.5 30.2 Started: 1995 Smokeless Tobacco: Never AUDIT-C Answer Date Recorded Q1: How often [...] on file Legal Sex Female 1:15 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 Will place order for 03/15/25. Asked pt to have labs completed 1 week prior to the procedure. She was agreeable and would like them to be sent to [facility]. Faxed via [employer]. * Telephone Encounter - Chasity Hassan RN - 02/07/2025 2:49 PM CDT ----- Message from Montserrat Leigh NP sent at 01/31/2025 5:04 PM CDT ----- CardioMems referral please. Montserrat documented in this encounter Plan of Treatment Upcoming Encounters Date Type Department Care Team (Latest Contact Info) Description 03/15/2025 12:10 PM CDT Hospital Encounter [facility] [address] [place] [address] Elmo Dacosta MD [address] [address] Chronic systolic (congestive) heart failure (HCC) 03/15/2025 12:10 PM CDT - 03/15/2025 1:55 PM CDT Surgery [facility] [address] [place] [address] Elmo Dacosta MD [address] [id number] RIGHT HEART CATHETERIZATION INSERT PUL ART PRES SENSOR [id number] Scheduled Orders Name Type Priority Associated Diagnoses Orde r Schedule CBC with auto differential Lab Routine Chronic systolic (congestive) heart failure (HCC) Expected: 02/10/2025, Expires: 02/07/2026 Basic metabolic panel Lab Routine Chronic systolic (congestive) heart failure (HCC) Expected: 02/10/2025, Expires: 02/07/2026 documented as of this encounter Visit Diagnoses Diagnosis Chronic systolic (congestive) heart failure (HCC)- Primary Chronic systolic (congestive) heart failure (HCC)- Primary Chronic systolic (congestive) heart failure (HCC) documented in this encounter Orders Case Request Count Last Ordered Date First Orde red Date CASE REQUEST PUNCHBOARD STUFFER 1 02/07/2025 documented in this encounter Care Teams Mba Internship Relationship Specialty Start Date End Date Gregorio Woo MD PCP - General 01/02/21 Chasity Hassan, RN Registered Nurse Writer Technical Publications 11/04/20 Odalis Espinoza, RN [address] [address] Heart Failure Coordinator Writer Technical Publications 10/22/21 documented as of this encounter
--- OUTSIDE RECORDS SUMMARY | 2025-02-19 12:02 | XMS_ITS | CONTINUITY OF CARE DOCUMENT ---
Author Name jagdish dubon Address Unknown Organization [facility] Address [address] [place] [address] Phone [phone] Care Team Providers Care Supervisor Dry Cleaning Name Role Phone Prasad De Leon MD Unavailable [phone] EMELYN DACOSTA MD Unavailable [phone] KEELEY BAUTISTA MD Unavailable PROBLEMS Condition Status Date Provider Notes Hypertension active Prasad De Leon MD Atrial Fibrillation active Prasad Quintana Congestive Heart Failure active Prasad turner MD Hyperlipidemia active Prasad De Leon MD CAD - S/P CABG 2019; RAMSAY to LAD, SVG to OM, RCA stent active Kristin Romero Tobacco abuse active Prasad De Leon MD Ischemic Cardiomyopathy active Prasad kyle MD Left subclavian vein stenosis active Aviva Romero Hx of implantation of defibrillator active Kristin Romero GERD (gastroesophageal reflux disease) active Kristin Romero Family History of Hypertension: active Rebeca Romero Family History of Sudden Cardiac : active Kristin Romero ENCOUNTERS Date Type Provider Location Encounter Diag nosis - In-person encounter Office Visit Prasad De Leon MD [facility] HypertensionAtrial FibrillationCongestive Heart FailureHyperlipidemiaCAD - S/P [...] Li nkLogic blood pressure, systolic 96 mm[Hg] Diane kLogic blood pressure, diastolic 67 mm[Hg] Ca therine Julius blood pressure, systolic 96 mm[Hg] Cat herine [place] oxygen saturation, oximetry 98 % Azul [place] respiratory rate E&M 16 /min Catheri ne Julius pulse rate 83 /min Azul Julius weight E&M 150 [lb_av] Azul Julius height E&M 62 [in_i] Azul Julius blood pressure, cuff size regular Ca therine Julius ALLERGIES Allergy Name Onset Date Reaction Criticality [...] tablet extended release 24 hr active Azul [place] clopidogrel 75 mg tablet active Azul Julius amlodipine 5 mg tablet active Azul [place] apixaban 5 mg tablet active Azul [place] montelukast 10 mg tablet active Azul Julius spironolactone 25 mg tablet active Azul [place] calcium pantothenate unspecified unspecified active Azul Julius SOCIAL HISTORY Date Observation Value Provider smoking/tobacco cess ation, patient education and counseling yes Kristin Nick social history E&M S moking History: P atient currently smokes every day. Kristin Nick social history reviewed E&M revi ewed - no changes required Kristin Romero smoking history, tot al pack/day 10 cigs Azul Julius cigarette use yes Azul [place] smoking status Current every day smoker C [...] Payer name Policy type / Coverage type [place] [employer] libertarian ID [facility] Other [id number] TREATMENT PLAN Date Name Performer [id number],C, O n statin Kristin Nick [id number],C,S /P RCA stent, remains symptomatic with increased tiredness, fatigue, chest pain, and palpitations. She is being treated for CAD and small vessel dz and follows with [facility]. Kristin Nick [id number],C, I n NSR on EKG. On Eliquis Prasad De Leon MD [id number],C, C lincially euvolemic. Prasad De Leon MD [id number],C, B P well controlled Prasad De Leon MD [id number],C, E F 40% s/p AICD I had a long discussion with the patient and . I feel that the likelihood of any signficant improvement with [employer] therpay is minimal. She needs to continue to follow with [facility]. I will call Dr. Dacosta at the patient's request. He sees her and gives her explanations of her coronary artery disease and prognosis. Prasda De Leon MD [id number],C,S /P RCA stent, remains symptomatic with increased [...] and small vessel dz and follows with [facility]. Prasad De Leon MD HISTORY OF PROCEDURES Procedure Date Procedure Name Provider Procedure Notes S tatus EKG Prasad De Leon MD complet ed
--- OUTSIDE RECORDS SUMMARY | 2025-02-19 12:02 | XMS_ITS | Clinical Summary ---
Author Organization [facility] Address [address] [place] [address] Care Team Providers Care Transport Company Manager Name Role Phone Chasity Hassan RN Unavailable [phone] Gregorio Woo MD Primary Care Provider [phone] Odalis Espinoza RN Unavailable [phone] Allergies Active Allergy Reactions Criticality Noted Date Comments Codeine Mental status changes Low Doxycycline Anaphylaxis,Shortnes s of breath,Swelling High Throat closes; epi given Sacubitril-Valsartan Angioedema High 06/04/2021 Iodinated Contrast Media Swelling Medium 07/14/2022 After cath had stomach ache / abdominal pain headed back home. ER visit at [facility]. Next day everything was swollen - chest arms face tongue - headache. Went back to ER. Called cousin who is an old labor law professor. Recommended benadryl and zyrtec. Things got better after this. Morphine Urticaria,Vomiting Medium 06/13/[address] (CYMBALTA) 30 mg capsuleIndicatio ns:Generalized Anxiety Disorder Take 1 capsule (30 mg total) by mouth 2 (two) times a day 1 Active isosorbide mononitrate ER (IMDUR) 60 mg 24 hr tablet TAKE 1 TABLET DAILY 90 tablet 3 4 Active clopidogreL (PLAVIX) 75 mg tablet TAKE 1 TABLET DAILY 90 tablet 3 4 Active mirtazapine (REMERON) 7.5 mg tablet 4 Active albuterol HFA (PROVENTIL HFA,VENTOLIN HFA,PROAIR HFA) 90 mcg/actuation inhaler [address] (PROTONIX) 20 mg EC tablet Take 1 tablet (20 mg total) by mouth every morning 90 tablet 3 4 Active potassium chloride ER (KLOR-CON) 20 mEq CR tablet Take 2 tablets (40 mEq total) by mouth daily 180 tablet 3 4 10/25/20 25 Active spironolactone (ALDACTONE) 25 mg tablet Take 2 tablets (50 mg total) by mouth daily 180 tablet 3 4 10/25/20 25 Active ranolazine ER (RANEXA) 1,000 mg 12 hr tablet Take 1 tablet (1,000 mg total) by mouth 2 (two) times a day 60 tablet 11 4 10/25/20 25 Active nitroglycerin (NITROSTAT) 0.[address] 1 tablet (0.3 mg total) under the tongue every 5 (five) minutes as needed for chest pain (EVERY 5 MIN X3, THEN GO TO ED IF PERSIST) 90 tablet 3 4 Active Eliquis 5 mg tablet TAKE 1 TABLET TWICE A DAY 180 tablet 3 4 Active bumetanide (BUMEX) 1 mg tablet Take 1 tablet (1 mg total) by mouth 2 (two) times a day 60 tablet 5 Active amLODIPine (NORVASC) 5 mg tablet 5 Active metoprolol XL (TOPROL-XL) 100 mg 24 hr tablet Take 1 tablet (100 mg total) by mouth daily 90 tablet 2 5 Active atorvastatin (LIPITOR) 80 mg tablet TAKE 1 TABLET NIGHTLY 90 tablet 3 5 Active metoprolol XL (TOPROL-XL) 50 mg extended release tablet TAKE 1 TABLET DAILY 90 tablet 3 4 02/01/20 25 Discontinu ed(Reorder ) atorvastatin (LIPITOR) 80 mg tablet TAKE 1 TABLET NIGHTLY 90 tablet 3 4 02/11/20 25 Discontinu ed(Reorder ) Active Problems Problem Noted Date Diagnosed Date Aneurysm of left ventricle of heart 03/05/2024 Assessment & Plan (03/05/2024 12:33 PM CDT): On cMRI 12/2020 on Eliquis. ICD (implantable cardioverter-defibrillator) in place 07/22/2023 Assessment & Plan (01/31/2025 5:00 PM CDT): Denies therapies Assessment & Plan (01/09/2025 3:05 PM CHURCH COMMUNICATIONS ADMINISTRATOR): -Dual chamber ICD is functioning appropriately as programmed -Lead impedances, sensing, and thresholds are stable -No programming changes recommended -Continue remote monitoring quarterly -Follow up in 1 year for device check Assessment & Plan (03/05/2024 12:18 PM CDT): [...] (06/11/2022): Added automatically from request for surgery [id number] Tobacco abuse 06/05/2021 Assessment & Plan (06/06/2021 1:09 PM CDT): Barrier to advanced therapies if needed Discussed importance of smoking cessation Will discharge on Nicotine patch- low dose Patient very interested in cessation Assessment & Plan (06/05/2021 12:59 PM CDT): Barrier to advanced therapies if needed Waterproofer on cessation Limb ischemia 06/03/2021 Assessment & Plan (06/06/2021 1:08 PM CDT): Concern for left upper limb ischemia given intermittent blue discoloration. Vascular surgery consulted LUCIANA within normal limits Arterial dopplers pending Concern for cardio-embolic source given apical thrombus Will need oral anticoagulation Continue antiplatelet and anticoagulation as above Will need WBI as OP Smoking cessation imperative Assessment & Plan (06/05/2021 12:31 PM CDT): Concern for left upper limb ischemia given intermittent blue discoloration. 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 [facility] Dec 2020 LVEF 36% with Transmural late gadolinium enhancement involving at least 4 segments of the left ventricle mid cavity and apex consistent with a nonviable infarct Presented with worsening CHF and chest pain Plan: [facility] yesterday with diffuse RCA disease and coronary spasm Underwent subsequent PCI Will start amlodipine 2.5mg daily Will need aspirin, clopidogrel, and apixaban for one month, then can decrease to just clopidogrel and apixaban Unclear if premature CAD related to chronic inflammatory disease- laboratory rheumatologic work up pending VerifyNow for Plavix and aspirin pending Continue high-intensity statin Continue losartan, ranolazine, and metoprolol Stable for discharge to home Post-PCI groin care and activity restrictions discussed Assessment & Plan (06/05/2021 12:53 PM CDT): History of premature coronary disease presented with a non STEMI in May [facility] to [facility] and subsequent CABG with a RAMSAY to the LAD and venous graft to the OM. [facility] Dec 2020 LVEF 36% with Transmural late gadolinium enhancement involving at least 4 segments of the left ventricle mid cavity and apex consistent with a nonviable infarct Presented with worsening CHF and chest pain Plan: [facility] today Unclear if premature CAD related to chronic inflammatory disease- laboratory rheumatologic work up pending Check verifyNow for Plavix and aspirin Continue [...] medication management as elsewhere Paroxysmal atrial fibrillation 12/10/2020 Overview (03/09/2021): By report with monitor not showing Afib Assessment & Plan (01/31/2025 5:03 PM CDT): Preet. Assessment & Plan (03/05/2024 12:20 PM CDT): Preet. No arrhthymias on ICD 01/2024. Assessment & [...] 4.7 cm TTE March 2024 LVEF 45%, [employer] LOAN OFFICER laminated LV apical thrombus Assessment & Plan (01/31/2025 5:03 PM CDT): ICM. HFimpEF. LVEF On ECHO 02/2024%. Ischemic workup with moderate sized infarct at the apex and mild ischemia along its edges- medical management. Ongoing NYHA class III findings and diastolic heart failure. She does have some increased abdominal distention. She continues to struggle with her volume status. Her weight is down today but up overall for her. With atypical chest pressure. BNP and BMP today. Increase Bumex 2 mg BID. Continue Imdur 60 mg daily, ranaexa 06555 mg BID, aldactone 50 mg daily, metoprolol increase to 100 mg xl daily, and losartan 25 mg daily and Norvasc 5 mg daily. Plavix 75 mg daily along with Lipitor 80 mg daily. KCL supplement. Dr. Dacosta or Montserrat in 3 months. Will review CardioMems with . Assessment & Plan (01/09/2025 3:07 PM CHURCH COMMUNICATIONS ADMINISTRATOR): -ICM. HFimpEF. LVEF 40-45% per TTE 03/2024 -Dual chamber ICD placed 04/21/2021 for primary prevention - no history of ICD therapies -No VT/VF on ICD interrogation Assessment & Plan (03/05/2024 12:37 PM CDT): [...] combined sy stolic and diastolic heart failure 06/03/2021 07/08/2021 Assessment & Plan (06/06/2021 1:05 PM CDT): Admitted with increased shortness of breath, early satiety, abdominal distension and weight gain Treated with IV diuretics Noted to be dry with RAP 1 on RHC Hold diuretics for 3 days, then as needed Continue metoprolol xl 50 mg, losartan 25 mg daily, spironolactone Echo with LVEF 40% with LV thrombus Will start apixaban for discharge Will need close follow with Dr. Kohler as outpatient Assessment & Plan (06/05/2021 12:53 PM CDT): Admitted with increased shortness of breath, early satiety, abdominal distension and weight gain Treated with IV diuretics Net negative 1.4L in last 24 hours; weight pending Exam and symptoms improved RHC today Continue metoprolol xl 50 mg, losartan 25 mg daily, spironolactone Resume oral diuretics post cath Echo with LVEF 40% with LV thrombus Will need oral anticoagulation post-procedure Continue heparin drip for now Daily weights, [...] Encounters Date Type Department Care Team Description 02/07/2025 Telephone [facility] Heart [address] [place] [address] Mailstop [id number] [place] [address] Chasity Hassan RN 01/31/2025 6:55 PM CDT Lab [facility] ([facility]) [address] [place] [id number] Ischemic cardiomyopathy 01/31/2025 3:30 PM CDT Office Visit [facility] Card[facility] [address] [place] [address] Advanced Medicine 8th [place] [address] [place] [address] Montserrat Leigh NP Ischemic cardiomyopathy (Primary Dx); ICD (implantable cardioverter-defibrilla tor) in place; Paroxysmal atrial fibrillation (HCC) 01/24/2025 Telephone [facility] Heart [address] [place] [address] Mailstop [phone] [place] [address] Farshad Rosales 01/09/2025 3:00 PM CHURCH COMMUNICATIONS ADMINISTRATOR Telemedicine [facility] [address] [place] [address] Advanced Medicine 8th [place] [address] [place] [address] Shannan Romano NP ICD (implantable cardioverter-defibrilla tor) in place (Primary Dx); Ischemic cardiomyopathy 01/09/[address] [facility] [address] [facility] [address] [place] [phone] Basilio Torres MD PhD 01/09/[address] [facility] [address] [facility] Advanced Medicine 8th [place] [address] [place] [address] Basilio Torres MD PhD Ischemic cardiomyopathy (Primary Dx) 01/08/[address] [facility] [address] [facility] 8th [place] [address] [place] [address] Basilio Torres MD PhD 11/28/[address] [facility] [address] [facility] 8th [place] [address] [place] [phone] Shannan Romano NP 11/27/[address] [facility] Heart [address] [facility] [address] Mailstop [phone] [place] [address] Sapna Montgomery from Last 3 Months Immunizations Immunization Administration Dates Next Due Influenza, Quadrivalent, Spl [...] disease Ischemic cardiomyopathy CHF (congestive heart failure) ([facility]) Hyperlipidemia PONV (postoperative nausea and vomiting) no delayed discharge Arrhythmia PAF (paroxysmal atrial fibrillation) ([facility]) NSTEMI (non-ST elevated myocardial infarction) ( [facility]) Hypertension Family History Medical History Relation Name [...] 0.5 30.2 Started: 1994 Smokeless Tobacco: Never Tobacco Cessation:Ready [...] on file Legal Sex Female 1:15 AM CHURCH COMMUNICATIONS ADMINISTRATOR Gender Identity Not on file Sexual Orientation Not on file Occupation Industry Job Start Date Job End Date denied Not on file Not on file Not on file Obstetrics History Last Filed Vital Signs Vital Sign Reading Time Taken Comments Blood Pressure 117/73 01/31/2025 3:39 PM CDT Pulse 85 01/31/2025 3:39 PM CDT Temperature 36.7 C (98.1 F) 02/24/2024 7:50 PM CDT Respiratory Rate 16 02/25/2024 3:00 AM CDT Oxygen Saturation 98% 01/31/2025 3:39 PM CDT Inhaled Oxygen Concentration - - Weight 79.4 kg (175 lb) 01/31/2025 3:39 PM CDT Height 157.5 cm (5' 2 ) 01/31/2025 3:39 PM CDT Body Mass Index 32.01 01/31/2025 3:39 PM CDT Plan of Treatment Upcoming Encounters Date Type Department Care Team (Latest Contact Info) Description 03/15/2025 12:10 PM CDT Hospital Encounter [facility] [address] [place] [address] Elmo Dacosta MD [address] [facility] [address] [place] [address] Chronic systolic (congestive) heart failure (HCC) 03/15/2025 12:10 PM CDT - 03/15/2025 1:55 PM CDT Surgery [facility] [address] [place] [address] Elmo Dacosta MD [address] [facility] [address] [place] [address] RIGHT HEART CATHETERIZATION INSERT PUL ART PRES SENSOR [address] Health Maintenance Due Date Last Done Comments Breast Cancer Screening-Mammogram 1980 Depression Screening 1979 Hepatitis C Screening 1979 Hepatitis B Screening 1997 Regular Well Visit/Exam 18-64 1997 Pneumococcal vaccine <65 (1 of 2 - PCV) 1998 Influenza Vaccine (#1) 2024 0, 08/07/2019, 07/30/2016, Additional history exists Colon Cancer Screening-Colonoscopy 06/30/2028 06/30/2018, 01/31/2013 DTaP/Tdap/Td Vaccine (2 - Td or Tdap) 04/20/2030 04/20/2020 HPV Vaccines Aged Out No longer eligi ble based on patient's age to complete this topic Medical Devices Implanted Type Area Associate Designer Device Identifier Shelf Expiration Date Model / Serial / Lot Daig Dorie/[employer] [id number] Angio-Seal Evolution 6fr .035in Guidewire Bypass Tube Suture - [id number] Implanted:Qty: 1 on 06/05/2021 by Pancho Barraza MD PhD at [facility] Collagen N/A: Femoral [employer] Dorie 01/18/2022 [id number] / / [id number] [employer] Dorie Angio-Seal Vip 6fr Closere Device [id number] - [id number] Implanted:Qty: 1 on 06/25/2022 by Lc Mast MD at [facility] Collagen Right: Femoral [employer] Dorie 04/20/2023 [id number] / / [id number] Medtronic Inc [id number] 2 Chamber Df4 Inline Connector Radiopaque Pacemaker - [id number] - [id number] Implanted:Qty: 1 on 04/21/2021 by Basilio Torres MD PhD at [facility] ICD Left: Chest Medtronic Inc 08/18/2022 [id number] / [id number] / Medtronic Cardiac Rhythm Mgmt [id number] Sprint Quattro Secure S 55cm Df-4 Tripolar Screw Defibrillator - [id number] - [id number] Implanted:Qty: 1 on 04/21/2021 by Basilio Torres MD PhD at [facility] Lead Left: Chest Medtronic Inc 02/06/2023 [id number] / [id number] / Medtronic Cardiac Rhythm Mgmt 5076-45 Capsurefix Novus 6.2fr 2mm 45cm Bipolar Screw In Implantable - [id number] - [id number] Implanted:Qty: 1 on 04/21/2021 by Basilio Torres MD PhD at [facility] Lead Left: Chest Medtronic Inc 02/05/2023 [id number] / [id number] / Medtronic Usa Inc X [id number] Resolute Minh 3mm 2.1-2.7fr 26mm 140cm Rapid Exchange Radiopaque - [id number] Implanted:Qty: 1 on 06/05/2021 by Pancho Barraza MD PhD at [facility] Stent Medtronic Inc 03/09/2024 [id number] / / [id number] Procedures Procedure Name Priority Date/Time Associated Diagnosis Comments EGFR Routine 01/31/2025 4:36 PM CDT Ischemic cardiomyopathy BASIC METABOLIC PANEL Routine 01/31/2025 4:36 PM CDT Ischemic cardiomyopathy PRO B-TYPE NATRIURETIC PEPTIDE Routine 01/31/2025 4:36 PM CDT Ischemic cardiomyopathy DEVICE CHECK - REMOTE Routine 01/29/2025 6:30 AM CDT COMPREHENSIVE METABOLIC PANEL Routine 12/11/2024 4:18 PM CHURCH COMMUNICATIONS ADMINISTRATOR Ischemic cardiomyopathy Chronic systolic (congestive) heart failure (HCC) COLONOSCOPY 06/30/2018 10:20 AM CDT from Last 3 Months or Most Recently Relevant to Health Maintenance Results * eGFR (01/31/2025 4:36 PM CDT) eGFR 65 >=60 mL/min/1. 73 m2 Comment: Interpretive Data Reference Interval Normal >/= 90 mL/min/1.73m2 Mildly decreased* 60 - 89 mL/min/1.73m2 Mildly to moderately decreased 45 - 59 mL/min/1.73m2 Moderately to severely decreased 30 - 44 mL/min/1.73m2 Severely decreased 15 - 29 mL/min/1.73m2 Kidney Failure < 15 mL/min/1.73m2 *Relative to young adult level Estimated glomerular filtration rate is determined by the 2020 CKD-EPI equation recommended by the National Kidney Foundation (A Unifying Approach to GFR Estimation: Recommendations of the NKF-ASK Task Force on Reassessing the Inclusion of Race in Diagnosing Kidney Disease, JASN 2020). The CKD-EPI equation should not be used for patients with unstable renal function and has not been validated in children and those over 70. Current interpretive data was last reviewed 2021. Blood 01/31/2025 4:36 PM CDT 01/31/2025 5:39 PM CDT Montserrat Leigh PACKAGE MAKER LAB BLOOD ORDERABLES Final Result [facility] [place] [address] * Pro B-type natriuretic peptide (01/31/2025 4:36 PM CDT) NT-proBNP 176 <=300 pg/mL Comment: Interpretive Comments: A. Dyspnea in Acute Care Setting All Ages: < 300 pg/ml, acute heart failure unlikely. < 50 yrs: 300 - 450 pg/ml, further investigation warranted. > 450 pg/ml, acute heart failure likely. 50 - 74 yrs: 300 - 900 pg/ml, further investigation warranted. > 900 pg/ml, acute heart failure likely . > or = 75 yrs: 450 - 1800 pg/ml, further investigation warranted. > 1800 pg/ml, acute heart failure likely. B. Non-acute Setting < 75 yrs < 125 pg/ml, rules out heart failure. > or = 125 pg/ml, further investigation warranted. > or = 75 yrs < 450 pg/ml, rules out heart failure. > or = 450 pg/ml, further investigation warranted. - Knowledge of each individual patient's NT-proBNP range may be more useful than using similar cut-points for every patient. Please note that marked elevations in NT-proBNP levels may be observed in state other than Left Ventricular Congestive Failure, including: acute coronary syndromes, right heart strain/failure (including pulmonary embolism and cor pulmonale), critical illness, renal failure, as well as advanced age. - References: 1. Iván TIMMONS et.al. Eur Heart J. 2006:27:330-337. 2. Derrek RW, Yocasta CARTER. J. AM Von Cardiol: Cardiovasc Imag. 2009;2: 216- 225. Interpretive Data Last Revised Date: 2018. Blood 01/31/2025 4:36 PM CDT 01/31/2025 5:35 PM CDT us Montserrat Leigh PACKAGE MAKER LAB BLOOD ORDERABLES Final Result [facility] [place] [address] * Basic metabolic panel (01/31/2025 4:36 PM CDT) Sodium 142 135 - 145 mmol/L Potassium, pl 4.1 3.3 - 4.9 mmol/L [facility] Chloride 101 97 - 110 mmol/L [facility] CO2 30 22 - 32 mmol/L [facility] Anion gap 11 2 - 15 mmol/L [facility] BUN 11 6 - 25 mg/dL [facility] Creatinine 1.08 0.60 - 1.10 mg/dL [facility] Glucose 85 70 - 199 mg/dL [facility] Comment: Interpretive Data Fasting glucose >/= 126 mg/dl is diagnostic for diabetes. Fasting is defined as no caloric intake for at least 8 hours. Fasting glucose between 100 mg/dl to 125 mg/dl is diagnostic of prediabetes. In a patient with classic symptoms of hyperglycemia or hyperglycemic crisis, a random glucose >/= 200 mg/dl is diagnostic for diabetes. In the absence of unequivocal hyperglycemia, results should be confirmed by repeat testing. The classification and Diagnosis of Diabetes Diabetes Care 202; 46: S19-S40. Current interpretive data was last revised 2022. Calcium 9.7 8.5 - 10.3 mg/dL [facility] Blood 01/31/2025 4:36 PM CDT 01/31/2025 5:35 PM CDT us Montserrat Leigh PACKAGE MAKER LAB BLOOD ORDERABLES Final Result [facility] [place] [address] * DEVICE CHECK - REMOTE (01/29/2025 6:30 AM CDT) Anatomical Region Laterality Modality Other 01/29/2025 6:30 AM CDT Narrative 01/25/2025 8:54 AM CHURCH COMMUNICATIONS ADMINISTRATOR Interpretation Summary: Battery and Leads (BL) Normal parameters noted on battery and lead(s) --- 9.2 yrs remaining longevity (implanted 2020). Lead impedance, sensing, and threshold trends stable and appropriate. No short V-V intervals. Presenting Rhythm (AK) Atrial Sensing-Ventricular Sensing (-VS) --- /VS (SR) 60s. Arrhythmic events (AE) No new arrhythmic events in monitoring period --- Since 01/09/25: No AHR or VHR episodes. Anticoagulation (AC) Patient prescribed Apixaban (Eliquis) Patient on anticoagulant therapy Transmission Information (TI) Device Summary Report Follow Up (FU) Patient's primary treating physician will be apprised of findings Procedure Note Basilio Torres MD PhD - 02/10/2025 Interpretation Summary: Battery and Leads (BL) Normal parameters noted on battery and lead(s) --- 9.2 yrs remaininglongevity (implanted 2020). Lead impedance, sensing, and thresholdtrends stable and appropriate. No short V-V intervals. Presenting Rhythm (AK) Atrial Sensing-Ventricular Sensing (-VS) --- /VS (SR) 60s. Arrhythmic events (AE) No new arrhythmic events in monitoring period --- Since 01/09/25: No AHRor VHR episodes. Anticoagulation (AC) Patient prescribed Apixaban (Eliquis) Patient on anticoagulant therapy Transmission Information (TI) Device Summary Report Follow Up (FU) Patient's primary treating physician will be apprised of findings Basilio Torres MD PhD [facility] PROCEDURES Edited Result - Final * (ABNORMAL) Comprehensive metabolic panel (12/11/2024 4:18 PM CHURCH COMMUNICATIONS ADMINISTRATOR) SCRIBED Sodium 137 136 - 145 mmol/L [...] Units/L EXTERNAL LAB SCRIBED eGFR in NonAfrican [place]bek >60 >=60 EXTERNAL LAB Blood 12/11/2024 4:18 PM CHURCH COMMUNICATIONS ADMINISTRATOR us Elmo Dacosta MD LAB BLOOD ORDERABLES Fin al Result EXTERNAL LAB * COLONOSCOPY (06/30/2018 10:20 AM CDT) Anatomical Region Laterality Modality Other Narrative Procedure Note Marvin Harrington MD - 06/30/2018 10:20 AM CDT [facility] Patient Name: Mercedes Roy Procedure Date: 06/30/2018 10:20 AM Date of : 1980 Admit Type: Outpatient Age: 37 Gender: Female Attending MD: Marvin Harrington MD Room: [facility] ENDOSCOPY ROOM 2 Note Status: [...] passed under direct vision.The Pediatric Colonoscope [id number] was introduced through the anus and advanced [...] 10:20 AM Procedure Code(s): --- Professional --- 02566, Colonoscopy, flexible; with biopsy, single or multiple Diagnosis Code(s): --- Professional --- K64.8, Other hemorrhoids R19.7, Diarrhea, unspecified K92.1, Melena (includes Hematochezia) K57.30, Diverticulosis of large intestine without perforation orabscess without bleeding CPT copyright 2017 [employer]. All rights reserved. The codes documented in this report are preliminary and upon medical record coder reviewmay be revised to meet current compliance requirements. Recognized by the [employer] for promoting quality in endoscopy Marvin Harrington MD ENDOSCOPY PROCEDURES Final Result from Last 3 Months or Most Recently Relevant to Health Maintenance Insurance [facility] Address: [address] [address] [place] [address] [facility] [place] [address] [facility] CHOICE PLUS [facility] H[facility]/PPO Address: [address] [place] [address] [facility] [place] [address] [facility] CHOICE PLUS [facility]O Address: [address] [address] [place] [address] Advance Directives For more information, please contact: [phone] * Full Code (Latest Code Status on [...] 8:01 PM 06/03/2021 8:05 PM Care Teams Transport Company Manager Relationship Specialty Start Date End Date Gregorio Woo MD PCP - General 01/02/21 Chasity Hassan, RN Registered Nurse Fruit Sprayer 11/04/20 Odalis Espinoza, SALINAS [address] [address] Heart Failure Coordinator Fruit Sprayer 10/22/21
--- OUTSIDE RECORDS SUMMARY | 2025-02-19 12:02 | XMS_ITS | Clinical Summary ---
Author Organization [facility] Address [address] [place] [address] Care Team Providers Care Work Over Rig Operator Name Role Phone Unavailable Primary Care Provider [...] 2019 COVID-19 Vaccine (2023-2 5 season) 2024 HPV Vaccines Aged Out No longer eligi ble based on patient's age to complete this topic Meningococcal B Vaccine Aged Out No l onger eligible based on patient's age to complete [...]
--- OUTSIDE RECORDS SUMMARY | 2025-02-19 12:02 | XMS_ITS | Referral Summary ---
Author Organization [facility] Address [address] [place] [address] Care Team Providers Care Mechanical Spreader Operator Name Role Phone Chasity Hassan RN Unavailable [phone] Gregorio Woo MD Primary Care Provider [phone] Odalis Espinoza RN Unavailable [phone] Encounters Date Type Department Care Team Description 02/07/2025 Telephone [facility] Transplant Heart [address] [facility] [address] [phone] [place] [address] Chasity Hassan RN 01/31/2025 6:55 PM CDT Lab [facility] Advanced [facility] ([facility]) [address] [place] [phone] Ischemic cardiomyopathy 01/31/2025 3:30 PM CDT Office Visit [facility] Cardiology [address] [place] [address] Advanced Medicine 8th [place] [address] [place] [id number] Montserrat Leigh NP Ischemic cardiomyopathy (Primary Dx); ICD (implantable cardioverter-defibrilla tor) in place; Paroxysmal atrial fibrillation (HCC) 01/24/2025 Telephone [facility] Transplant Heart [address] [facility] [address] [phone] [place] [address] Farshad Rosales 01/09/2025 Orders Only [facility] Cardiology [address] [facility] Medical Office Building [address] [place] [phone] Basilio Torres MD PhD 01/09/2025 Orders Only [facility] Cardiology [address] [facility] Advanced Medicine 8th [place] [address] [place] [address] Basilio Torres MD PhD Ischemic cardiomyopathy (Primary Dx) 01/09/2025 3:00 PM VEGETABLE TRIMMER Telemedicine [facility] Cardiology [address] [facility] Advanced Medicine 8th [place] [address] [place] [address] Shannan Romano, DESHAWN ICD (implantable cardioverter-defibrilla tor) in place (Primary Dx); Ischemic cardiomyopathy 01/08/2025 Telephone [facility] Cardiology [address] [place] [address] Advanced [facility] 8th [place] [address] [place] [address] Basilio Torres MD PhD 11/28/2024 Telephone [facility] Cardiology Critical access hospital1 [facility] Advanced [facility] 8th [place] [address] [place] [address] Shannan Romano NP 11/27/2024 Telephone [facility] Transplant Heart [address] [facility] [address] [phone] [place] [address] Sapna Montgomery from Last 3 Months Allergies Active Allergy Reactions Criticality Noted Date Comments Codeine Mental status changes Low Doxycycline Anaphylaxis,Shortnes s of breath,Swelling High Throat closes; epi given Sacubitril-Valsartan Angioedema High 06/04/2021 Iodinated Contrast Media Swelling Medium 07/14/2022 After cath had stomach ache / abdominal pain headed back home. ER visit at [facility]. Next day everything was swollen - chest arms face tongue - headache. Went back to ER. Called cousin who is an old medical lab assistant. Recommended benadryl and zyrtec. Things got better after this. Morphine Urticaria,Vomiting Medium 06/13/[address] (CYMBALTA) 30 mg capsuleIndicatio ns:Generalized Anxiety Disorder Take 1 capsule (30 mg total) by mouth 2 (two) times a day Active isosorbide mononitrate ER (IMDUR) 60 mg [...] therapies Assessment & Plan (01/09/2025 3:05 PM VEGETABLE TRIMMER): -Dual chamber ICD is functioning appropriately as [...] (06/11/2022): Added automatically from request for surgery [id number] Tobacco abuse 06/05/2021 Assessment & Plan (06/06/2021 1:09 PM CDT): Barrier to advanced therapies if needed Discussed importance of smoking cessation Will discharge on Nicotine patch- low dose Patient very interested in cessation Assessment & Plan (06/05/2021 12:59 PM CDT): Barrier to advanced therapies if needed 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 [facility] Dec 2020 LVEF 36% with Transmural late gadolinium enhancement involving at least 4 segments of the left ventricle mid cavity and apex consistent with a nonviable infarct Presented with worsening CHF and chest pain Plan: [facility] yesterday with diffuse RCA disease and coronary [...] a non STEMI in May 2020 to [facility] and subsequent CABG with a RAMSAY to the LAD and venous graft to the OM. [facility] Dec 2020 LVEF 36% with Transmural late gadolinium enhancement involving at least 4 segments of the left ventricle mid cavity and apex consistent with a nonviable infarct Presented with worsening CHF and chest pain Plan: [facility] today Unclear if premature CAD related to [...] May 2020 TTE Jun 2020 LVEF 40% C August 2020: Left main artery has unchanged [...] 4.7 cm TTE March 2024 LVEF 45%, TAX COMPLIANCE MANAGER laminated LV apical thrombus Assessment & Plan [...] BID. Continue Imdur 60 mg daily, ranaexa 41455 mg BID, aldactone 50 mg daily, metoprolol increase to 100 mg xl daily, and losartan 25 mg daily and Norvasc 5 mg daily. Plavix 75 mg daily along with Lipitor 80 mg daily. KCL supplement. Dr. Dacosta or Montserrat in 3 months. Will review CardioMems with . Assessment & Plan (01/09/2025 3:07 PM VEGETABLE TRIMMER): -ICM. HFimpEF. LVEF 40-45% per TTE 03/2024 [...] imaging per discretion of attending MD. Immunizations Immunization Administration Dates Next Due Influenza, [...] on file Legal Sex Female 1:15 AM VEGETABLE TRIMMER Gender Identity Not on file Sexual Orientation [...] Description 03/15/2025 12:10 PM CDT Hospital Encounter [facility] [address] [place] [address] Elmo Dacosta MD [address] [employer] [address] [address] Chronic systolic (congestive) heart failure (HCC) 03/15/2025 12:10 PM CDT - 03/15/2025 1:55 PM CDT Surgery [facility] [address] [place] [address] Elmo Dacosta MD [address] [address] RIGHT HEART CATHETERIZATION INSERT PUL ART PRES SENSOR [id number] Medical Devices Implanted Type Area Energy Assistant Device Identifier Shelf Expiration Date Model / Serial / Lot Daig Dorie/[employer] [id number] Angio-Seal Evolution 6fr .035in Guidewire Bypass Tube Suture - [id number] Implanted:Qty: 1 on 06/05/2021 by Pancho Barraza MD PhD at [facility] Collagen N/A: Femoral [employer] Dorie 01/18/2022 [id number] / / [id number] [employer] Dorie Angio-Seal Vip 6fr Closere Device [id number] - [id number] Implanted:Qty: 1 on 06/25/2022 by Lc Mast MD at [facility] Collagen Right: Femoral Terumo Orbital [employer]ight[employer] Inc. Dorie 04/20/2023 [id number] / / [id number] Medtronic Inc [id number] 2 Chamber Df4 Inline Connector Radiopaque Pacemaker - [id number] - [id number] Implanted:Qty: 1 on 04/21/2021 by Basilio Torres MD PhD at [facility] ICD Left: Chest Medtronic Inc 08/18/2022 [id number] / [id number] / Medtronic Cardiac Rhythm Mgmt [id number] Sprint Quattro Secure S 55cm Df-4 Tripolar Screw Defibrillator - [id number] - [id number] Implanted:Qty: 1 on 04/21/2021 by Basilio Torres MD PhD at [facility] Lead Left: Chest Medtronic Inc 02/06/2023 [id number] / [id number] / Medtronic Cardiac Rhythm Mgmt 5076-45 Capsurefix Novus 6.2fr 2mm 45cm Bipolar Screw In Implantable - [id number] - [id number] Implanted:Qty: 1 on 04/21/2021 by Basilio Torres MD PhD at [facility] Lead Left: Chest Medtronic Inc 02/05/2023 [id number] / [id number] / Medtronic Usa Inc X [id number] Resolute [place] 3mm 2.1-2.7fr 26mm 140cm Rapid Exchange Radiopaque - [id number] Implanted:Qty: 1 on 06/05/2021 by Pancho Barraza MD PhD at [facility] Stent Medtronic Inc 03/09/2024 [id number] / / [id number] Procedures Procedure Name Priority Date/Time Associated Diagnosis Comments EGFR Routine 01/31/2025 4:36 PM CDT Ischemic cardiomyopathy BASIC METABOLIC PANEL Routine 01/31/2025 4:36 PM CDT Ischemic cardiomyopathy PRO B-TYPE NATRIURETIC PEPTIDE Routine 01/31/2025 4:36 PM CDT Ischemic cardiomyopathy DEVICE CHECK - REMOTE Routine 01/29/2025 6:30 AM CDT COMPREHENSIVE METABOLIC PANEL Routine 12/11/2024 4:18 PM VEGETABLE TRIMMER Ischemic cardiomyopathy Chronic systolic (congestive) heart failure [...] of Race in Diagnosing Kidney Disease, JASN 202). The CKD-EPI equation should not be used for patients with unstable renal function and has not been validated in children and those over 70. Current interpretive data was last reviewed 2021. Blood 01/31/2025 4:36 PM CDT 01/31/2025 5:39 PM CDT us Montserrat Leigh NP LAB BLOOD ORDERABLES Final Result [facility] Department [place] [address] * Pro B-type natriuretic peptide (01/31/2025 4:36 [...] as advanced age. - References: 1. Iván JL et.al. Eur Heart J. 2006:27:330-337. 2. Derrek RW, Yocasta AM. J. AM Von Cardiol: Cardiovasc Imag. 2009;2: 216- 225. Interpretive Data Last Revised Date: 2018. Blood 01/31/2025 4:36 PM CDT 01/31/2025 5:35 PM CDT us Montserrat Leigh NP LAB BLOOD ORDERABLES Final Result [facility] Department [place] [address] * Basic metabolic panel (01/31/2025 4:36 PM CDT) [facility] Sodium 142 135 - 145 mmol/L Potassium, pl 4.1 3.3 - 4.9 mmol/L [facility] Chloride 101 97 - 110 mmol/L [facility] CO2 30 22 - 32 mmol/L [facility] Anion gap 11 2 - 15 mmol/L [facility] BUN 11 6 - 25 mg/dL [facility] Creatinine 1.08 0.60 - 1.10 mg/dL [facility] Glucose 85 70 - 199 mg/dL [facility] Comment: Interpretive Data Fasting glucose >/= [...] classification and Diagnosis of Diabetes Diabetes Care 2021; 46: S19-S40. Current interpretive data was last revised 2022. Calcium 9.7 8.5 - 10.3 mg/dL [facility] Blood 01/31/2025 4:36 PM CDT 01/31/2025 5:35 PM CDT us Montserrat Leigh RAIL CAR REPAIRMAN LAB BLOOD ORDERABLES Final Result [facility] Department [place] [address] * DEVICE CHECK - REMOTE (01/29/2025 6:30 AM CDT) Anatomical Region Laterality Modality Other 01/29/2025 6:30 AM CDT Narrative 01/25/2025 8:54 AM VEGETABLE TRIMMER Interpretation Summary: Battery and Leads (BL) Normal parameters noted on battery and lead(s) --- 9.2 yrs remaining longevity (implanted 2020). Lead impedance, sensing, and threshold trends stable and appropriate. No short V-V intervals. Presenting Rhythm (MI) Atrial Sensing-Ventricular Sensing (-VS) --- /VS (SR) [...] appropriate. No short V-V intervals. Presenting Rhythm (MI) Atrial Sensing-Ventricular Sensing (-VS) --- /VS (SR) [...] (ABNORMAL) Comprehensive metabolic panel (12/11/2024 4:18 PM VEGETABLE TRIMMER) SCRIBED Sodium 137 136 - 145 mmol/L [...] Units/L EXTERNAL LAB SCRIBED eGFR in NonAfrican Jordanian >60 >=60 EXTERNAL LAB Blood 12/11/2024 4:18 PM VEGETABLE TRIMMER us Elmo Dacosta MD LAB BLOOD ORDERABLES Fin al Result EXTERNAL LAB * COLONOSCOPY (06/30/2018 10:20 AM CDT) Anatomical Region Laterality Modality Other Narrative Procedure Note Marvin Harrington MD - 06/30/2018 10:20 AM CDT [facility] Patient Name: Mercedes Roy Procedure Date: 06/30/2018 10:20 AM Date of : 1980 Admit Type: Outpatient Age: 37 Gender: Female Attending MD: Marvin Harrington MD Room: [facility] ENDOSCOPY ROOM 2 Note Status: Finalized Patient [...] passed under direct vision.The Pediatric Colonoscope [id number] was introduced through the anus and advanced [...] 10:20 AM Procedure Code(s): --- Professional --- 23513, Colonoscopy, flexible; with biopsy, single or multiple Diagnosis Code(s): --- Professional --- K64.8, Other hemorrhoids R19.7, Diarrhea, unspecified K92.1, Melena (includes Hematochezia) K57.30, Diverticulosis of large intestine without perforation orabscess without bleeding CPT copyright 2017 [employer]. All rights reserved. The codes documented in this report are preliminary and upon senior software developer reviewmay be revised to meet current compliance requirements. Recognized by the [place] [employer] for promoting quality in endoscopy Marvin Harrington MD ENDOSCOPY PROCEDURES Final Result from Last 3 Months or Most Recently Relevant to Health Maintenance Insurance [facility] [address] [place] [address] [address] [facility] [place] [address] [address] [address] [facility] CHOICE PLUS Advance Directives For more information, please contact: [phone] * Full Code (Latest Code Status on [...] 8:01 PM 06/03/2021 8:05 PM Care Teams Mechanical Spreader Operator Relationship Specialty Start Date End Date Gregorio Woo MD PCP - General 01/02/21 Chasity Hassan RN Registered Nurse Manager Star 11/04/20 Odalis Espinoza, SALINAS [address] [address] Heart Failure Coordinator Manager Star 10/22/21
--- OUTSIDE RECORDS SUMMARY | 2025-02-19 12:02 | XMS_ITS | Clinical Summary ---
Author Organization [facility] Private Company Address [address] [place] [address] Care Team Providers Care Textile Bag Sewer Name Role Phone Nick Han MD Unavailable [phone] Source Comments [facility] Private Company,non-owned Affiliates and Associated Physician Practices is amultiple site organization consisting of ambulatory clinics and hospital sitesin [place], [place], [place] and [place]. This disclosure is being madepursuant to the Care Everywhere program and may not contain all information available regarding this patient. Last updated 18.[facility] Private Company Allergies Active Allergy Reactions Criticality Noted Date [...] 25 MG tabletIndications:Co ronary artery disease involving muscogee coronary artery of muscogee heart without angina pectoris Take 1 tablet [...] Comments Blood Pressure 99/70 12/04/2020 9:05 AM BORE MILL OPERATOR FOR PLASTIC Pulse 82 12/04/2020 9:05 AM BORE MILL OPERATOR FOR PLASTIC Temperature 36.7 C (98 F) 09/27/2020 1:05 PM BORE MILL OPERATOR FOR PLASTIC Respiratory Rate 19 09/27/2020 1:05 PM BORE MILL OPERATOR FOR PLASTIC Oxygen Saturation 98% 10/06/2020 1:49 PM BORE MILL OPERATOR FOR PLASTIC Inhaled Oxygen Concentration 40% 06/19/2020 1 2:00 PM CDT Weight 77.7 kg (171 lb 3.2 oz) 12/04/2020 9:05 A M BORE MILL OPERATOR FOR PLASTIC Height 157.5 cm (5' 2 ) 12/04/2020 9:05 AM BORE MILL OPERATOR FOR PLASTIC Body Mass Index 31.31 12/04/2020 9:05 AM BORE MILL OPERATOR FOR PLASTIC Plan of Treatment Health Maintenance Due Date [...] 09/27/2020, Additional history exists COVID-19 VACCINE ( - 2023- season) 2024 INFLUENZA VACCINE (#1) 2024 DEPRESSION SCREENING 11/21/2024 ZOSTER VACCINE (1 of 2) 2029 HIB VACCINE Aged Out No longer eligi ble based on patient's age to complete this topic HPV VACCINE Aged Out No longer eligi ble based on patient's age to complete this topic MENINGOCOCCAL (Group B) VACCINE SHARED DECISION-MAKING Aged Out No longer eligible based on patient's age to complete this topic MENINGOCOCCAL GROUPS A/C/Y/W VACCINE Aged Out No longer eligible based on patient's age to complete this topic PNEUMOCOCCAL VACCINE Aged Out No long er eligible based on patient's age to complete this topic Medical Devices Implanted Type Area Clinical Therapist Device Identifier Shelf Expiration Date Model / Serial / Lot Stent Uret 6fr 22cm 2 Pgtl Crv 2 Drmtr Implanted:Qty: 1 on 09/27/2020 by Stan Brizuela MD at [facility] Right: [employer] Scimed 08/27/2022 [id number] / / [id number] Explanted Type Area Clinical Therapist Device Identifier Shelf Expiration Date Model / Serial / Lot Cbl Pace Jamar 6ft Atr Vntrc Xtrn Temp Reu Explanted:Qty: 1 on 06/16/2020 at [facility] [employer] Inc [id number] / / Procedures Procedure Name Priority Date/Time Associated Diagnosis Comments COMPREHENSIVE METABOLIC PANEL Routine 12/04/2020 9:57 AM BORE MILL OPERATOR FOR PLASTIC Coronary artery disease involving muscogee coronary artery of muscogee heart without angina pectoris Chest pain, unspecified type from Last 3 Months or Most Recently Relevant to Health Maintenance Results * (ABNORMAL) COMPREHENSIVE METABOLIC PANEL (12/04/2020 9:57 AM BORE MILL OPERATOR FOR PLASTIC) Glucose 66(L) 70 - 105 mg/dL [facility] [...] BLOOD SPECIMEN / Unknown 12/04/2020 9:57 AM BORE MILL OPERATOR FOR PLASTIC 12/04/2020 Narrative Resulting Agency Comment Lab Testing performed at: [facility] [address] [place] [phone] Nick Han MD LAB - CHEMISTRY PEGGY MENEZES [facility] ACCOUNT BILL [address] [place] [address] from Last 3 Months or Most Recently Relevant to Health Maintenance Advance Directives * Full Code (Latest Code Status on File) Date Activated Date Inactivated Comments 09/26/2020 8:28 PM 09/27/2020 6:28 PM * Full Code Date Activated Date Inactivated Comments 06/16/2020 1:42 PM 06/23/2020 2:37 PM * Full Code Date Activated Date Inactivated Comments 06/13/2020 11:32 AM 06/16/2020 1:42 PM Care Teams Textile Bag Sewer Relationship Specialty [place] [address] [place] [address] Club Attendant Cardiovascular Disease 08/28/20
== END 2025-02-19 10:48 | disposition home or self-care (01) ==
PROVIDERS: PCP Internal Medicine; Visit Provider Nurse Practitioner Family
DX: M54.42 Lumbago with sciatica, left side (principal); M41.86 Other forms of scoliosis, lumbar region
CPT/HCPCS: 72100

== ENCOUNTER 2025-08-01 14:27 | Outpatient (CLI) | payer OTHER, SELFPAY ==
[2025-08-01 14:41] LABS: Hematocrit 43.9 % (35.0-49.0); Hemoglobin 15.0 g/dL (12.0-15.0); Mean Corpuscular HGB Conc 34.2 g/dL (32-36); Mean Corpuscular Hemoglobin 31.2 pg (27.0-31.0); Mean Corpuscular Volume 91.3 fL (78.0-102.0); Platelet Count Result 325 K/mm3 (150-420); Red Blood Count 4.81 M/mm3 (4.20-5.40); White Blood Count 9.6 K/mm3 (4.8-10.8)
[2025-08-01 15:09] LABS: Alanine Aminotransferase 32 U/L (6-35); Albumin Level 4.5 g/dL (3.5-5.1); Alkaline Phosphatase 93 U/L (38-126); Anion Gap 10 mmol/L (4-12); Aspartate Amino Transferase 29 U/L (14-36); Bilirubin,Total 0.5 mg/dL (0.2-1.3); Blood Urea Nitrogen 14 mg/dL (7-17); CRP 0.7 mg/dL (<1.0); Calcium 9.9 mg/dL (8.4-10.2); Carbon Dioxide 27 mmol/L (22-30); Chloride 106 mmol/L (98-107); Cholesterol 264 mg/dL (0-200); Estimated Glomerular Filt Rate > 60; Glucose 94 mg/dL (65-110); HDL Direct 57 mg/dL; Osmolality Calculated 296 mOsm/kg (285-295); Potassium 4.4 mmol/L (3.4-5.0); Sodium 143 mmol/L (137-145); Total Protein 7.2 g/dL (6.3-8.2); Triglycerides 278 mg/dL (<150)
[2025-08-01 15:16] LABS: NT Pro B Type Natriuretic Pept 345 pg/mL (19.9-100)
[2025-08-01 15:38] LABS: Thyroid Stimulating Hormone 4.500 uIU/mL (0.465-4.680)
--- OUTSIDE RECORDS SUMMARY | 2025-08-01 16:15 | XMS_ITS | Clinical Summary ---
Author Organization [facility] Address [address] [place] [address] Care Team Providers Care Cofounder Name Role Phone Chasity Hassan RN Unavailable [phone] Gregorio Woo MD Primary Care Provider [phone] Odalis Espinoza RN Unavailable [phone] Allergies Active Allergy Reactions Criticality Noted Date Comments Codeine Mental status changes Low Doxycycline Anaphylaxis,Shortnes s of breath,Swelling High Throat closes; epi given Sacubitril-Valsartan Angioedema High 06/04/2021 Iodinated Contrast Media Swelling Medium 07/14/2022 After cath had stomach ache / abdominal pain headed back home. ER visit at [facility]. Next day everything was swollen - chest arms face tongue - headache. Went back to ER. Called cousin who is an old equipment operator/laborer/supervisor. Recommended benadryl and zyrtec. Things got better after this. Morphine Urticaria,Vomiting Medium 06/13/[address] (CYMBALTA) 30 mg capsuleIndicatio ns:Generalized Anxiety Disorder Take 1 capsule (30 mg total) by mouth 2 (two) times a day 10/20/2021 Active isosorbide mononitrate ER (IMDUR) 60 mg 24 hr tablet TAKE 1 TABLET DAILY 90 tablet 3 01/18/2024 Active clopidogreL (PLAVIX) 75 mg tablet TAKE 1 TABLET DAILY 90 tablet 3 02/22/2024 Active mirtazapine (REMERON) 7.5 mg tablet 09/17/2024 Active albuterol HFA (PROVENTIL HFA,VENTOLIN HFA,PROAIR HFA) 90 mcg/actuation inhaler 09/25/2024 Active spironolactone (ALDACTONE) 25 mg tablet Take 2 tablets (50 mg total) by mouth daily 180 tablet 3 10/25/2024 10/25/20 25 Active ranolazine ER (RANEXA) 1,000 mg 12 hr tablet Take 1 tablet (1,000 mg total) by mouth 2 (two) times a day 60 tablet 11 10/25/2024 10/25/20 25 Active nitroglycerin (NITROSTAT) 0.[address] 1 tablet (0.3 mg total) under the tongue every 5 (five) minutes as needed for chest pain (EVERY 5 MIN X3, THEN GO TO ED IF PERSIST) 90 tablet 3 10/25/2024 Active Eliquis 5 mg tablet TAKE 1 TABLET TWICE A DAY 180 tablet 3 11/19/2024 Active metoprolol XL (TOPROL-XL) 100 mg 24 hr tablet Take 1 tablet (100 mg total) by mouth daily 90 tablet 2 01/31/2025 Active atorvastatin (LIPITOR) 80 mg tablet TAKE 1 TABLET NIGHTLY 90 tablet 3 02/10/2025 Active cyclobenzaprine (FLEXERIL) 10 mg tablet Take 1 tablet (10 mg total) by mouth as needed 02/19/2025 Active nicotine (NICODERM CQ) [address] 1 patch on the skin daily for 24 hours 14 patch 2 04/26/2025 Active amLODIPine (NORVASC) 5 mg tablet TAKE 1 TABLET DAILY 90 tablet 3 04/29/2025 Active bumetanide (BUMEX) 1 mg tablet TAKE 1 TABLET TWICE A DAY 180 tablet 3 04/29/[address] (PROTONIX) 20 mg EC tablet Take 1 tablet by mouth daily 90 tablet 3 05/30/2025 Active potassium chloride ER (KLOR-CON) 20 mEq CR tablet Take 2 tablets (40 mEq total) by mouth daily 180 tablet 3 05/30/2025 05/30/20 26 Active Active Problems Problem Noted Date Diagnosed Date Aneurysm of left ventricle of heart 03/05/2024 Assessment & Plan (03/05/2024 12:33 PM CDT): On cMRI 12/2020 on Eliquis. ICD (implantable cardioverter-defibrillator) in place 07/22/2023 Assessment & Plan (04/26/2025 12:09 PM CDT): Denies therapies Assessment & Plan (01/31/2025 5:00 PM CDT): Denies therapies Assessment & Plan (01/09/2025 3:05 PM FLYER MAKER): -Dual chamber ICD is functioning appropriately as [...] (06/11/2022): Added automatically from request for surgery [id number] Tobacco abuse 06/05/2021 Assessment & Plan (06/06/2021 1:09 PM CDT): Barrier to advanced therapies if needed Discussed importance of smoking cessation Will discharge on Nicotine patch- low dose Patient very interested in cessation Assessment & Plan (06/05/2021 12:59 PM CDT): 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 Per outpatient note would like LUCIANA, ultrasound and duplex of bilateral upper extremity Will obtain arterial and venous duplex studies over left upper extremity -strongly encouraged smoking cessation Coronary artery disease invo lving resighini coronary artery of resighini heart with angina pectoris 06/03/2021 Overview (07/07/2022): [facility] May 2021 RAMSAY to LAD patent, SVG to OM patent RCA spasm and stenosis - 3 mm x 28 mm resolute minh drug-eluting stent [facility] Jun 2022 Widely patent RAMSAY and saphenous vein graft with patent stent in the right coronary artery Elevated left ventricular end diastolic blood pressure Assessment & Plan (06/06/2021 1:03 PM CDT): History of premature coronary disease presented with a non STEMI in May 2020 to [facility] and subsequent CABG with a RAMSAY to the LAD and venous graft to the OM. [facility] Dec 2020 LVEF 36% with Transmural late gadolinium enhancement involving at least 4 segments of the left ventricle mid cavity and apex consistent with a nonviable infarct Presented with worsening CHF and chest pain Plan: [facility] yesterday with diffuse RCA disease and [...] with worsening CHF and chest pain Plan: [facility] today Unclear if premature CAD related [...] monitor not showing Afib Assessment & Plan (04/26/2025 12:11 PM CDT): Preet. Assessment & Plan (01/31/2025 5:03 PM CDT): Preet. Assessment & Plan (03/05/2024 12:20 PM CDT): Preet. No arrhthymias on ICD 01/2024. Assessment & Plan (04/21/2021 5:00 PM CDT): Per patient report, however not seen on monitor or EKG. Patient reports occasional flutter/palpitations. No AC, on plavix and BB. - telemetry - Dr. Dacosta planning on monitoring through ICD. Ischemic cardiomyopathy 08/28/2020 Overview (04/26/2025): CABG May 2020 TTE Jun 2020 LVEF 40% [facility] August 2020: Left main artery has [...] Sep 2023 LVEF 45-50%, LVIDD 4.7 cm MPI February 2024, Moderate-size, [id number] severity infarction of the apex with mild border zone ischemia along its margins. TTE March 2024 LVEF 45%, COOK STARCH laminated LV apical thrombus Assessment & Plan (04/26/2025 12:10 PM CDT): ICM. Sp CABG in 2019. HFimpEF. LVEF On ECHO March 2024 LVEF 43%. Ischemic workup with moderate sized infarct at the apex and mild ischemia along its edges- medically managed in the past. Who presents today with increased angina. Despite medical therapy. NYHA class II-III findings and diastolic heart failure. She continues to smoke. Resume Bumex 2 mg BID. Continue Imdur 60 mg daily, ranaexa 1000 mg BID, aldactone 50 mg daily, metoprolol 100 mg xl daily, and losartan 25 mg daily and Norvasc 5 mg daily. Plavix 75 mg daily along with Lipitor 80 mg daily. KCL supplement. I would like to pursue further ischemic evaluation with [facility], given her increased anginal complaints. Will review with Dr. Dacosta. Dr. Dacosta as scheduled in July. Assessment & Plan (01/31/2025 5:03 PM CDT): [...] BID. Continue Imdur 60 mg daily, ranaexa 06203 mg BID, aldactone 50 mg daily, metoprolol increase to 100 mg xl daily, and losartan 25 mg daily and Norvasc 5 mg daily. Plavix 75 mg daily along with Lipitor [address] daily[address] KCL supplement. Dr. Dacosta or [place] in 3 months. Will review CardioMems with . Assessment & Plan (01/09/2025 3:07 PM FLYER MAKER): -ICM. HFimpEF. LVEF 40-45% per TTE 03/2024 [...] disease Ischemic cardiomyopathy CHF (congestive heart failure) (HCC) Hyperlipidemia PONV (postoperative nausea and vomiting) no delayed discharge Arrhythmia PAF (paroxysmal atrial fibrillation) NSTEMI (non-ST elevated myocardial infarction) ( [facility]) Hypertension Family History Medical History Relation Name [...] Date Smoking Tobacco: Every Day Cigarettes 0.5 30.7 Started: 1994 Passive Smoke Exposure: Current Smokeless Tobacco: Never AUDIT-C Answer Date Recorded [...] on file Legal Sex Female 1:15 AM FLYER MAKER Gender Identity Not on file Sexual Orientation Not on file Occupation Industry Job Start Date Job End Date denied Not on file Not on file Not on file Obstetrics History Last Filed Vital Signs Vital Sign Reading Time Taken Comments Blood Pressure 95/58 04/26/2025 9:36 AM CDT Pulse 68 04/26/2025 9:36 AM CDT Temperature 36.1 C (97 F) 04/26/2025 9:36 AM CDT Respiratory Rate 16 02/25/2024 3:00 AM CDT Oxygen Saturation 99% 04/26/2025 9:36 AM CDT Inhaled Oxygen Concentration - - Weight 79.4 kg (175 lb) 04/26/2025 9:36 AM CDT Height 157.5 cm (5' 2) 04/26/2025 9:36 AM CDT Body Mass Index 32.01 04/26/2025 9:36 AM CDT Plan of Treatment Health Maintenance Due Date Last Done Comments Breast Cancer Screening-Mammogram 1980 Depression Screening 1980 Hepatitis C Screening 1980 Hepatitis B Screening 1997 Regular Well Visit/Exam 18-64 1997 Pneumococcal vaccine <65 (1 of 2 - PCV) 1998 Influenza Vaccine (#1) 2025 0, 08/07/2019, 07/30/2016, Additional history exists Colon Cancer Screening-Colonoscopy 06/30/2028 06/30/2018, 01/31/2013 DTaP/Tdap/Td Vaccine (2 - Td or Tdap) 04/20/2030 04/20/2020 HPV Vaccines Aged Out No longer eligi ble based on patient's age to complete this topic Medical Devices Implanted Type Area Sports Broadcaster Device Identifier Shelf Expiration Date Model / Serial / Lot Daig Dorie/[employer] [id number] Angio-Seal Evolution 6fr .035in Guidewire Bypass Tube Suture - [id number] Implanted:Qty: 1 on 06/05/2021 by Pancho Barraza MD PhD at [facility] Collagen N/A: Femoral [employer] Dorie 01/18/2022 [id number] / / [id number] [employer] Dorie Angio-Seal Vip 6fr Closere Device [id number] - [id number] Implanted:Qty: 1 on 06/25/2022 by Lc Mast MD at [facility] Collagen Right: Femoral [employer] Dorie 04/20/2023 [id number] / / [id number] Medtronic Inc [id number] 2 Chamber Df4 Inline Connector Radiopaque Pacemaker - [id number] - [id number] Implanted:Qty: 1 on 04/21/2021 by Basilio Torres MD PhD at [facility] ICD Left: Chest Medtronic Inc 08/18/2022 [id number] / [id number] / Medtronic Cardiac Rhythm Mgmt 5320m49 Sprint Quattro Secure S 55cm Df-4 Tripolar Screw Defibrillator - [id number] - [id number] Implanted:Qty: 1 on 04/21/2021 by Basilio Torres MD PhD at [facility] Lead Left: Chest Medtronic Inc 02/06/2023 [id number] / [id number] / Medtronic Cardiac Rhythm Mgmt 5076-45 Capsurefix Novus 6.2fr 2mm 45cm Bipolar Screw In Implantable - [id number] - [id number] Implanted:Qty: 1 on 04/21/2021 by Basilio Torres MD PhD at [facility] Lead Left: Chest Medtronic Inc 02/05/2023 [id number] / [id number] / Medtronic Usa Inc X [id number] Resolute [place] 3mm 2.1-2.7fr 26mm 140cm Rapid Exchange Radiopaque - [id number] Implanted:Qty: 1 on 06/05/2021 by Pancho Barraza MD PhD at [facility] Stent Medtronic Inc 03/09/2024 [id number] / / [id number] Procedures Procedure Name Priority Date/Time Associated Diagnosis Comments COLONOSCOPY 06/30/2018 10:20 AM CDT from Last 3 Months or Most Recently Relevant to Health Maintenance Results * COLONOSCOPY (06/30/2018 10:20 AM CDT) Anatomical Region Laterality Modality Other Narrative Procedure Note Marvin Harrington MD - 06/30/2018 10:20 AM CDT [facility] Patient Name: Mercedes Roy Procedure Date: 06/30/2018 10:20 AM Date of : 1980 Admit Type: Outpatient Age: 37 Gender: Female Attending MD: Marvin Harrington MD Room: [facility] END[facility]COPY ROOM 2 Note Status: Finalized Patient [...] passed under direct vision.The Pediatric Colonoscope [id number] was introduced through the anus and advanced [...] 10:20 AM Procedure Code(s): --- Professional --- 92794, Colonoscopy, flexible; with biopsy, single or multiple Diagnosis Code(s): --- Professional --- K64.8, Other hemorrhoids R19.7, Diarrhea, unspecified K92.1, Melena (includes Hematochezia) K57.30, Diverticulosis of large intestine without perforation orabscess without bleeding CPT copyright 2017 [employer]. All rights reserved. The codes documented in this report are preliminary and upon ski patrol reviewmay be revised to meet current compliance requirements. Recognized by the [employer] for promoting quality in endoscopy Marvin Harrington MD ENDOSCOPY PROCEDURES Final Result from Last 3 Months or Most Recently Relevant to Health Maintenance Insurance [facility] Address: [address] [place] [address] [place] [address] [facility] Address: [address] [place] [address] [place] [address] [facility] Address: [address] [address] [place] [address] Advance Directives For more information, please contact: [phone] * Full Code (Latest Code Status on [...] 8:01 PM 06/03/2021 8:05 PM Care Teams Cofounder Relationship Specialty Start Date End Date Gregorio Woo MD PCP - General 01/02/21 Chasity Hassan RN Registered Nurse Head Mva Reactor Operator 11/04/20 Odalis Espinoza, SALINAS [address] [address] Heart Failure Coordinator Head Mva Reactor Operator 10/22/21
== END 2025-08-01 14:28 | disposition home or self-care (01) ==
LOC: CHSLAB 14:30
PROVIDERS: PCP Internal Medicine; Visit Provider Internal Medicine
DX: Z00.00 Encounter for general adult medical examination without abnormal findings (principal); E78.5 Hyperlipidemia, unspecified; R06.02 Shortness of breath; I42.9 Cardiomyopathy, unspecified
CPT/HCPCS: 36415; 80053; 80061; 83880; 84443; 85027; 86140

== ENCOUNTER 2025-09-10 14:47 | Outpatient (CLI) | payer OTHER, SELFPAY ==
[2025-09-10 15:30] LABS: Anion Gap 10 mmol/L (4-12); Blood Urea Nitrogen 17 mg/dL (7-17); Calcium 10.2 mg/dL (8.4-10.2); Carbon Dioxide 30 mmol/L (22-30); Chloride 100 mmol/L (98-107); Cholesterol 220 mg/dL (0-200); Estimated Glomerular Filt Rate 54; Glucose 104 mg/dL (65-110); HDL Direct 60 mg/dL; Osmolality Calculated 291 mOsm/kg (285-295); Potassium 3.8 mmol/L (3.4-5.0); Sodium 140 mmol/L (137-145); Triglycerides 200 mg/dL (<150)
[2025-09-10 15:39] LABS: NT Pro B Type Natriuretic Pept 239 pg/mL (19.9-100)
--- OUTSIDE RECORDS SUMMARY | 2025-09-10 18:44 | XMS_ITS | Clinical Summary ---
Author Organization [facility] Address [address] [place] [address] Care Team Providers Care Enrollment Representative Name Role Phone Chasity Hassan RN Unavailable [phone] Gregorio Woo MD Primary Care Provider [phone] Odalis Espinoza RN Unavailable [phone] Sapna Montgomery Unavailable Unavailable Allergies Active Allergy Reactions Criticality Noted Date Comments Codeine Mental status changes Low Doxycycline Anaphylaxis,Shortnes s of breath,Swelling High Throat closes; epi given Sacubitril-Valsartan Angioedema High 06/04/2021 Iodinated Contrast Media Swelling Medium 07/14/2022 After cath had stomach ache / abdominal pain headed back home. ER visit at [facility]. Next day everything was swollen - chest arms face tongue - headache. Went back to ER. Called cousin who is an old stucco laborer. Recommended benadryl and zyrtec. Things got better after this. Morphine Urticaria,Vomiting Medium 06/13/[address] (CYMBALTA) 30 mg capsuleIndicati ons:Generalized Anxiety Disorder Take 1 capsule (30 mg total) by mouth 2 (two) times a day 1 Active clopidogreL (PLAVIX) 75 mg tablet TAKE 1 TABLET DAILY 90 tablet 3 4 Active mirtazapine (REMERON) 7.5 mg tablet 4 Active albuterol HFA (PROVENTIL HFA,VENTOLIN HFA,PROAIR HFA) 90 mcg/actuation inhaler 4 Active ranolazine ER (RANEXA) 1,000 mg 12 hr tablet Take 1 tablet (1,000 mg total) by mouth 2 (two) times a day 60 tablet 11 4 025 Active nitroglycerin (NITROSTAT) 0.[address] 1 tablet (0.3 mg total) under the tongue every 5 (five) minutes as needed for chest pain (EVERY 5 MIN X3, THEN GO TO ED IF PERSIST) 90 tablet 3 4 Active atorvastatin (LIPITOR) 80 mg tablet TAKE 1 TABLET NIGHTLY 90 tablet 3 5 Active cyclobenzaprine (FLEXERIL) 10 mg tablet Take 1 tablet (10 mg total) by mouth as needed 5 Active nicotine (NICODERM CQ) [address] 1 patch on the skin daily for 24 hours 14 patch 2 5 Active amLODIPine (NORVASC) 5 mg tablet TAKE 1 TABLET DAILY 90 tablet [address] (PROTONIX) 20 mg EC tablet Take 1 tablet by mouth daily 90 tablet 3 5 Active potassium chloride ER (KLOR-CON) 20 mEq CR tablet Take 2 tablets (40 mEq total) by mouth daily 180 tablet 3 5 026 Active bumetanide (BUMEX) 2 mg tablet Take 1 tablet (2 mg total) by mouth 2 (two) times a day 180 tablet 2 5 Active isosorbide mononitrate ER (IMDUR) 60 mg 24 hr tablet Take 1.5 tablets (90 mg total) by mouth daily 135 tablet 2 5 Active spironolactone (ALDACTONE) 25 mg tablet TAKE 2 TABLETS DAILY 180 tablet 3 5 Active apixaban (Eliquis) 5 mg tablet TAKE 1 TABLET TWICE A DAY 180 tablet 5 Active metoprolol XL (TOPROL-XL) 100 mg 24 hr tablet TAKE 1 TABLET BY MOUTH DAILY 90 tablet 3 5 Active spironolactone (ALDACTONE) 25 mg tablet Take 2 tablets (50 mg total) by mouth daily 180 tablet 3 4 025 Discontinued Eliquis 5 mg tablet TAKE 1 TABLET TWICE A DAY 180 tablet 3 4 025 Discontinued metoprolol XL (TOPROL-XL) 100 mg 24 hr tablet Take 1 tablet (100 mg total) by mouth daily 90 tablet 2 5 025 Discontinued Active Problems Problem Noted Date Diagnosed Date Aneurysm of left ventricle of heart 03/05/2024 Assessment & Plan (03/05/2024 12:33 PM CDT): On cMRI 12/2020 on Eliquis. ICD (implantable cardioverter-defibrillator) in place 07/22/2023 Assessment & Plan (08/08/2025 3:15 PM CDT): Denies therapies Assessment & Plan (04/26/2025 12:09 PM CDT): Denies therapies Assessment & Plan (01/31/2025 5:00 PM CDT): Denies therapies Assessment & Plan (01/09/2025 3:05 PM FIELD ENUMERATOR): -Dual chamber ICD is functioning appropriately as [...] (06/11/2022): Added automatically from request for surgery [id number] Tobacco abuse 06/05/2021 Assessment & Plan (06/06/2021 1:09 PM CDT): Barrier to advanced therapies if needed Discussed importance of smoking cessation Will discharge on Nicotine patch- low dose Patient very interested in cessation Assessment & Plan (06/05/2021 12:59 PM CDT): Barrier to advanced therapies if needed Ply Bander on cessation Limb ischemia 06/03/2021 Assessment & [...] Will discuss risks/benefits of triple therapy pending [facility] results Smoking cessation imperative Assessment & Plan (06/04/2021 11:16 AM CDT): -concern for left upper limb ischemia given intermittent blue discoloration. Per outpatient note would like LUCIANA, ultrasound and duplex of bilateral upper extremity Will obtain arterial and venous duplex studies over left upper extremity -strongly encouraged smoking cessation Coronary artery disease invo lving [place] coronary artery of [place] heart with angina pectoris 06/03/2021 Overview (07/07/2022): [facility] May 2021 RAMSAY to LAD patent, SVG to OM patent RCA spasm and stenosis - 3 mm x 28 mm resolute minh drug-eluting stent [facility] Jun 2022 Widely patent RAMSAY [...] with worsening CHF and chest pain Plan: [facility] yesterday with diffuse RCA disease [...] a non STEMI in May 2020 to [facility] and subsequent CABG with a RAMSAY to the LAD and venous graft to the OM. [facility] Dec 2020 LVEF 36% with Transmural late gadolinium enhancement involving at least 4 segments of the left ventricle mid cavity and apex consistent with a nonviable infarct Presented with worsening CHF and chest pain Plan: [facility] today Unclear if premature CAD [...] monitor not showing Afib Assessment & Plan (08/08/2025 3:15 PM CDT): Preet. Assessment & Plan (04/26/2025 12:11 PM CDT): Michele and PATRICE. Assessment & Plan (01/31/2025 5:03 PM CDT): [...] May 2020 TTE Jun 2020 LVEF 40% [facility] August 2020: Left main artery [...] LVIDD 4.7 cm MPI February 2024, Moderate-size, uautozdi-xv-dgeyma severity infarction of the apex with mild border zone ischemia along its margins. TTE March 2024 LVEF 45%, DICTAPHONE TYPIST laminated LV apical thrombus Assessment & Plan (08/08/2025 3:14 PM CDT): ICM. Sp CABG in 2019. HFimpEF. LVEF on ECHO March 2024 LVEF 43%. Ischemic workup with moderate sized infarct at the apex and mild ischemia along its edges- medically managed in the past. Improved anginal symptoms today. She has significantly decreased smoking, down to 1 cigarette a day from 1 ppd. Sternal chest pain, chest xray ? Sternal wire dehiscence. Increase Bumex to 2 mg BID and Imdur to 90 mg daily, and continue ranaexa 1000 mg BID, aldactone 50 mg daily, metoprolol 100 mg xl daily, and losartan 25 mg daily and Norvasc 5 mg daily. Plavix 75 mg daily along with Lipitor 80 mg daily. KCL supplement. Per her report she did have a lipid profile that was abnormal with her PCP, repeat FLP next week with Bnp and BMP. Dr. Dacosta in 3 months. Assessment & Plan (04/26/2025 12:10 PM CDT): [...] like to pursue further ischemic evaluation with [facility], given her increased anginal complaints. Will [...] BID. Continue Imdur 60 mg daily, ranaexa 58709 mg BID, aldactone 50 mg daily, metoprolol increase to 100 mg xl daily, and losartan 25 mg daily and Norvasc 5 mg daily. Plavix 75 mg daily along with Lipitor [address] daily[address] KCL supplement. Dr. Dacosta or Montserrat in 3 months. Will review CardioMems with . Assessment & Plan (01/09/2025 3:07 PM FIELD ENUMERATOR): -ICM. HFimpEF. LVEF 40-45% per TTE 03/2024 [...] Encounters Date Type Department Care Team Description 08/08/2025 3:12 PM CDT - 08/08/2025 11:59 PM CDT Hospital Encounter [facility] [address] [place] [id number] Ischemic cardiomyopathy Discharge Disposition: Discharge to home or self care 08/08/2025 2:30 PM CDT Office Visit [facility] Medicine Cardiology [address] [place] [address] for Advanced Medicine 8th [place] [address] [place] [address] Montserrat Leigh NP Ischemic cardiomyopathy (Primary Dx); ICD (implantable cardioverter-defibrill ator) in place 08/08/2025 Results Follow-Up [facility] [address] [facility] Advanced Medicine 8th [place] [address] [place] [address] Montserrat Leigh NP XR Chest Pa Lateral 2 Views 07/28/2025 Orders Only [facility] Cardiology [address] [facility] [address] [place] [address] Basilio Torres MD PhD from Last 3 Months Immunizations Immunization Administration [...] disease Ischemic cardiomyopathy CHF (congestive heart failure) ([facility]) Hyperlipidemia PONV (postoperative nausea and vomiting) no delayed discharge Arrhythmia PAF (paroxysmal atrial fibrillation) NSTEMI (non-ST elevated myocardial infarction) ( [facility]) Hypertension Family History Medical History [...] Date Smoking Tobacco: Every Day Cigarettes 0.5 30.8 Started: 1994 Passive Smoke Exposure: Current Smokeless [...] on file Legal Sex Female 1:15 AM FIELD ENUMERATOR Gender Identity Not on file Sexual Orientation Not on file Occupation Industry Job Start Date Job End Date denied Not on file Not on file Not on file Obstetrics History Last Filed Vital Signs Vital Sign Reading Time Taken Comments Blood Pressure 119/80 08/08/2025 2:21 PM CDT Pulse 68 08/08/2025 2:21 PM CDT Temperature 36.1 C (97 F) 04/26/2025 9:36 AM CDT Respiratory Rate 16 02/25/2024 3:00 AM CDT Oxygen Saturation 97% 08/08/2025 2:21 PM CDT Inhaled Oxygen Concentration - - Weight 83 kg (183 lb) 08/08/2025 2:21 PM CDT Height 157.5 cm (5' 2) 08/08/2025 2:21 PM CDT Body Mass Index 33.47 08/08/2025 2:21 PM CDT Plan of Treatment Health Maintenance Due [...] this topic Medical Devices Implanted Type Area Watershed Engineer Device Identifier Shelf Expiration Date Model / Serial / Lot iCents.net/[employer] [id number] Angio-Seal Evolution 6fr .035in Guidewire Bypass Tube Suture - [id number] Implanted:Qty: 1 on 06/05/2021 by Pancho Barraza MD PhD at [facility] Collagen N/A: Femoral [employer] Dorie 01/18/2022 [id number] / / [id number] [employer] Dorie Angio-Seal Vip 6fr Closere Device [id number] - [id number] Implanted:Qty: 1 on 06/25/2022 by Lc Mast MD at [facility] Collagen Right: Femoral [employer] Dorie 04/20/2023 [id number] / / [id number] Medtronic Inc [id number] 2 Chamber Df4 Inline Connector Radiopaque Pacemaker - [id number] - [id number] Implanted:Qty: 1 on 04/21/2021 by Basilio Torres MD PhD at [facility] ICD Left: Chest Medtronic Inc 08/18/2022 [id number] / [id number] / Medtronic Cardiac Rhythm Mgmt 1194p36 Sprint Quattro Secure S 55cm Df-4 Tripolar Screw Defibrillator - [id number] - [id number] Implanted:Qty: 1 on 04/21/2021 by Basilio Torres MD PhD at [facility] Lead Left: Chest Medtronic Inc 02/06/2023 [id number] / [id number] / Medtronic Cardiac Rhythm Mgmt 5076-45 Capsurefix Novus 6.2fr 2mm 45cm Bipolar Screw In Implantable - [id number] - [id number] Implanted:Qty: 1 on 04/21/2021 by Basilio Torres MD PhD at [facility] Lead Left: Chest Medtronic Inc 02/05/2023 [id number] / [id number] / Medtronic Usa Inc X [id number] Resolute [place] 3mm 2.1-2.7fr 26mm 140cm Rapid Exchange Radiopaque - [id number] Implanted:Qty: 1 on 06/05/2021 by Pancho Barraza MD PhD at [facility] Stent Medtronic Inc 03/09/2024 [id number] / / [id number] Procedures Procedure Name Priority Date/Time Associated Diagnosis Comments XR CHEST PA LATERAL 2 VIEWS Routine 08/08/2025 3:17 PM CDT Ischemic cardiomyopathy DEVICE CHECK - REMOTE Routine 07/28/2025 6:18 AM CDT COLONOSCOPY 06/30/2018 10:20 AM CDT from Last 3 Months or Most Recently Relevant to Health Maintenance Results * XR Chest Pa Lateral 2 Views (08/08/2025 3:17 PM CDT) Anatomical Region Laterality Modality Body, Chest N/A Computed Radiogr aphy 08/08/2025 3:40 PM CDT Impressions 08/08/2025 3:40 PM CDT Comparison 02/22/2024. Left subclavian pacemaker defibrillator with right atrial and right ventricular leads again seen. Median sternotomy wires are aligned and intact. The lungs are clear without focal consolidation or pulmonary edema. No pneumothorax or pleural effusion seen. Heart size and mediastinal contour within normal limits. Electronically signed by: Feliciano James M.D. Narrative 08/08/2025 3:40 PM CDT EXAMINATION: 2 view chest radiograph Procedure Note Feliciano James MD - 08/08/2025 EXAMINATION: 2 view chest radiograph IMPRESSION: Comparison 02/22/2024. Left subclavian pacemaker defibrillator with right atrial and right ventricular leads again seen. Median sternotomy wires are aligned and intact. The lungs are clear without focal consolidation or pulmonary edema. No pneumothorax or pleural effusion seen. Heart size and mediastinal contour within normal limits. Electronically signed by: Feliciano James M.D. Montserrat Leigh NP IMG XR PROCEDURES Final Re sult * DEVICE CHECK - REMOTE (07/28/2025 6:18 AM CDT) Anatomical Region Laterality Modality Other 07/28/2025 6:18 AM CDT Narrative 08/04/2025 3:06 PM CDT Interpretation Summary: Battery and Leads (BL) Normal parameters noted on battery and lead(s) --- 8.8 yrs remaining longevity. Lead impedance, sensing, and threshold trends stable and appropriate. No short V-V intervals. Presenting Rhythm (VA) Atrial Sensing-Ventricular Sensing (-VS) --- /VS (SR) 60s. Arrhythmic events (AE) No new arrhythmic events in monitoring period --- Since 04/29/25: No AHR or VHR episodes. Anticoagulation (AC) Patient on anticoagulant therapy Patient prescribed Apixaban (Eliquis) Transmission Information (TI) Device Summary Report Follow Up (FU) Patient's primary treating physician will be apprised of findings Procedure Note Basilio Torres MD PhD - 08/04/2025 Interpretation Summary: Battery and Leads (BL) Normal parameters noted on battery and lead(s) --- 8.8 yrs remaininglongevity. Lead impedance, sensing, and threshold trends stable andappropriate. No short V-V intervals. Presenting Rhythm (VA) Atrial Sensing-Ventricular Sensing (-VS) --- /VS (SR) 60s. Arrhythmic events (AE) No new arrhythmic events in monitoring period --- Since 04/29/25: No AHRor VHR episodes. Anticoagulation (AC) Patient on anticoagulant therapy Patient prescribed Apixaban (Eliquis) Transmission Information (TI) Device Summary Report Follow Up (FU) Patient's primary treating physician will be apprised of findings Basilio Torres MD PhD [facility] PROCEDURES Final Result * COLONOSCOPY (06/30/2018 10:20 AM CDT) Anatomical Region Laterality Modality Other Narrative Procedure Note Marvin Harrington MD - 06/30/2018 10:20 AM CDT [facility] Patient Name: Mercedes Roy Procedure Date: 06/30/2018 10:20 AM Date of : 1980 Admit Type: Outpatient Age: 37 Gender: Female Attending MD: Marvin Harrington MD Room: [facility] END[facility]COPY ROOM 2 Note Status: Finalized [...] passed under direct vision.The Pediatric Colonoscope [id number] was introduced through the anus and advanced [...] 10:20 AM Procedure Code(s): --- Professional --- 14770, Colonoscopy, flexible; with biopsy, single or multiple Diagnosis Code(s): --- Professional --- K64.8, Other hemorrhoids R19.7, Diarrhea, unspecified K92.1, Melena (includes Hematochezia) K57.30, Diverticulosis of large intestine without perforation orabscess without bleeding CPT copyright 2017 [employer] [employer]. All rights reserved. The codes documented in this report are preliminary and upon float tender reviewmay be revised to meet current compliance requirements. Recognized by the [place] [employer] for promoting quality in endoscopy Marvin Harrington MD ENDOSCOPY PROCEDURES Final Result from Last 3 Months or Most Recently Relevant to Health Maintenance Insurance [facility]PPO Address: [address] [address] [place] [address] [facility] [address] [facility]/PPO Address: [address] [address] [place] [address] [place] [address] [facility]/PPO Address: [address] [address] [place] [address] Advance Directives For more information, please contact: [phone] * Full Code (Latest Code Status on [...] 8:01 PM 06/03/2021 8:05 PM Care Teams Enrollment Representative Relationship Specialty Start Date End Date Gregorio Woo MD PCP - General 01/02/21 Chasity Hassan, SALINAS Registered Nurse Marine Equipment Sales Engineer 11/04/20 Odalis Espinoza, RN [address] [address] Heart Failure Coordinator Marine Equipment Sales Engineer 10/22/21 Sapna Montgomery Primary Director Of Content Marketing 08/08/25
--- OUTSIDE RECORDS SUMMARY | 2025-09-10 18:44 | XMS_ITS | Encounter Summary ---
Author Organization [facility] [employer] [facility] Address [address] [place] [address] Phone Care Team Providers Care Electric Knife Operator Name Role Phone Chasity Hassan RN Unavailable Gregorio Woo MD Primary Care Provider [phone] Odalis Espinoza RN Unavailable [phone] Sapna Montgomery Unavailable Unavailable Encounter Details Date Type Department Care Team (Late st Contact Info) Description 08/08/2025 Results Follow-Up [facility] Medicine Cardiology [address] [facility] Advanced Medicine 8th [place] [address] [place] [address] Montserrat Leigh, DESHAWN [address] [facility] [address] [place] [address] XR Chest Pa Lateral 2 Views Social History Tobacco Use Types Packs/Day Years [...] on file Legal Sex Female 1:15 AM 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 Gender Identity Not on file Sexual Orientation Not on file Occupation Industry Job Start Date Job End Date denied Not on file Not on file Not on file documented as of this encounter Plan of Treatment Not on file documented as of this encounter Visit Diagnoses Not on filedocumented in this encounter Care Teams Electric Knife Operator Relationship Specialty Start Date End Date Gregorio Woo MD PCP - General 01/02/21 Chasity Hassan, RN Registered Nurse Fruit I Farmworker 11/04/20 Odalis Espinoza, RN [address] [address] Heart Failure Coordinator Fruit I Farmworker 10/22/21 Sapna Montgomery Primary Mission Coordinator 08/08/25 documented as of this encounter
--- OUTSIDE RECORDS SUMMARY | 2025-09-10 18:44 | XMS_ITS | Clinical Summary ---
Author Organization [facility] Address [address] [place] [address] Care Team Providers Care Microsoft Dynamics Developer Name Role Phone Unavailable Primary Care Provider [...] Screening 2019 COVID-19 Vaccine (2023-2 5 season) 2025 Influenza Adult (#1) 2025 Meningococcal B Vaccine Aged Out No l onger eligible based on patient's age to complete this topic Meningococcal Vaccine Aged Out No jelly libia eligible based on patient's age to complete this topic Pneumococcal Vaccine: Pediat rics (0 to 5 Years) and At-Risk Patients (6 to 49 Years) Aged Out No longer eligible b ased on patient's age to complete this topic RSV Immunizations Under 20 Months Aged Out No longer eligible based on patient's age to complete this topic
--- OUTSIDE RECORDS SUMMARY | 2025-09-10 18:44 | XMS_ITS | Clinical Summary ---
Author Organization [facility] Address [address] [place] [address] Care Team Providers Care Kineseologist Name Role Phone Nick Han MD Unavailable [phone] Source Comments [facility],non-owned Affiliates and Associated Physician Practices is amultiple site organization consisting of ambulatory clinics and hospital sitesin [place], [place], [place] and [place]. This disclosure is being madepursuant to the Care Everywhere program and may not contain all information available regarding this patient. Last updated 18.[facility] Allergies Active Allergy Reactions Criticality Noted Date Comments Codeine Urticaria,Vomiting Medium 06/13/2020 Vomiting and hives Doxycycline Urticaria Medium 06/13/2020 Morphine Urticaria,Vomiting Medium 06/13/2020 Medications * Be aware that medications may not be up to date on this document. Alwaysverify current medications with the patient. PROAIR HFA 108 (90 Base) MCG/ACT inhaler Inhale 2 puffs by mouth every 6 hours as needed for Shortness of Breath or Wheezing 0 Active aspirin (ASPIRIN) 81 MG chew tablet Take 1 tablet by mouth once daily 30 tablet 1 0 Active atorvastatin (LIPITOR) 80 MG tablet Take 1 tablet by mouth at bedtime 30 tablet 2 0 Active clopidogrel (PLAVIX) 75 MG tablet Take 1 tablet by mouth once daily 30 tablet 1 0 Active melatonin 3 MG tablet Take 1 tablet by mouth at bedtime 14 tablet 0 Active pantoprazole EC (PROTONIX) 40 MG tablet Take 1 tablet by mouth once daily 30 tablet 1 0 Active ALPRAZolam (XANAX) 0.25 MG tabletIndicatio ns:Anxiety Take 1 tablet by mouth nightly as needed for Anxiety Reasons: Feeling Anxious 10 tablet 0 Active metoprolol succinate XL 24hr (TOPROL XL) 25 MG tabletIndicatio ns:Coronary artery disease involving [place] coronary artery of [place] heart without angina pectoris Take 1 tablet by mouth once daily 90 tablet 4 0 Active buPROPion SR 12hr (WELLBUTRIN-SR) 150 MG [...] of Binge Drinking Not on file 05/22 Comments No Sex and Gender Information Value Date Recorded Sex Assigned at Not on file Legal Sex Female 10:31 AM LEAD CUSTODIAN Gender Identity Not on file Sexual Orientation Not on file Last Filed Vital Signs Vital Sign Reading Time Taken Comments Blood Pressure 99/70 12/04/2020 9:05 AM LEAD CUSTODIAN Pulse 82 12/04/2020 9:05 AM LEAD CUSTODIAN Temperature 36.7 C (98 F) 09/27/2020 1:05 PM LEAD CUSTODIAN Respiratory Rate 19 09/27/2020 1:05 PM LEAD CUSTODIAN Oxygen Saturation 98% 10/06/2020 1:49 PM LEAD CUSTODIAN Inhaled Oxygen Concentration 40% 06/19/2020 1 2:00 PM CDT Weight 77.7 kg (171 lb 3.2 oz) 12/04/2020 9:05 A M LEAD CUSTODIAN Height 157.5 cm (5' 2) 12/04/2020 9:05 AM LEAD CUSTODIAN Body Mass Index 31.31 12/04/2020 9:05 AM LEAD CUSTODIAN Plan of Treatment Health Maintenance Due Date Last Done Comments COLOGUARD (AGES 45-75) - COLON CA SCREENING 1979 COLON MONITORING 1979 COLONOSCOPY - COLON CA SCREENING 1979 CT COLONOGRAPHY - COLON CA SCREENING 1979 Colorectal Cancer Screening 1979 FIT - COLON CA SCREENING 1979 FLEX SIG - COLON CA SCREENING 1979 MAMMOGRAM 1979 HIV SCREENING 1994 HEPATITIS C SCREENING 07/21/1997 DTAP/TDAP/TD VACCINES (1 - Tdap) 1998 HEPATITIS B VACCINE (1 of 3 - 19+ 3-dose series) 1998 PAP SMEAR 2000 SCREENING FOR DIABETES 12/04/2023 , 10/06/2020, 09/27/2020, Additional history exists DEPRESSION SCREENING 11/21/2024 COVID-19 VACCINE ( - season) 2025 INFLUENZA VACCINE (#1) 2025 ZOSTER VACCINE (1 of 2) 2029 HIB [...] this topic Medical Devices Implanted Type Area Dump Truck Operator Device Identifier Shelf Expiration Date Model / Serial / Lot Stent Uret 6fr 22cm 2 Pgtl Crv 2 Drmtr Implanted:Qty: 1 on 09/27/2020 by Stan Brizuela MD at [facility] Right: Ureter [employer] Scimed 08/27/2022 [id number] / / [id number] Explanted Type Area Dump Truck Operator Device Identifier Shelf Expiration Date Model / Serial / Lot Cbl Pace Jamar 6ft Atr Vntrc Xtrn Temp Reu Explanted:Qty: 1 on 06/16/2020 at [facility] [employer] [id number] / / Procedures Procedure Name Priority Date/Time Associated Diagnosis Comments COMPREHENSIVE METABOLIC PANEL Routine 12/04/2020 9:57 AM LEAD CUSTODIAN Coronary artery disease involving [place] coronary artery of [place] heart without angina pectoris Chest pain, unspecified type from Last 3 Months or Most Recently Relevant to Health Maintenance Results * (ABNORMAL) COMPREHENSIVE METABOLIC PANEL (12/04/2020 9:57 AM LEAD CUSTODIAN) Glucose 66(L) 70 - 105 mg/dL [facility] [...] BLOOD SPECIMEN / Unknown 12/04/2020 9:57 AM LEAD CUSTODIAN 12/04/2020 Narrative Resulting Agency Comment Lab Testing performed at: [address] Kelly MELENDEZ [id number] Nick Han MD LAB - CHEMISTRY ORDERABLES Fin al Result [facility] ACCOUNT BILL [address] [place] [address] from Last 3 Months or Most Recently Relevant to Health Maintenance Insurance [facility] [place] [address] CARE Advance Directives * Full Code (Latest Code Status on File) Date Activated Date Inactivated Comments 09/26/2020 8:28 PM 09/27/2020 6:28 PM * Full Code Date Activated Date Inactivated Comments 06/16/2020 1:42 PM 06/23/2020 2:37 PM * Full Code Date Activated Date Inactivated Comments 06/13/2020 11:32 AM 06/16/2020 1:42 PM Care Teams Kineseologist Relationship Specialty [place] [id number] [address] Paving Contractor Cardiovascular Disease 08/28/20
== END 2025-09-10 14:48 | disposition home or self-care (01) ==
LOC: CHSLAB 14:51
PROVIDERS: PCP Internal Medicine
DX: I25.5 Ischemic cardiomyopathy (principal)
CPT/HCPCS: 36415; 80048; 80061; 83880

== ENCOUNTER 2025-11-10 16:27 | Emergency (ER) | payer OTHER, SELFPAY ==
[2025-11-10] VITALS (40 sets, daily range): BP systolic 78–112; BP diastolic 39–70; PULSE 60–73; RESP 12–23; TEMP 36.3–36.6; O2SAT 91–99
--- NOTE | ~2025-11-10 | XR_ITS ---
EXAMINATION: XR chest 1V portable DATE: 11/10/2025 17:10 INDICATION: Left-sided chest pain. TECHNIQUE: A single frontal view of the chest was obtained. COMPARISON: Chest x-ray of 08/09/2024. FINDINGS: Postoperative changes of the heart with mild cardiomegaly. Lungs are free of acute process. IMPRESSION: 1. No acute findings in the limited portable AP chest. Cardiomegaly and postoperative changes of the heart. Reviewed, dictated and finalized at location T. [facility] NURSE IMPRESSION: 1. No acute findings in the limited portable AP chest. Cardiomegaly and postope rative changes of the heart.
--- NOTE | 2025-11-10 16:28 | ECG_ITS ---
Test Date: 2025-11-10 16:31:54 Measurements Intervals [place] Rate: 73 P: 37 VA: 154 QRS: 69 QRSD: 102 T: 123 QT: 421 QTc: 466 Interpretive Statements SINUS RHYTHM INCOMPLETE RIGHT BUNDLE BRANCH BLOCK MINIMAL Q WAVES- INF/LAT LEADS NONSPECIFIC ST & T-WAVE ABNORMALITY- DIFFUSE LEADS BASELINE ARTIFACT- I, II, III, AVR, AVL, AVF, V4-V6 BORDERLINE ECG No previous ECG available for comparison Electronically Signed On 11-10-2025 17:21:55 TITLE CURATOR by Aaron Wooten D.O.
--- OUTSIDE RECORDS SUMMARY | 2025-11-10 16:29 | XMS_ITS | Clinical Summary ---
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
--- OUTSIDE RECORDS SUMMARY | 2025-11-10 16:29 | XMS_ITS | Clinical Summary ---
Author Organization [facility] Address [address] [place] [address] Care Team Providers Care Veterans Contact Representative Name Role Phone Nick Han MD Unavailable [phone] Source Comments [facility],non-owned Affiliates and Associated Physician Practices is amultiple site organization consisting of ambulatory clinics and hospital sitesin [place], [place], [place] and [place]. This disclosure is being madepursuant to the Care Everywhere program and may not contain all information available regarding this patient. 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 Gender Identity Not on file Sexual Orientation Not on file Last Filed Vital Signs Vital Sign Reading Time Taken Comments Blood Pressure 99/70 12/04/2020 9:05 AM ABNORMAL PSYCHOLOGY TEACHER Pulse 82 12/04/2020 9:05 AM ABNORMAL PSYCHOLOGY TEACHER Temperature 36.7 C (98 F) 09/27/2020 1:05 PM ABNORMAL PSYCHOLOGY TEACHER Respiratory Rate 19 09/27/2020 1:05 PM ABNORMAL PSYCHOLOGY TEACHER Oxygen Saturation 98% 10/06/2020 1:49 PM ABNORMAL PSYCHOLOGY TEACHER Inhaled Oxygen Concentration 40% 06/19/2020 1 2:00 PM CDT Weight 77.7 kg (171 lb 3.2 oz) 12/04/2020 9:05 A M ABNORMAL PSYCHOLOGY TEACHER Height 157.5 cm (5' 2) 12/04/2020 9:05 AM ABNORMAL PSYCHOLOGY TEACHER Body Mass Index 31.31 12/04/2020 9:05 AM ABNORMAL PSYCHOLOGY TEACHER Plan of Treatment Health Maintenance Due Date [...] history exists DEPRESSION SCREENING 11/21/2024 COVID-19 VACCINE (1 - season) 2025 INFLUENZA VACCINE (#1) 2025 [...] this topic Medical Devices Implanted Type Area Photogrammetric Technician Device Identifier Shelf Expiration Date Model / Serial / Lot Stent Uret 6fr 22cm 2 Pgtl Crv 2 Drmtr Implanted:Qty: 1 on 09/27/2020 by Stan Brizuela MD at [facility] Right: Ureter [employer] Scimed 08/27/2022 [id number] / / [id number] Explanted Type Area Photogrammetric Technician Device Identifier Shelf Expiration Date Model / Serial / Lot Cbl Pace Jamar 6ft Atr Vntrc Xtrn Temp Reu Explanted:Qty: 1 on 06/16/2020 at [facility] [employer] [id number] / / Procedures Procedure Name Priority Date/Time Associated Diagnosis Comments COMPREHENSIVE METABOLIC PANEL Routine 12/04/2020 9:57 AM ABNORMAL PSYCHOLOGY TEACHER Coronary artery disease involving [place] coronary artery of [place] heart without angina pectoris Chest pain, unspecified type from Last 3 Months or Most Recently Relevant to Health Maintenance Results * (ABNORMAL) COMPREHENSIVE METABOLIC PANEL (12/04/2020 9:57 AM ABNORMAL PSYCHOLOGY TEACHER) Glucose 66(L) 70 - 105 mg/dL [facility] [...] BLOOD SPECIMEN / Unknown 12/04/2020 9:57 AM ABNORMAL PSYCHOLOGY TEACHER 12/04/2020 Narrative Resulting Agency Comment Lab Testing performed at: [address] Kelly MELENDEZ [id number] Nick Han MD LAB - CHEMISTRY ORDERABLES Fin al Result [facility] ACCOUNT BILL [address] [place] [address] from Last 3 Months or Most Recently Relevant to Health Maintenance Insurance [facility] [address] CARE Advance Directives * Full Code (Latest Code Status on File) Date Activated Date Inactivated Comments 09/26/2020 8:28 PM 09/27/2020 6:28 PM * Full Code Date Activated Date Inactivated Comments 06/16/2020 1:42 PM 06/23/2020 2:37 PM * Full Code Date Activated Date Inactivated Comments 06/13/2020 11:32 AM 06/16/2020 1:42 PM Care Teams Veterans Contact Representative Relationship Specialty [place] [id number] [address] Community Service Organization Director Cardiovascular Disease 08/28/20
--- OUTSIDE RECORDS SUMMARY | 2025-11-10 16:29 | XMS_ITS | Encounter Summary ---
Author Organization [facility] Address [address] [place] [address] Phone Care Team Providers Care Registered Health Nurse Name Role Phone Chasity Hassan RN Unavailable Gregorio Woo MD Primary Care Provider [phone] Odalis Espinoza RN Unavailable [phone] Sapna Montgomery Unavailable Unavailable Encounter Details Date Type Department Care Team (Late st Contact Info) Description 11/08/2025 Results Follow-Up [facility] Medicine Cardiology [address] [facility] [address]th [place] [address] [place] [id number] Montserrat Leigh, DESHAWN [address] [facility] [facility] [facility] [address] [place] [address] CBC with auto differential, Differential, auto Social History Tobacco Use Types Packs/Day Years Used Date Smoking Tobacco: Former Cigarettes Q uit: 1994 Passive Smoke Exposure: Current Smokeless Tobacco: [...] on file 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 Gender Identity Not on file Sexual Orientation Not on file Occupation Industry Job Start Date Job End Date denied Not on file Not on file Not on file documented as of this encounter Plan of Treatment Not on file documented as of this encounter Visit Diagnoses Not on filedocumented in this encounter Care Teams Registered Health Nurse Relationship Specialty Start Date End Date Gregorio Woo MD PCP - General 01/02/21 Chasity Hassan, RN Registered Nurse Complex Case Manager 11/04/20 Odalis Esipnoza, RN [phone] [address] Heart Failure Coordinator Complex Case Manager 10/22/21 Sapna Montgomery Primary Oil Agent 08/08/25 documented as of this encounter
--- NOTE | 2025-11-10 17:01 | ED.CHESTPAIN ---
HPI - Chest Pain General Chief Complaint: Chest Pain Stated Complaint: chest pain Time Seen by Provider: 11/10/25 16:42 History of Present Illness HPI narrative: 45 yo w f with history of severe OH about 5 years ago, resulting in a CABG, and had stents placed about 3 years ago. She has an ejection fraction that at 1 time was low enough that she had an AICD/pacemaker placed, but reports her ejection fraction has gradually improved and at last echo was 26%. At 1 time she was referred to [facility] for evaluation for transplant, reports initially she met criteria but then her ejection fraction improved enough that she is currently off the transplant list but still follows with , human resource assistant at [facility]. She reports that she will have angina on occasion, roughly once a week, and will take 1 nitro for. Yesterday and today however she has been having recurrent symptoms, more intense, lasting longer, and less responsive to nitroglycerin. The episodes seem to come on with any kind of activity. But she has also had a couple of episodes where she was at rest. The discomfort is difficult to describe, but accompanying it will be a hot flushed feeling, a very anxious feeling that something bad is going on, but has not noticed any overt near-syncope or syncope, shortness of breath, or diaphoresis. She has not really noticed nausea with it but she gets this sinking feeling in the pit of her stomach, and then does not feel like eating for a while She is concerned as these are the types of symptoms that led to her stent placed but. She denies any recent fever, chills, sinus drainage, sore throat, cough, palpitations, near-syncope or syncope. Denies any recent nausea vomiting, abdominal pain, diarrhea or constipation, dysuria urgency or frequency Related Data Home Medications ?Medication ?Instructions ?Recorded ?Confirmed ?Last Taken ?Type metoprolol succinate 25 mg 50 mg PO DAILY 09/25/20 09/19/24 03/11/22 History tablet,extended release 24 hr spironolactone 25 mg tablet 25 mg PO HS 09/25/20 09/19/24 03/11/22 History nitroglycerin 0.3 mg sublingual 0.3 mg sublingual Q5MIN PRN Chest 06/09/21 09/19/24 03/11/22 History tablet Pain ranolazine 500 mg tablet,extended 500 mg PO BID 06/09/21 09/19/24 03/11/22 History release,12 hr (Ranexa) atorvastatin 80 mg tablet 80 mg PO HS 07/29/21 09/19/24 03/11/22 History clopidogrel 75 mg tablet 75 mg PO DAILY 03/04/22 09/19/24 03/08/22 History isosorbide mononitrate 30 mg 120 mg PO HS 03/04/22 09/19/24 03/11/22 History tablet,extended release 24 hr pantoprazole 20 mg tablet,delayed 20 mg PO DAILY 03/04/22 09/19/24 03/11/22 History release duloxetine 30 mg capsule,delayed 30 mg PO BID 06/26/22 09/19/24 Unknown History release apixaban 5 mg tablet (Eliquis) 5 mg PO BID 02/22/24 09/19/24 Unknown History bumetanide 2 mg tablet 2 mg PO Q12H 11/10/25 Unknown History Allergies Allergy/AdvReac Type Severity Reaction Status Date / Time codeine Allergy Severe Hives Verified 11/10/25 16:50 doxycycline Allergy Intermediate Hives Verified 11/10/25 16:50 morphine Allergy Intermediate Hives Verified 11/10/25 16:50 ivp dye Allergy Unknown Uncoded 09/19/24 14:04 Review of Systems Review of Systems: ROS negative except as in HPI PMFSH Past Medical History Medical History Anemia Anxiety CAD (coronary artery disease) Cardiac defibrillator in place Has been wearing LifeVest since August 2020. Property Management Bookkeeper is Dr Nick Han. Cardiomyopathy Chest pain CHF (congestive heart failure) Colitis Depression DVT (deep venous thrombosis) Endometriosis Fibroids Fibromyalgia History of kidney stones History of ovarian cyst HTN (hypertension) Hx of myocardial infarction Hypercholesterolemia IBS (irritable bowel syndrome) NSTEMI (non-ST elevated myocardial infarction) Unstable angina UTI (urinary tract infection) Surgical History Surgical History History of cholecystectomy around 2009 History of hysterectomy Around 2008 due to endometriosis History of laparoscopy Patient tells me she has had nearly 20 laparoscopies for endometriosis. Hx of cystoscopy around 2011 S/P CABG x 22 May 2020 at [facility]. Property Management Bookkeeper is Dr Nick Han. Family History Family History Father , Age 56 Acute myocardial infarction Family history of cardiovascular disease Family history of kidney disease Hypertension Grandparent , Passed in 50s from acute OH Diabetes mellitus Pancreatic cancer Lung cancer Acute myocardial infarction Sibling Family history of allergic disorder Social History Social History Social History: Ms. Roy lives at home with her and children in [place], [place]. 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 She denies alcohol use. Smoked 1.5 packs per day x 20 years and quit in May 2020 at time of her OH. She reports smoking marijuana occasionally, less than once per month. PCP is Dr Woo. She designates her , Nando, as her surrogate decision maker and is Full Code Status. Smoking packs per day: 1.5 Smoking cigarettes per day: 30.0 Years smoked: 20 Smoking pack-years: 30.00 Smoking status: Never smoker Tobacco type: cigarettes Second hand tobacco smoke exposure: Yes Alcohol intake: never Substance use: never Substance use type: does not use Last use: 06/12/20 Living arrangements: with family Gender identity (if verbalized by the patient): Female Sexual Orientation (if Verbalized by the Patient): Straight or Heterosexual Spiritual care concerns: No Exam Narrative: pleasant, well oriented, articulate, very good historian, no acute distress There is a strong odor of tobacco, but she reports she has stopped smoking however her and son still smoke in the house. She reports that if she really thinks hard she can tell there is just a little abnormal feeling there but it is much improved Const: General: cooperative, healthy appearing, comfortable, no acute distress, well developed, alert, awake and Physically active Orientation/consciousness: patient oriented x3 HENMT: Head: normal to inspection, normocephalic and atraumatic Ears: hearing grossly normal bilaterally and external ears normal Face/Nose/Sinus: Normal external nose present, Normal nares present, Normal nasal mucous membranes and turbinates present and normal facial exam Face and sinus: normal facial exam Mouth: Yes Normal oral and palatal mucosa present, Yes lip normal, Yes tongue normal, Yes oropharynx normal and Yes moist mucous membranes Teeth and gingiva: dentition normal Throat: posterior oropharynx normal and tonsils normal ( erythematous) Eyes: General: appearance normal, both eyes and all related structures Alignment and Position: alignment normal and position normal Periorbital: periorbital findings normal Eyelids: eyelids normal Conjunctivae: conjunctivae normal Sclera: sclerae normal Cornea: corneas normal Pupils: Equal, round and reactive pupils present EOM: EOMs intact bilaterally Neck: Neck: normal visual inspection, full ROM and no lymphadenopathy Chest: Chest palpation & inspection: normal inspection of the chest Resp: Effort & Inspection: normal respiratory effort, able to speak in complete sentences, no audible wheezes, no respiratory distress and no use of accessory muscles Auscultation: clear to auscultation bilaterally Cardio: Jugular venous distension: no JVD Rate: regular rate Rhythm: regular rhythm GI: Inspection: normal to inspection GI Palp: No abdominal tenderness, No Tenderness to palpation present (GI), No Guarding due to palpation present (GI), No No hepatosplenomegaly present, No Palpable mass present and No Rebound tenderness present Skin: General skin exam: normal color, no rashes or lesions noted, elasticity normal and turgor normal Neuro: General: patient oriented x3, gait normal, tone normal and moves all extremities Cranial nerves: Yes CN's II-XII intact bilaterally, Yes Equal, round and reactive pupils present and Yes Bilaterally intact EOM present Speech: normal speech Motor exam (neuro): 5/5 motor strength present throughout and Normal motor muscle tone present throughout Sensory Exam: normal sensation Extrem: General: normal to inspection, normal exam except as noted and no pedal edema Psych: Appearance: grossly normal and well kempt Mental Status: mental status grossly normal Speech and movement: Normal speech and movement present Affect: normal affect Attitude: cooperative Thought process: Normal thought process present Course Course Emergency Course: Differential diagnosis includes but is not limited to chest wall pain, costochondritis, pleuritis, ACS, angina, acute OH, PE EKG at 4:31 p.m. shows normal sinus rhythm, normal axis, unremarkable QRS complexes, there are very narrow non physiologic Q-waves in 2 3 and AVF, and nonspecific STT wave abnormalities. H&H is normal at 14.1 and 41.9 with white count of 9900. D-dimer is normal at 0.19. CMP is normal. Pro BNP is 319. First troponin is less than 0.012, 2nd troponin is also very low. Urine was unremarkable. Patient's heart score is a 6 or 7 depending on how you interpret her history. There are components of her description of pain hip demonstrate a progressive pattern, when considering this her heart score is a 7. I discussed all these factors with the patient, she has had no further discomfort we gave aspirin and an inch of nitro paste. Her blood pressure has been low, but she reports her normal blood pressures are typically between 90 and 100, her pressures here have been between 85 and 105. I did give her 1 L of LR. She will need a higher level of care than what we can provide here She has received her post CABG care at [facility], and is followed there it she would like to be transferred there. Will start with [facility] 8:25 p.m. call placed to [facility] transfer nurse 8:30 p.m. patient's blood pressure is running a little bit soft, will give a liter of fluids 9:15 p.m. pressure improved with fluids, but then started drifting down, the 1 in of nitropaste was removed 9:30 p.m. discussed with human resource assistant at [facility], Dr. Armendariz, who accepts the patient to their service. 9:40 p.m. patient's blood pressure has come up after the nitro was discontinued, however now she has just a little bit of aching in the left chest. We will have nitro paste 1/2 inch placed. Medical decision making complexity and risk included evaluation of numerous labs, images, radiology reports, EKG, telemetry monitoring, multiple prescription medications, discussion with outside human resource assistant, arrange transfer to higher level of care. Critical care time 65 minutes. Vital Signs Vital signs: Vital Signs Pulse Rate 71 11/10/25 16:34 Respiratory Rate 15 11/10/25 16:34 Pulse Oximetry 98 11/10/25 16:34 Oxygen Delivery Room Air 11/10/25 16:34 Temperature 36.6 C 11/10/25 21:40 Pulse Rate 60 11/10/25 23:00 Respiratory Rate 21 H 11/10/25 23:00 Blood Pressure 94/48 L 11/10/25 23:00 Pulse Oximetry 95 11/10/25 23:00 Oxygen Delivery Room Air 11/10/25 19:03 MDM Differential Diagnosis Differential Diagnosis: See differential diagnosis in ED course Lab Data 11/10/25 17:06 11/10/25 17:06 Labs: Lab Results 11/10/25 11/10/25 11/10/25 Range/Units 17:06 17:16 19:18 WBC 9.9 (4.8-10.8) K/mm3 RBC 4.62 (4.20-5.40) M/mm3 Hgb 14.1 (12.0-15.0) g/dL Hct 41.9 (35.0-49.0) % MCV 90.7 (78.0-102.0) fL MCH 30.5 (27.0-31.0) pg MCHC 33.7 (32-36) g/dL RDW 12.8 (11.6-14.4) % Plt Count 291 (150-420) K/mm3 MPV 10.2 (9.2-11.8) fl Immature Gran % (Auto) 0.2 H (0.0-0.0) % Neut % (Auto) 63.3 (50.0-70.0) % Lymph % (Auto) 28.6 (18.0-42.0) % [place] % (Auto) 3.8 (2.0-11.0) % Eos % (Auto) 3.2 (1.0-6.0) % Baso % (Auto) 0.9 (0.0-1.0) % Lymph # (Auto) 2.82 (1.10-4.50) K/mm3 [place] # (Auto) 0.37 (0.10-0.90) K/mm3 Eos # (Auto) 0.32 (0.02-0.50) K/mm3 Baso # (Auto) 0.09 (0.00-0.10) K/mm3 Abs Immat Gran (auto) 0.02 H (0.00-0.00) K/mm3 Absolute Neuts (auto) 6.24 (1.70-7.20) K/mm3 Absolute Nucleated RBC 0.00 (0.00-0.00) K/mm3 Nucleated RBC % 0.0 (0-0.0) % PT 11.1 (9.50-12.1) Seconds INR 1.0 APTT 31.6 H (23.9-30.70) Sec D-Dimer 0.19 (0.19-0.50) mg/L Sodium 141 (137-145) mmol/L Potassium 3.7 (3.4-5.0) mmol/L Chloride 104 (98-107) mmol/L Carbon Dioxide 24 (22-30) mmol/L Anion Gap 13 H (4-12) mmol/L BUN 13 (7-17) mg/dL Creatinine 0.92 (0.7-1.0) mg/dL Estim Creat Clear Calc 65 ml/min Estimated GFR > 60 (59 - ) Glucose 154 H (65-110) mg/dL Calculated Osmolality 295 (285-295) mOsm/kg Calcium 9.3 (8.4-10.2) mg/dL Total Bilirubin 0.5 (0.2-1.3) mg/dL AST 30 (14-36) U/L ALT 31 (6-35) U/L Alkaline Phosphatase 89 (38-126) U/L Troponin I < 0.012 < 0.012 (0.000-0.034) ng/mL NT-Pro-B Natriuret Pep 319 H (19.9-100) pg/mL Total Protein 7.4 (6.3-8.2) g/dL Albumin 4.7 (3.5-5.1) g/dL Urine Color Light yellow (Yellow) Urine Appearance Clear (Clear) Urine pH 6.5 (5.0-8.0) Ur Specific [place] 1.010 (1.010-1.020) Urine Protein Negative (Negative) Urine Glucose (UA) Negative (Negative) Urine Ketones Negative (Negative) Ur Blood (Man) Negative (Negative) Urine Nitrate Negative (Negative) Urine Bilirubin Negative (Negative) Urine Urobilinogen 0.2 (0.2-1.0) mg/dL Leukocyte Esterase Rfl 1+ H (Negative) ROBBIE/UL Urine RBC 0-2 (0-2) /hpf Urine WBC 0-3 (0-3) /hpf Ur Squamous Epith Cells Few (Few) /hpf Urine Bacteria Trace (None) /hpf Imaging Data Radiologist's impression: ITS Impressions Chest X-Ray 11/10/25 17:12 IMPRESSION: 1. No acute findings in the limited portable AP chest. Cardiomegaly and postoperative changes of the heart. Discharge Plan Discharge Clinical Impression: Cardiac defibrillator in place, S/P CABG x 2 CAD (coronary artery disease) Qualifiers: Coronary Disease-Associated Artery/Lesion type: unspecified vessel or lesion type [place] vs. transplanted heart: [place] heart Associated angina: with stable angina Qualified Code(s): I25.118 - Atherosclerotic heart disease of [place] coronary artery with other forms of angina pectoris Chest pain Qualifiers: Chest pain type: unspecified Qualified Code(s): R07.9 - Chest pain, unspecified Patient Disposition: Acute Care Hospital Condition: Stable Patient Language: Sudanese Prescriptions: No Action spironolactone 25 mg tablet 25 mg PO HS metoprolol succinate 25 mg tablet extended release 24 hr 50 mg PO DAILY bumetanide 2 mg tablet 2 mg PO Q12H nitroglycerin 0.3 mg tablet, sublingual 0.3 mg sublingual Q5MIN PRN (Reason: Chest Pain) ranolazine [Ranexa] 500 mg tablet extended release 12 hr 500 mg PO BID atorvastatin 80 mg tablet 80 mg PO HS duloxetine 30 mg capsule,delayed release(DR/EC) 30 mg PO BID Eliquis 5 mg tablet 5 mg PO BID isosorbide mononitrate 30 mg tablet extended release 24 hr 120 mg PO HS clopidogrel 75 mg tablet 75 mg PO DAILY pantoprazole 20 mg tablet,delayed release (DR/EC) 20 mg PO DAILY Follow-up/Referrals: PHYSICIAN,COMPUTER PROJECT MANAGER [Primary Care Provider, Internal Medicine] Quality HEART score for chest pain patients History: slightly suspicious ECG: non specific repolarization disturbance/LBTB/PM Age: > 45 and < 65 years Risk factors: > or = to 3 risk factors of atherosclerotic disease Troponin: > or = to 3x normal limit Heart score: 6
[2025-11-10] MEDS: ASPIRIN 81 MG CHEWABLE TABLET 324 MG PO (17:19)
[2025-11-10] MEDS: NITROGLYCERIN OINTMENT 1 INCH DOSE TRANSDERM (17:20)
[2025-11-10 17:21] LABS: Hematocrit 41.9 % (35.0-49.0); Hemoglobin 14.1 g/dL (12.0-15.0); Immature Granulocyte Percent A 0.2 % (0.0-0.0); Lymphocytes Absolute Auto 2.82 K/mm3 (1.10-4.50); Mean Corpuscular HGB Conc 33.7 g/dL (32-36); Mean Corpuscular Hemoglobin 30.5 pg (27.0-31.0); Mean Corpuscular Volume 90.7 fL (78.0-102.0); Nucleated Red Blood Cells Absolute Auto 0.00 K/mm3 (0.00-0.00); Nucleated Red Blood Cells Perc 0.0 % (0-0.0); Platelet Count Result 291 K/mm3 (150-420); Red Blood Count 4.62 M/mm3 (4.20-5.40); White Blood Count 9.9 K/mm3 (4.8-10.8)
[2025-11-10 17:33] LABS: Add Urine Microscopic? YES; Appearance Urine Clear (Clear); Glucose Urine UA Negative (Negative); Leukocyte Esterase Ur 1+ LEU/UL (Negative); Nitrate Urine Negative (Negative); Specific Grav Ur 1.010 (1.010-1.020)
[2025-11-10 17:34] LABS: Alanine Aminotransferase 31 U/L (6-35); Albumin Level 4.7 g/dL (3.5-5.1); Alkaline Phosphatase 89 U/L (38-126); Anion Gap 13 mmol/L (4-12); Aspartate Amino Transferase 30 U/L (14-36); Bilirubin,Total 0.5 mg/dL (0.2-1.3); Blood Urea Nitrogen 13 mg/dL (7-17); Calcium 9.3 mg/dL (8.4-10.2); Carbon Dioxide 24 mmol/L (22-30); Chloride 104 mmol/L (98-107); Estimated CRCL calculation 65 ml/min; Estimated Glomerular Filt Rate > 60; Glucose 154 mg/dL (65-110); Osmolality Calculated 295 mOsm/kg (285-295); Potassium 3.7 mmol/L (3.4-5.0); Sodium 141 mmol/L (137-145); Total Protein 7.4 g/dL (6.3-8.2)
[2025-11-10 17:36] LABS: INR 1.0; Partial Thromboplastin Time 31.6 Sec (23.9-30.70); Prothrombin Time 11.1 Seconds (9.50-12.1)
[2025-11-10 17:42] LABS: NT Pro B Type Natriuretic Pept 319 pg/mL (19.9-100)
[2025-11-10 17:45] LABS: Troponin I < 0.012 ng/mL (0.000-0.034)
[2025-11-10] MEDS: LACTATED RINGERS 1,000 ML 999 ML IV CONT (19:00)
[2025-11-10 19:48] LABS: Troponin I < 0.012 ng/mL (0.000-0.034)
--- NOTE | 2025-11-10 20:55 | PC.NURSE ---
Nitro patch removed per ERP order.
--- NOTE | 2025-11-10 21:20 | PC.NURSE ---
Pt reports that her chest pressure has returned under her left breast. She states that it feels like a golf ball under her breast. Pt reports that pain radiates to her back.
== END 2025-11-10 23:21 | disposition short-term general hospital (02) ==
PROVIDERS: Emergency Provider Emergency Medicine; Referring Provider Internal Medicine
DX: I25.118 Atherosclerotic heart disease of native coronary artery with other forms of angina pectoris (principal); I25.2 Old myocardial infarction; I11.0 Hypertensive heart disease with heart failure; I50.9 Heart failure, unspecified; Z95.1 Presence of aortocoronary bypass graft; Z87.891 Personal history of nicotine dependence; Z95.810 Presence of automatic (implantable) cardiac defibrillator
CPT/HCPCS: 36415; 71045; 80053; 81001; 83880; 84484; 85025; 85380; 85610; 85730; 93005; 96360; 99285; A9270; J7120